=== PATIENT | male | born 1950 | race Caucasian/White ===

== ENCOUNTER 2016-11-02 10:37 | Inpatient (IN) | payer MEDICARE, MEDICAID ==
[~2016-11-02] VITALS: Ht 167.6 cm; Wt 92.6 kg
[~2016-11-02 10:37] MED LIST: ARIP15TA3 PO; ATOR40TA28 PO; LEVO125 PO; LISI-660 PO; PANT40TA25 PO; SERT50TA12 PO; SITA25 PO; TRAZ-144 PO
[2016-11-02 13:53] VITALS: BP 129/80
[2016-11-02] MEDS ORDERED: ZOLPIDEM TARTRATE 10 MG TABLET PO PRN (14:00)
[2016-11-02] MEDS ORDERED: HALOPERIDOL 5 MG TABLET PO PRN (14:00)
[2016-11-02] MEDS ORDERED: NITR0.4T27 SL (15:40)
[2016-11-02] MEDS ORDERED: TIOT185 IH (15:40)
[2016-11-02] MEDS ORDERED: HYDR-3971 PO (15:40)
[2016-11-02] MEDS ORDERED: ATOR40TA28 PO (15:40)
[2016-11-02] MEDS ORDERED: ALBU8HFA IH (15:40)
[2016-11-02] MEDS ORDERED: SERT100T12 PO (16:12)
[2016-11-02] MEDS ORDERED: LEVO200 PO (16:12)
[2016-11-02] MEDS ORDERED: INFLUENZA VIRUS VACCINE QVS 2016-17 (3YR+)/PF 60 MCG/0.5 ML SYRINGE IM ONE (16:15)
[2016-11-02 16:16] VITALS: BP 149/84
[2016-11-02 21:06] VITALS: BP 132/86
[2016-11-03 01:04] VITALS: BP 138/83
[2016-11-03] MEDS: LORazepam 2 MG TABLET PO PRN (01:04)
[2016-11-03 06:02] LABS: GLUCOSE,POINT OF CARE 149 MG/DL (70-110)
[2016-11-03] MEDS: LEVOTHYROXINE SODIUM 200 MCG TABLET PO SCH (06:51)
[2016-11-03 08:50] LABS: BASOPHILS % (AUTO) 0.5 % (0.0-2.0); EOSINOPHILS % (AUTO) 1.1 % (1.0-6.0); HEMATOCRIT 49.5 % (41-53); HEMOGLOBIN 16.1 g/dL (13.5-17.5); LYMPHOCYTES # (AUTO) 1.7 K/uL (1.0-4.8); LYMPHOCYTES % (AUTO) 16.7 % (22.0-44.0); MEAN CORPUSCULAR HEMOGLOBIN 28.2 pg (26.0-34.0); MEAN CORPUSCULAR HGB CONC 32.5 G/dL (31.0-37.0); MEAN CORPUSCULAR VOLUME 87 fL (80-100); MONOCYTES # (AUTO) 0.9 K/uL (0.1-1.0); MONOCYTES % (AUTO) 8.9 % (2.0-9.0); NEUTROPHILS # (AUTO) 7.3 K/uL (1.8-7.7); NEUTROPHILS % (AUTO) 72.8 % (40.0-70.0); PLATELET COUNT (AUTO) 263 K/uL (150-450); RED CELL DISTRIBUTION WIDTH 15.5 % (11.5-14.5); WHITE BLOOD COUNT (AUTO) 10.1 K/uL (4.5-11.0)
[2016-11-03 09:00] VITALS: BP 113/60
[2016-11-03] MEDS: NICOTINE 21 MG/24 HOUR PATCH TD SCH (09:00)
[2016-11-03 09:10] LABS: HEMOGLOBIN A1C 6.9 % (4.5-6.2)
[2016-11-03] MEDS ORDERED: IBUPROFEN 600 MG TABLET PO PRN (09:15)
[2016-11-03] MEDS ORDERED: LOPERAMIDE HCL 2 MG CAPSULE PO PRN (09:15)
[2016-11-03] MEDS ORDERED: BENZOCAINE/MENTHOL LOZENGE MM PRN (09:15)
[2016-11-03] MEDS ORDERED: MAG HYDROX/AL HYDROX/SIMETH ES 30 ML SUSPENSION UDCUP PO PRN (09:15)
[2016-11-03] MEDS ORDERED: ACETAMINOPHEN 325 MG TABLET PO PRN (09:15)
[2016-11-03] MEDS ORDERED: BACITRACIN 28.4 GM OINTMENT TP PRN (09:15)
[2016-11-03] MEDS ORDERED: CloNIDine HCL 0.1 MG TABLET PO PRN (09:15)
[2016-11-03] MEDS ORDERED: ONDANSETRON HCL 4 MG TABLET PO PRN (09:15)
[2016-11-03] MEDS ORDERED: PETROLATUM,WHITE 71 GM JELLY TP PRN (09:15)
[2016-11-03] MEDS: TERBINAFINE HCL 1% 30 GM CREAM TP SCH (09:15)
[2016-11-03] MEDS ORDERED: GLUCAGON,HUMAN RECOMBINANT 1 MG VIAL IM PRN (09:15)
[2016-11-03] MEDS ORDERED: MAGNESIUM HYDROXIDE SUSPENSION 30 ML UDCUP PO PRN (09:15)
[2016-11-03 09:21] LABS: ALANINE AMINOTRANSFERASE 23 U/L (12-78); ALBUMIN 3.7 g/dL (3.4-5.0); ANION GAP 10 mmol/L (8-16); ASPARTATE AMINOTRANSFERASE 19 U/L (15-37); BILIRUBIN,TOTAL 0.5 mg/dL (0.1-1.0); CALCIUM, TOTAL 8.6 mg/dL (8.8-10.5); CARBON DIOXIDE 28 mmol/L (22-29); CHLORIDE 102 mmol/L (98-107); CREATININE 1.11 mg/dL (0.60-1.30); GLOMERULAR FILTR. RATE CALC > 60 mL/min (>60); POTASSIUM 5.1 mmol/L (3.5-5.1); SODIUM SERUM 140 mmol/L (136-145); THYROID STIMULATING HORMONE 6.03 uIU/mL (0.36-3.74); TOTAL PROTEIN, SERUM 6.7 g/dL (6.4-8.2); UREA NITROGEN, BLOOD 11 mg/dL (7-18)
[2016-11-03] MEDS: SitaGLIPtin PHOSPHATE 25 MG TABLET PO SCH (10:10)
[2016-11-03] MEDS: PANTOPRAZOLE SODIUM 40 MG DR TABLET PO SCH (10:10)
[2016-11-03] MEDS: TIOTROPIUM BROMIDE 18 MCG/INH HANDIHALER [5] IH SCH (10:11)
[2016-11-03] MEDS: TAMSULOSIN HCL 0.4 MG CAPSULE PO SCH (10:18)
[2016-11-03] MEDS: ATORVASTATIN CALCIUM 40 MG TABLET PO SCH (10:18)
[2016-11-03 10:33] LABS: APPEARANCE,URINE CLEAR (CLEAR); GLUCOSE, URINE (UA) NEGATIVE (NEGATIVE); KETONES,URINE NEGATIVE (NEGATIVE); LEUKOCYTE ESTERASE ,URINE NEGATIVE (NEGATIVE); OCCULT BLOOD,URINE SMALL (NEGATIVE); PH,URINE 7.5 (5.0-8.0); PROTEIN,URINE NEGATIVE (NEGATIVE)
[2016-11-03] MEDS: ARIPiprazole 15 MG TABLET PO SCH (10:52)
[2016-11-03] MEDS: SERTRALINE HCL 50 MG TABLET PO SCH (10:52)
[2016-11-03 12:32] LABS: ADD UA MICROSCOPIC YES
[2016-11-03 12:35] LABS: WBC,URINE 0-2 /HPF (0-5)
[2016-11-03 12:36] LABS: SQUAMOUS EPITHELIAL CELL,UR Rare /LPF (None Seen)
[2016-11-03 15:57] LABS: GLUCOSE,POINT OF CARE 119 MG/DL (70-110)
[2016-11-03 16:17] VITALS: BP 129/62
[2016-11-03 17:02] LABS: GLUCOSE,POINT OF CARE 131 MG/DL (70-110)
[2016-11-03] MEDS: TraZODone HCL 100 MG TABLET PO SCH ×2 (20:25→21:00)
[2016-11-03 20:47] LABS: GLUCOSE,POINT OF CARE 135 MG/DL (70-110)
[2016-11-04 05:35] VITALS: BP 107/75
[2016-11-04] MEDS: LEVOTHYROXINE SODIUM 200 MCG TABLET PO SCH (06:22)
[2016-11-04] MEDS: INSULIN ASPART 100 UNITS/ML SQ PRN (06:23)
[2016-11-04 06:27] LABS: GLUCOSE,POINT OF CARE 155 MG/DL (70-110)
[2016-11-04 08:23] VITALS: BP 126/81
[2016-11-04] MEDS: SitaGLIPtin PHOSPHATE 25 MG TABLET PO SCH (09:37)
[2016-11-04] MEDS: TAMSULOSIN HCL 0.4 MG CAPSULE PO SCH (09:38)
[2016-11-04] MEDS: SERTRALINE HCL 50 MG TABLET PO SCH (09:38)
[2016-11-04] MEDS: CHOLECALCIFEROL (VIT D3) 1,000 UNITS TABLET PO SCH (09:38)
[2016-11-04] MEDS: ARIPiprazole 15 MG TABLET PO SCH (09:38)
[2016-11-04] MEDS: TIOTROPIUM BROMIDE 18 MCG/INH HANDIHALER [5] IH SCH (09:38)
[2016-11-04] MEDS: NICOTINE 21 MG/24 HOUR PATCH TD SCH (09:38)
[2016-11-04] MEDS: ATORVASTATIN CALCIUM 40 MG TABLET PO SCH (09:39)
[2016-11-04] MEDS: PANTOPRAZOLE SODIUM 40 MG DR TABLET PO SCH (09:39)
[2016-11-04] MEDS: TERBINAFINE HCL 1% 30 GM CREAM TP SCH (09:45)
[2016-11-04 11:07] LABS: GLUCOSE,POINT OF CARE 115 MG/DL (70-110)
[2016-11-04] MEDS: LORazepam 2 MG TABLET PO PRN (12:24)
[2016-11-04] MEDS: ALBUTEROL SULFATE HFA 90 MCG/PUFF 8 GM INHALER IH PRN (15:48)
[2016-11-04 16:12] VITALS: BP 118/60
[2016-11-04 20:12] LABS: GLUCOSE,POINT OF CARE 114 MG/DL (70-110)
[2016-11-04] MEDS: TraZODone HCL 100 MG TABLET PO SCH (20:30)
[2016-11-05 06:09] VITALS: BP 120/60
[2016-11-05] MEDS: LEVOTHYROXINE SODIUM 200 MCG TABLET PO SCH (06:32)
[2016-11-05 06:57] LABS: GLUCOSE,POINT OF CARE 138 MG/DL (70-110)
[2016-11-05] MEDS: NICOTINE 21 MG/24 HOUR PATCH TD SCH (09:00)
[2016-11-05] MEDS: TERBINAFINE HCL 1% 30 GM CREAM TP SCH (09:00)
[2016-11-05] MEDS: SitaGLIPtin PHOSPHATE 25 MG TABLET PO SCH (09:04)
[2016-11-05] MEDS: TAMSULOSIN HCL 0.4 MG CAPSULE PO SCH (09:05)
[2016-11-05] MEDS: TIOTROPIUM BROMIDE 18 MCG/INH HANDIHALER [5] IH SCH (09:05)
[2016-11-05] MEDS: ATORVASTATIN CALCIUM 40 MG TABLET PO SCH (09:05)
[2016-11-05] MEDS: PANTOPRAZOLE SODIUM 40 MG DR TABLET PO SCH (09:05)
[2016-11-05] MEDS: CHOLECALCIFEROL (VIT D3) 1,000 UNITS TABLET PO SCH (09:06)
[2016-11-05] MEDS: SERTRALINE HCL 50 MG TABLET PO SCH (09:06)
[2016-11-05] MEDS: ARIPiprazole 15 MG TABLET PO SCH (09:06)
[2016-11-05] MEDS: HYDROCODONE/ACETAMINOPHEN 10-325 MG TABLET PO PRN (09:09)
[2016-11-05 09:55] VITALS: BP 121/76
[2016-11-05 11:39] LABS: GLUCOSE,POINT OF CARE 165 MG/DL (70-110)
[2016-11-05] MEDS: ALBUTEROL SULFATE HFA 90 MCG/PUFF 8 GM INHALER IH PRN (14:02)
[2016-11-05 16:13] VITALS: BP 115/68
[2016-11-05 17:06] LABS: GLUCOSE,POINT OF CARE 133 MG/DL (70-110)
[2016-11-05] MEDS: TraZODone HCL 100 MG TABLET PO SCH (20:42)
[2016-11-05] MEDS: LORazepam 2 MG TABLET PO PRN (20:42)
[2016-11-06] MEDS: LEVOTHYROXINE SODIUM 200 MCG TABLET PO SCH (06:30)
[2016-11-06 08:41] VITALS: BP 124/77
[2016-11-06] MEDS: NICOTINE 21 MG/24 HOUR PATCH TD SCH (09:00)
[2016-11-06] MEDS: TERBINAFINE HCL 1% 30 GM CREAM TP SCH (09:00)
[2016-11-06 09:35] VITALS: BP 118/70
[2016-11-06] MEDS: HYDROCODONE/ACETAMINOPHEN 10-325 MG TABLET PO PRN (09:38)
[2016-11-06] MEDS: TAMSULOSIN HCL 0.4 MG CAPSULE PO SCH (09:39)
[2016-11-06] MEDS: TIOTROPIUM BROMIDE 18 MCG/INH HANDIHALER [5] IH SCH (09:39)
[2016-11-06] MEDS: ARIPiprazole 15 MG TABLET PO SCH (09:39)
[2016-11-06] MEDS: PANTOPRAZOLE SODIUM 40 MG DR TABLET PO SCH (09:40)
[2016-11-06] MEDS: ATORVASTATIN CALCIUM 40 MG TABLET PO SCH (09:40)
[2016-11-06] MEDS: SERTRALINE HCL 50 MG TABLET PO SCH (09:40)
[2016-11-06] MEDS: SitaGLIPtin PHOSPHATE 25 MG TABLET PO SCH (09:40)
[2016-11-06] MEDS: CHOLECALCIFEROL (VIT D3) 1,000 UNITS TABLET PO SCH (09:40)
[2016-11-06] MEDS: GABAPENTIN 300 MG CAPSULE PO SCH ×2 (10:32→16:41)
[2016-11-06 10:35] VITALS: BP 120/68
[2016-11-06 11:22] LABS: GLUCOSE,POINT OF CARE 112 MG/DL (70-110)
[2016-11-06 16:08] VITALS: BP 112/64
[2016-11-06 16:52] LABS: GLUCOSE,POINT OF CARE 144 MG/DL (70-110)
[2016-11-06] MEDS: INSULIN ASPART 100 UNITS/ML SQ PRN (17:12)
[2016-11-06] MEDS: TraZODone HCL 100 MG TABLET PO SCH (20:36)
[2016-11-07] MEDS: LEVOTHYROXINE SODIUM 200 MCG TABLET PO SCH (07:00)
[2016-11-07 07:01] LABS: GLUCOSE,POINT OF CARE 122 MG/DL (70-110)
[2016-11-07] MEDS: ALBUTEROL SULFATE HFA 90 MCG/PUFF 8 GM INHALER IH PRN (07:05)
[2016-11-07 08:17] VITALS: BP 126/71
[2016-11-07] MEDS: SitaGLIPtin PHOSPHATE 25 MG TABLET PO SCH (09:00)
[2016-11-07] MEDS: GABAPENTIN 300 MG CAPSULE PO SCH ×2 (09:00→16:55)
[2016-11-07] MEDS: ARIPiprazole 15 MG TABLET PO SCH (09:00)
[2016-11-07] MEDS: CHOLECALCIFEROL (VIT D3) 1,000 UNITS TABLET PO SCH (09:00)
[2016-11-07] MEDS: ATORVASTATIN CALCIUM 40 MG TABLET PO SCH (09:00)
[2016-11-07] MEDS: PANTOPRAZOLE SODIUM 40 MG DR TABLET PO SCH (09:00)
[2016-11-07] MEDS: SERTRALINE HCL 50 MG TABLET PO SCH (09:01)
[2016-11-07] MEDS: NICOTINE 21 MG/24 HOUR PATCH TD SCH (09:01)
[2016-11-07] MEDS: TAMSULOSIN HCL 0.4 MG CAPSULE PO SCH (09:01)
[2016-11-07] MEDS: HYDROCODONE/ACETAMINOPHEN 10-325 MG TABLET PO PRN ×2 (09:04→20:22)
[2016-11-07] MEDS: TERBINAFINE HCL 1% 30 GM CREAM TP SCH (09:04)
[2016-11-07] MEDS: TIOTROPIUM BROMIDE 18 MCG/INH HANDIHALER [5] IH SCH (09:24)
[2016-11-07 11:18] LABS: GLUCOSE,POINT OF CARE 142 MG/DL (70-110)
[2016-11-07] MEDS: INSULIN ASPART 100 UNITS/ML SQ PRN (12:23)
[2016-11-07 16:21] VITALS: BP 127/73
[2016-11-07 17:02] LABS: GLUCOSE,POINT OF CARE 112 MG/DL (70-110)
[2016-11-07 20:06] LABS: GLUCOSE,POINT OF CARE 129 MG/DL (70-110)
[2016-11-07 20:19] VITALS: BP 122/68
[2016-11-07] MEDS: TraZODone HCL 100 MG TABLET PO SCH (20:22)
[2016-11-08] MEDS: LEVOTHYROXINE SODIUM 200 MCG TABLET PO SCH (06:09)
[2016-11-08 06:12] LABS: GLUCOSE,POINT OF CARE 157 MG/DL (70-110)
[2016-11-08] MEDS: INSULIN ASPART 100 UNITS/ML SQ PRN (06:34)
[2016-11-08 08:23] VITALS: BP 113/67
[2016-11-08] MEDS: GABAPENTIN 300 MG CAPSULE PO SCH ×2 (09:21→17:07)
[2016-11-08] MEDS: TIOTROPIUM BROMIDE 18 MCG/INH HANDIHALER [5] IH SCH (09:21)
[2016-11-08] MEDS: CHOLECALCIFEROL (VIT D3) 1,000 UNITS TABLET PO SCH (09:22)
[2016-11-08] MEDS: SERTRALINE HCL 100 MG TABLET PO SCH (09:22)
[2016-11-08] MEDS: PANTOPRAZOLE SODIUM 40 MG DR TABLET PO SCH (09:22)
[2016-11-08] MEDS: ARIPiprazole 10 MG TABLET PO SCH (09:22)
[2016-11-08] MEDS: SitaGLIPtin PHOSPHATE 25 MG TABLET PO SCH (09:23)
[2016-11-08] MEDS: NICOTINE 21 MG/24 HOUR PATCH TD SCH (09:24)
[2016-11-08] MEDS: TERBINAFINE HCL 1% 30 GM CREAM TP SCH (09:25)
[2016-11-08] MEDS: ATORVASTATIN CALCIUM 40 MG TABLET PO SCH (10:25)
[2016-11-08] MEDS: TAMSULOSIN HCL 0.4 MG CAPSULE PO SCH (10:25)
[2016-11-08 11:17] LABS: GLUCOSE,POINT OF CARE 123 MG/DL (70-110)
[2016-11-08 13:47] VITALS: BP 124/81
[2016-11-08 16:13] VITALS: BP 134/85
[2016-11-08] MEDS: LORazepam 2 MG TABLET PO PRN (20:45)
[2016-11-08] MEDS: TraZODone HCL 100 MG TABLET PO SCH (20:45)
[2016-11-09 04:44] VITALS: BP 148/86
[2016-11-09] MEDS: HYDROCODONE/ACETAMINOPHEN 10-325 MG TABLET PO PRN ×2 (05:12→19:22)
[2016-11-09 05:57] LABS: GLUCOSE,POINT OF CARE 109 MG/DL (70-110)
[2016-11-09] MEDS: LEVOTHYROXINE SODIUM 200 MCG TABLET PO SCH (06:15)
[2016-11-09 08:00] VITALS: BP 119/72
[2016-11-09] MEDS: GABAPENTIN 300 MG CAPSULE PO SCH ×2 (09:25→16:47)
[2016-11-09] MEDS: PANTOPRAZOLE SODIUM 40 MG DR TABLET PO SCH (09:25)
[2016-11-09] MEDS: CHOLECALCIFEROL (VIT D3) 1,000 UNITS TABLET PO SCH (09:25)
[2016-11-09] MEDS: NICOTINE 21 MG/24 HOUR PATCH TD SCH (09:25)
[2016-11-09] MEDS: SERTRALINE HCL 100 MG TABLET PO SCH (09:25)
[2016-11-09] MEDS: ARIPiprazole 10 MG TABLET PO SCH (09:25)
[2016-11-09] MEDS: TIOTROPIUM BROMIDE 18 MCG/INH HANDIHALER [5] IH SCH (09:26)
[2016-11-09] MEDS: SitaGLIPtin PHOSPHATE 25 MG TABLET PO SCH (09:26)
[2016-11-09] MEDS: ATORVASTATIN CALCIUM 40 MG TABLET PO SCH (09:27)
[2016-11-09] MEDS: TERBINAFINE HCL 1% 30 GM CREAM TP SCH (09:28)
[2016-11-09] MEDS: TAMSULOSIN HCL 0.4 MG CAPSULE PO SCH (09:52)
[2016-11-09 11:28] LABS: GLUCOSE,POINT OF CARE 84 MG/DL (70-110)
[2016-11-09 16:40] VITALS: BP 129/77
[2016-11-09 16:52] LABS: GLUCOSE,POINT OF CARE 125 MG/DL (70-110)
[2016-11-09] MEDS: TraZODone HCL 100 MG TABLET PO SCH (20:53)
[2016-11-09 21:08] LABS: GLUCOSE,POINT OF CARE 123 MG/DL (70-110)
[2016-11-10 00:04] VITALS: BP 129/77
[2016-11-10] MEDS: LORazepam 2 MG TABLET PO PRN (00:44)
[2016-11-10] MEDS: ALBUTEROL SULFATE HFA 90 MCG/PUFF 8 GM INHALER IH PRN (06:11)
[2016-11-10] MEDS: LEVOTHYROXINE SODIUM 200 MCG TABLET PO SCH (06:55)
[2016-11-10 07:06] LABS: GLUCOSE,POINT OF CARE 134 MG/DL (70-110)
[2016-11-10 08:52] VITALS: BP 141/91
[2016-11-10] MEDS: TERBINAFINE HCL 1% 30 GM CREAM TP SCH (09:00)
[2016-11-10] MEDS ORDERED: ASPIRIN 81 MG CHEWABLE TABLET PO SCH (09:00)
[2016-11-10] MEDS: ARIPiprazole 10 MG TABLET PO SCH (09:01)
[2016-11-10] MEDS: CHOLECALCIFEROL (VIT D3) 1,000 UNITS TABLET PO SCH (09:02)
[2016-11-10] MEDS: ATORVASTATIN CALCIUM 40 MG TABLET PO SCH (09:02)
[2016-11-10] MEDS: PANTOPRAZOLE SODIUM 40 MG DR TABLET PO SCH (09:02)
[2016-11-10] MEDS: TAMSULOSIN HCL 0.4 MG CAPSULE PO SCH (09:02)
[2016-11-10] MEDS: SitaGLIPtin PHOSPHATE 25 MG TABLET PO SCH (09:02)
[2016-11-10] MEDS: GABAPENTIN 300 MG CAPSULE PO SCH (09:02)
[2016-11-10] MEDS: SERTRALINE HCL 100 MG TABLET PO SCH (09:03)
[2016-11-10] MEDS: TIOTROPIUM BROMIDE 18 MCG/INH HANDIHALER [5] IH SCH (09:03)
[2016-11-10] MEDS: HYDROCODONE/ACETAMINOPHEN 10-325 MG TABLET PO PRN (09:03)
[2016-11-10] MEDS: NICOTINE 21 MG/24 HOUR PATCH TD SCH (09:12)
[2016-11-10] MEDS ORDERED: VITAD1000 PO (10:09)
[2016-11-10] MEDS ORDERED: TAMS0.4C32 PO (10:09)
== END 2016-11-10 10:00 | disposition home or self-care (01) | DRG 885 ==
LOC: B2S 14:25 → EDSTATUS 14:36
PROVIDERS: ADMIT Psychiatry & Neurology Child & Adolescent Psychiatry; ATTEND Psychiatry & Neurology Child & Adolescent Psychiatry
DX: F25.0 Schizoaffective disorder, bipolar type (principal); F10.239 Alcohol dependence with withdrawal, unspecified; J44.9 Chronic obstructive pulmonary disease, unspecified; I25.10 Atherosclerotic heart disease of native coronary artery without angina pectoris; E03.9 Hypothyroidism, unspecified; I10 Essential (primary) hypertension; E11.65 Type 2 diabetes mellitus with hyperglycemia; F22 Delusional disorders; K59.00 Constipation, unspecified; F17.200 Nicotine dependence, unspecified, uncomplicated; E78.5 Hyperlipidemia, unspecified; K21.9 Gastro-esophageal reflux disease without esophagitis; N40.0 Benign prostatic hyperplasia without lower urinary tract symptoms; B35.3 Tinea pedis; E66.9 Obesity, unspecified; Z68.33 Body mass index [BMI] 33.0-33.9, adult; Z71.6 Tobacco abuse counseling; Z79.82 Long term (current) use of aspirin; Z91.14 Patient's other noncompliance with medication regimen; Z88.8 Allergy status to other drugs, medicaments and biological substances; Z95.1 Presence of aortocoronary bypass graft; Z91.81 History of falling
CPT/HCPCS: 82962; 83036; 84439; 84443; 87081; 90471; J3535; Q0162

== ENCOUNTER 2016-11-20 16:25 | Inpatient (IN) | payer MEDICARE, MEDICAID ==
[~2016-11-20] VITALS: Ht 167.6 cm; Wt 92.2 kg
[~2016-11-20 16:25] MED LIST changes: -LEVO125 PO; -LISI-660 PO; +SERT100T12 PO; -SERT50TA12 PO; +TAMS0.4C32 PO; -TRAZ-144 PO; +VITAD1000 PO
[2016-11-20 20:08] VITALS: BP 145/84
[2016-11-20] MEDS ORDERED: HALOPERIDOL 5 MG TABLET PO PRN (21:15)
[2016-11-20 21:54] VITALS: BP 143/78
[2016-11-20] MEDS ORDERED: PNEUMOCOCCAL VACCINE POLYVALENT 0.5 ML VIAL [PPSV23] IM ONE (22:45)
[2016-11-21 08:19] LABS: BASOPHILS # (AUTO) 0.03 K/uL (0.00-0.20); BASOPHILS % (AUTO) 0.3 % (0.0-2.0); EOSINOPHILS # (AUTO) 0.17 K/uL (0.00-0.70); EOSINOPHILS % (AUTO) 1.49 % (1.0-6.0); HEMATOCRIT 44.2 % (41-53); HEMOGLOBIN 14.6 g/dL (13.5-17.5); LYMPHOCYTES # (AUTO) 1.6 K/uL (1.0-4.8); MEAN CORPUSCULAR HEMOGLOBIN 28.4 pg (26.0-34.0); MEAN CORPUSCULAR HGB CONC 33.1 G/dL (31.0-37.0); MEAN CORPUSCULAR VOLUME 86 fL (80-100); MONOCYTES # (AUTO) 0.8 K/uL (0.1-1.0); MONOCYTES % (AUTO) 7.4 % (2.0-9.0); NEUTROPHILS # (AUTO) 8.6 K/uL (1.8-7.7); NEUTROPHILS % (AUTO) 76.8 % (40.0-70.0); PLATELET COUNT (AUTO) 278 K/uL (150-450); RED BLOOD CELL COUNT(AUTO) 5.14 MIL/uL (4.50-5.90); WHITE BLOOD COUNT (AUTO) 11.2 K/uL (4.5-11.0)
[2016-11-21 08:29] VITALS: BP 134/80
[2016-11-21] MEDS ORDERED: LOPERAMIDE HCL 2 MG CAPSULE PO PRN (08:45)
[2016-11-21] MEDS ORDERED: MAGNESIUM HYDROXIDE SUSPENSION 30 ML UDCUP PO PRN (08:45)
[2016-11-21] MEDS ORDERED: ALBUTEROL SULFATE HFA 90 MCG/PUFF 8 GM INHALER IH PRN (08:45)
[2016-11-21] MEDS ORDERED: MAG HYDROX/AL HYDROX/SIMETH ES 30 ML SUSPENSION UDCUP PO PRN (08:45)
[2016-11-21] MEDS ORDERED: ACETAMINOPHEN 325 MG TABLET PO PRN (08:45)
[2016-11-21] MEDS ORDERED: PETROLATUM,WHITE 71 GM JELLY TP PRN (08:45)
[2016-11-21] MEDS ORDERED: BENZOCAINE/MENTHOL LOZENGE MM PRN (08:45)
[2016-11-21] MEDS ORDERED: BACITRACIN 28.4 GM OINTMENT TP PRN (08:45)
[2016-11-21] MEDS ORDERED: ONDANSETRON HCL 4 MG TABLET PO PRN (08:45)
[2016-11-21] MEDS ORDERED: CloNIDine HCL 0.1 MG TABLET PO PRN (08:45)
[2016-11-21 08:48] LABS: ALANINE AMINOTRANSFERASE 28 U/L (12-78); ALBUMIN 3.4 g/dL (3.4-5.0); ANION GAP 11 mmol/L (8-16); ASPARTATE AMINOTRANSFERASE 17 U/L (15-37); BILIRUBIN,TOTAL 0.3 mg/dL (0.1-1.0); CALCIUM, TOTAL 8.7 mg/dL (8.8-10.5); CARBON DIOXIDE 25 mmol/L (22-29); CHLORIDE 100 mmol/L (98-107); CREATININE 1.09 mg/dL (0.60-1.30); GLOMERULAR FILTR. RATE CALC > 60 mL/min (>60); POTASSIUM 4.7 mmol/L (3.5-5.1); SODIUM SERUM 136 mmol/L (136-145); TOTAL PROTEIN, SERUM 6.3 g/dL (6.4-8.2); UREA NITROGEN, BLOOD 15 mg/dL (7-18)
[2016-11-21] MEDS: SitaGLIPtin PHOSPHATE 25 MG TABLET PO SCH (08:54)
[2016-11-21] MEDS: TAMSULOSIN HCL 0.4 MG CAPSULE PO SCH (08:54)
[2016-11-21] MEDS: ATORVASTATIN CALCIUM 40 MG TABLET PO SCH (08:55)
[2016-11-21] MEDS: CHOLECALCIFEROL (VIT D3) 1,000 UNITS TABLET PO SCH (08:55)
[2016-11-21] MEDS: PANTOPRAZOLE SODIUM 40 MG DR TABLET PO SCH (08:55)
[2016-11-21] MEDS: IBUPROFEN 600 MG TABLET PO PRN ×2 (14:29→20:23)
[2016-11-21] MEDS: LORazepam 2 MG TABLET PO PRN ×2 (14:30→20:23)
[2016-11-21 16:00] VITALS: BP 141/83
[2016-11-21] MEDS: SERTRALINE HCL 100 MG TABLET PO SCH (20:22)
[2016-11-21] MEDS: TraZODone HCL 50 MG TABLET PO SCH (21:08)
[2016-11-22 02:13] VITALS: BP 135/85
[2016-11-22] MEDS: ZOLPIDEM TARTRATE 10 MG TABLET PO PRN ×2 (02:13→22:34)
[2016-11-22] MEDS ORDERED: LEVOTHYROXINE SODIUM 50 MCG TABLET PO SCH (06:30)
[2016-11-22] MEDS: PANTOPRAZOLE SODIUM 40 MG DR TABLET PO SCH (08:15)
[2016-11-22] MEDS: ARIPiprazole 5 MG TABLET PO SCH (08:15)
[2016-11-22] MEDS: CHOLECALCIFEROL (VIT D3) 1,000 UNITS TABLET PO SCH (08:15)
[2016-11-22] MEDS: ATORVASTATIN CALCIUM 40 MG TABLET PO SCH (08:15)
[2016-11-22] MEDS: TAMSULOSIN HCL 0.4 MG CAPSULE PO SCH (08:16)
[2016-11-22] MEDS: SitaGLIPtin PHOSPHATE 25 MG TABLET PO SCH (08:22)
[2016-11-22 08:24] VITALS: BP 151/87
[2016-11-22 16:00] VITALS: BP 134/73
[2016-11-22] MEDS: SERTRALINE HCL 100 MG TABLET PO SCH (20:31)
[2016-11-22] MEDS: TraZODone HCL 50 MG TABLET PO SCH (20:31)
[2016-11-22] MEDS: HYDROCODONE/ACETAMINOPHEN 10-325 MG TABLET PO PRN (20:34)
[2016-11-22] MEDS: IBUPROFEN 600 MG TABLET PO PRN (22:35)
[2016-11-23] VITALS (7 sets, daily range): BP systolic 110–139; BP diastolic 71–79
[2016-11-23] MEDS: LORazepam 2 MG TABLET PO PRN (02:25)
[2016-11-23] MEDS: LEVOTHYROXINE SODIUM 200 MCG TABLET PO SCH (06:42)
[2016-11-23] MEDS: PANTOPRAZOLE SODIUM 40 MG DR TABLET PO SCH (08:52)
[2016-11-23] MEDS: TAMSULOSIN HCL 0.4 MG CAPSULE PO SCH (08:52)
[2016-11-23] MEDS: ATORVASTATIN CALCIUM 40 MG TABLET PO SCH (08:52)
[2016-11-23] MEDS: CHOLECALCIFEROL (VIT D3) 1,000 UNITS TABLET PO SCH (08:53)
[2016-11-23] MEDS: ARIPiprazole 5 MG TABLET PO SCH (08:55)
[2016-11-23] MEDS: SitaGLIPtin PHOSPHATE 25 MG TABLET PO SCH (08:58)
[2016-11-23] MEDS: IBUPROFEN 600 MG TABLET PO PRN ×2 (14:52→23:48)
[2016-11-23] MEDS: TraZODone HCL 50 MG TABLET PO SCH (20:35)
[2016-11-23] MEDS: HYDROCODONE/ACETAMINOPHEN 10-325 MG TABLET PO PRN (20:36)
[2016-11-23] MEDS: SERTRALINE HCL 100 MG TABLET PO SCH (20:36)
[2016-11-23] MEDS: ZOLPIDEM TARTRATE 10 MG TABLET PO PRN (23:48)
[2016-11-24] MEDS: LORazepam 2 MG TABLET PO PRN ×2 (01:45→12:41)
[2016-11-24 05:54] VITALS: BP 116/74
[2016-11-24] MEDS: LEVOTHYROXINE SODIUM 200 MCG TABLET PO SCH (05:59)
[2016-11-24] MEDS: IBUPROFEN 600 MG TABLET PO PRN (06:00)
[2016-11-24 08:08] VITALS: BP 133/68
[2016-11-24] MEDS: ARIPiprazole 5 MG TABLET PO SCH (08:56)
[2016-11-24] MEDS: ATORVASTATIN CALCIUM 40 MG TABLET PO SCH (08:56)
[2016-11-24] MEDS: PANTOPRAZOLE SODIUM 40 MG DR TABLET PO SCH (08:56)
[2016-11-24] MEDS: CHOLECALCIFEROL (VIT D3) 1,000 UNITS TABLET PO SCH (08:56)
[2016-11-24] MEDS: TAMSULOSIN HCL 0.4 MG CAPSULE PO SCH (08:57)
[2016-11-24] MEDS: SitaGLIPtin PHOSPHATE 25 MG TABLET PO SCH (09:00)
[2016-11-24 16:00] VITALS: BP 133/77
[2016-11-24] MEDS: HYDROCODONE/ACETAMINOPHEN 10-325 MG TABLET PO PRN (19:44)
[2016-11-24] MEDS: SERTRALINE HCL 100 MG TABLET PO SCH (20:03)
[2016-11-24] MEDS: TraZODone HCL 50 MG TABLET PO SCH (20:03)
[2016-11-24] MEDS: ZOLPIDEM TARTRATE 10 MG TABLET PO PRN (21:52)
[2016-11-25 00:33] VITALS: BP 140/79
[2016-11-25] MEDS: IBUPROFEN 600 MG TABLET PO PRN ×2 (00:41→06:25)
[2016-11-25 01:01] VITALS: BP 140/79
[2016-11-25] MEDS: LEVOTHYROXINE SODIUM 200 MCG TABLET PO SCH (06:10)
[2016-11-25] MEDS: CHOLECALCIFEROL (VIT D3) 1,000 UNITS TABLET PO SCH (08:49)
[2016-11-25] MEDS: ARIPiprazole 5 MG TABLET PO SCH (08:49)
[2016-11-25] MEDS: PANTOPRAZOLE SODIUM 40 MG DR TABLET PO SCH (08:49)
[2016-11-25] MEDS: SitaGLIPtin PHOSPHATE 25 MG TABLET PO SCH (08:50)
[2016-11-25] MEDS: ATORVASTATIN CALCIUM 40 MG TABLET PO SCH (08:50)
[2016-11-25] MEDS: TAMSULOSIN HCL 0.4 MG CAPSULE PO SCH (08:50)
[2016-11-25] MEDS ORDERED: CHOLECALCIFEROL (VIT D3) 1,000 UNITS TABLET PO SCH (09:00)
[2016-11-25 11:14] VITALS: BP 148/73
[2016-11-25 16:00] VITALS: BP 150/86
[2016-11-25] MEDS: LORazepam 2 MG TABLET PO PRN (16:46)
[2016-11-25 19:30] VITALS: BP 133/76
[2016-11-25] MEDS: HYDROCODONE/ACETAMINOPHEN 10-325 MG TABLET PO PRN (19:46)
[2016-11-25] MEDS: TraZODone HCL 50 MG TABLET PO SCH (20:25)
[2016-11-25] MEDS: SERTRALINE HCL 100 MG TABLET PO SCH (20:25)
[2016-11-25] MEDS: ZOLPIDEM TARTRATE 10 MG TABLET PO PRN (21:50)
[2016-11-26] VITALS: BP 142/75
[2016-11-26] MEDS: LORazepam 2 MG TABLET PO PRN
[2016-11-26 00:47] VITALS: BP 142/75
[2016-11-26] MEDS: LEVOTHYROXINE SODIUM 200 MCG TABLET PO SCH (06:49)
[2016-11-26 08:11] VITALS: BP 132/77
[2016-11-26] MEDS: SitaGLIPtin PHOSPHATE 25 MG TABLET PO SCH (09:03)
[2016-11-26] MEDS: TAMSULOSIN HCL 0.4 MG CAPSULE PO SCH (09:03)
[2016-11-26] MEDS: CHOLECALCIFEROL (VIT D3) 1,000 UNITS TABLET PO SCH (09:03)
[2016-11-26] MEDS: ATORVASTATIN CALCIUM 40 MG TABLET PO SCH (09:03)
[2016-11-26] MEDS: PANTOPRAZOLE SODIUM 40 MG DR TABLET PO SCH (09:03)
[2016-11-26] MEDS: ARIPiprazole 5 MG TABLET PO SCH (09:03)
[2016-11-26 16:10] VITALS: BP 139/86
[2016-11-26] MEDS: SERTRALINE HCL 100 MG TABLET PO SCH (21:12)
[2016-11-26] MEDS: TraZODone HCL 50 MG TABLET PO SCH (21:12)
[2016-11-26] MEDS: HYDROCODONE/ACETAMINOPHEN 10-325 MG TABLET PO PRN (21:14)
[2016-11-27 00:22] VITALS: BP 115/73
[2016-11-27] MEDS: IBUPROFEN 600 MG TABLET PO PRN ×2 (00:31→11:53)
[2016-11-27] MEDS: ZOLPIDEM TARTRATE 10 MG TABLET PO PRN (00:32)
[2016-11-27] MEDS: LEVOTHYROXINE SODIUM 200 MCG TABLET PO SCH (06:42)
[2016-11-27 08:29] VITALS: BP 144/92
[2016-11-27] MEDS: SitaGLIPtin PHOSPHATE 25 MG TABLET PO SCH (09:00)
[2016-11-27] MEDS: TAMSULOSIN HCL 0.4 MG CAPSULE PO SCH (09:01)
[2016-11-27] MEDS: ARIPiprazole 5 MG TABLET PO SCH (09:01)
[2016-11-27] MEDS: HYDROCODONE/ACETAMINOPHEN 10-325 MG TABLET PO PRN ×2 (09:02→20:50)
[2016-11-27] MEDS: PANTOPRAZOLE SODIUM 40 MG DR TABLET PO SCH (09:02)
[2016-11-27] MEDS: TIOTROPIUM BROMIDE 18 MCG/INH HANDIHALER [5] IH SCH (09:02)
[2016-11-27] MEDS: CHOLECALCIFEROL (VIT D3) 1,000 UNITS TABLET PO SCH (09:02)
[2016-11-27] MEDS: ATORVASTATIN CALCIUM 40 MG TABLET PO SCH (09:02)
[2016-11-27] MEDS: LORazepam 2 MG TABLET PO PRN (11:52)
[2016-11-27] MEDS ORDERED: HYDROCORTISONE 1% 120 ML LOTION TP PRN (15:00)
[2016-11-27 16:14] VITALS: BP 118/72
[2016-11-27] MEDS: SERTRALINE HCL 100 MG TABLET PO SCH (20:43)
[2016-11-27] MEDS: TraZODone HCL 50 MG TABLET PO SCH (20:43)
[2016-11-27 20:50] VITALS: BP 128/84
[2016-11-28 00:44] VITALS: BP 114/78
[2016-11-28] MEDS: IBUPROFEN 600 MG TABLET PO PRN (00:48)
[2016-11-28] MEDS: ZOLPIDEM TARTRATE 10 MG TABLET PO PRN (00:48)
[2016-11-28 02:07] VITALS: BP 132/86
[2016-11-28] MEDS: LORazepam 2 MG TABLET PO PRN (02:11)
[2016-11-28] MEDS: LEVOTHYROXINE SODIUM 200 MCG TABLET PO SCH (06:36)
[2016-11-28] MEDS ORDERED: NITROGLYCERIN 0.4 MG SUBLINGUAL TABLET #25 SL PRN (06:45)
[2016-11-28 06:55] VITALS: BP 126/85
[2016-11-28] MEDS: ARIPiprazole 5 MG TABLET PO SCH ×2 (09:00→10:35)
[2016-11-28] MEDS: CHOLECALCIFEROL (VIT D3) 1,000 UNITS TABLET PO SCH ×2 (09:00→10:35)
[2016-11-28] MEDS: ATORVASTATIN CALCIUM 40 MG TABLET PO SCH ×2 (09:00→10:35)
[2016-11-28] MEDS: SitaGLIPtin PHOSPHATE 25 MG TABLET PO SCH (09:00)
[2016-11-28] MEDS: PANTOPRAZOLE SODIUM 40 MG DR TABLET PO SCH ×2 (09:00→10:35)
[2016-11-28] MEDS: TAMSULOSIN HCL 0.4 MG CAPSULE PO SCH ×2 (09:00→10:35)
[2016-11-28] MEDS: TIOTROPIUM BROMIDE 18 MCG/INH HANDIHALER [5] IH SCH ×2 (09:00→10:35)
[2016-11-28] MEDS ORDERED: SERT100T12 PO (10:47)
[2016-11-28] MEDS ORDERED: TIOT185 IH (10:47)
[2016-11-28] MEDS ORDERED: LEVO100T4 PO (10:47)
[2016-11-28] MEDS ORDERED: ARIP5TAB9 PO (10:47)
[2016-11-28] MEDS ORDERED: TRAZ-144 PO (10:47)
== END 2016-11-28 12:30 | disposition home or self-care (01) | DRG 885 ==
LOC: B3A 21:17 → EDSTATUS 21:20 → B2S 11-25 13:09
PROVIDERS: ADMIT Psychiatry & Neurology Child & Adolescent Psychiatry; ATTEND Psychiatry & Neurology Child & Adolescent Psychiatry
DX: F33.2 Major depressive disorder, recurrent severe without psychotic features (principal); R45.851 Suicidal ideations; F25.0 Schizoaffective disorder, bipolar type; J44.9 Chronic obstructive pulmonary disease, unspecified; I25.10 Atherosclerotic heart disease of native coronary artery without angina pectoris; K21.9 Gastro-esophageal reflux disease without esophagitis; N40.0 Benign prostatic hyperplasia without lower urinary tract symptoms; E78.5 Hyperlipidemia, unspecified; E03.9 Hypothyroidism, unspecified; E66.9 Obesity, unspecified; Z96.698 Presence of other orthopedic joint implants; K59.00 Constipation, unspecified; E11.40 Type 2 diabetes mellitus with diabetic neuropathy, unspecified; M19.90 Unspecified osteoarthritis, unspecified site; G47.00 Insomnia, unspecified; E58 Dietary calcium deficiency; E55.9 Vitamin D deficiency, unspecified; R45.850 Homicidal ideations; Z53.29 Procedure and treatment not carried out because of patient's decision for other reasons; D17.9 Benign lipomatous neoplasm, unspecified; F17.200 Nicotine dependence, unspecified, uncomplicated; I10 Essential (primary) hypertension; Z95.1 Presence of aortocoronary bypass graft; Z71.6 Tobacco abuse counseling; Z88.8 Allergy status to other drugs, medicaments and biological substances; Z91.5 Personal history of self-harm; Z28.21 Immunization not carried out because of patient refusal; Z68.32 Body mass index [BMI] 32.0-32.9, adult
CPT/HCPCS: 82306; 87081; J3535

== ENCOUNTER 2016-12-21 16:40 | Inpatient (IN) | payer MEDICARE, MEDICAID ==
[~2016-12-21] VITALS: Ht 167.6 cm; Wt 95.5 kg
[~2016-12-21 16:40] MED LIST changes: -ARIP15TA3 PO; +ARIP5TAB9 PO; +LEVO100T4 PO; +TIOT185 IH; +TRAZ-144 PO
[2016-12-21] MEDS ORDERED: HALOPERIDOL 5 MG TABLET PO PRN (17:15)
[2016-12-21 17:18] VITALS: BP 149/86
[2016-12-21] MEDS ORDERED: PNEUMOCOCCAL VACCINE POLYVALENT 0.5 ML VIAL [PPSV23] IM ONE (18:00)
[2016-12-21 18:11] VITALS: BP 156/82
[2016-12-21 18:27] LABS: GLUCOSE,POINT OF CARE 169 MG/DL (70-110)
[2016-12-21] MEDS ORDERED: INSULIN ASPART 100 UNITS/ML SQ PRN (19:00)
[2016-12-21] MEDS ORDERED: GLUCAGON,HUMAN RECOMBINANT 1 MG VIAL IM PRN (19:00)
[2016-12-21] MEDS ORDERED: CloNIDine HCL 0.1 MG TABLET PO PRN (19:00)
[2016-12-21 20:10] VITALS: BP 145/75
[2016-12-21] MEDS: TraZODone HCL 50 MG TABLET PO SCH (20:28)
[2016-12-22 06:22] LABS: GLUCOSE,POINT OF CARE 151 MG/DL (70-110)
[2016-12-22 07:51] LABS: BASOPHILS % (AUTO) 0.2 % (0.0-2.0); EOSINOPHILS % (AUTO) 1.3 % (1.0-6.0); HEMATOCRIT 50.5 % (41-53); HEMOGLOBIN 16.3 g/dL (13.5-17.5); LYMPHOCYTES # (AUTO) 1.5 K/uL (1.0-4.8); LYMPHOCYTES % (AUTO) 9.5 % (22.0-44.0); MEAN CORPUSCULAR HEMOGLOBIN 27.9 pg (26.0-34.0); MEAN CORPUSCULAR HGB CONC 32.3 G/dL (31.0-37.0); MEAN CORPUSCULAR VOLUME 87 fL (80-100); MONOCYTES % (AUTO) 6.2 % (2.0-9.0); NEUTROPHILS # (AUTO) 12.8 K/uL (1.8-7.7); NEUTROPHILS % (AUTO) 82.8 % (40.0-70.0); PLATELET COUNT (AUTO) 278 K/uL (150-450); RED BLOOD CELL COUNT(AUTO) 5.83 MIL/uL (4.50-5.90); RED CELL DISTRIBUTION WIDTH 16.4 % (11.5-14.5); WHITE BLOOD COUNT (AUTO) 15.5 K/uL (4.5-11.0)
[2016-12-22 08:09] VITALS: BP 115/66
[2016-12-22] MEDS: ATORVASTATIN CALCIUM 40 MG TABLET PO SCH (08:10)
[2016-12-22] MEDS: TAMSULOSIN HCL 0.4 MG CAPSULE PO SCH (08:11)
[2016-12-22] MEDS: SERTRALINE HCL 100 MG TABLET PO SCH (08:12)
[2016-12-22] MEDS: PANTOPRAZOLE SODIUM 40 MG DR TABLET PO SCH (08:12)
[2016-12-22] MEDS: ASPIRIN 81 MG CHEWABLE TABLET PO SCH (08:12)
[2016-12-22 08:19] LABS: ALANINE AMINOTRANSFERASE 23 U/L (12-78); ALBUMIN 3.5 g/dL (3.4-5.0); ANION GAP 12 mmol/L (8-16); ASPARTATE AMINOTRANSFERASE 18 U/L (15-37); BILIRUBIN,TOTAL 0.5 mg/dL (0.1-1.0); CALCIUM, TOTAL 8.8 mg/dL (8.8-10.5); CARBON DIOXIDE 24 mmol/L (22-29); CHLORIDE 104 mmol/L (98-107); CHOL/HDL RATIO 7.1 (4.2-7.3); CREATININE 1.18 mg/dL (0.60-1.30); GLOMERULAR FILTR. RATE CALC > 60 mL/min (>60); POTASSIUM 4.1 mmol/L (3.5-5.1); SODIUM SERUM 140 mmol/L (136-145); UREA NITROGEN, BLOOD 11 mg/dL (7-18)
[2016-12-22] MEDS ORDERED: NITROGLYCERIN 0.4 MG SUBLINGUAL TABLET #25 SL PRN (08:30)
[2016-12-22] MEDS ORDERED: ARIPiprazole 10 MG TABLET PO SCH (09:00)
[2016-12-22] MEDS: NICOTINE 21 MG/24 HOUR PATCH TD SCH (09:17)
[2016-12-22] MEDS: CHOLECALCIFEROL (VIT D3) 1,000 UNITS TABLET PO SCH (09:47)
[2016-12-22] MEDS: TIOTROPIUM BROMIDE 18 MCG/INH HANDIHALER [5] IH SCH (13:26)
[2016-12-22 16:00] VITALS: BP 132/82
[2016-12-22 16:42] LABS: GLUCOSE,POINT OF CARE 113 MG/DL (70-110)
[2016-12-22 17:43] LABS: HEMOGLOBIN A1C 6.8 % (4.5-6.2)
[2016-12-22 20:24] VITALS: BP 140/75
[2016-12-22] MEDS: HYDROCODONE/ACETAMINOPHEN 5-325 MG TABLET PO PRN (20:24)
[2016-12-22] MEDS: TraZODone HCL 50 MG TABLET PO SCH (20:25)
[2016-12-22] MEDS: OLANZapine 10 MG TABLET PO SCH (20:25)
[2016-12-22] MEDS ORDERED: SIMVASTATIN 10 MG TABLET PO SCH (21:00)
[2016-12-23 01:57] VITALS: BP 108/77
[2016-12-23 06:27] LABS: GLUCOSE,POINT OF CARE 119 MG/DL (70-110)
[2016-12-23] MEDS: LEVOTHYROXINE SODIUM 100 MCG TABLET PO SCH (06:40)
[2016-12-23 08:49] LABS: BASOPHILS % (AUTO) 0.4 % (0.0-2.0); EOSINOPHILS % (AUTO) 1.7 % (1.0-6.0); MEAN CORPUSCULAR HEMOGLOBIN 28.2 pg (26.0-34.0); MEAN CORPUSCULAR VOLUME 88 fL (80-100); MONOCYTES # (AUTO) 1.1 K/uL (0.1-1.0); MONOCYTES % (AUTO) 9.8 % (2.0-9.0); NEUTROPHILS # (AUTO) 7.7 K/uL (1.8-7.7); NEUTROPHILS % (AUTO) 70.1 % (40.0-70.0); PLATELET COUNT (AUTO) 254 K/uL (150-450); RED BLOOD CELL COUNT(AUTO) 5.68 MIL/uL (4.50-5.90); RED CELL DISTRIBUTION WIDTH 16.1 % (11.5-14.5)
[2016-12-23 10:05] VITALS: BP 110/70
[2016-12-23] MEDS: PANTOPRAZOLE SODIUM 40 MG DR TABLET PO SCH (10:07)
[2016-12-23] MEDS: CHOLECALCIFEROL (VIT D3) 1,000 UNITS TABLET PO SCH (10:08)
[2016-12-23] MEDS: OLANZapine 5 MG TABLET PO SCH (10:08)
[2016-12-23] MEDS: TAMSULOSIN HCL 0.4 MG CAPSULE PO SCH (10:09)
[2016-12-23] MEDS: ATORVASTATIN CALCIUM 40 MG TABLET PO SCH (10:09)
[2016-12-23] MEDS: ASPIRIN 81 MG CHEWABLE TABLET PO SCH (10:09)
[2016-12-23] MEDS: SERTRALINE HCL 100 MG TABLET PO SCH (10:09)
[2016-12-23] MEDS: TIOTROPIUM BROMIDE 18 MCG/INH HANDIHALER [5] IH SCH (10:10)
[2016-12-23] MEDS: NICOTINE 21 MG/24 HOUR PATCH TD SCH (10:10)
[2016-12-23] MEDS: HYDROCODONE/ACETAMINOPHEN 5-325 MG TABLET PO PRN ×2 (10:12→23:16)
[2016-12-23 15:25] VITALS: BP 113/65
[2016-12-23 16:12] VITALS: BP 118/63
[2016-12-23 16:16] VITALS: BP 106/61
[2016-12-23] MEDS: ALBUTEROL SULFATE HFA 90 MCG/PUFF 8 GM INHALER IH PRN (16:26)
[2016-12-23 16:42] LABS: GLUCOSE,POINT OF CARE 156 MG/DL (70-110)
[2016-12-23] MEDS: OLANZapine 10 MG TABLET PO SCH (20:38)
[2016-12-23] MEDS: TraZODone HCL 50 MG TABLET PO SCH (20:38)
[2016-12-23 23:14] VITALS: BP 113/86
[2016-12-24 00:48] VITALS: BP 117/75
[2016-12-24 06:07] LABS: GLUCOSE,POINT OF CARE 109 MG/DL (70-110)
[2016-12-24] MEDS: LEVOTHYROXINE SODIUM 100 MCG TABLET PO SCH (06:36)
[2016-12-24 08:06] VITALS: BP 121/86
[2016-12-24] MEDS: ATORVASTATIN CALCIUM 40 MG TABLET PO SCH (08:55)
[2016-12-24] MEDS: PANTOPRAZOLE SODIUM 40 MG DR TABLET PO SCH (08:55)
[2016-12-24] MEDS: CHOLECALCIFEROL (VIT D3) 1,000 UNITS TABLET PO SCH (08:55)
[2016-12-24] MEDS: TAMSULOSIN HCL 0.4 MG CAPSULE PO SCH (08:55)
[2016-12-24] MEDS: SERTRALINE HCL 100 MG TABLET PO SCH (08:55)
[2016-12-24] MEDS: OLANZapine 5 MG TABLET PO SCH (08:56)
[2016-12-24] MEDS: ASPIRIN 81 MG CHEWABLE TABLET PO SCH (08:56)
[2016-12-24] MEDS: TIOTROPIUM BROMIDE 18 MCG/INH HANDIHALER [5] IH SCH (08:57)
[2016-12-24] MEDS: NICOTINE 21 MG/24 HOUR PATCH TD SCH (09:00)
[2016-12-24 11:16] VITALS: BP 125/87
[2016-12-24] MEDS: HYDROCODONE/ACETAMINOPHEN 5-325 MG TABLET PO PRN (11:16)
[2016-12-24] MEDS: LORazepam 2 MG TABLET PO PRN (16:04)
[2016-12-24 16:27] LABS: GLUCOSE,POINT OF CARE 96 MG/DL (70-110)
[2016-12-24 18:54] VITALS: BP 112/75
[2016-12-24] MEDS: ALBUTEROL SULFATE HFA 90 MCG/PUFF 8 GM INHALER IH PRN (19:01)
[2016-12-24] MEDS: TraZODone HCL 50 MG TABLET PO SCH (20:55)
[2016-12-24] MEDS: OLANZapine 10 MG TABLET PO SCH (20:56)
[2016-12-24] MEDS: ZOLPIDEM TARTRATE 10 MG TABLET PO PRN (22:36)
[2016-12-25 05:00] VITALS: BP 140/84
[2016-12-25 06:12] LABS: GLUCOSE,POINT OF CARE 124 MG/DL (70-110)
[2016-12-25] MEDS: LEVOTHYROXINE SODIUM 100 MCG TABLET PO SCH (06:39)
[2016-12-25 08:32] VITALS: BP 130/82
[2016-12-25] MEDS: TAMSULOSIN HCL 0.4 MG CAPSULE PO SCH (08:42)
[2016-12-25] MEDS: ATORVASTATIN CALCIUM 40 MG TABLET PO SCH (08:42)
[2016-12-25] MEDS: CHOLECALCIFEROL (VIT D3) 1,000 UNITS TABLET PO SCH (08:42)
[2016-12-25] MEDS: ASPIRIN 81 MG CHEWABLE TABLET PO SCH (08:42)
[2016-12-25] MEDS: OLANZapine 5 MG TABLET PO SCH (08:42)
[2016-12-25] MEDS: PANTOPRAZOLE SODIUM 40 MG DR TABLET PO SCH (08:42)
[2016-12-25] MEDS: BuPROPion HCL XL 150 MG ER TABLET PO SCH (08:43)
[2016-12-25] MEDS: TIOTROPIUM BROMIDE 18 MCG/INH HANDIHALER [5] IH SCH (08:45)
[2016-12-25] MEDS: NICOTINE 21 MG/24 HOUR PATCH TD SCH (08:45)
[2016-12-25] MEDS: HYDROCODONE/ACETAMINOPHEN 5-325 MG TABLET PO PRN (08:46)
[2016-12-25] MEDS: LORazepam 2 MG TABLET PO PRN (11:32)
[2016-12-25 16:02] VITALS: BP 115/65
[2016-12-25 16:22] LABS: GLUCOSE,POINT OF CARE 147 MG/DL (70-110)
[2016-12-25] MEDS: ALBUTEROL SULFATE HFA 90 MCG/PUFF 8 GM INHALER IH PRN (20:01)
[2016-12-25] MEDS: OLANZapine 10 MG TABLET PO SCH (20:36)
[2016-12-25] MEDS: TraZODone HCL 50 MG TABLET PO SCH (20:36)
[2016-12-25] MEDS: ZOLPIDEM TARTRATE 10 MG TABLET PO PRN (22:03)
[2016-12-26 00:08] VITALS: BP 115/70
[2016-12-26] MEDS: HYDROCODONE/ACETAMINOPHEN 5-325 MG TABLET PO PRN (00:15)
[2016-12-26 02:30] VITALS: BP 120/72
[2016-12-26] MEDS: LORazepam 2 MG TABLET PO PRN ×2 (02:37→13:50)
[2016-12-26] MEDS: LEVOTHYROXINE SODIUM 100 MCG TABLET PO SCH (06:14)
[2016-12-26 06:42] LABS: GLUCOSE,POINT OF CARE 105 MG/DL (70-110)
[2016-12-26 08:20] VITALS: BP 124/82
[2016-12-26] MEDS: TAMSULOSIN HCL 0.4 MG CAPSULE PO SCH (08:31)
[2016-12-26] MEDS: CHOLECALCIFEROL (VIT D3) 1,000 UNITS TABLET PO SCH (08:31)
[2016-12-26] MEDS: BuPROPion HCL XL 150 MG ER TABLET PO SCH (08:31)
[2016-12-26] MEDS: PANTOPRAZOLE SODIUM 40 MG DR TABLET PO SCH (08:31)
[2016-12-26] MEDS: ATORVASTATIN CALCIUM 40 MG TABLET PO SCH (08:31)
[2016-12-26] MEDS: OLANZapine 5 MG TABLET PO SCH (08:31)
[2016-12-26] MEDS: ASPIRIN 81 MG CHEWABLE TABLET PO SCH (08:32)
[2016-12-26] MEDS: TIOTROPIUM BROMIDE 18 MCG/INH HANDIHALER [5] IH SCH (08:32)
[2016-12-26] MEDS: NICOTINE 21 MG/24 HOUR PATCH TD SCH (08:43)
[2016-12-26 16:21] VITALS: BP 125/78
[2016-12-26 16:48] LABS: GLUCOSE,POINT OF CARE 112 MG/DL (70-110)
[2016-12-26] MEDS: OLANZapine 10 MG TABLET PO SCH (20:01)
[2016-12-26] MEDS: TraZODone HCL 50 MG TABLET PO SCH (20:01)
[2016-12-26] MEDS: ZOLPIDEM TARTRATE 10 MG TABLET PO PRN (21:24)
[2016-12-27 01:01] VITALS: BP 127/81
[2016-12-27 05:02] VITALS: BP 111/74
[2016-12-27] MEDS: IBUPROFEN 600 MG TABLET PO PRN ×2 (05:12→20:12)
[2016-12-27] MEDS: LEVOTHYROXINE SODIUM 100 MCG TABLET PO SCH (06:21)
[2016-12-27 06:27] LABS: GLUCOSE,POINT OF CARE 115 MG/DL (70-110)
[2016-12-27 08:06] VITALS: BP 122/77
[2016-12-27] MEDS: ASPIRIN 81 MG CHEWABLE TABLET PO SCH (08:38)
[2016-12-27] MEDS: ATORVASTATIN CALCIUM 40 MG TABLET PO SCH (08:38)
[2016-12-27] MEDS: TAMSULOSIN HCL 0.4 MG CAPSULE PO SCH (08:38)
[2016-12-27] MEDS: PANTOPRAZOLE SODIUM 40 MG DR TABLET PO SCH (08:38)
[2016-12-27] MEDS: CHOLECALCIFEROL (VIT D3) 1,000 UNITS TABLET PO SCH (08:38)
[2016-12-27] MEDS: BuPROPion HCL XL 150 MG ER TABLET PO SCH (08:38)
[2016-12-27] MEDS: OLANZapine 5 MG TABLET PO SCH (08:38)
[2016-12-27] MEDS: TIOTROPIUM BROMIDE 18 MCG/INH HANDIHALER [5] IH SCH (08:39)
[2016-12-27] MEDS: NICOTINE 21 MG/24 HOUR PATCH TD SCH (08:50)
[2016-12-27 12:41] VITALS: BP 120/91
[2016-12-27] MEDS: HYDROCODONE/ACETAMINOPHEN 5-325 MG TABLET PO PRN (12:41)
[2016-12-27] MEDS: ALBUTEROL SULFATE HFA 90 MCG/PUFF 8 GM INHALER IH PRN (12:42)
[2016-12-27] MEDS: LORazepam 2 MG TABLET PO PRN (14:50)
[2016-12-27 16:00] VITALS: BP 127/72
[2016-12-27 20:12] VITALS: BP 134/80
[2016-12-27] MEDS: TraZODone HCL 50 MG TABLET PO SCH (20:45)
[2016-12-27] MEDS: OLANZapine 10 MG TABLET PO SCH (20:45)
[2016-12-27 21:42] LABS: GLUCOSE,POINT OF CARE 172 MG/DL (70-110)
[2016-12-28 00:05] VITALS: BP 140/73
[2016-12-28] MEDS: ZOLPIDEM TARTRATE 10 MG TABLET PO PRN ×2 (00:09→22:00)
[2016-12-28 06:47] LABS: GLUCOSE,POINT OF CARE 118 MG/DL (70-110)
[2016-12-28] MEDS: LEVOTHYROXINE SODIUM 100 MCG TABLET PO SCH (06:50)
[2016-12-28 08:28] VITALS: BP 131/76
[2016-12-28] MEDS: BuPROPion HCL XL 150 MG ER TABLET PO SCH (08:34)
[2016-12-28] MEDS: OLANZapine 5 MG TABLET PO SCH (08:34)
[2016-12-28] MEDS: CHOLECALCIFEROL (VIT D3) 1,000 UNITS TABLET PO SCH (08:34)
[2016-12-28] MEDS: ATORVASTATIN CALCIUM 40 MG TABLET PO SCH (08:34)
[2016-12-28] MEDS: PANTOPRAZOLE SODIUM 40 MG DR TABLET PO SCH (08:34)
[2016-12-28] MEDS: TAMSULOSIN HCL 0.4 MG CAPSULE PO SCH (08:34)
[2016-12-28] MEDS: HYDROCODONE/ACETAMINOPHEN 5-325 MG TABLET PO PRN ×2 (08:34→21:19)
[2016-12-28] MEDS: NICOTINE 21 MG/24 HOUR PATCH TD SCH (08:35)
[2016-12-28] MEDS: TIOTROPIUM BROMIDE 18 MCG/INH HANDIHALER [5] IH SCH (08:35)
[2016-12-28] MEDS: ASPIRIN 81 MG CHEWABLE TABLET PO SCH (08:35)
[2016-12-28] MEDS: IBUPROFEN 600 MG TABLET PO PRN (12:19)
[2016-12-28] MEDS: ALBUTEROL SULFATE HFA 90 MCG/PUFF 8 GM INHALER IH PRN (12:20)
[2016-12-28 16:07] LABS: GLUCOSE,POINT OF CARE 161 MG/DL (70-110)
[2016-12-28 16:16] VITALS: BP 104/71
[2016-12-28] MEDS: TraZODone HCL 50 MG TABLET PO SCH (20:19)
[2016-12-28] MEDS: OLANZapine 10 MG TABLET PO SCH (20:20)
[2016-12-28] MEDS: LORazepam 2 MG TABLET PO PRN (20:31)
[2016-12-29] MEDS: LEVOTHYROXINE SODIUM 100 MCG TABLET PO SCH (06:30)
[2016-12-29] MEDS: PANTOPRAZOLE SODIUM 40 MG DR TABLET PO SCH (09:32)
[2016-12-29] MEDS: ASPIRIN 81 MG CHEWABLE TABLET PO SCH (09:32)
[2016-12-29] MEDS: BuPROPion HCL XL 150 MG ER TABLET PO SCH (09:32)
[2016-12-29] MEDS: NICOTINE 21 MG/24 HOUR PATCH TD SCH (09:33)
[2016-12-29] MEDS: CHOLECALCIFEROL (VIT D3) 1,000 UNITS TABLET PO SCH (09:33)
[2016-12-29] MEDS: ATORVASTATIN CALCIUM 40 MG TABLET PO SCH (09:33)
[2016-12-29] MEDS: TAMSULOSIN HCL 0.4 MG CAPSULE PO SCH (09:33)
[2016-12-29] MEDS: OLANZapine 5 MG TABLET PO SCH (09:33)
[2016-12-29] MEDS: TIOTROPIUM BROMIDE 18 MCG/INH HANDIHALER [5] IH SCH (09:34)
[2016-12-29] MEDS: HYDROCODONE/ACETAMINOPHEN 5-325 MG TABLET PO PRN (10:04)
[2016-12-29] MEDS: LORazepam 2 MG TABLET PO PRN ×2 (12:06→18:57)
[2016-12-29] MEDS: IBUPROFEN 600 MG TABLET PO PRN ×2 (12:10→18:57)
[2016-12-29 16:06] VITALS: BP 116/65
[2016-12-29 16:52] LABS: GLUCOSE,POINT OF CARE 132 MG/DL (70-110)
[2016-12-29 18:55] VITALS: BP 122/79
[2016-12-29] MEDS: TraZODone HCL 50 MG TABLET PO SCH (20:34)
[2016-12-29] MEDS: OLANZapine 10 MG TABLET PO SCH (20:34)
[2016-12-29] MEDS: ZOLPIDEM TARTRATE 10 MG TABLET PO PRN (21:32)
[2016-12-30 00:06] VITALS: BP 125/78
[2016-12-30] MEDS: HYDROCODONE/ACETAMINOPHEN 5-325 MG TABLET PO PRN ×2 (00:10→23:48)
[2016-12-30] MEDS: LORazepam 2 MG TABLET PO PRN (00:10)
[2016-12-30] MEDS: LEVOTHYROXINE SODIUM 100 MCG TABLET PO SCH (07:14)
[2016-12-30 07:27] LABS: GLUCOSE,POINT OF CARE 166 MG/DL (70-110)
[2016-12-30 08:24] VITALS: BP 133/88
[2016-12-30] MEDS: ASPIRIN 81 MG CHEWABLE TABLET PO SCH (08:38)
[2016-12-30] MEDS: NICOTINE 21 MG/24 HOUR PATCH TD SCH (08:38)
[2016-12-30] MEDS: PANTOPRAZOLE SODIUM 40 MG DR TABLET PO SCH (08:38)
[2016-12-30] MEDS: TAMSULOSIN HCL 0.4 MG CAPSULE PO SCH (08:39)
[2016-12-30] MEDS: BuPROPion HCL XL 150 MG ER TABLET PO SCH (08:39)
[2016-12-30] MEDS: OLANZapine 5 MG TABLET PO SCH (08:39)
[2016-12-30] MEDS: CHOLECALCIFEROL (VIT D3) 1,000 UNITS TABLET PO SCH (08:39)
[2016-12-30] MEDS: TIOTROPIUM BROMIDE 18 MCG/INH HANDIHALER [5] IH SCH (08:39)
[2016-12-30] MEDS: ATORVASTATIN CALCIUM 40 MG TABLET PO SCH (08:39)
[2016-12-30 16:33] LABS: GLUCOSE,POINT OF CARE 138 MG/DL (70-110)
[2016-12-30 17:30] VITALS: BP 146/88
[2016-12-30] MEDS: OLANZapine 10 MG TABLET PO SCH (20:13)
[2016-12-30] MEDS: TraZODone HCL 50 MG TABLET PO SCH (20:13)
[2016-12-30] MEDS ORDERED: DEXTROSE 50%-WATER 25 GM/50 ML SYG IVP PRN (21:15)
[2016-12-30] MEDS ORDERED: INSULIN ASPART 100 UNITS/ML SQ PRN (21:15)
[2016-12-30 23:48] VITALS: BP 142/85
[2016-12-31 05:37] LABS: GLUCOSE,POINT OF CARE 110 MG/DL (70-110)
[2016-12-31] MEDS: LEVOTHYROXINE SODIUM 100 MCG TABLET PO SCH (06:39)
[2016-12-31] MEDS: ASPIRIN 81 MG CHEWABLE TABLET PO SCH (07:46)
[2016-12-31] MEDS: OLANZapine 5 MG TABLET PO SCH (08:05)
[2016-12-31] MEDS: TAMSULOSIN HCL 0.4 MG CAPSULE PO SCH (08:05)
[2016-12-31] MEDS: ATORVASTATIN CALCIUM 40 MG TABLET PO SCH (08:05)
[2016-12-31] MEDS: CHOLECALCIFEROL (VIT D3) 1,000 UNITS TABLET PO SCH (08:05)
[2016-12-31] MEDS: NICOTINE 21 MG/24 HOUR PATCH TD SCH (08:06)
[2016-12-31] MEDS: PANTOPRAZOLE SODIUM 40 MG DR TABLET PO SCH (08:06)
[2016-12-31] MEDS: BuPROPion HCL XL 150 MG ER TABLET PO SCH (08:06)
[2016-12-31] MEDS: TIOTROPIUM BROMIDE 18 MCG/INH HANDIHALER [5] IH SCH (09:00)
[2016-12-31 09:16] VITALS: BP 146/90
[2016-12-31 14:35] VITALS: BP 137/79
[2016-12-31] MEDS: HYDROCODONE/ACETAMINOPHEN 5-325 MG TABLET PO PRN (14:36)
[2016-12-31 16:52] LABS: GLUCOSE COMMENT 1 Received Meds; GLUCOSE,POINT OF CARE 149 MG/DL (70-110)
[2016-12-31] MEDS: TraZODone HCL 50 MG TABLET PO SCH (20:06)
[2016-12-31] MEDS: OLANZapine 10 MG TABLET PO SCH (20:06)
[2016-12-31 21:05] VITALS: BP 135/95
[2016-12-31] MEDS: ZOLPIDEM TARTRATE 10 MG TABLET PO PRN (21:57)
[2017-01-01 00:28] VITALS: BP 141/90
[2017-01-01] MEDS: HYDROCODONE/ACETAMINOPHEN 5-325 MG TABLET PO PRN ×2 (00:32→11:01)
[2017-01-01 05:32] LABS: GLUCOSE,POINT OF CARE 111 MG/DL (70-110)
[2017-01-01] MEDS: LEVOTHYROXINE SODIUM 100 MCG TABLET PO SCH (07:04)
[2017-01-01] MEDS: TAMSULOSIN HCL 0.4 MG CAPSULE PO SCH (08:28)
[2017-01-01] MEDS: BuPROPion HCL XL 150 MG ER TABLET PO SCH (08:28)
[2017-01-01] MEDS: ATORVASTATIN CALCIUM 40 MG TABLET PO SCH (08:28)
[2017-01-01] MEDS: TIOTROPIUM BROMIDE 18 MCG/INH HANDIHALER [5] IH SCH (08:30)
[2017-01-01] MEDS: ASPIRIN 81 MG CHEWABLE TABLET PO SCH (08:34)
[2017-01-01] MEDS: OLANZapine 5 MG TABLET PO SCH (08:35)
[2017-01-01] MEDS: NICOTINE 21 MG/24 HOUR PATCH TD SCH (08:35)
[2017-01-01] MEDS: CHOLECALCIFEROL (VIT D3) 1,000 UNITS TABLET PO SCH (08:35)
[2017-01-01] MEDS: PANTOPRAZOLE SODIUM 40 MG DR TABLET PO SCH (08:35)
[2017-01-01 09:20] VITALS: BP 148/83
[2017-01-01 11:01] VITALS: BP 136/88
[2017-01-01] MEDS: LORazepam 2 MG TABLET PO PRN (16:15)
[2017-01-01 17:07] LABS: GLUCOSE,POINT OF CARE 106 MG/DL (70-110)
[2017-01-01 20:03] VITALS: BP 141/77
[2017-01-01] MEDS: OLANZapine 10 MG TABLET PO SCH (20:06)
[2017-01-01] MEDS: TraZODone HCL 50 MG TABLET PO SCH (20:07)
[2017-01-01 20:12] LABS: GLUCOSE,POINT OF CARE 143 MG/DL (70-110)
[2017-01-01] MEDS: ZOLPIDEM TARTRATE 10 MG TABLET PO PRN (21:30)
[2017-01-02 00:09] VITALS: BP 146/81
[2017-01-02] MEDS: HYDROCODONE/ACETAMINOPHEN 5-325 MG TABLET PO PRN (00:11)
[2017-01-02 04:57] VITALS: BP 134/94
[2017-01-02] MEDS: IBUPROFEN 600 MG TABLET PO PRN (05:01)
[2017-01-02 05:37] LABS: GLUCOSE,POINT OF CARE 122 MG/DL (70-110)
[2017-01-02] MEDS: LEVOTHYROXINE SODIUM 100 MCG TABLET PO SCH (06:54)
[2017-01-02] MEDS: ASPIRIN 81 MG CHEWABLE TABLET PO SCH (08:22)
[2017-01-02] MEDS: PANTOPRAZOLE SODIUM 40 MG DR TABLET PO SCH (08:23)
[2017-01-02] MEDS: BuPROPion HCL XL 150 MG ER TABLET PO SCH (08:23)
[2017-01-02] MEDS: ATORVASTATIN CALCIUM 40 MG TABLET PO SCH (08:23)
[2017-01-02] MEDS: CHOLECALCIFEROL (VIT D3) 1,000 UNITS TABLET PO SCH (08:23)
[2017-01-02] MEDS: TAMSULOSIN HCL 0.4 MG CAPSULE PO SCH (08:24)
[2017-01-02] MEDS: OLANZapine 5 MG TABLET PO SCH (08:24)
[2017-01-02] MEDS: TIOTROPIUM BROMIDE 18 MCG/INH HANDIHALER [5] IH SCH (08:28)
[2017-01-02] MEDS: NICOTINE 21 MG/24 HOUR PATCH TD SCH (08:29)
[2017-01-02] MEDS ORDERED: BUPR-93 PO (10:12)
[2017-01-02] MEDS ORDERED: OLAN5TAB2 PO (10:13)
[2017-01-02] MEDS ORDERED: OLAN10TA3 PO (10:13)
[2017-01-02] MEDS ORDERED: ASPI81 PO (10:14)
[2017-01-02] MEDS ORDERED: VITAD1000 PO (10:15)
[2017-01-02 10:53] VITALS: BP 139/86
== END 2017-01-02 11:20 | disposition home or self-care (01) | DRG 885 ==
LOC: B2X 17:15 → EDSTATUS 17:29 → UNDODISIN 12-23 09:08 → 3EX 12-30 16:37
PROVIDERS: ATTEND Psychiatry & Neurology Child & Adolescent Psychiatry
DX: F25.1 Schizoaffective disorder, depressive type (principal); R45.851 Suicidal ideations; K21.9 Gastro-esophageal reflux disease without esophagitis; G47.00 Insomnia, unspecified; E03.9 Hypothyroidism, unspecified; I11.0 Hypertensive heart disease with heart failure; I50.9 Heart failure, unspecified; I25.10 Atherosclerotic heart disease of native coronary artery without angina pectoris; J44.9 Chronic obstructive pulmonary disease, unspecified; N40.0 Benign prostatic hyperplasia without lower urinary tract symptoms; E78.5 Hyperlipidemia, unspecified; F17.200 Nicotine dependence, unspecified, uncomplicated; E66.9 Obesity, unspecified; E11.65 Type 2 diabetes mellitus with hyperglycemia; M19.90 Unspecified osteoarthritis, unspecified site; F43.10 Post-traumatic stress disorder, unspecified; R07.9 Chest pain, unspecified; Z28.21 Immunization not carried out because of patient refusal; Z59.0 Homelessness; Z88.8 Allergy status to other drugs, medicaments and biological substances; Z79.899 Other long term (current) drug therapy; Z79.4 Long term (current) use of insulin; Z91.14 Patient's other noncompliance with medication regimen; Z95.1 Presence of aortocoronary bypass graft; Z68.34 Body mass index [BMI] 34.0-34.9, adult; Z71.6 Tobacco abuse counseling; Z96.698 Presence of other orthopedic joint implants; Z62.819 Personal history of unspecified abuse in childhood
CPT/HCPCS: 76856; 82962; 83036; 84153; 90471; 93005; J3535

== ENCOUNTER 2017-01-04 17:32 | Inpatient (IN) | payer MEDICARE, MEDICAID ==
[~2017-01-04] VITALS: Ht 167.6 cm; Wt 94.3 kg
[~2017-01-04 17:32] MED LIST changes: -ARIP5TAB9 PO; +ASPI81 PO; +BUPR-93 PO; +OLAN10TA3 PO; +OLAN5TAB2 PO; -SERT100T12 PO; -SITA25 PO
[2017-01-04 17:42] LABS: GLUCOSE,POINT OF CARE 103 MG/DL (70-110)
[2017-01-04 18:31] LABS: BASOPHILS % (AUTO) 0.2 % (0.0-2.0); EOSINOPHILS % (AUTO) 1.1 % (1.0-6.0); HEMATOCRIT 46.7 % (41-53); LYMPHOCYTES # (AUTO) 1.9 K/uL (1.0-4.8); LYMPHOCYTES % (AUTO) 16.2 % (22.0-44.0); MEAN CORPUSCULAR HGB CONC 32.1 G/dL (31.0-37.0); MEAN CORPUSCULAR VOLUME 87 fL (80-100); MONOCYTES % (AUTO) 8.6 % (2.0-9.0); NEUTROPHILS # (AUTO) 8.6 K/uL (1.8-7.7); NEUTROPHILS % (AUTO) 73.9 % (40.0-70.0); PLATELET COUNT (AUTO) 273 K/uL (150-450); RED BLOOD CELL COUNT(AUTO) 5.35 MIL/uL (4.50-5.90); RED CELL DISTRIBUTION WIDTH 15.5 % (11.5-14.5); WHITE BLOOD COUNT (AUTO) 11.6 K/uL (4.5-11.0)
[2017-01-04 18:42] LABS: ANION GAP 12 mmol/L (8-16); CARBON DIOXIDE 25 mmol/L (22-29); CHLORIDE 100 mmol/L (98-107); CREATININE 1.29 mg/dL (0.60-1.30); GLOMERULAR FILTR. RATE CALC 55 mL/min (>60); SODIUM SERUM 137 mmol/L (136-145); UREA NITROGEN, BLOOD 21 mg/dL (7-18)
[2017-01-04 18:48] LABS: ALANINE AMINOTRANSFERASE 51 U/L (12-78); ALBUMIN 4.2 g/dL (3.4-5.0); ASPARTATE AMINOTRANSFERASE 32 U/L (15-37); BILIRUBIN,TOTAL 0.6 mg/dL (0.1-1.0); TOTAL PROTEIN, SERUM 7.8 g/dL (6.4-8.2)
[2017-01-04] MEDS ORDERED: DiphenhydrAMINE HCL 25 MG CAPSULE PO ONE (19:15)
[2017-01-04] MEDS ORDERED: HALOPERIDOL 5 MG TABLET PO ONE (19:15)
[2017-01-04] MEDS ORDERED: LORazepam 2 MG TABLET PO ONE (19:15)
[2017-01-04] MEDS ORDERED: HALOPERIDOL 5 MG TABLET PO PRN (20:00)
[2017-01-04 20:08] LABS: CHOL/HDL RATIO 5.6 (4.2-7.3)
[2017-01-04] MEDS ORDERED: CloNIDine HCL 0.1 MG TABLET PO PRN (21:45)
[2017-01-04] MEDS ORDERED: IBUPROFEN 600 MG TABLET PO PRN (21:45)
[2017-01-04 22:26] VITALS: BP 139/86
[2017-01-04] MEDS ORDERED: DEXTROSE 50%-WATER 25 GM/50 ML SYRINGE IVP PRN (23:45)
[2017-01-05 04:36] LABS: APPEARANCE,URINE CLEAR (CLEAR); GLUCOSE, URINE (UA) NEGATIVE (NEGATIVE); KETONES,URINE NEGATIVE (NEGATIVE); LEUKOCYTE ESTERASE ,URINE NEGATIVE (NEGATIVE); OCCULT BLOOD,URINE NEGATIVE (NEGATIVE); PH,URINE 6.5 (5.0-8.0); PROTEIN,URINE NEGATIVE (NEGATIVE)
[2017-01-05 04:37] LABS: ADD UA MICROSCOPIC NO
[2017-01-05 05:39] VITALS: BP 131/76
[2017-01-05 06:12] LABS: GLUCOSE,POINT OF CARE 144 MG/DL (70-110)
[2017-01-05] MEDS: LEVOTHYROXINE SODIUM 200 MCG TABLET PO SCH (07:04)
[2017-01-05] MEDS: CHOLECALCIFEROL (VIT D3) 1,000 UNITS TABLET PO SCH (08:20)
[2017-01-05] MEDS: TAMSULOSIN HCL 0.4 MG CAPSULE PO SCH (08:20)
[2017-01-05] MEDS: ATORVASTATIN CALCIUM 40 MG TABLET PO SCH (08:20)
[2017-01-05] MEDS: ASPIRIN 81 MG CHEWABLE TABLET PO SCH (08:20)
[2017-01-05] MEDS: PANTOPRAZOLE SODIUM 40 MG DR TABLET PO SCH (08:20)
[2017-01-05] MEDS: NICOTINE 21 MG/24 HOUR PATCH TD SCH (08:21)
[2017-01-05] MEDS: TIOTROPIUM BROMIDE 18 MCG/INH HANDIHALER [5] IH SCH (09:00)
[2017-01-05 09:05] VITALS: BP 136/77
[2017-01-05] MEDS: OLANZapine 5 MG TABLET PO SCH (09:11)
[2017-01-05] MEDS: BuPROPion HCL XL 150 MG ER TABLET PO SCH (09:11)
[2017-01-05 16:00] VITALS: BP 132/79
[2017-01-05] MEDS ORDERED: LEVO200 PO (17:27)
[2017-01-05] MEDS: SIMVASTATIN 20 MG TABLET PO SCH (21:18)
[2017-01-05] MEDS: OLANZapine 10 MG TABLET PO SCH (21:19)
[2017-01-05] MEDS: TraZODone HCL 50 MG TABLET PO SCH (21:19)
[2017-01-06] MEDS: LEVOTHYROXINE SODIUM 200 MCG TABLET PO SCH (06:56)
[2017-01-06] MEDS ORDERED: LEVOTHYROXINE SODIUM 25 MCG TABLET PO SCH (07:00)
[2017-01-06] MEDS ORDERED: NITROGLYCERIN 0.4 MG SUBLINGUAL TABLET #25 SL PRN (08:00)
[2017-01-06] MEDS: NICOTINE 21 MG/24 HOUR PATCH TD SCH (09:00)
[2017-01-06] MEDS: OLANZapine 5 MG TABLET PO SCH (10:44)
[2017-01-06] MEDS: ALBUTEROL SULFATE HFA 90 MCG/PUFF 8 GM INHALER IH PRN (10:44)
[2017-01-06] MEDS: CHOLECALCIFEROL (VIT D3) 1,000 UNITS TABLET PO SCH (10:45)
[2017-01-06] MEDS: TIOTROPIUM BROMIDE 18 MCG/INH HANDIHALER [5] IH SCH (10:45)
[2017-01-06] MEDS: TAMSULOSIN HCL 0.4 MG CAPSULE PO SCH (10:45)
[2017-01-06] MEDS: ASPIRIN 81 MG CHEWABLE TABLET PO SCH (10:45)
[2017-01-06] MEDS: PANTOPRAZOLE SODIUM 40 MG DR TABLET PO SCH (10:45)
[2017-01-06] MEDS: BuPROPion HCL XL 150 MG ER TABLET PO SCH (10:46)
[2017-01-06] MEDS: ATORVASTATIN CALCIUM 40 MG TABLET PO SCH (10:46)
[2017-01-06] MEDS ORDERED: TraMADol HCL 50 MG TABLET PO PRN ×2 (12:00)
[2017-01-06] MEDS: HYDROCODONE/ACETAMINOPHEN 5-325 MG TABLET PO PRN ×2 (12:37→23:39)
[2017-01-06 15:37] VITALS: BP 136/76
[2017-01-06] MEDS: SIMVASTATIN 20 MG TABLET PO SCH (20:37)
[2017-01-06] MEDS: TraZODone HCL 50 MG TABLET PO SCH (20:37)
[2017-01-06] MEDS: OLANZapine 10 MG TABLET PO SCH (20:39)
[2017-01-06 23:35] VITALS: BP 133/93
[2017-01-07 06:42] LABS: GLUCOSE,POINT OF CARE 127 MG/DL (70-110)
[2017-01-07] MEDS: LEVOTHYROXINE SODIUM 200 MCG TABLET PO SCH (06:55)
[2017-01-07] MEDS: INSULIN ASPART 100 UNITS/ML SQ PRN (06:58)
[2017-01-07] MEDS: HYDROCODONE/ACETAMINOPHEN 5-325 MG TABLET PO PRN ×2 (07:54→20:55)
[2017-01-07 08:05] VITALS: BP 126/75
[2017-01-07] MEDS: TIOTROPIUM BROMIDE 18 MCG/INH HANDIHALER [5] IH SCH (09:00)
[2017-01-07] MEDS: NICOTINE 21 MG/24 HOUR PATCH TD SCH (09:00)
[2017-01-07] MEDS: TAMSULOSIN HCL 0.4 MG CAPSULE PO SCH (09:25)
[2017-01-07] MEDS: PANTOPRAZOLE SODIUM 40 MG DR TABLET PO SCH (09:25)
[2017-01-07] MEDS: BuPROPion HCL XL 150 MG ER TABLET PO SCH (09:25)
[2017-01-07] MEDS: ASPIRIN 81 MG CHEWABLE TABLET PO SCH (09:25)
[2017-01-07] MEDS: ATORVASTATIN CALCIUM 40 MG TABLET PO SCH (09:25)
[2017-01-07] MEDS: OLANZapine 5 MG TABLET PO SCH (09:25)
[2017-01-07] MEDS: CHOLECALCIFEROL (VIT D3) 1,000 UNITS TABLET PO SCH (09:25)
[2017-01-07] MEDS: ALBUTEROL SULFATE HFA 90 MCG/PUFF 8 GM INHALER IH PRN (09:27)
[2017-01-07] MEDS: LORazepam 2 MG TABLET PO PRN ×2 (09:27→14:02)
[2017-01-07] MEDS ORDERED: BuPROPion HCL XL 150 MG ER TABLET PO ONE (10:00)
[2017-01-07] MEDS: GABAPENTIN 300 MG CAPSULE PO SCH ×3 (13:04→20:55)
[2017-01-07] MEDS: SIMVASTATIN 20 MG TABLET PO SCH (20:51)
[2017-01-07] MEDS: TraZODone HCL 50 MG TABLET PO SCH (20:51)
[2017-01-07] MEDS: OLANZapine 10 MG TABLET PO SCH (20:51)
[2017-01-07 20:55] VITALS: BP 126/79
[2017-01-08] MEDS: ZOLPIDEM TARTRATE 10 MG TABLET PO PRN ×2 (00:40→21:15)
[2017-01-08] MEDS: LORazepam 2 MG TABLET PO PRN (00:40)
[2017-01-08 06:12] LABS: GLUCOSE,POINT OF CARE 116 MG/DL (70-110)
[2017-01-08] MEDS: LEVOTHYROXINE SODIUM 200 MCG TABLET PO SCH (06:43)
[2017-01-08 08:03] VITALS: BP 101/66
[2017-01-08] MEDS: HYDROCODONE/ACETAMINOPHEN 5-325 MG TABLET PO PRN ×2 (08:40→22:34)
[2017-01-08] MEDS: GABAPENTIN 300 MG CAPSULE PO SCH ×3 (08:40→16:15)
[2017-01-08] MEDS: TAMSULOSIN HCL 0.4 MG CAPSULE PO SCH (08:40)
[2017-01-08] MEDS: CHOLECALCIFEROL (VIT D3) 1,000 UNITS TABLET PO SCH (08:40)
[2017-01-08] MEDS: TIOTROPIUM BROMIDE 18 MCG/INH HANDIHALER [5] IH SCH (08:41)
[2017-01-08] MEDS: ASPIRIN 81 MG CHEWABLE TABLET PO SCH (08:41)
[2017-01-08] MEDS: PANTOPRAZOLE SODIUM 40 MG DR TABLET PO SCH (08:41)
[2017-01-08] MEDS: OLANZapine 5 MG TABLET PO SCH (08:41)
[2017-01-08] MEDS: NICOTINE 21 MG/24 HOUR PATCH TD SCH (08:42)
[2017-01-08] MEDS: ATORVASTATIN CALCIUM 40 MG TABLET PO SCH (08:42)
[2017-01-08] MEDS: BuPROPion HCL XL 150 MG ER TABLET PO SCH (08:42)
[2017-01-08] MEDS: ALBUTEROL SULFATE HFA 90 MCG/PUFF 8 GM INHALER IH PRN (08:45)
[2017-01-08 17:06] LABS: GLUCOSE,POINT OF CARE 116 MG/DL (70-110)
[2017-01-08] MEDS: TraZODone HCL 50 MG TABLET PO SCH (20:05)
[2017-01-08] MEDS: SIMVASTATIN 20 MG TABLET PO SCH (20:05)
[2017-01-08] MEDS: OLANZapine 10 MG TABLET PO SCH (20:05)
[2017-01-08 22:32] VITALS: BP 128/70
[2017-01-09 04:09] VITALS: BP 118/67
[2017-01-09 05:57] LABS: GLUCOSE,POINT OF CARE 159 MG/DL (70-110)
[2017-01-09] MEDS: LEVOTHYROXINE SODIUM 200 MCG TABLET PO SCH (06:24)
[2017-01-09] MEDS: TIOTROPIUM BROMIDE 18 MCG/INH HANDIHALER [5] IH SCH (07:59)
[2017-01-09] MEDS: TAMSULOSIN HCL 0.4 MG CAPSULE PO SCH (08:00)
[2017-01-09] MEDS: BuPROPion HCL XL 150 MG ER TABLET PO SCH (08:00)
[2017-01-09] MEDS: CHOLECALCIFEROL (VIT D3) 1,000 UNITS TABLET PO SCH (08:00)
[2017-01-09] MEDS: OLANZapine 5 MG TABLET PO SCH (08:00)
[2017-01-09] MEDS: GABAPENTIN 300 MG CAPSULE PO SCH ×3 (08:00→16:04)
[2017-01-09] MEDS: ATORVASTATIN CALCIUM 40 MG TABLET PO SCH (08:00)
[2017-01-09] MEDS: NICOTINE 21 MG/24 HOUR PATCH TD SCH (08:00)
[2017-01-09 08:01] VITALS: BP 117/76
[2017-01-09] MEDS: HYDROCODONE/ACETAMINOPHEN 5-325 MG TABLET PO PRN (08:01)
[2017-01-09] MEDS: PANTOPRAZOLE SODIUM 40 MG DR TABLET PO SCH (08:01)
[2017-01-09] MEDS: LORazepam 2 MG TABLET PO PRN ×2 (08:01→15:43)
[2017-01-09] MEDS: ASPIRIN 81 MG CHEWABLE TABLET PO SCH (08:01)
[2017-01-09] MEDS ORDERED: BISACODYL 10 MG RECTAL RECTAL SUPPOSITORY PR PRN (09:15)
[2017-01-09] MEDS ORDERED: MAGNESIUM HYDROXIDE SUSPENSION 30 ML UDCUP PO PRN (09:15)
[2017-01-09] MEDS: DOCUSATE SODIUM 250 MG CAPSULE PO SCH ×2 (09:22→16:04)
[2017-01-09 16:00] VITALS: BP 130/74
[2017-01-09 16:12] LABS: GLUCOSE,POINT OF CARE 156 MG/DL (70-110)
[2017-01-09] MEDS: INSULIN ASPART 100 UNITS/ML SQ PRN (17:09)
[2017-01-09] MEDS: SIMVASTATIN 20 MG TABLET PO SCH (21:09)
[2017-01-09] MEDS: TraZODone HCL 50 MG TABLET PO SCH (21:09)
[2017-01-09] MEDS: OLANZapine 10 MG TABLET PO SCH (21:09)
[2017-01-09] MEDS: ZOLPIDEM TARTRATE 10 MG TABLET PO PRN (22:46)
[2017-01-10 00:22] VITALS: BP 132/71
[2017-01-10] MEDS: HYDROCODONE/ACETAMINOPHEN 5-325 MG TABLET PO PRN (00:22)
[2017-01-10 05:57] LABS: GLUCOSE,POINT OF CARE 122 MG/DL (70-110)
[2017-01-10] MEDS: LEVOTHYROXINE SODIUM 200 MCG TABLET PO SCH (06:31)
[2017-01-10] MEDS: DOCUSATE SODIUM 250 MG CAPSULE PO SCH (07:49)
[2017-01-10] MEDS: TAMSULOSIN HCL 0.4 MG CAPSULE PO SCH (07:49)
[2017-01-10] MEDS: PANTOPRAZOLE SODIUM 40 MG DR TABLET PO SCH (07:49)
[2017-01-10] MEDS: OLANZapine 5 MG TABLET PO SCH (07:50)
[2017-01-10] MEDS: CHOLECALCIFEROL (VIT D3) 1,000 UNITS TABLET PO SCH (07:50)
[2017-01-10] MEDS: GABAPENTIN 300 MG CAPSULE PO SCH ×2 (07:50→12:11)
[2017-01-10] MEDS: NICOTINE 21 MG/24 HOUR PATCH TD SCH (07:50)
[2017-01-10] MEDS: BuPROPion HCL XL 150 MG ER TABLET PO SCH (07:51)
[2017-01-10] MEDS: ATORVASTATIN CALCIUM 40 MG TABLET PO SCH (07:51)
[2017-01-10] MEDS: ASPIRIN 81 MG CHEWABLE TABLET PO SCH (07:52)
[2017-01-10] MEDS: ALBUTEROL SULFATE HFA 90 MCG/PUFF 8 GM INHALER IH PRN (07:57)
[2017-01-10] MEDS: TIOTROPIUM BROMIDE 18 MCG/INH HANDIHALER [5] IH SCH (07:58)
[2017-01-10 08:15] VITALS: BP 129/82
[2017-01-10] MEDS ORDERED: SIMV-260 PO (12:05)
[2017-01-10] MEDS ORDERED: GABA-531 PO (12:05)
[2017-01-10] MEDS ORDERED: DOCU250C91 PO (12:05)
== END 2017-01-10 14:30 | DRG 885 ==
LOC: EEVIPCON 17:34 → EMS 17:34 → 3EC 20:21
PROVIDERS: ATTEND Psychiatry & Neurology Child & Adolescent Psychiatry
DX: F25.1 Schizoaffective disorder, depressive type (principal); R45.851 Suicidal ideations; I50.32 Chronic diastolic (congestive) heart failure; G89.29 Other chronic pain; M54.5 Low back pain; E03.9 Hypothyroidism, unspecified; K21.9 Gastro-esophageal reflux disease without esophagitis; I25.10 Atherosclerotic heart disease of native coronary artery without angina pectoris; E78.00 Pure hypercholesterolemia, unspecified; J44.9 Chronic obstructive pulmonary disease, unspecified; M19.90 Unspecified osteoarthritis, unspecified site; F17.210 Nicotine dependence, cigarettes, uncomplicated; G47.00 Insomnia, unspecified; N40.0 Benign prostatic hyperplasia without lower urinary tract symptoms; E78.5 Hyperlipidemia, unspecified; E11.65 Type 2 diabetes mellitus with hyperglycemia; N43.3 Hydrocele, unspecified; E11.40 Type 2 diabetes mellitus with diabetic neuropathy, unspecified; E55.9 Vitamin D deficiency, unspecified; E66.9 Obesity, unspecified; I11.0 Hypertensive heart disease with heart failure; Z88.8 Allergy status to other drugs, medicaments and biological substances; Z68.33 Body mass index [BMI] 33.0-33.9, adult; Z95.1 Presence of aortocoronary bypass graft; Z79.899 Other long term (current) drug therapy; Z79.82 Long term (current) use of aspirin; Z85.72 Personal history of non-Hodgkin lymphomas
CPT/HCPCS: 82962; 87081; 99285; G0480; J3535

== ENCOUNTER 2017-01-26 14:16 | Emergency (ER) | payer MEDICARE, MEDICAID ==
[~2017-01-26] VITALS: Ht 167.6 cm; Wt 95.0 kg
[~2017-01-26 14:16] MED LIST changes: +DOCU250C91 PO; +GABA-531 PO; -LEVO100T4 PO; +LEVO200 PO; +SIMV-260 PO
[2017-01-26 14:47] LABS: GLUCOSE,POINT OF CARE 154 MG/DL (70-110)
[2017-01-26 15:01] VITALS: BP 145/77
[2017-01-26 15:15] LABS: BASOPHILS % (AUTO) 0.3 % (0.0-2.0); EOSINOPHILS % (AUTO) 1.2 % (1.0-6.0); HEMATOCRIT 42.5 % (41-53); HEMOGLOBIN 14.4 g/dL (13.5-17.5); LYMPHOCYTES # (AUTO) 1.4 K/uL (1.0-4.8); LYMPHOCYTES % (AUTO) 15.6 % (22.0-44.0); MEAN CORPUSCULAR HEMOGLOBIN 29.5 pg (26.0-34.0); MEAN CORPUSCULAR HGB CONC 33.9 G/dL (31.0-37.0); MEAN CORPUSCULAR VOLUME 87 fL (80-100); MONOCYTES % (AUTO) 11.1 % (2.0-9.0); NEUTROPHILS # (AUTO) 6.4 K/uL (1.8-7.7); NEUTROPHILS % (AUTO) 71.8 % (40.0-70.0); PLATELET COUNT (AUTO) 222 K/uL (150-450); RED CELL DISTRIBUTION WIDTH 15.8 % (11.5-14.5); WHITE BLOOD COUNT (AUTO) 8.9 K/uL (4.5-11.0)
[2017-01-26 15:27] LABS: ANION GAP 10 mmol/L (8-16); CALCIUM, TOTAL 9.2 mg/dL (8.8-10.5); CARBON DIOXIDE 26 mmol/L (22-29); CHLORIDE 98 mmol/L (98-107); CREATININE 1.43 mg/dL (0.60-1.30); GLOMERULAR FILTR. RATE CALC 49 mL/min (>60); POTASSIUM 3.7 mmol/L (3.5-5.1); SODIUM SERUM 134 mmol/L (136-145); UREA NITROGEN, BLOOD 21 mg/dL (7-18)
[2017-01-26 15:39] LABS: ALANINE AMINOTRANSFERASE 35 U/L (12-78); ALBUMIN 3.8 g/dL (3.4-5.0); ASPARTATE AMINOTRANSFERASE 20 U/L (15-37); BILIRUBIN,TOTAL 0.5 mg/dL (0.1-1.0)
== END 2017-01-26 16:55 | disposition left against medical advice (07) ==
LOC: EMS 14:19
DX: F32.9 Major depressive disorder, single episode, unspecified (principal); I25.10 Atherosclerotic heart disease of native coronary artery without angina pectoris; J44.9 Chronic obstructive pulmonary disease, unspecified; K21.9 Gastro-esophageal reflux disease without esophagitis; I10 Essential (primary) hypertension; E78.00 Pure hypercholesterolemia, unspecified; E03.9 Hypothyroidism, unspecified; E66.9 Obesity, unspecified; F17.210 Nicotine dependence, cigarettes, uncomplicated; Z79.82 Long term (current) use of aspirin; Z88.8 Allergy status to other drugs, medicaments and biological substances; Z68.33 Body mass index [BMI] 33.0-33.9, adult
CPT/HCPCS: 36415; 80053; 82962; 85025; 99284; G0480

== ENCOUNTER 2017-01-28 11:41 | Inpatient (IN) | payer MEDICARE, MEDICAID ==
[~2017-01-28] VITALS: Ht 167.6 cm; Wt 98.9 kg
[2017-01-28 12:26] VITALS: BP 146/78
[2017-01-28] MEDS ORDERED: HALOPERIDOL 5 MG TABLET PO PRN (13:15)
[2017-01-28] MEDS ORDERED: PNEUMOCOCCAL VACCINE POLYVALENT 0.5 ML VIAL [PPSV23] IM ONE (13:45)
[2017-01-28 16:01] VITALS: BP 112/80
[2017-01-28] MEDS: GABAPENTIN 300 MG CAPSULE PO SCH (16:28)
[2017-01-28] MEDS: TraZODone HCL 50 MG TABLET PO SCH (20:39)
[2017-01-28] MEDS: BuPROPion HCL XL 150 MG ER TABLET PO SCH (20:39)
[2017-01-28] MEDS: OLANZapine 10 MG TABLET PO SCH (20:40)
[2017-01-28] MEDS ORDERED: DOCUSATE SODIUM 250 MG CAPSULE PO PRN (22:30)
[2017-01-29 06:52] LABS: GLUCOSE,POINT OF CARE 115 MG/DL (70-110)
[2017-01-29] MEDS: LEVOTHYROXINE SODIUM 200 MCG TABLET PO SCH (07:13)
[2017-01-29 08:11] LABS: BASOPHILS # (AUTO) 0.03 K/uL (0.00-0.20); BASOPHILS % (AUTO) 0.4 % (0.0-2.0); EOSINOPHILS # (AUTO) 0.15 K/uL (0.00-0.70); EOSINOPHILS % (AUTO) 2.21 % (1.0-6.0); HEMATOCRIT 43.4 % (41-53); HEMOGLOBIN 14.3 g/dL (13.5-17.5); LYMPHOCYTES # (AUTO) 1.8 K/uL (1.0-4.8); LYMPHOCYTES % (AUTO) 26.2 % (22.0-44.0); MEAN CORPUSCULAR HEMOGLOBIN 29.1 pg (26.0-34.0); MEAN CORPUSCULAR HGB CONC 32.9 G/dL (31.0-37.0); MEAN CORPUSCULAR VOLUME 89 fL (80-100); MONOCYTES # (AUTO) 0.9 K/uL (0.1-1.0); NEUTROPHILS % (AUTO) 58.2 % (40.0-70.0); PLATELET COUNT (AUTO) 220 K/uL (150-450); RED CELL DISTRIBUTION WIDTH 16.3 % (11.5-14.5); WHITE BLOOD COUNT (AUTO) 6.9 K/uL (4.5-11.0)
[2017-01-29] MEDS: CHOLECALCIFEROL (VIT D3) 1,000 UNITS TABLET PO SCH (08:25)
[2017-01-29] MEDS: ASPIRIN 81 MG EC TABLET PO SCH (08:25)
[2017-01-29] MEDS: TAMSULOSIN HCL 0.4 MG CAPSULE PO SCH (08:25)
[2017-01-29 08:26] LABS: ALBUMIN 3.5 g/dL (3.4-5.0); BILIRUBIN,TOTAL 0.4 mg/dL (0.1-1.0); CALCIUM, TOTAL 8.7 mg/dL (8.8-10.5); CREATININE 1.3 mg/dL (0.60-1.30); POTASSIUM 4.1 mmol/L (3.5-5.1); TOTAL PROTEIN, SERUM 6.7 g/dL (6.4-8.2)
[2017-01-29] MEDS: GABAPENTIN 300 MG CAPSULE PO SCH ×3 (08:26→16:37)
[2017-01-29] MEDS: OLANZapine 5 MG TABLET PO SCH (08:26)
[2017-01-29] MEDS: DOCUSATE SODIUM 250 MG CAPSULE PO SCH ×2 (08:26→16:38)
[2017-01-29] MEDS: PANTOPRAZOLE SODIUM 40 MG DR TABLET PO SCH (08:26)
[2017-01-29 08:44] VITALS: BP 123/66
[2017-01-29 08:44] LABS: APPEARANCE,URINE CLEAR (CLEAR); GLUCOSE, URINE (UA) NEGATIVE (NEGATIVE); KETONES,URINE NEGATIVE (NEGATIVE); LEUKOCYTE ESTERASE ,URINE NEGATIVE (NEGATIVE); OCCULT BLOOD,URINE TRACE (NEGATIVE); PH,URINE 5.5 (5.0-8.0); PROTEIN,URINE NEGATIVE (NEGATIVE)
[2017-01-29 08:45] LABS: ADD UA MICROSCOPIC YES
[2017-01-29 09:00] LABS: RBC,URINE 0-2 /HPF (0-2); SQUAMOUS EPITHELIAL CELL,UR Few /LPF (None Seen); WBC,URINE 0-2 /HPF (0-5)
[2017-01-29] MEDS ORDERED: TIOTROPIUM BROMIDE 18 MCG/INH HANDIHALER [5] IH SCH (09:00)
[2017-01-29] MEDS ORDERED: ATORVASTATIN CALCIUM 40 MG TABLET PO SCH (09:00)
[2017-01-29 16:06] VITALS: BP 130/65
[2017-01-29 17:13] VITALS: BP 135/76
[2017-01-29] MEDS: TraMADol HCL 50 MG TABLET PO PRN (17:17)
[2017-01-29] MEDS: BuPROPion HCL XL 150 MG ER TABLET PO SCH (20:40)
[2017-01-29] MEDS: TraZODone HCL 50 MG TABLET PO SCH (20:41)
[2017-01-29] MEDS: SIMVASTATIN 20 MG TABLET PO SCH (20:41)
[2017-01-29] MEDS: OLANZapine 10 MG TABLET PO SCH (20:41)
[2017-01-29 21:26] VITALS: BP 129/82
[2017-01-29] MEDS: HYDROCODONE/ACETAMINOPHEN 5-325 MG TABLET PO PRN (21:28)
[2017-01-30] MEDS: LEVOTHYROXINE SODIUM 200 MCG TABLET PO SCH (06:51)
[2017-01-30 08:11] VITALS: BP 116/72
[2017-01-30] MEDS ORDERED: HYDROCODONE/ACETAMINOPHEN 5-325 MG TABLET PO PRN (09:00)
[2017-01-30] MEDS: TAMSULOSIN HCL 0.4 MG CAPSULE PO SCH (09:25)
[2017-01-30] MEDS: PANTOPRAZOLE SODIUM 40 MG DR TABLET PO SCH (09:25)
[2017-01-30] MEDS: DOCUSATE SODIUM 250 MG CAPSULE PO SCH ×2 (09:25→17:08)
[2017-01-30] MEDS: CHOLECALCIFEROL (VIT D3) 1,000 UNITS TABLET PO SCH (09:25)
[2017-01-30] MEDS: OLANZapine 5 MG TABLET PO SCH (09:25)
[2017-01-30] MEDS: ASPIRIN 81 MG EC TABLET PO SCH (09:26)
[2017-01-30] MEDS: GABAPENTIN 300 MG CAPSULE PO SCH ×3 (09:26→17:08)
[2017-01-30 09:38] VITALS: BP 122/74
[2017-01-30] MEDS: HYDROCODONE/ACETAMINOPHEN 5-325 MG TABLET PO PRN ×2 (09:38→20:44)
[2017-01-30] MEDS: ALBUTEROL SULFATE HFA 90 MCG/PUFF 8 GM INHALER IH PRN (09:54)
[2017-01-30] MEDS: LORazepam 2 MG TABLET PO PRN (11:36)
[2017-01-30 12:50] VITALS: BP 118/70
[2017-01-30] MEDS: TraMADol HCL 50 MG TABLET PO PRN (12:50)
[2017-01-30 16:04] VITALS: BP 109/76
[2017-01-30] MEDS: SIMVASTATIN 20 MG TABLET PO SCH (20:22)
[2017-01-30] MEDS: TraZODone HCL 50 MG TABLET PO SCH (20:23)
[2017-01-30] MEDS: OLANZapine 10 MG TABLET PO SCH (20:23)
[2017-01-30] MEDS: BuPROPion HCL XL 150 MG ER TABLET PO SCH (20:23)
[2017-01-30 20:44] VITALS: BP 116/74
[2017-01-31 05:41] VITALS: BP 118/82
[2017-01-31] MEDS: LEVOTHYROXINE SODIUM 200 MCG TABLET PO SCH (06:30)
[2017-01-31 08:27] VITALS: BP 118/75
[2017-01-31] MEDS: GABAPENTIN 300 MG CAPSULE PO SCH ×3 (08:51→17:00)
[2017-01-31] MEDS: ASPIRIN 81 MG EC TABLET PO SCH (08:51)
[2017-01-31] MEDS: DOCUSATE SODIUM 250 MG CAPSULE PO SCH ×2 (08:51→17:00)
[2017-01-31] MEDS: OLANZapine 5 MG TABLET PO SCH (08:51)
[2017-01-31] MEDS: PANTOPRAZOLE SODIUM 40 MG DR TABLET PO SCH (08:51)
[2017-01-31] MEDS: TAMSULOSIN HCL 0.4 MG CAPSULE PO SCH (08:51)
[2017-01-31] MEDS: CHOLECALCIFEROL (VIT D3) 1,000 UNITS TABLET PO SCH (08:51)
[2017-01-31] MEDS: HYDROCODONE/ACETAMINOPHEN 5-325 MG TABLET PO PRN ×2 (08:53→20:15)
[2017-01-31] MEDS ORDERED: GABAPENTIN 300 MG CAPSULE PO SCH (09:00)
[2017-01-31 15:58] VITALS: BP 115/63
[2017-01-31] MEDS: DICLOFENAC SODIUM 1% 100 GM GEL [4GM] TP PRN (15:58)
[2017-01-31 16:14] VITALS: BP 112/66
[2017-01-31] MEDS: TraMADol HCL 50 MG TABLET PO PRN (16:32)
[2017-01-31] MEDS: BuPROPion HCL XL 150 MG ER TABLET PO SCH (20:14)
[2017-01-31] MEDS: SIMVASTATIN 20 MG TABLET PO SCH (20:14)
[2017-01-31 20:15] VITALS: BP 116/65
[2017-01-31] MEDS: OLANZapine 10 MG TABLET PO SCH (20:15)
[2017-01-31] MEDS: TraZODone HCL 50 MG TABLET PO SCH (20:15)
[2017-01-31] MEDS: ZOLPIDEM TARTRATE 10 MG TABLET PO PRN (21:44)
[2017-02-01 00:58] VITALS: BP 115/72
[2017-02-01] MEDS: CHOLECALCIFEROL (VIT D3) 1,000 UNITS TABLET PO SCH (08:21)
[2017-02-01] MEDS: PANTOPRAZOLE SODIUM 40 MG DR TABLET PO SCH (08:21)
[2017-02-01] MEDS: OLANZapine 5 MG TABLET PO SCH (08:21)
[2017-02-01] MEDS: DOCUSATE SODIUM 250 MG CAPSULE PO SCH ×2 (08:21→16:28)
[2017-02-01] MEDS: GABAPENTIN 300 MG CAPSULE PO SCH ×3 (08:21→16:28)
[2017-02-01] MEDS: ASPIRIN 81 MG EC TABLET PO SCH (08:22)
[2017-02-01] MEDS: TAMSULOSIN HCL 0.4 MG CAPSULE PO SCH (08:22)
[2017-02-01 08:23] VITALS: BP 129/77
[2017-02-01] MEDS: HYDROCODONE/ACETAMINOPHEN 5-325 MG TABLET PO PRN ×2 (08:23→20:46)
[2017-02-01 09:23] VITALS: BP 126/76
[2017-02-01] MEDS: DICLOFENAC SODIUM 1% 100 GM GEL [4GM] TP PRN (10:05)
[2017-02-01 13:53] VITALS: BP 122/78
[2017-02-01] MEDS: TraMADol HCL 50 MG TABLET PO PRN (13:53)
[2017-02-01] MEDS: LORazepam 2 MG TABLET PO PRN ×2 (13:53→19:12)
[2017-02-01 16:00] VITALS: BP 111/70
[2017-02-01] MEDS: BuPROPion HCL XL 150 MG ER TABLET PO SCH (20:27)
[2017-02-01] MEDS: SIMVASTATIN 20 MG TABLET PO SCH (20:28)
[2017-02-01] MEDS: TraZODone HCL 50 MG TABLET PO SCH (20:28)
[2017-02-01] MEDS: OLANZapine 10 MG TABLET PO SCH (20:28)
[2017-02-01 20:45] VITALS: BP 116/74
[2017-02-02] VITALS (7 sets, daily range): BP systolic 100–137; BP diastolic 64–79
[2017-02-02] MEDS: HYDROCODONE/ACETAMINOPHEN 5-325 MG TABLET PO PRN ×2 (02:53→11:52)
[2017-02-02] MEDS: LEVOTHYROXINE SODIUM 200 MCG TABLET PO SCH (05:49)
[2017-02-02] MEDS: OLANZapine 5 MG TABLET PO SCH (09:02)
[2017-02-02] MEDS: GABAPENTIN 300 MG CAPSULE PO SCH ×3 (09:04→16:43)
[2017-02-02] MEDS: TAMSULOSIN HCL 0.4 MG CAPSULE PO SCH (09:04)
[2017-02-02] MEDS: DOCUSATE SODIUM 250 MG CAPSULE PO SCH ×2 (09:04→16:43)
[2017-02-02] MEDS: CHOLECALCIFEROL (VIT D3) 1,000 UNITS TABLET PO SCH (09:04)
[2017-02-02] MEDS: PANTOPRAZOLE SODIUM 40 MG DR TABLET PO SCH (09:04)
[2017-02-02] MEDS: ASPIRIN 81 MG EC TABLET PO SCH (09:04)
[2017-02-02] MEDS: TraMADol HCL 50 MG TABLET PO PRN ×2 (09:05→16:44)
[2017-02-02] MEDS: SIMVASTATIN 20 MG TABLET PO SCH (20:16)
[2017-02-02] MEDS: TraZODone HCL 50 MG TABLET PO SCH (20:17)
[2017-02-02] MEDS: BuPROPion HCL XL 150 MG ER TABLET PO SCH (20:17)
[2017-02-02] MEDS: OLANZapine 10 MG TABLET PO SCH (20:17)
[2017-02-03 02:11] VITALS: BP 105/67
[2017-02-03] MEDS: HYDROCODONE/ACETAMINOPHEN 5-325 MG TABLET PO PRN ×2 (02:20→08:46)
[2017-02-03] MEDS: DICLOFENAC SODIUM 1% 100 GM GEL [4GM] TP PRN (02:22)
[2017-02-03] MEDS: LEVOTHYROXINE SODIUM 200 MCG TABLET PO SCH (06:48)
[2017-02-03] MEDS: TAMSULOSIN HCL 0.4 MG CAPSULE PO SCH (08:43)
[2017-02-03] MEDS: ASPIRIN 81 MG EC TABLET PO SCH (08:43)
[2017-02-03] MEDS: CHOLECALCIFEROL (VIT D3) 1,000 UNITS TABLET PO SCH (08:43)
[2017-02-03] MEDS: GABAPENTIN 300 MG CAPSULE PO SCH ×3 (08:44→16:32)
[2017-02-03] MEDS: DOCUSATE SODIUM 250 MG CAPSULE PO SCH ×2 (08:44→16:32)
[2017-02-03] MEDS: PANTOPRAZOLE SODIUM 40 MG DR TABLET PO SCH (08:44)
[2017-02-03] MEDS: OLANZapine 5 MG TABLET PO SCH (08:44)
[2017-02-03] MEDS: LORazepam 2 MG TABLET PO PRN (08:46)
[2017-02-03 08:48] VITALS: BP 104/69
[2017-02-03 16:11] VITALS: BP 110/62
[2017-02-03] MEDS: ALBUTEROL SULFATE HFA 90 MCG/PUFF 8 GM INHALER IH PRN (18:37)
[2017-02-03] MEDS: OLANZapine 10 MG TABLET PO SCH (20:04)
[2017-02-03] MEDS: SIMVASTATIN 20 MG TABLET PO SCH (20:04)
[2017-02-03] MEDS: TraZODone HCL 50 MG TABLET PO SCH (20:04)
[2017-02-03] MEDS: BuPROPion HCL XL 150 MG ER TABLET PO SCH (20:05)
[2017-02-04] VITALS (7 sets, daily range): BP systolic 103–141; BP diastolic 60–85
[2017-02-04] MEDS: LEVOTHYROXINE SODIUM 200 MCG TABLET PO SCH (06:56)
[2017-02-04] MEDS: PANTOPRAZOLE SODIUM 40 MG DR TABLET PO SCH (08:19)
[2017-02-04] MEDS: DOCUSATE SODIUM 250 MG CAPSULE PO SCH ×2 (08:20→16:08)
[2017-02-04] MEDS: ASPIRIN 81 MG EC TABLET PO SCH (08:20)
[2017-02-04] MEDS: OLANZapine 5 MG TABLET PO SCH (08:20)
[2017-02-04] MEDS: GABAPENTIN 300 MG CAPSULE PO SCH ×3 (08:20→16:08)
[2017-02-04] MEDS: TAMSULOSIN HCL 0.4 MG CAPSULE PO SCH (08:20)
[2017-02-04] MEDS: CHOLECALCIFEROL (VIT D3) 1,000 UNITS TABLET PO SCH (08:20)
[2017-02-04] MEDS: LORazepam 2 MG TABLET PO PRN ×2 (10:05→19:48)
[2017-02-04] MEDS: HYDROCODONE/ACETAMINOPHEN 5-325 MG TABLET PO PRN ×2 (10:06→19:48)
[2017-02-04] MEDS: TraMADol HCL 50 MG TABLET PO PRN (16:10)
[2017-02-04] MEDS: BuPROPion HCL XL 150 MG ER TABLET PO SCH (20:04)
[2017-02-04] MEDS: SIMVASTATIN 20 MG TABLET PO SCH (20:04)
[2017-02-04] MEDS: OLANZapine 10 MG TABLET PO SCH (20:04)
[2017-02-04] MEDS: TraZODone HCL 50 MG TABLET PO SCH (20:04)
[2017-02-05 00:17] VITALS: BP 132/80
[2017-02-05] MEDS: TraMADol HCL 50 MG TABLET PO PRN (00:17)
[2017-02-05] MEDS: LORazepam 2 MG TABLET PO PRN (00:17)
[2017-02-05] MEDS: LEVOTHYROXINE SODIUM 200 MCG TABLET PO SCH (06:56)
[2017-02-05 08:00] VITALS: BP 111/65
[2017-02-05] MEDS: PANTOPRAZOLE SODIUM 40 MG DR TABLET PO SCH (08:08)
[2017-02-05] MEDS: CHOLECALCIFEROL (VIT D3) 1,000 UNITS TABLET PO SCH (08:08)
[2017-02-05] MEDS: GABAPENTIN 300 MG CAPSULE PO SCH ×3 (08:08→16:29)
[2017-02-05] MEDS: ASPIRIN 81 MG EC TABLET PO SCH (08:09)
[2017-02-05] MEDS: DOCUSATE SODIUM 250 MG CAPSULE PO SCH ×2 (08:09→16:29)
[2017-02-05] MEDS: TAMSULOSIN HCL 0.4 MG CAPSULE PO SCH (08:09)
[2017-02-05] MEDS: OLANZapine 5 MG TABLET PO SCH (08:22)
[2017-02-05 16:43] VITALS: BP 131/72
[2017-02-05] MEDS: HYDROCODONE/ACETAMINOPHEN 5-325 MG TABLET PO PRN (20:51)
[2017-02-05] MEDS: BuPROPion HCL XL 150 MG ER TABLET PO SCH (20:53)
[2017-02-05] MEDS: SIMVASTATIN 20 MG TABLET PO SCH (20:53)
[2017-02-05] MEDS: TraZODone HCL 50 MG TABLET PO SCH (20:54)
[2017-02-05] MEDS: OLANZapine 10 MG TABLET PO SCH (20:55)
[2017-02-05] MEDS: ZOLPIDEM TARTRATE 10 MG TABLET PO PRN (23:34)
[2017-02-06 06:35] VITALS: BP 120/75
[2017-02-06] MEDS: LEVOTHYROXINE SODIUM 200 MCG TABLET PO SCH (07:32)
[2017-02-06] MEDS: OLANZapine 5 MG TABLET PO SCH (08:34)
[2017-02-06] MEDS: CHOLECALCIFEROL (VIT D3) 1,000 UNITS TABLET PO SCH (08:34)
[2017-02-06] MEDS: ASPIRIN 81 MG EC TABLET PO SCH (08:34)
[2017-02-06] MEDS: DOCUSATE SODIUM 250 MG CAPSULE PO SCH ×2 (08:34→16:06)
[2017-02-06] MEDS: GABAPENTIN 300 MG CAPSULE PO SCH ×3 (08:35→16:07)
[2017-02-06] MEDS: PANTOPRAZOLE SODIUM 40 MG DR TABLET PO SCH (08:35)
[2017-02-06] MEDS: TAMSULOSIN HCL 0.4 MG CAPSULE PO SCH (08:35)
[2017-02-06 08:59] VITALS: BP 120/81
[2017-02-06 16:04] VITALS: BP 120/73
[2017-02-06] MEDS: TraMADol HCL 50 MG TABLET PO PRN (16:06)
[2017-02-06 17:00] VITALS: BP 122/74
[2017-02-06] MEDS: BuPROPion HCL XL 150 MG ER TABLET PO SCH (20:01)
[2017-02-06] MEDS: TraZODone HCL 50 MG TABLET PO SCH (20:02)
[2017-02-06] MEDS: OLANZapine 10 MG TABLET PO SCH (20:02)
[2017-02-06] MEDS: SIMVASTATIN 20 MG TABLET PO SCH (20:03)
[2017-02-06] MEDS: DICLOFENAC SODIUM 1% 100 GM GEL [4GM] TP PRN (20:05)
[2017-02-06 20:10] VITALS: BP 128/76
[2017-02-06] MEDS: HYDROCODONE/ACETAMINOPHEN 5-325 MG TABLET PO PRN (20:11)
[2017-02-06 21:11] VITALS: BP 118/80
[2017-02-06] MEDS: ZOLPIDEM TARTRATE 10 MG TABLET PO PRN (22:21)
[2017-02-07] VITALS (7 sets, daily range): BP systolic 99–145; BP diastolic 65–83
[2017-02-07] MEDS: TraMADol HCL 50 MG TABLET PO PRN (05:43)
[2017-02-07] MEDS: LEVOTHYROXINE SODIUM 200 MCG TABLET PO SCH (06:13)
[2017-02-07] MEDS: CHOLECALCIFEROL (VIT D3) 1,000 UNITS TABLET PO SCH (08:39)
[2017-02-07] MEDS: DOCUSATE SODIUM 250 MG CAPSULE PO SCH ×2 (08:39→16:04)
[2017-02-07] MEDS: GABAPENTIN 300 MG CAPSULE PO SCH ×3 (08:39→16:04)
[2017-02-07] MEDS: PANTOPRAZOLE SODIUM 40 MG DR TABLET PO SCH (08:40)
[2017-02-07] MEDS: TAMSULOSIN HCL 0.4 MG CAPSULE PO SCH (08:40)
[2017-02-07] MEDS: ASPIRIN 81 MG EC TABLET PO SCH (08:41)
[2017-02-07] MEDS: OLANZapine 5 MG TABLET PO SCH (08:41)
[2017-02-07] MEDS: LORazepam 2 MG TABLET PO PRN (12:14)
[2017-02-07] MEDS: HYDROCODONE/ACETAMINOPHEN 5-325 MG TABLET PO PRN (14:43)
[2017-02-07] MEDS: SIMVASTATIN 20 MG TABLET PO SCH (20:18)
[2017-02-07] MEDS: BuPROPion HCL XL 150 MG ER TABLET PO SCH (20:18)
[2017-02-07] MEDS: ZOLPIDEM TARTRATE 10 MG TABLET PO PRN (20:18)
[2017-02-07] MEDS: TraZODone HCL 50 MG TABLET PO SCH (20:19)
[2017-02-07] MEDS: OLANZapine 10 MG TABLET PO SCH (20:19)
[2017-02-07] MEDS: DICLOFENAC SODIUM 1% 100 GM GEL [4GM] TP PRN (20:21)
[2017-02-08] MEDS: LEVOTHYROXINE SODIUM 200 MCG TABLET PO SCH (06:28)
[2017-02-08] MEDS: PANTOPRAZOLE SODIUM 40 MG DR TABLET PO SCH (08:11)
[2017-02-08] MEDS: CHOLECALCIFEROL (VIT D3) 1,000 UNITS TABLET PO SCH (08:11)
[2017-02-08] MEDS: GABAPENTIN 300 MG CAPSULE PO SCH ×3 (08:11→16:30)
[2017-02-08] MEDS: ASPIRIN 81 MG EC TABLET PO SCH (08:11)
[2017-02-08] MEDS: DOCUSATE SODIUM 250 MG CAPSULE PO SCH ×2 (08:11→16:30)
[2017-02-08] MEDS: OLANZapine 5 MG TABLET PO SCH (08:12)
[2017-02-08] MEDS: TAMSULOSIN HCL 0.4 MG CAPSULE PO SCH (08:12)
[2017-02-08 08:16] VITALS: BP 128/84
[2017-02-08] MEDS: HYDROCODONE/ACETAMINOPHEN 5-325 MG TABLET PO PRN ×2 (08:16→19:32)
[2017-02-08] MEDS: LORazepam 2 MG TABLET PO PRN ×2 (10:40→17:03)
[2017-02-08 12:50] VITALS: BP 134/82
[2017-02-08] MEDS: TraMADol HCL 50 MG TABLET PO PRN (12:57)
[2017-02-08 19:32] VITALS: BP 135/81
[2017-02-08] MEDS: BuPROPion HCL XL 150 MG ER TABLET PO SCH (20:43)
[2017-02-08] MEDS: OLANZapine 10 MG TABLET PO SCH (20:43)
[2017-02-08] MEDS: TraZODone HCL 50 MG TABLET PO SCH (20:44)
[2017-02-08] MEDS: SIMVASTATIN 20 MG TABLET PO SCH (20:44)
[2017-02-09 03:45] VITALS: BP 135/93
[2017-02-09] MEDS: LEVOTHYROXINE SODIUM 200 MCG TABLET PO SCH (06:37)
[2017-02-09] MEDS: DOCUSATE SODIUM 250 MG CAPSULE PO SCH ×2 (08:55→16:08)
[2017-02-09] MEDS: GABAPENTIN 300 MG CAPSULE PO SCH ×3 (08:55→16:07)
[2017-02-09] MEDS: ASPIRIN 81 MG EC TABLET PO SCH (08:55)
[2017-02-09] MEDS: CHOLECALCIFEROL (VIT D3) 1,000 UNITS TABLET PO SCH (08:56)
[2017-02-09] MEDS: OLANZapine 5 MG TABLET PO SCH (08:56)
[2017-02-09] MEDS: PANTOPRAZOLE SODIUM 40 MG DR TABLET PO SCH (08:56)
[2017-02-09] MEDS: TAMSULOSIN HCL 0.4 MG CAPSULE PO SCH (08:56)
[2017-02-09] MEDS ORDERED: LIDOCAINE HCL 5% TRANSDERMAL PATCH TD SCH (11:00)
[2017-02-09 14:04] VITALS: BP 132/89
[2017-02-09] MEDS: HYDROCODONE/ACETAMINOPHEN 5-325 MG TABLET PO PRN (14:04)
[2017-02-09 16:43] VITALS: BP 129/73
[2017-02-09] MEDS: LIDOCAINE HCL 5% TRANSDERMAL PATCH TD SCH (18:11)
[2017-02-09] MEDS: TraMADol HCL 50 MG TABLET PO PRN (20:21)
[2017-02-09 20:22] VITALS: BP 132/69
[2017-02-09] MEDS: BuPROPion HCL XL 150 MG ER TABLET PO SCH (20:55)
[2017-02-09] MEDS: SIMVASTATIN 20 MG TABLET PO SCH (20:55)
[2017-02-09] MEDS: OLANZapine 10 MG TABLET PO SCH (20:55)
[2017-02-09] MEDS: TraZODone HCL 50 MG TABLET PO SCH (20:55)
[2017-02-09] MEDS ORDERED: -LIDODERM PATCH NOTE- MISC SCH ×2 (21:00)
[2017-02-09] MEDS: ZOLPIDEM TARTRATE 10 MG TABLET PO PRN (21:48)
[2017-02-10 02:55] VITALS: BP 141/68
[2017-02-10] MEDS: HYDROCODONE/ACETAMINOPHEN 5-325 MG TABLET PO PRN ×2 (03:02→15:57)
[2017-02-10] MEDS: -LIDODERM PATCH NOTE- MISC SCH ×2 (06:33)
[2017-02-10] MEDS: LEVOTHYROXINE SODIUM 200 MCG TABLET PO SCH (06:36)
[2017-02-10 08:00] VITALS: BP 121/74
[2017-02-10] MEDS: OLANZapine 5 MG TABLET PO SCH (08:11)
[2017-02-10] MEDS: ASPIRIN 81 MG EC TABLET PO SCH (08:12)
[2017-02-10] MEDS: TAMSULOSIN HCL 0.4 MG CAPSULE PO SCH (08:12)
[2017-02-10] MEDS: CHOLECALCIFEROL (VIT D3) 1,000 UNITS TABLET PO SCH (08:12)
[2017-02-10] MEDS: PANTOPRAZOLE SODIUM 40 MG DR TABLET PO SCH (08:12)
[2017-02-10] MEDS: DOCUSATE SODIUM 250 MG CAPSULE PO SCH ×2 (08:12→15:52)
[2017-02-10] MEDS: GABAPENTIN 300 MG CAPSULE PO SCH ×3 (08:12→15:52)
[2017-02-10 16:02] VITALS: BP 122/65
[2017-02-10] MEDS: LIDOCAINE HCL 5% TRANSDERMAL PATCH TD SCH (18:48)
[2017-02-10] MEDS: OLANZapine 10 MG TABLET PO SCH (20:10)
[2017-02-10] MEDS: SIMVASTATIN 20 MG TABLET PO SCH (20:10)
[2017-02-10] MEDS: BuPROPion HCL XL 150 MG ER TABLET PO SCH (20:10)
[2017-02-10] MEDS: TraZODone HCL 50 MG TABLET PO SCH (20:10)
[2017-02-10] MEDS: TraMADol HCL 50 MG TABLET PO PRN (20:15)
[2017-02-10 20:16] VITALS: BP 112/89
[2017-02-10] MEDS: ZOLPIDEM TARTRATE 10 MG TABLET PO PRN (22:51)
[2017-02-11] MEDS: LORazepam 2 MG TABLET PO PRN ×2 (00:04→09:37)
[2017-02-11 01:30] VITALS: BP_SYST 137; BP_SYST 92; BP_DIAS 73; BP_DIAS 77
[2017-02-11 06:45] VITALS: BP 141/79
[2017-02-11] MEDS: -LIDODERM PATCH NOTE- MISC SCH ×2 (06:48)
[2017-02-11] MEDS: LEVOTHYROXINE SODIUM 200 MCG TABLET PO SCH (06:48)
[2017-02-11] MEDS: HYDROCODONE/ACETAMINOPHEN 5-325 MG TABLET PO PRN ×2 (06:48→13:08)
[2017-02-11 08:00] VITALS: BP 123/79
[2017-02-11] MEDS: GABAPENTIN 300 MG CAPSULE PO SCH ×2 (08:04→13:02)
[2017-02-11] MEDS: CHOLECALCIFEROL (VIT D3) 1,000 UNITS TABLET PO SCH (08:04)
[2017-02-11] MEDS: TAMSULOSIN HCL 0.4 MG CAPSULE PO SCH (08:04)
[2017-02-11] MEDS: PANTOPRAZOLE SODIUM 40 MG DR TABLET PO SCH (08:05)
[2017-02-11] MEDS: OLANZapine 5 MG TABLET PO SCH (08:05)
[2017-02-11] MEDS: DOCUSATE SODIUM 250 MG CAPSULE PO SCH (08:05)
[2017-02-11] MEDS: ASPIRIN 81 MG EC TABLET PO SCH (08:05)
[2017-02-11 09:35] VITALS: BP 127/76
[2017-02-11] MEDS: TraMADol HCL 50 MG TABLET PO PRN (09:41)
[2017-02-11] MEDS: ALBUTEROL SULFATE HFA 90 MCG/PUFF 8 GM INHALER IH PRN (09:43)
[2017-02-11] MEDS ORDERED: INSULIN ASPART 100 UNITS/ML SQ PRN (10:30)
[2017-02-11] MEDS ORDERED: DEXTROSE 50%-WATER 25 GM/50 ML SYRINGE IVP PRN (10:30)
[2017-02-11 11:23] LABS: GLUCOSE,POINT OF CARE 106 MG/DL (70-110)
[2017-02-11] MEDS ORDERED: LIDO700A TD (11:36)
[2017-02-11 13:06] VITALS: BP 146/86
== END 2017-02-11 14:30 | disposition home or self-care (01) | DRG 885 ==
LOC: B2X 13:17 → EDSTATUS 13:29 → B2X 01-31 08:59 → 3EX 02-04 21:40
PROVIDERS: ADMIT Psychiatry & Neurology Child & Adolescent Psychiatry; ATTEND Psychiatry & Neurology Child & Adolescent Psychiatry
DX: F25.1 Schizoaffective disorder, depressive type (principal); R45.851 Suicidal ideations; J44.9 Chronic obstructive pulmonary disease, unspecified; K21.9 Gastro-esophageal reflux disease without esophagitis; I25.10 Atherosclerotic heart disease of native coronary artery without angina pectoris; N40.0 Benign prostatic hyperplasia without lower urinary tract symptoms; E78.5 Hyperlipidemia, unspecified; E03.9 Hypothyroidism, unspecified; E66.9 Obesity, unspecified; I11.0 Hypertensive heart disease with heart failure; I50.9 Heart failure, unspecified; K59.00 Constipation, unspecified; E55.9 Vitamin D deficiency, unspecified; E11.65 Type 2 diabetes mellitus with hyperglycemia; F22 Delusional disorders; Z79.899 Other long term (current) drug therapy; Z87.891 Personal history of nicotine dependence; Z79.82 Long term (current) use of aspirin; Z95.1 Presence of aortocoronary bypass graft; Z88.8 Allergy status to other drugs, medicaments and biological substances; Z59.0 Homelessness; Z68.35 Body mass index [BMI] 35.0-35.9, adult; Z28.21 Immunization not carried out because of patient refusal
CPT/HCPCS: 76700; 82962; 87081; 97110; 97162; J3535

== ENCOUNTER 2017-03-29 13:10 | Inpatient (IN) | payer MEDICARE, MEDICAID ==
[~2017-03-29] VITALS: Ht 167.6 cm; Wt 97.0 kg
[~2017-03-29 13:10] MED LIST changes: -ATOR40TA28 PO; -DOCU250C91 PO; +DSS100 PO; +OMEG100032 PO; +OMEP20 PO; -PANT40TA25 PO; +SIMV-259 PO; -SIMV-260 PO; -TIOT185 IH
[2017-03-29 13:42] LABS: BASOPHILS % (AUTO) 0.1 % (0.0-2.0); EOSINOPHILS % (AUTO) 1.7 % (1.0-6.0); HEMATOCRIT 45.7 % (41-53); HEMOGLOBIN 15.4 g/dL (13.5-17.5); LYMPHOCYTES # (AUTO) 2.1 K/uL (1.0-4.8); LYMPHOCYTES % (AUTO) 20.1 % (22.0-44.0); MEAN CORPUSCULAR HEMOGLOBIN 29.4 pg (26.0-34.0); MEAN CORPUSCULAR HGB CONC 33.7 G/dL (31.0-37.0); MEAN CORPUSCULAR VOLUME 87 fL (80-100); MONOCYTES # (AUTO) 0.9 K/uL (0.1-1.0); MONOCYTES % (AUTO) 9.1 % (2.0-9.0); NEUTROPHILS # (AUTO) 7.1 K/uL (1.8-7.7); PLATELET COUNT (AUTO) 319 K/uL (150-450); RED BLOOD CELL COUNT(AUTO) 5.24 MIL/uL (4.50-5.90); RED CELL DISTRIBUTION WIDTH 14.6 % (11.5-14.5); WHITE BLOOD COUNT (AUTO) 10.3 K/uL (4.5-11.0)
[2017-03-29 13:53] LABS: ANION GAP 10 mmol/L (8-16); CALCIUM, TOTAL 9.6 mg/dL (8.8-10.5); CARBON DIOXIDE 27 mmol/L (22-29); CHLORIDE 105 mmol/L (98-107); CREATININE 1.43 mg/dL (0.60-1.30); GLOMERULAR FILTR. RATE CALC 49 mL/min (>60); SODIUM SERUM 142 mmol/L (136-145); UREA NITROGEN, BLOOD 19 mg/dL (7-18)
[2017-03-29 13:59] LABS: ALANINE AMINOTRANSFERASE 26 U/L (12-78); ALBUMIN 3.7 g/dL (3.4-5.0); ASPARTATE AMINOTRANSFERASE 16 U/L (15-37); BILIRUBIN,TOTAL 0.5 mg/dL (0.1-1.0); TOTAL PROTEIN, SERUM 6.9 g/dL (6.4-8.2)
[2017-03-29] MEDS ORDERED: LORazepam 2 MG TABLET PO PRN (14:45)
[2017-03-29] MEDS ORDERED: ZOLPIDEM TARTRATE 10 MG TABLET PO PRN (14:45)
[2017-03-29] MEDS ORDERED: HALOPERIDOL 5 MG TABLET PO PRN (14:45)
[2017-03-29 20:00] VITALS: BP 132/75
[2017-03-29] MEDS ORDERED: INSULIN ASPART 100 UNITS/ML SQ PRN (23:30)
[2017-03-29] MEDS ORDERED: GLUCAGON,HUMAN RECOMBINANT 1 MG VIAL IM PRN (23:30)
[2017-03-29] MEDS ORDERED: ALBUTEROL SULFATE HFA 90 MCG/PUFF 8 GM INHALER IH PRN (23:30)
[2017-03-30] MEDS: LEVOTHYROXINE SODIUM 200 MCG TABLET PO SCH (06:30)
[2017-03-30] MEDS: DOCUSATE SODIUM 100 MG CAPSULE PO SCH (09:00)
[2017-03-30] MEDS: OMEPRAZOLE 20 MG CAPSULE PO SCH (09:00)
[2017-03-30] MEDS: TAMSULOSIN HCL 0.4 MG CAPSULE PO SCH (09:00)
[2017-03-30] MEDS: CHOLECALCIFEROL (VIT D3) 1,000 UNITS TABLET PO SCH (09:00)
[2017-03-30] MEDS: ASPIRIN 81 MG CHEWABLE TABLET PO SCH (09:00)
[2017-03-30] MEDS: FISH OIL/OMEGA-3 FATTY ACIDS 500 MG CAPSULE PO SCH (09:00)
[2017-03-30] MEDS ORDERED: HYDROCODONE/ACETAMINOPHEN 5-325 MG TABLET PO PRN (09:15)
[2017-03-30] MEDS: OLANZapine 5 MG TABLET PO SCH (10:30)
[2017-03-30] MEDS: BuPROPion HCL XL 150 MG ER TABLET PO SCH (10:45)
[2017-03-30 11:27] LABS: GLUCOSE,POINT OF CARE 156 MG/DL (70-110)
[2017-03-30] MEDS: GABAPENTIN 300 MG CAPSULE PO SCH ×2 (12:20→16:57)
[2017-03-30] MEDS: TraZODone HCL 50 MG TABLET PO SCH (20:42)
[2017-03-30] MEDS: SIMVASTATIN 10 MG TABLET PO SCH (20:42)
[2017-03-30] MEDS: OLANZapine 10 MG TABLET PO SCH (20:42)
[2017-03-31] MEDS: LEVOTHYROXINE SODIUM 200 MCG TABLET PO SCH (06:30)
[2017-03-31] MEDS: TAMSULOSIN HCL 0.4 MG CAPSULE PO SCH (09:00)
[2017-03-31] MEDS: OMEPRAZOLE 20 MG CAPSULE PO SCH (09:00)
[2017-03-31] MEDS: FISH OIL/OMEGA-3 FATTY ACIDS 500 MG CAPSULE PO SCH (09:00)
[2017-03-31] MEDS: OLANZapine 5 MG TABLET PO SCH (09:00)
[2017-03-31] MEDS: ASPIRIN 81 MG CHEWABLE TABLET PO SCH (09:00)
[2017-03-31] MEDS: BuPROPion HCL XL 150 MG ER TABLET PO SCH (09:00)
[2017-03-31] MEDS: GABAPENTIN 300 MG CAPSULE PO SCH ×3 (09:00→17:00)
[2017-03-31] MEDS: CHOLECALCIFEROL (VIT D3) 1,000 UNITS TABLET PO SCH (09:00)
[2017-03-31] MEDS: DOCUSATE SODIUM 100 MG CAPSULE PO SCH (09:00)
[2017-03-31] MEDS: TraZODone HCL 50 MG TABLET PO SCH (21:00)
[2017-03-31] MEDS: OLANZapine 10 MG TABLET PO SCH (21:00)
[2017-03-31] MEDS: SIMVASTATIN 10 MG TABLET PO SCH (21:00)
[2017-04-01] MEDS: LEVOTHYROXINE SODIUM 200 MCG TABLET PO SCH (06:30)
[2017-04-01] MEDS: GABAPENTIN 300 MG CAPSULE PO SCH ×2 (09:00→13:00)
[2017-04-01] MEDS: ASPIRIN 81 MG CHEWABLE TABLET PO SCH (09:00)
[2017-04-01] MEDS: DOCUSATE SODIUM 100 MG CAPSULE PO SCH (09:00)
[2017-04-01] MEDS: BuPROPion HCL XL 150 MG ER TABLET PO SCH (09:00)
[2017-04-01] MEDS: OMEPRAZOLE 20 MG CAPSULE PO SCH (09:00)
[2017-04-01] MEDS: FISH OIL/OMEGA-3 FATTY ACIDS 500 MG CAPSULE PO SCH (09:00)
[2017-04-01] MEDS: OLANZapine 5 MG TABLET PO SCH (09:00)
[2017-04-01] MEDS: TAMSULOSIN HCL 0.4 MG CAPSULE PO SCH (09:00)
[2017-04-01] MEDS: CHOLECALCIFEROL (VIT D3) 1,000 UNITS TABLET PO SCH (09:00)
== END 2017-04-01 15:05 | disposition home or self-care (01) | DRG 885 ==
LOC: EMS 13:13 → B3A 20:00
PROVIDERS: ADMIT Psychiatry & Neurology Psychiatry; ATTEND Psychiatry & Neurology Child & Adolescent Psychiatry
DX: F25.0 Schizoaffective disorder, bipolar type (principal); E11.40 Type 2 diabetes mellitus with diabetic neuropathy, unspecified; R45.851 Suicidal ideations; J44.9 Chronic obstructive pulmonary disease, unspecified; E55.9 Vitamin D deficiency, unspecified; E66.9 Obesity, unspecified; F17.210 Nicotine dependence, cigarettes, uncomplicated; E78.00 Pure hypercholesterolemia, unspecified; E03.9 Hypothyroidism, unspecified; F43.10 Post-traumatic stress disorder, unspecified; G89.29 Other chronic pain; N40.0 Benign prostatic hyperplasia without lower urinary tract symptoms; I10 Essential (primary) hypertension; I25.10 Atherosclerotic heart disease of native coronary artery without angina pectoris; K21.9 Gastro-esophageal reflux disease without esophagitis; K59.00 Constipation, unspecified; M19.90 Unspecified osteoarthritis, unspecified site; Z79.899 Other long term (current) drug therapy; R26.9 Unspecified abnormalities of gait and mobility; Z95.1 Presence of aortocoronary bypass graft; Z79.82 Long term (current) use of aspirin; Z91.048 Other nonmedicinal substance allergy status; Z79.84 Long term (current) use of oral hypoglycemic drugs; Z71.6 Tobacco abuse counseling; Z68.35 Body mass index [BMI] 35.0-35.9, adult
CPT/HCPCS: 82962; 84443; 99285; 99406; G0480; J3535

== ENCOUNTER 2017-05-25 10:14 | Inpatient (IN) | payer MEDICARE, MEDICAID ==
[~2017-05-25] VITALS: Ht 167.6 cm; Wt 97.8 kg
[~2017-05-25 10:14] MED LIST changes: -OMEG100032 PO
[2017-05-25 10:38] LABS: GLUCOSE,POINT OF CARE 129 MG/DL (70-110)
[2017-05-25 11:19] LABS: BASOPHILS # (AUTO) 0.07 K/uL (0.00-0.20); BASOPHILS % (AUTO) 0.7 % (0.0-2.0); EOSINOPHILS # (AUTO) 0.16 K/uL (0.00-0.70); EOSINOPHILS % (AUTO) 1.48 % (1.0-6.0); HEMOGLOBIN 16.2 g/dL (13.5-17.5); LYMPHOCYTES % (AUTO) 17.9 % (22.0-44.0); MEAN CORPUSCULAR HEMOGLOBIN 28.7 pg (26.0-34.0); MEAN CORPUSCULAR HGB CONC 33.7 G/dL (31.0-37.0); MEAN CORPUSCULAR VOLUME 85 fL (80-100); MONOCYTES # (AUTO) 0.7 K/uL (0.1-1.0); MONOCYTES % (AUTO) 6.4 % (2.0-9.0); NEUTROPHILS # (AUTO) 8.2 K/uL (1.8-7.7); NEUTROPHILS % (AUTO) 73.5 % (40.0-70.0); PLATELET COUNT (AUTO) 299 K/uL (150-450); RED BLOOD CELL COUNT(AUTO) 5.63 MIL/uL (4.50-5.90); RED CELL DISTRIBUTION WIDTH 14.4 % (11.5-14.5); WHITE BLOOD COUNT (AUTO) 11.1 K/uL (4.5-11.0)
[2017-05-25 11:24] LABS: ANION GAP 8 mmol/L (8-16); CALCIUM, TOTAL 9.1 mg/dL (8.8-10.5); CARBON DIOXIDE 27 mmol/L (22-29); CHLORIDE 99 mmol/L (98-107); CREATININE 1.36 mg/dL (0.60-1.30); GLOMERULAR FILTR. RATE CALC 52 mL/min (>60); POTASSIUM 3.9 mmol/L (3.5-5.1); SODIUM SERUM 134 mmol/L (136-145); UREA NITROGEN, BLOOD 10 mg/dL (7-18)
[2017-05-25 11:30] LABS: ALANINE AMINOTRANSFERASE 39 U/L (12-78); ALBUMIN 3.9 g/dL (3.4-5.0); ASPARTATE AMINOTRANSFERASE 39 U/L (15-37); BILIRUBIN,TOTAL 0.6 mg/dL (0.1-1.0); TOTAL PROTEIN, SERUM 7.4 g/dL (6.4-8.2)
[2017-05-25] MEDS ORDERED: HALOPERIDOL 5 MG TABLET PO PRN (13:00)
[2017-05-25 16:59] VITALS: BP 137/90
[2017-05-25] MEDS ORDERED: PNEUMOCOCCAL VACCINE POLYVALENT 0.5 ML VIAL [PPSV23] IM ONE (17:15)
[2017-05-25] MEDS ORDERED: INFLUENZA VIRUS VACCINE QVS 2017-18 (3YR+)/PF 60 MCG/0.5 ML SYRINGE IM ONE (17:15)
[2017-05-25 17:22] LABS: GLUCOSE,POINT OF CARE 110 MG/DL (70-110)
[2017-05-26 08:13] LABS: CHOL/HDL RATIO 8.4 (4.2-7.3)
[2017-05-26] MEDS: BuPROPion HCL XL 150 MG ER TABLET PO SCH (09:00)
[2017-05-26] MEDS: ASPIRIN 81 MG CHEWABLE TABLET PO SCH (09:00)
[2017-05-26] MEDS: OMEPRAZOLE 20 MG CAPSULE PO SCH (09:00)
[2017-05-26] MEDS: CHOLECALCIFEROL (VIT D3) 1,000 UNITS TABLET PO SCH (09:00)
[2017-05-26] MEDS: TAMSULOSIN HCL 0.4 MG CAPSULE PO SCH (09:00)
[2017-05-26] MEDS: OLANZapine 5 MG TABLET PO SCH (09:00)
[2017-05-26] MEDS: DOCUSATE SODIUM 100 MG CAPSULE PO SCH (09:00)
[2017-05-26] MEDS: GABAPENTIN 300 MG CAPSULE PO SCH ×3 (09:00→16:16)
[2017-05-26] MEDS: TraZODone HCL 50 MG TABLET PO SCH (20:11)
[2017-05-26] MEDS: ZOLPIDEM TARTRATE 10 MG TABLET PO PRN (20:11)
[2017-05-26] MEDS: OLANZapine 10 MG TABLET PO SCH (20:12)
[2017-05-26] MEDS: SIMVASTATIN 40 MG TABLET PO SCH (20:12)
[2017-05-27] MEDS: LEVOTHYROXINE SODIUM 200 MCG TABLET PO SCH (06:15)
[2017-05-27] MEDS: CHOLECALCIFEROL (VIT D3) 1,000 UNITS TABLET PO SCH (09:57)
[2017-05-27] MEDS: GABAPENTIN 300 MG CAPSULE PO SCH ×3 (09:57→16:26)
[2017-05-27] MEDS: OLANZapine 5 MG TABLET PO SCH (09:57)
[2017-05-27] MEDS: ASPIRIN 81 MG CHEWABLE TABLET PO SCH (09:57)
[2017-05-27] MEDS: DOCUSATE SODIUM 100 MG CAPSULE PO SCH (09:57)
[2017-05-27] MEDS: TAMSULOSIN HCL 0.4 MG CAPSULE PO SCH (09:57)
[2017-05-27] MEDS: OMEPRAZOLE 20 MG CAPSULE PO SCH (09:58)
[2017-05-27] MEDS: BuPROPion HCL XL 150 MG ER TABLET PO SCH (09:58)
[2017-05-27] MEDS ORDERED: GLUCAGON,HUMAN RECOMBINANT 1 MG VIAL IM PRN (14:45)
[2017-05-27] MEDS ORDERED: INSULIN ASPART 100 UNITS/ML SQ PRN (14:45)
[2017-05-27 16:26] VITALS: BP 127/77
[2017-05-27] MEDS: TraZODone HCL 50 MG TABLET PO SCH (20:36)
[2017-05-27] MEDS: ZOLPIDEM TARTRATE 10 MG TABLET PO PRN (20:36)
[2017-05-27] MEDS: OLANZapine 10 MG TABLET PO SCH (20:36)
[2017-05-27] MEDS: SIMVASTATIN 40 MG TABLET PO SCH (20:36)
[2017-05-28] MEDS: LEVOTHYROXINE SODIUM 200 MCG TABLET PO SCH (06:39)
[2017-05-28 08:44] LABS: HEMATOCRIT 52.3 % (41-53); HEMOGLOBIN 17.4 g/dL (13.5-17.5); LYMPHOCYTES % (AUTO) 23.2 % (22.0-44.0); MEAN CORPUSCULAR HEMOGLOBIN 28.9 pg (26.0-34.0); MEAN CORPUSCULAR HGB CONC 33.3 G/dL (31.0-37.0); MEAN CORPUSCULAR VOLUME 87 fL (80-100); MONOCYTES % (AUTO) 6.5 % (2.0-9.0); NEUTROPHILS % (AUTO) 68.5 % (40.0-70.0); PLATELET COUNT (AUTO) 304 K/uL (150-450); RED BLOOD CELL COUNT(AUTO) 6.04 MIL/uL (4.50-5.90); RED CELL DISTRIBUTION WIDTH 14.8 % (11.5-14.5); WHITE BLOOD COUNT (AUTO) 11.2 K/uL (4.5-11.0)
[2017-05-28 08:45] LABS: BASOPHILS % (AUTO) 0.2 % (0.0-2.0); EOSINOPHILS % (AUTO) 1.6 % (1.0-6.0); LYMPHOCYTES # (AUTO) 2.6 K/uL (1.0-4.8); MONOCYTES # (AUTO) 0.7 K/uL (0.1-1.0); NEUTROPHILS # (AUTO) 7.7 K/uL (1.8-7.7)
[2017-05-28 09:12] LABS: HEMOGLOBIN A1C 7.3 % (4.5-6.2)
[2017-05-28 09:21] LABS: ALBUMIN 3.9 g/dL (3.4-5.0); BILIRUBIN,TOTAL 0.3 mg/dL (0.1-1.0); CALCIUM, TOTAL 9.2 mg/dL (8.8-10.5); CHOL/HDL RATIO 8.6 (4.2-7.3); CREATININE 1.55 mg/dL (0.60-1.30); POTASSIUM 4.5 mmol/L (3.5-5.1); THYROID STIMULATING HORMONE 74.49 uIU/mL (0.36-3.74); TOTAL PROTEIN, SERUM 6.9 g/dL (6.4-8.2)
[2017-05-28] MEDS: GABAPENTIN 300 MG CAPSULE PO SCH ×3 (09:31→16:38)
[2017-05-28] MEDS: DOCUSATE SODIUM 100 MG CAPSULE PO SCH (09:31)
[2017-05-28] MEDS: OMEPRAZOLE 20 MG CAPSULE PO SCH (09:31)
[2017-05-28] MEDS: OLANZapine 5 MG TABLET PO SCH (09:31)
[2017-05-28] MEDS: CHOLECALCIFEROL (VIT D3) 1,000 UNITS TABLET PO SCH (09:31)
[2017-05-28] MEDS: TAMSULOSIN HCL 0.4 MG CAPSULE PO SCH (09:31)
[2017-05-28] MEDS: ASPIRIN 81 MG CHEWABLE TABLET PO SCH (09:32)
[2017-05-28] MEDS: BuPROPion HCL XL 150 MG ER TABLET PO SCH (09:32)
[2017-05-28 10:42] VITALS: BP 120/70
[2017-05-28] MEDS: HYDROCODONE/ACETAMINOPHEN 5-325 MG TABLET PO PRN ×2 (10:42→20:35)
[2017-05-28] MEDS ORDERED: ALBUTEROL SULFATE HFA 90 MCG/PUFF 8 GM INHALER IH PRN ×2 (14:30)
[2017-05-28] MEDS: ALBUTEROL SULFATE HFA 90 MCG/PUFF 8 GM INHALER IH PRN (14:36)
[2017-05-28 16:14] VITALS: BP 114/69
[2017-05-28] MEDS: LORazepam 2 MG TABLET PO PRN (16:38)
[2017-05-28] MEDS: ZOLPIDEM TARTRATE 10 MG TABLET PO PRN (20:34)
[2017-05-28] MEDS: TraZODone HCL 50 MG TABLET PO SCH (20:34)
[2017-05-28] MEDS: OLANZapine 10 MG TABLET PO SCH (20:35)
[2017-05-28] MEDS: SIMVASTATIN 40 MG TABLET PO SCH (20:35)
[2017-05-29 04:02] VITALS: BP 133/86
[2017-05-29] MEDS: ALBUTEROL SULFATE HFA 90 MCG/PUFF 8 GM INHALER IH PRN ×2 (04:10→21:25)
[2017-05-29] MEDS: LEVOTHYROXINE SODIUM 200 MCG TABLET PO SCH (06:40)
[2017-05-29 08:37] LABS: APPEARANCE,URINE CLEAR (CLEAR); GLUCOSE, URINE (UA) NEGATIVE (NEGATIVE); KETONES,URINE NEGATIVE (NEGATIVE); LEUKOCYTE ESTERASE ,URINE NEGATIVE (NEGATIVE); OCCULT BLOOD,URINE NEGATIVE (NEGATIVE); PROTEIN,URINE NEGATIVE (NEGATIVE)
[2017-05-29 08:40] LABS: ADD UA MICROSCOPIC NO
[2017-05-29 08:52] VITALS: BP 108/60
[2017-05-29] MEDS: OLANZapine 5 MG TABLET PO SCH (10:10)
[2017-05-29] MEDS: ASPIRIN 81 MG CHEWABLE TABLET PO SCH (10:10)
[2017-05-29] MEDS: DOCUSATE SODIUM 100 MG CAPSULE PO SCH (10:10)
[2017-05-29] MEDS: OMEPRAZOLE 20 MG CAPSULE PO SCH (10:10)
[2017-05-29] MEDS: CHOLECALCIFEROL (VIT D3) 1,000 UNITS TABLET PO SCH (10:10)
[2017-05-29] MEDS: BuPROPion HCL XL 150 MG ER TABLET PO SCH (10:11)
[2017-05-29] MEDS: GABAPENTIN 300 MG CAPSULE PO SCH ×3 (10:21→16:25)
[2017-05-29] MEDS: TAMSULOSIN HCL 0.4 MG CAPSULE PO SCH (11:24)
[2017-05-29 15:20] VITALS: BP 128/65
[2017-05-29 15:27] VITALS: BP 130/82
[2017-05-29] MEDS: HYDROCODONE/ACETAMINOPHEN 5-325 MG TABLET PO PRN (15:27)
[2017-05-29 16:08] VITALS: BP 147/76
[2017-05-29] MEDS: LORazepam 2 MG TABLET PO PRN (18:03)
[2017-05-29] MEDS: SIMVASTATIN 40 MG TABLET PO SCH (20:15)
[2017-05-29] MEDS: OLANZapine 10 MG TABLET PO SCH (20:15)
[2017-05-29] MEDS: TraZODone HCL 50 MG TABLET PO SCH (20:15)
[2017-05-30] MEDS: LEVOTHYROXINE SODIUM 200 MCG TABLET PO SCH (06:32)
[2017-05-30] MEDS: OMEPRAZOLE 20 MG CAPSULE PO SCH (08:30)
[2017-05-30] MEDS: GABAPENTIN 300 MG CAPSULE PO SCH (08:30)
[2017-05-30] MEDS: ASPIRIN 81 MG CHEWABLE TABLET PO SCH (08:30)
[2017-05-30] MEDS: OLANZapine 5 MG TABLET PO SCH (08:30)
[2017-05-30] MEDS: TAMSULOSIN HCL 0.4 MG CAPSULE PO SCH (08:30)
[2017-05-30] MEDS: DOCUSATE SODIUM 100 MG CAPSULE PO SCH (08:30)
[2017-05-30] MEDS: CHOLECALCIFEROL (VIT D3) 1,000 UNITS TABLET PO SCH (08:30)
[2017-05-30] MEDS: BuPROPion HCL XL 150 MG ER TABLET PO SCH (08:31)
[2017-05-30] MEDS ORDERED: SIMV-261 PO (11:47)
== END 2017-05-30 12:45 | disposition home or self-care (01) | DRG 885 ==
LOC: EMS 10:22 → B2S 14:47 → AHU 14:47 → B2S 05-29 10:51
PROVIDERS: ADMIT Psychiatry & Neurology Child & Adolescent Psychiatry; ATTEND Psychiatry & Neurology Child & Adolescent Psychiatry
DX: F33.2 Major depressive disorder, recurrent severe without psychotic features (principal); F25.0 Schizoaffective disorder, bipolar type; R45.851 Suicidal ideations; J44.9 Chronic obstructive pulmonary disease, unspecified; K21.9 Gastro-esophageal reflux disease without esophagitis; I25.10 Atherosclerotic heart disease of native coronary artery without angina pectoris; I10 Essential (primary) hypertension; E03.9 Hypothyroidism, unspecified; E66.9 Obesity, unspecified; F43.10 Post-traumatic stress disorder, unspecified; M19.90 Unspecified osteoarthritis, unspecified site; F17.210 Nicotine dependence, cigarettes, uncomplicated; N40.0 Benign prostatic hyperplasia without lower urinary tract symptoms; E78.5 Hyperlipidemia, unspecified; D72.829 Elevated white blood cell count, unspecified; Z68.34 Body mass index [BMI] 34.0-34.9, adult; Z79.899 Other long term (current) drug therapy; Z79.82 Long term (current) use of aspirin; Z59.0 Homelessness; Z88.8 Allergy status to other drugs, medicaments and biological substances; Z28.21 Immunization not carried out because of patient refusal
CPT/HCPCS: 80307; 82652; 82962; 83036; 84439; 84443; 87081; 99285; G0480; J3535

== ENCOUNTER 2017-07-02 09:24 | Inpatient (IN) | payer MEDICARE, MEDICAID ==
[~2017-07-02] VITALS: Ht 167.6 cm; Wt 99.2 kg
[~2017-07-02 09:24] MED LIST changes: -SIMV-259 PO; +SIMV-261 PO
[2017-07-02] MEDS ORDERED: HYDR-309 PO (09:35)
[2017-07-02 10:00] LABS: BASOPHILS # (AUTO) 0.04 K/uL (0.00-0.20); BASOPHILS % (AUTO) 0.4 % (0.0-2.0); EOSINOPHILS # (AUTO) 0.11 K/uL (0.00-0.70); HEMATOCRIT 51.6 % (41-53); HEMOGLOBIN 17.1 g/dL (13.5-17.5); LYMPHOCYTES # (AUTO) 2.2 K/uL (1.0-4.8); LYMPHOCYTES % (AUTO) 20.1 % (22.0-44.0); MEAN CORPUSCULAR HEMOGLOBIN 28.6 pg (26.0-34.0); MEAN CORPUSCULAR HGB CONC 33.2 G/dL (31.0-37.0); MEAN CORPUSCULAR VOLUME 86 fL (80-100); MONOCYTES # (AUTO) 0.6 K/uL (0.1-1.0); MONOCYTES % (AUTO) 5.8 % (2.0-9.0); NEUTROPHILS # (AUTO) 7.9 K/uL (1.8-7.7); NEUTROPHILS % (AUTO) 72.7 % (40.0-70.0); PLATELET COUNT (AUTO) 262 K/uL (150-450); RED BLOOD CELL COUNT(AUTO) 5.98 MIL/uL (4.50-5.90); RED CELL DISTRIBUTION WIDTH 16.1 % (11.5-14.5); WHITE BLOOD COUNT (AUTO) 10.8 K/uL (4.5-11.0)
[2017-07-02 10:11] LABS: ANION GAP 8 mmol/L (8-16); CALCIUM, TOTAL 9.7 mg/dL (8.8-10.5); CARBON DIOXIDE 26 mmol/L (22-29); CHLORIDE 98 mmol/L (98-107); CREATININE 1.48 mg/dL (0.60-1.30); GLOMERULAR FILTR. RATE CALC 47 mL/min (>60); POTASSIUM 4.1 mmol/L (3.5-5.1); SODIUM SERUM 132 mmol/L (136-145); UREA NITROGEN, BLOOD 15 mg/dL (7-18)
[2017-07-02 10:19] LABS: ALANINE AMINOTRANSFERASE 34 U/L (12-78); ALBUMIN 4.4 g/dL (3.4-5.0); ASPARTATE AMINOTRANSFERASE 30 U/L (15-37); BILIRUBIN,TOTAL 0.7 mg/dL (0.1-1.0); TOTAL PROTEIN, SERUM 7.7 g/dL (6.4-8.2)
[2017-07-02] MEDS ORDERED: HALOPERIDOL 5 MG TABLET PO PRN (10:30)
[2017-07-02] MEDS ORDERED: ZOLPIDEM TARTRATE 10 MG TABLET PO PRN (10:30)
[2017-07-02] MEDS ORDERED: LORazepam 2 MG TABLET PO ONE (10:30)
[2017-07-02 11:33] LABS: GLUCOSE COMMENT 1 Doctor Notified; GLUCOSE,POINT OF CARE 123 MG/DL (70-110)
[2017-07-02 12:42] LABS: APPEARANCE,URINE CLEAR (CLEAR); GLUCOSE, URINE (UA) NEGATIVE (NEGATIVE); KETONES,URINE NEGATIVE (NEGATIVE); LEUKOCYTE ESTERASE ,URINE NEGATIVE (NEGATIVE); OCCULT BLOOD,URINE NEGATIVE (NEGATIVE); PROTEIN,URINE NEGATIVE (NEGATIVE)
[2017-07-02 12:48] LABS: ADD UA MICROSCOPIC NO
[2017-07-02 14:05] VITALS: BP 147/93
[2017-07-02] MEDS ORDERED: INFLUENZA VIRUS VACCINE QVS 2017-18 (3YR+)/PF 60 MCG/0.5 ML SYRINGE IM ONE (14:15)
[2017-07-02] MEDS: LORazepam 2 MG TABLET PO PRN (16:46)
[2017-07-02 17:47] VITALS: BP 132/86
[2017-07-03 00:30] VITALS: BP 137/91
[2017-07-03 07:32] LABS: CHOL/HDL RATIO 8.5 (4.2-7.3); THYROID STIMULATING HORMONE 76.28 uIU/mL (0.36-3.74)
[2017-07-03 08:15] VITALS: BP 126/72
[2017-07-03] MEDS ORDERED: IBUPROFEN 600 MG TABLET PO PRN (08:45)
[2017-07-03] MEDS ORDERED: BENZOCAINE/MENTHOL LOZENGE [8 LOZENGES/PACKET] MM PRN (08:45)
[2017-07-03] MEDS ORDERED: BACITRACIN 28.4 GM OINTMENT TP PRN (08:45)
[2017-07-03] MEDS ORDERED: CloNIDine HCL 0.1 MG TABLET PO PRN (08:45)
[2017-07-03] MEDS ORDERED: ALBUTEROL SULFATE HFA 90 MCG/PUFF 8 GM INHALER IH PRN (08:45)
[2017-07-03] MEDS ORDERED: PETROLATUM,WHITE 71 GM JELLY TP PRN (08:45)
[2017-07-03] MEDS ORDERED: ACETAMINOPHEN 325 MG TABLET PO PRN (08:45)
[2017-07-03] MEDS ORDERED: LOPERAMIDE HCL 2 MG CAPSULE PO PRN (08:45)
[2017-07-03] MEDS ORDERED: ONDANSETRON HCL 4 MG TABLET PO PRN (08:45)
[2017-07-03] MEDS ORDERED: MAG HYDROX/AL HYDROX/SIMETH ES 30 ML SUSPENSION UDCUP PO PRN (08:45)
[2017-07-03] MEDS ORDERED: MAGNESIUM HYDROXIDE SUSPENSION 30 ML UDCUP PO PRN (08:45)
[2017-07-03] MEDS: ATENOLOL 50 MG TABLET PO SCH (09:22)
[2017-07-03] MEDS: GABAPENTIN 300 MG CAPSULE PO SCH ×3 (09:22→16:39)
[2017-07-03] MEDS: DOCUSATE SODIUM 100 MG CAPSULE PO SCH (09:22)
[2017-07-03] MEDS: ASPIRIN 81 MG CHEWABLE TABLET PO SCH (09:22)
[2017-07-03] MEDS: OMEPRAZOLE 20 MG CAPSULE PO SCH (09:23)
[2017-07-03] MEDS: TAMSULOSIN HCL 0.4 MG CAPSULE PO SCH (09:23)
[2017-07-03] MEDS: LEVOTHYROXINE SODIUM 200 MCG TABLET PO SCH (09:23)
[2017-07-03] MEDS: CHOLECALCIFEROL (VIT D3) 1,000 UNITS TABLET PO SCH (09:23)
[2017-07-03 16:40] VITALS: BP 105/68
[2017-07-03] MEDS ORDERED: GABAPENTIN 300 MG CAPSULE PO SCH (17:00)
[2017-07-03] MEDS: TraZODone HCL 50 MG TABLET PO SCH (20:34)
[2017-07-03] MEDS: OLANZapine 10 MG TABLET PO SCH (20:34)
[2017-07-03] MEDS: SIMVASTATIN 40 MG TABLET PO SCH (21:22)
[2017-07-04 05:42] VITALS: BP 117/74
[2017-07-04] MEDS: LEVOTHYROXINE SODIUM 200 MCG TABLET PO SCH (06:23)
[2017-07-04 06:44] LABS: CALCIUM, TOTAL 9.1 mg/dL (8.8-10.5); CREATININE 1.59 mg/dL (0.60-1.30); POTASSIUM 4.1 mmol/L (3.5-5.1)
[2017-07-04] MEDS: ATENOLOL 50 MG TABLET PO SCH (09:00)
[2017-07-04] MEDS: CHOLECALCIFEROL (VIT D3) 1,000 UNITS TABLET PO SCH ×2 (09:00→09:45)
[2017-07-04] MEDS: ASPIRIN 81 MG CHEWABLE TABLET PO SCH (09:42)
[2017-07-04] MEDS: BuPROPion HCL XL 150 MG ER TABLET PO SCH (09:43)
[2017-07-04] MEDS: VENLAFAXINE HCL 75 MG ER CAPSULE PO SCH (09:43)
[2017-07-04] MEDS: OMEPRAZOLE 20 MG CAPSULE PO SCH (09:45)
[2017-07-04] MEDS: DOCUSATE SODIUM 100 MG CAPSULE PO SCH (09:45)
[2017-07-04] MEDS: TAMSULOSIN HCL 0.4 MG CAPSULE PO SCH (09:45)
[2017-07-04] MEDS: GABAPENTIN 300 MG CAPSULE PO SCH ×3 (09:45→16:54)
[2017-07-04] MEDS: OLANZapine 5 MG TABLET PO SCH (09:45)
[2017-07-04 16:30] VITALS: BP 101/63
[2017-07-04] MEDS: OLANZapine 10 MG TABLET PO SCH (20:04)
[2017-07-04] MEDS: TraZODone HCL 50 MG TABLET PO SCH (20:04)
[2017-07-04] MEDS: SIMVASTATIN 40 MG TABLET PO SCH (20:05)
[2017-07-05] MEDS: LEVOTHYROXINE SODIUM 200 MCG TABLET PO SCH (06:53)
[2017-07-05 08:15] VITALS: BP 102/64
[2017-07-05] MEDS: ATENOLOL 50 MG TABLET PO SCH (09:00)
[2017-07-05] MEDS: ASPIRIN 81 MG CHEWABLE TABLET PO SCH (09:31)
[2017-07-05] MEDS: DOCUSATE SODIUM 100 MG CAPSULE PO SCH (09:32)
[2017-07-05] MEDS: VENLAFAXINE HCL 75 MG ER CAPSULE PO SCH (09:33)
[2017-07-05] MEDS: CHOLECALCIFEROL (VIT D3) 1,000 UNITS TABLET PO SCH (09:34)
[2017-07-05] MEDS: GABAPENTIN 300 MG CAPSULE PO SCH ×3 (09:34→17:07)
[2017-07-05] MEDS: OMEPRAZOLE 20 MG CAPSULE PO SCH (09:34)
[2017-07-05] MEDS: TAMSULOSIN HCL 0.4 MG CAPSULE PO SCH (09:34)
[2017-07-05] MEDS: OLANZapine 5 MG TABLET PO SCH (09:35)
[2017-07-05] MEDS: BuPROPion HCL XL 150 MG ER TABLET PO SCH (09:35)
[2017-07-05 14:07] VITALS: BP 102/64
[2017-07-05] MEDS: HYDROCODONE/ACETAMINOPHEN 5-325 MG TABLET PO PRN (14:07)
[2017-07-05 17:05] VITALS: BP 98/67
[2017-07-05 17:07] VITALS: BP 101/57
[2017-07-05] MEDS: TraZODone HCL 50 MG TABLET PO SCH (20:45)
[2017-07-05] MEDS: SIMVASTATIN 40 MG TABLET PO SCH (20:45)
[2017-07-05] MEDS: OLANZapine 10 MG TABLET PO SCH (20:45)
[2017-07-06] MEDS: LEVOTHYROXINE SODIUM 200 MCG TABLET PO SCH (06:37)
[2017-07-06 08:30] VITALS: BP 129/77
[2017-07-06] MEDS ORDERED: VENLAFAXINE HCL 150 MG ER CAPSULE PO SCH (09:00)
[2017-07-06] MEDS: DOCUSATE SODIUM 100 MG CAPSULE PO SCH (09:05)
[2017-07-06] MEDS: ASPIRIN 81 MG CHEWABLE TABLET PO SCH (09:05)
[2017-07-06] MEDS: OMEPRAZOLE 20 MG CAPSULE PO SCH (09:06)
[2017-07-06] MEDS: TAMSULOSIN HCL 0.4 MG CAPSULE PO SCH (09:06)
[2017-07-06] MEDS: GABAPENTIN 300 MG CAPSULE PO SCH ×3 (09:06→16:34)
[2017-07-06] MEDS: CHOLECALCIFEROL (VIT D3) 1,000 UNITS TABLET PO SCH (09:07)
[2017-07-06] MEDS: ATENOLOL 50 MG TABLET PO SCH (09:07)
[2017-07-06] MEDS: OLANZapine 5 MG TABLET PO SCH (09:07)
[2017-07-06] MEDS: BuPROPion HCL XL 150 MG ER TABLET PO SCH (09:07)
[2017-07-06] MEDS: HYDROCODONE/ACETAMINOPHEN 5-325 MG TABLET PO PRN ×2 (11:21→23:06)
[2017-07-06] MEDS: LORazepam 2 MG TABLET PO PRN (16:34)
[2017-07-06 17:00] VITALS: BP 121/80
[2017-07-06] MEDS: TraZODone HCL 50 MG TABLET PO SCH (21:00)
[2017-07-06] MEDS: OLANZapine 10 MG TABLET PO SCH (21:03)
[2017-07-06] MEDS: SIMVASTATIN 40 MG TABLET PO SCH (21:04)
[2017-07-06 23:05] VITALS: BP 120/70
[2017-07-07] MEDS: LEVOTHYROXINE SODIUM 200 MCG TABLET PO SCH (06:49)
[2017-07-07] MEDS ORDERED: LEVOTHYROXINE SODIUM 200 MCG TABLET PO SCH (07:00)
[2017-07-07] MEDS: ASPIRIN 81 MG CHEWABLE TABLET PO SCH (08:24)
[2017-07-07] MEDS: DOCUSATE SODIUM 100 MG CAPSULE PO SCH (08:24)
[2017-07-07] MEDS: TAMSULOSIN HCL 0.4 MG CAPSULE PO SCH (08:25)
[2017-07-07] MEDS: GABAPENTIN 300 MG CAPSULE PO SCH ×3 (08:25→16:10)
[2017-07-07] MEDS: OMEPRAZOLE 20 MG CAPSULE PO SCH (08:25)
[2017-07-07] MEDS: CHOLECALCIFEROL (VIT D3) 1,000 UNITS TABLET PO SCH (08:26)
[2017-07-07] MEDS: OLANZapine 5 MG TABLET PO SCH (08:26)
[2017-07-07] MEDS: BuPROPion HCL XL 150 MG ER TABLET PO SCH (08:26)
[2017-07-07] MEDS: ATENOLOL 50 MG TABLET PO SCH (08:26)
[2017-07-07 08:30] VITALS: BP 121/73
[2017-07-07 08:50] VITALS: BP 134/89
[2017-07-07] MEDS: HYDROCODONE/ACETAMINOPHEN 5-325 MG TABLET PO PRN (08:50)
[2017-07-07] MEDS ORDERED: VENLAFAXINE HCL 75 MG ER CAPSULE PO SCH (09:00)
[2017-07-07] MEDS ORDERED: OMEGA-3/DHA/EPA/FISH OIL 1,000 MG CAPSULE PO SCH (09:00)
[2017-07-07 09:50] VITALS: BP 126/84
[2017-07-07] MEDS ORDERED: VENL-67 PO (14:59)
[2017-07-07] MEDS ORDERED: ATEN25TA PO (15:09)
[2017-07-07] MEDS ORDERED: OMEG-28 PO (15:11)
== END 2017-07-07 18:20 | DRG 753 ==
LOC: EMS 09:24 → 3EI 13:29
PROVIDERS: ADMIT Psychiatry & Neurology Psychiatry; ATTEND Psychiatry & Neurology Psychiatry
DX: F31.9 Bipolar disorder, unspecified (principal); N17.9 Acute kidney failure, unspecified; J44.9 Chronic obstructive pulmonary disease, unspecified; R45.851 Suicidal ideations; E87.1 Hypo-osmolality and hyponatremia; E11.65 Type 2 diabetes mellitus with hyperglycemia; F20.9 Schizophrenia, unspecified; E03.9 Hypothyroidism, unspecified; E78.00 Pure hypercholesterolemia, unspecified; F17.200 Nicotine dependence, unspecified, uncomplicated; F43.10 Post-traumatic stress disorder, unspecified; G89.29 Other chronic pain; I10 Essential (primary) hypertension; I25.10 Atherosclerotic heart disease of native coronary artery without angina pectoris; K21.9 Gastro-esophageal reflux disease without esophagitis; G62.9 Polyneuropathy, unspecified; M19.90 Unspecified osteoarthritis, unspecified site; N40.0 Benign prostatic hyperplasia without lower urinary tract symptoms; Z95.1 Presence of aortocoronary bypass graft; Z91.048 Other nonmedicinal substance allergy status; Z79.82 Long term (current) use of aspirin; Z79.899 Other long term (current) drug therapy
CPT/HCPCS: 82962; 84439; 84443; 99285; G0480

== ENCOUNTER 2017-07-23 06:34 | Inpatient (IN) | payer MEDICARE, MEDICAID ==
[~2017-07-23] VITALS: Ht 167.6 cm; Wt 101.0 kg
[~2017-07-23 06:34] MED LIST changes: +ATEN25TA PO; +OMEG-28 PO; +VENL-67 PO
[2017-07-23 06:48] LABS: GLUCOSE,POINT OF CARE 190 MG/DL (70-110)
[2017-07-23 07:22] LABS: BASOPHILS % (AUTO) 0.3 % (0.0-2.0); EOSINOPHILS % (AUTO) 1.9 % (1.0-6.0); HEMATOCRIT 45.7 % (41-53); HEMOGLOBIN 15.8 g/dL (13.5-17.5); MEAN CORPUSCULAR HEMOGLOBIN 29.7 pg (26.0-34.0); MEAN CORPUSCULAR HGB CONC 34.5 G/dL (31.0-37.0); MEAN CORPUSCULAR VOLUME 86 fL (80-100); MONOCYTES # (AUTO) 0.8 K/uL (0.1-1.0); NEUTROPHILS # (AUTO) 5.9 K/uL (1.8-7.7); NEUTROPHILS % (AUTO) 65.8 % (40.0-70.0); PLATELET COUNT (AUTO) 280 K/uL (150-450); RED BLOOD CELL COUNT(AUTO) 5.31 MIL/uL (4.50-5.90); RED CELL DISTRIBUTION WIDTH 16.7 % (11.5-14.5); WHITE BLOOD COUNT (AUTO) 8.9 K/uL (4.5-11.0)
[2017-07-23 07:34] LABS: ANION GAP 11 mmol/L (8-16); CALCIUM, TOTAL 8.7 mg/dL (8.8-10.5); CARBON DIOXIDE 25 mmol/L (22-29); CHLORIDE 103 mmol/L (98-107); CREATININE 1.45 mg/dL (0.60-1.30); GLOMERULAR FILTR. RATE CALC 48 mL/min (>60); POTASSIUM 3.6 mmol/L (3.5-5.1); SODIUM SERUM 139 mmol/L (136-145); UREA NITROGEN, BLOOD 18 mg/dL (7-18)
[2017-07-23 07:40] LABS: ALANINE AMINOTRANSFERASE 25 U/L (12-78); ALBUMIN 3.9 g/dL (3.4-5.0); ASPARTATE AMINOTRANSFERASE 17 U/L (15-37); BILIRUBIN,TOTAL 0.3 mg/dL (0.1-1.0); TOTAL PROTEIN, SERUM 7.6 g/dL (6.4-8.2)
[2017-07-23] MEDS ORDERED: OLANZapine 5 MG RAPDIS TABLET PO PRN (10:15)
[2017-07-23] MEDS ORDERED: ZOLPIDEM TARTRATE 10 MG TABLET PO PRN (10:15)
[2017-07-23] MEDS ORDERED: HALOPERIDOL LACTATE 5 MG/ML VIAL IM ONE (12:45)
[2017-07-23] MEDS ORDERED: DiphenhydrAMINE HCL 50 MG/ML VIAL IM ONE (12:45)
[2017-07-23] MEDS ORDERED: LORazepam 2 MG/ML VIAL IM ONE (12:45)
[2017-07-23] MEDS: GABAPENTIN 300 MG CAPSULE PO SCH ×2 (16:00→20:30)
[2017-07-23] MEDS: TraZODone HCL 50 MG TABLET PO SCH (20:49)
[2017-07-23] MEDS: OLANZapine 10 MG TABLET PO SCH (20:49)
[2017-07-24] MEDS ORDERED: INFLUENZA VIRUS VACCINE QVS 2017-18 (3YR+)/PF 60 MCG/0.5 ML SYRINGE IM ONE (06:30)
[2017-07-24] MEDS ORDERED: ACETAMINOPHEN 325 MG TABLET PO PRN (08:00)
[2017-07-24] MEDS ORDERED: BACITRACIN 28.4 GM OINTMENT TP PRN (08:00)
[2017-07-24] MEDS ORDERED: MAG HYDROX/AL HYDROX/SIMETH ES 30 ML SUSPENSION UDCUP PO PRN (08:00)
[2017-07-24] MEDS ORDERED: DEXTROSE 50%-WATER 25 GM/50 ML SYRINGE IVP PRN (08:00)
[2017-07-24] MEDS ORDERED: CloNIDine HCL 0.1 MG TABLET PO PRN (08:00)
[2017-07-24] MEDS ORDERED: ONDANSETRON HCL 4 MG TABLET PO PRN (08:00)
[2017-07-24] MEDS ORDERED: MAGNESIUM HYDROXIDE SUSPENSION 30 ML UDCUP PO PRN (08:00)
[2017-07-24] MEDS ORDERED: LOPERAMIDE HCL 2 MG CAPSULE PO PRN (08:00)
[2017-07-24] MEDS ORDERED: PETROLATUM,WHITE 71 GM JELLY TP PRN (08:00)
[2017-07-24] MEDS ORDERED: BENZOCAINE/MENTHOL LOZENGE [8 LOZENGES/PACKET] MM PRN (08:15)
[2017-07-24] MEDS: CHOLECALCIFEROL (VIT D3) 1,000 UNITS TABLET PO SCH (09:00)
[2017-07-24] MEDS: DOCUSATE SODIUM 100 MG CAPSULE PO SCH (09:00)
[2017-07-24] MEDS: VENLAFAXINE HCL 75 MG ER CAPSULE PO SCH (09:00)
[2017-07-24] MEDS: LISINOPRIL 10 MG TABLET PO SCH (09:00)
[2017-07-24] MEDS: ASPIRIN 81 MG CHEWABLE TABLET PO SCH (09:00)
[2017-07-24] MEDS: BuPROPion HCL XL 150 MG ER TABLET PO SCH (09:00)
[2017-07-24] MEDS: GABAPENTIN 300 MG CAPSULE PO SCH ×3 (09:00→16:51)
[2017-07-24] MEDS: OMEPRAZOLE 20 MG CAPSULE PO SCH (09:00)
[2017-07-24] MEDS: TAMSULOSIN HCL 0.4 MG CAPSULE PO SCH (09:00)
[2017-07-24] MEDS: OLANZapine 5 MG TABLET PO SCH (09:00)
[2017-07-24] MEDS ORDERED: NITROGLYCERIN 0.4 MG SUBLINGUAL TABLET #25 SL PRN (10:00)
[2017-07-24] MEDS: GlipiZIDE 10 MG TABLET PO SCH (16:50)
[2017-07-24] MEDS: SIMVASTATIN 40 MG TABLET PO SCH (20:23)
[2017-07-24] MEDS: OLANZapine 10 MG TABLET PO SCH (20:23)
[2017-07-24] MEDS: TraZODone HCL 50 MG TABLET PO SCH (20:23)
[2017-07-25 06:27] LABS: GLUCOSE,POINT OF CARE 123 MG/DL (70-110)
[2017-07-25] MEDS: LEVOTHYROXINE SODIUM 200 MCG TABLET PO SCH (07:00)
[2017-07-25] MEDS: GlipiZIDE 10 MG TABLET PO SCH ×2 (07:00→16:30)
[2017-07-25] MEDS: INSULIN ASPART 100 UNITS/ML SQ PRN ×2 (07:02→11:29)
[2017-07-25] MEDS: TAMSULOSIN HCL 0.4 MG CAPSULE PO SCH (09:32)
[2017-07-25] MEDS: OLANZapine 5 MG TABLET PO SCH (09:32)
[2017-07-25] MEDS: GABAPENTIN 300 MG CAPSULE PO SCH ×3 (09:33→16:30)
[2017-07-25] MEDS: CHOLECALCIFEROL (VIT D3) 1,000 UNITS TABLET PO SCH (09:33)
[2017-07-25] MEDS: ASPIRIN 81 MG CHEWABLE TABLET PO SCH (09:33)
[2017-07-25] MEDS: DOCUSATE SODIUM 100 MG CAPSULE PO SCH (09:34)
[2017-07-25] MEDS: OMEPRAZOLE 20 MG CAPSULE PO SCH (09:34)
[2017-07-25] MEDS: BuPROPion HCL XL 150 MG ER TABLET PO SCH (09:35)
[2017-07-25] MEDS: LISINOPRIL 10 MG TABLET PO SCH (09:36)
[2017-07-25] MEDS: VENLAFAXINE HCL 75 MG ER CAPSULE PO SCH (09:37)
[2017-07-25 11:32] LABS: GLUCOSE COMMENT 1 Juice/Food/D50 Given; GLUCOSE,POINT OF CARE 61 MG/DL (70-110)
[2017-07-25 16:32] LABS: GLUCOSE,POINT OF CARE 136 MG/DL (70-110)
[2017-07-25] MEDS: SIMVASTATIN 40 MG TABLET PO SCH (20:32)
[2017-07-25] MEDS: OLANZapine 10 MG TABLET PO SCH (20:32)
[2017-07-25] MEDS: TraZODone HCL 50 MG TABLET PO SCH (20:32)
[2017-07-25 20:38] LABS: GLUCOSE,POINT OF CARE 133 MG/DL (70-110)
[2017-07-26] MEDS: GlipiZIDE 10 MG TABLET PO SCH ×2 (07:02→17:17)
[2017-07-26] MEDS: LEVOTHYROXINE SODIUM 200 MCG TABLET PO SCH (07:02)
[2017-07-26] MEDS: INSULIN ASPART 100 UNITS/ML SQ PRN (07:03)
[2017-07-26 07:17] LABS: GLUCOSE,POINT OF CARE 106 MG/DL (70-110)
[2017-07-26] MEDS: ASPIRIN 81 MG CHEWABLE TABLET PO SCH (10:04)
[2017-07-26] MEDS: DOCUSATE SODIUM 100 MG CAPSULE PO SCH (10:04)
[2017-07-26] MEDS: VENLAFAXINE HCL 75 MG ER CAPSULE PO SCH (10:05)
[2017-07-26] MEDS: OMEPRAZOLE 20 MG CAPSULE PO SCH (10:05)
[2017-07-26] MEDS: TAMSULOSIN HCL 0.4 MG CAPSULE PO SCH (10:05)
[2017-07-26] MEDS: GABAPENTIN 300 MG CAPSULE PO SCH ×3 (10:05→17:17)
[2017-07-26] MEDS: OLANZapine 5 MG TABLET PO SCH (10:06)
[2017-07-26] MEDS: CHOLECALCIFEROL (VIT D3) 1,000 UNITS TABLET PO SCH (10:06)
[2017-07-26] MEDS: BuPROPion HCL XL 150 MG ER TABLET PO SCH (10:06)
[2017-07-26] MEDS: LISINOPRIL 10 MG TABLET PO SCH (10:07)
[2017-07-26 11:52] LABS: GLUCOSE,POINT OF CARE 58 MG/DL (70-110)
[2017-07-26 12:32] LABS: GLUCOSE,POINT OF CARE 179 MG/DL (70-110)
[2017-07-26 17:08] VITALS: BP 120/76
[2017-07-26 17:27] LABS: GLUCOSE COMMENT 1 Received Meds; GLUCOSE,POINT OF CARE 106 MG/DL (70-110)
[2017-07-26] MEDS: TraZODone HCL 50 MG TABLET PO SCH (20:31)
[2017-07-26] MEDS: SIMVASTATIN 40 MG TABLET PO SCH (20:32)
[2017-07-26] MEDS: OLANZapine 10 MG TABLET PO SCH (20:32)
[2017-07-26 20:37] LABS: GLUCOSE COMMENT 1 FASTING; GLUCOSE,POINT OF CARE 116 MG/DL (70-110)
[2017-07-27] MEDS: IBUPROFEN 600 MG TABLET PO PRN ×2 (02:54→13:46)
[2017-07-27 02:55] VITALS: BP 133/88
[2017-07-27 06:02] LABS: GLUCOSE,POINT OF CARE 96 MG/DL (70-110)
[2017-07-27] MEDS: LEVOTHYROXINE SODIUM 200 MCG TABLET PO SCH (07:04)
[2017-07-27] MEDS: GlipiZIDE 10 MG TABLET PO SCH ×2 (07:04→16:13)
[2017-07-27 08:34] VITALS: BP 125/82
[2017-07-27] MEDS: OMEPRAZOLE 20 MG CAPSULE PO SCH (09:20)
[2017-07-27] MEDS: VENLAFAXINE HCL 75 MG ER CAPSULE PO SCH (09:20)
[2017-07-27] MEDS: TAMSULOSIN HCL 0.4 MG CAPSULE PO SCH (09:20)
[2017-07-27] MEDS: DOCUSATE SODIUM 100 MG CAPSULE PO SCH (09:21)
[2017-07-27] MEDS: LISINOPRIL 10 MG TABLET PO SCH (09:21)
[2017-07-27] MEDS: CHOLECALCIFEROL (VIT D3) 1,000 UNITS TABLET PO SCH (09:21)
[2017-07-27] MEDS: BuPROPion HCL XL 150 MG ER TABLET PO SCH (09:21)
[2017-07-27] MEDS: GABAPENTIN 300 MG CAPSULE PO SCH ×3 (09:21→16:12)
[2017-07-27] MEDS: OLANZapine 5 MG TABLET PO SCH (09:21)
[2017-07-27] MEDS: ASPIRIN 81 MG CHEWABLE TABLET PO SCH (09:21)
[2017-07-27 12:18] LABS: GLUCOSE COMMENT 1 Juice/Food/D50 Given; GLUCOSE,POINT OF CARE 66 MG/DL (70-110)
[2017-07-27 16:10] VITALS: BP 129/77
[2017-07-27] MEDS: TraMADol HCL 50 MG TABLET PO PRN (16:12)
[2017-07-27 16:17] LABS: GLUCOSE,POINT OF CARE 75 MG/DL (70-110)
[2017-07-27 17:11] VITALS: BP 119/71
[2017-07-27] MEDS: LORazepam 2 MG TABLET PO PRN (18:03)
[2017-07-27] MEDS: SIMVASTATIN 40 MG TABLET PO SCH (21:46)
[2017-07-27] MEDS: OLANZapine 10 MG TABLET PO SCH (21:46)
[2017-07-27] MEDS: TraZODone HCL 50 MG TABLET PO SCH (21:46)
[2017-07-27 21:58] LABS: GLUCOSE,POINT OF CARE 124 MG/DL (70-110)
[2017-07-28 05:52] LABS: GLUCOSE,POINT OF CARE 96 MG/DL (70-110)
[2017-07-28] MEDS: LEVOTHYROXINE SODIUM 200 MCG TABLET PO SCH (06:50)
[2017-07-28] MEDS: GlipiZIDE 10 MG TABLET PO SCH ×2 (06:50→16:52)
[2017-07-28 08:38] VITALS: BP 140/71
[2017-07-28] MEDS: TAMSULOSIN HCL 0.4 MG CAPSULE PO SCH (08:49)
[2017-07-28] MEDS: BuPROPion HCL XL 150 MG ER TABLET PO SCH (08:50)
[2017-07-28] MEDS: OMEGA-3/DHA/EPA/FISH OIL 1,000 MG CAPSULE PO SCH (08:50)
[2017-07-28] MEDS: VENLAFAXINE HCL 75 MG ER CAPSULE PO SCH (08:50)
[2017-07-28] MEDS: OMEPRAZOLE 20 MG CAPSULE PO SCH (08:50)
[2017-07-28] MEDS: OLANZapine 5 MG TABLET PO SCH (08:51)
[2017-07-28] MEDS: DOCUSATE SODIUM 100 MG CAPSULE PO SCH (08:51)
[2017-07-28] MEDS: GABAPENTIN 300 MG CAPSULE PO SCH ×3 (08:51→16:53)
[2017-07-28] MEDS: LISINOPRIL 10 MG TABLET PO SCH (08:51)
[2017-07-28 08:52] VITALS: BP 146/70
[2017-07-28] MEDS: TraMADol HCL 50 MG TABLET PO PRN ×2 (08:52→20:17)
[2017-07-28] MEDS: ASPIRIN 81 MG CHEWABLE TABLET PO SCH (09:26)
[2017-07-28] MEDS: CHOLECALCIFEROL (VIT D3) 1,000 UNITS TABLET PO SCH (09:26)
[2017-07-28 11:22] LABS: GLUCOSE COMMENT 1 Doctor Notified; GLUCOSE,POINT OF CARE 65 MG/DL (70-110)
[2017-07-28] MEDS: NICOTINE 21 MG/24 HOUR PATCH TD SCH (16:52)
[2017-07-28 17:14] VITALS: BP 119/60
[2017-07-28 17:23] LABS: GLUCOSE,POINT OF CARE 126 MG/DL (70-110)
[2017-07-28] MEDS ORDERED: NITROGLYCERIN 0.4 MG SUBLINGUAL TABLET #25 SL PRN (17:45)
[2017-07-28] MEDS: OLANZapine 10 MG TABLET PO SCH (20:17)
[2017-07-28] MEDS: SIMVASTATIN 40 MG TABLET PO SCH (20:17)
[2017-07-28] MEDS: TraZODone HCL 50 MG TABLET PO SCH (20:17)
[2017-07-28 20:22] LABS: GLUCOSE,POINT OF CARE 147 MG/DL (70-110)
[2017-07-28] MEDS: INSULIN ASPART 100 UNITS/ML SQ PRN (21:19)
[2017-07-29 04:50] VITALS: BP 111/68
[2017-07-29] MEDS: TraMADol HCL 50 MG TABLET PO PRN (04:54)
[2017-07-29 06:17] LABS: GLUCOSE,POINT OF CARE 208 MG/DL (70-110)
[2017-07-29] MEDS: LEVOTHYROXINE SODIUM 200 MCG TABLET PO SCH (06:54)
[2017-07-29] MEDS: GlipiZIDE 10 MG TABLET PO SCH ×2 (06:54→16:09)
[2017-07-29] MEDS: INSULIN ASPART 100 UNITS/ML SQ PRN ×2 (07:05→11:41)
[2017-07-29 08:30] VITALS: BP 120/71
[2017-07-29] MEDS: TAMSULOSIN HCL 0.4 MG CAPSULE PO SCH (09:13)
[2017-07-29] MEDS: OMEPRAZOLE 20 MG CAPSULE PO SCH (09:13)
[2017-07-29] MEDS: DOCUSATE SODIUM 100 MG CAPSULE PO SCH (09:13)
[2017-07-29] MEDS: BuPROPion HCL XL 150 MG ER TABLET PO SCH (09:14)
[2017-07-29] MEDS: GABAPENTIN 300 MG CAPSULE PO SCH ×3 (09:14→16:09)
[2017-07-29] MEDS: VENLAFAXINE HCL 75 MG ER CAPSULE PO SCH (09:14)
[2017-07-29] MEDS: ASPIRIN 81 MG CHEWABLE TABLET PO SCH (09:15)
[2017-07-29] MEDS: LISINOPRIL 10 MG TABLET PO SCH (09:15)
[2017-07-29] MEDS: OLANZapine 5 MG TABLET PO SCH (09:15)
[2017-07-29] MEDS: CHOLECALCIFEROL (VIT D3) 1,000 UNITS TABLET PO SCH (09:15)
[2017-07-29] MEDS: NICOTINE 21 MG/24 HOUR PATCH TD SCH (09:16)
[2017-07-29] MEDS: OMEGA-3/DHA/EPA/FISH OIL 1,000 MG CAPSULE PO SCH (09:16)
[2017-07-29 11:38] LABS: GLUCOSE,POINT OF CARE 61 MG/DL (70-110)
[2017-07-29 16:51] VITALS: BP 110/66
[2017-07-29 17:07] LABS: GLUCOSE,POINT OF CARE 106 MG/DL (70-110)
[2017-07-29] MEDS: SIMVASTATIN 40 MG TABLET PO SCH (20:34)
[2017-07-29] MEDS: TraZODone HCL 50 MG TABLET PO SCH (20:34)
[2017-07-29] MEDS: OLANZapine 10 MG TABLET PO SCH (20:34)
[2017-07-29 21:17] LABS: GLUCOSE,POINT OF CARE 137 MG/DL (70-110)
[2017-07-30] MEDS: TraMADol HCL 50 MG TABLET PO PRN ×2 (02:13→11:18)
[2017-07-30 02:22] VITALS: BP 111/68
[2017-07-30 05:52] LABS: GLUCOSE,POINT OF CARE 120 MG/DL (70-110)
[2017-07-30] MEDS: LEVOTHYROXINE SODIUM 200 MCG TABLET PO SCH (06:11)
[2017-07-30] MEDS: GlipiZIDE 10 MG TABLET PO SCH (06:11)
[2017-07-30] MEDS: OLANZapine 5 MG TABLET PO SCH (08:43)
[2017-07-30] MEDS: TAMSULOSIN HCL 0.4 MG CAPSULE PO SCH (08:43)
[2017-07-30] MEDS: DOCUSATE SODIUM 100 MG CAPSULE PO SCH (08:44)
[2017-07-30] MEDS: LISINOPRIL 10 MG TABLET PO SCH (08:44)
[2017-07-30] MEDS: BusPIRone HCL 5 MG TABLET PO SCH ×3 (08:44→16:25)
[2017-07-30] MEDS: CHOLECALCIFEROL (VIT D3) 1,000 UNITS TABLET PO SCH (08:44)
[2017-07-30] MEDS: BuPROPion HCL XL 150 MG ER TABLET PO SCH (08:44)
[2017-07-30] MEDS: VENLAFAXINE HCL 75 MG ER CAPSULE PO SCH (08:45)
[2017-07-30] MEDS: GABAPENTIN 300 MG CAPSULE PO SCH ×3 (08:45→16:25)
[2017-07-30] MEDS: OMEPRAZOLE 20 MG CAPSULE PO SCH (08:46)
[2017-07-30] MEDS: OMEGA-3/DHA/EPA/FISH OIL 1,000 MG CAPSULE PO SCH (08:46)
[2017-07-30] MEDS: ASPIRIN 81 MG CHEWABLE TABLET PO SCH (08:46)
[2017-07-30] MEDS: NICOTINE 21 MG/24 HOUR PATCH TD SCH (09:00)
[2017-07-30 09:57] VITALS: BP 111/67
[2017-07-30 11:48] LABS: GLUCOSE,POINT OF CARE 69 MG/DL (70-110)
[2017-07-30] MEDS: HYDROCODONE/ACETAMINOPHEN 5-325 MG TABLET PO PRN ×2 (14:46→20:31)
[2017-07-30 16:32] LABS: GLUCOSE,POINT OF CARE 80 MG/DL (70-110)
[2017-07-30 17:00] VITALS: BP 121/71
[2017-07-30 20:30] VITALS: BP 130/77
[2017-07-30] MEDS: SIMVASTATIN 40 MG TABLET PO SCH (20:31)
[2017-07-30] MEDS: OLANZapine 10 MG TABLET PO SCH (20:31)
[2017-07-30] MEDS: TraZODone HCL 50 MG TABLET PO SCH (20:31)
[2017-07-30 20:43] LABS: GLUCOSE,POINT OF CARE 179 MG/DL (70-110)
[2017-07-30] MEDS: INSULIN ASPART 100 UNITS/ML SQ PRN (21:21)
[2017-07-30 21:30] VITALS: BP 126/76
[2017-07-31 05:37] LABS: GLUCOSE COMMENT 1 Received Meds; GLUCOSE,POINT OF CARE 187 MG/DL (70-110)
[2017-07-31] MEDS: LEVOTHYROXINE SODIUM 200 MCG TABLET PO SCH (06:45)
[2017-07-31] MEDS: INSULIN ASPART 100 UNITS/ML SQ PRN ×2 (06:58→11:52)
[2017-07-31 08:14] VITALS: BP 128/76
[2017-07-31] MEDS: HYDROCODONE/ACETAMINOPHEN 5-325 MG TABLET PO PRN ×2 (08:18→21:34)
[2017-07-31] MEDS: CHOLECALCIFEROL (VIT D3) 1,000 UNITS TABLET PO SCH (08:19)
[2017-07-31] MEDS: OMEPRAZOLE 20 MG CAPSULE PO SCH (08:19)
[2017-07-31] MEDS: NICOTINE 21 MG/24 HOUR PATCH TD SCH (08:19)
[2017-07-31] MEDS: TAMSULOSIN HCL 0.4 MG CAPSULE PO SCH (08:19)
[2017-07-31] MEDS: LISINOPRIL 10 MG TABLET PO SCH (08:19)
[2017-07-31] MEDS: BuPROPion HCL XL 150 MG ER TABLET PO SCH (08:19)
[2017-07-31] MEDS: GABAPENTIN 300 MG CAPSULE PO SCH ×3 (08:19→16:36)
[2017-07-31] MEDS: OLANZapine 5 MG TABLET PO SCH (08:20)
[2017-07-31] MEDS: VENLAFAXINE HCL 75 MG ER CAPSULE PO SCH (08:20)
[2017-07-31] MEDS: ASPIRIN 81 MG CHEWABLE TABLET PO SCH (08:20)
[2017-07-31] MEDS: DOCUSATE SODIUM 100 MG CAPSULE PO SCH (08:20)
[2017-07-31] MEDS: BusPIRone HCL 5 MG TABLET PO SCH ×2 (08:20→12:17)
[2017-07-31] MEDS: OMEGA-3/DHA/EPA/FISH OIL 1,000 MG CAPSULE PO SCH (08:20)
[2017-07-31 11:33] LABS: GLUCOSE,POINT OF CARE 95 MG/DL (70-110)
[2017-07-31] MEDS: BusPIRone HCL 10 MG TABLET PO SCH (16:36)
[2017-07-31 16:37] LABS: GLUCOSE,POINT OF CARE 105 MG/DL (70-110)
[2017-07-31] MEDS: ALBUTEROL SULFATE HFA 90 MCG/PUFF 8 GM INHALER IH PRN (16:37)
[2017-07-31 16:52] VITALS: BP 129/69
[2017-07-31] MEDS: LORazepam 2 MG TABLET PO PRN (19:59)
[2017-07-31] MEDS: OLANZapine 10 MG TABLET PO SCH (20:18)
[2017-07-31] MEDS: SIMVASTATIN 40 MG TABLET PO SCH (20:18)
[2017-07-31] MEDS: TraZODone HCL 50 MG TABLET PO SCH (20:18)
[2017-07-31 20:22] LABS: GLUCOSE,POINT OF CARE 121 MG/DL (70-110)
[2017-07-31 21:34] VITALS: BP 142/68
[2017-08-01 05:33] LABS: GLUCOSE,POINT OF CARE 174 MG/DL (70-110)
[2017-08-01] MEDS: LEVOTHYROXINE SODIUM 200 MCG TABLET PO SCH (06:15)
[2017-08-01] MEDS: INSULIN ASPART 100 UNITS/ML SQ PRN (06:46)
[2017-08-01 08:30] VITALS: BP 118/71
[2017-08-01] MEDS: NICOTINE 21 MG/24 HOUR PATCH TD SCH (09:00)
[2017-08-01] MEDS: ASPIRIN 81 MG CHEWABLE TABLET PO SCH (09:17)
[2017-08-01] MEDS: OMEPRAZOLE 20 MG CAPSULE PO SCH (09:18)
[2017-08-01] MEDS: LORazepam 2 MG TABLET PO PRN (09:18)
[2017-08-01] MEDS: BuPROPion HCL XL 150 MG ER TABLET PO SCH (09:19)
[2017-08-01] MEDS: BusPIRone HCL 10 MG TABLET PO SCH ×4 (09:19→17:45)
[2017-08-01] MEDS: VENLAFAXINE HCL 75 MG ER CAPSULE PO SCH (09:20)
[2017-08-01] MEDS: GABAPENTIN 300 MG CAPSULE PO SCH ×4 (09:20→17:45)
[2017-08-01] MEDS: OMEGA-3/DHA/EPA/FISH OIL 1,000 MG CAPSULE PO SCH (09:20)
[2017-08-01] MEDS: TAMSULOSIN HCL 0.4 MG CAPSULE PO SCH (09:20)
[2017-08-01] MEDS: DOCUSATE SODIUM 100 MG CAPSULE PO SCH (09:20)
[2017-08-01] MEDS: CHOLECALCIFEROL (VIT D3) 1,000 UNITS TABLET PO SCH (09:21)
[2017-08-01] MEDS: LISINOPRIL 10 MG TABLET PO SCH (09:22)
[2017-08-01] MEDS: OLANZapine 5 MG TABLET PO SCH (09:22)
[2017-08-01 11:43] LABS: GLUCOSE,POINT OF CARE 112 MG/DL (70-110)
[2017-08-01 12:40] VITALS: BP 112/64
[2017-08-01 13:07] VITALS: BP 112/64
[2017-08-01 16:17] LABS: GLUCOSE,POINT OF CARE 94 MG/DL (70-110)
[2017-08-01] MEDS: TraZODone HCL 50 MG TABLET PO SCH (21:00)
[2017-08-01] MEDS: OLANZapine 10 MG TABLET PO SCH (21:57)
[2017-08-01] MEDS: SIMVASTATIN 40 MG TABLET PO SCH (21:57)
[2017-08-01 22:02] LABS: GLUCOSE,POINT OF CARE 130 MG/DL (70-110)
[2017-08-02 01:15] VITALS: BP 147/92
[2017-08-02] MEDS: LORazepam 2 MG TABLET PO PRN (01:26)
[2017-08-02] MEDS: TraMADol HCL 50 MG TABLET PO PRN (01:26)
[2017-08-02 05:33] LABS: GLUCOSE COMMENT 1 Received Meds; GLUCOSE,POINT OF CARE 140 MG/DL (70-110)
[2017-08-02] MEDS: LEVOTHYROXINE SODIUM 200 MCG TABLET PO SCH (06:46)
[2017-08-02] MEDS: INSULIN ASPART 100 UNITS/ML SQ PRN (06:46)
[2017-08-02 08:30] VITALS: BP 134/90
[2017-08-02] MEDS: NICOTINE 21 MG/24 HOUR PATCH TD SCH (09:00)
[2017-08-02] MEDS: ASPIRIN 81 MG CHEWABLE TABLET PO SCH (09:30)
[2017-08-02] MEDS: BusPIRone HCL 10 MG TABLET PO SCH ×3 (09:31→16:06)
[2017-08-02] MEDS: OMEGA-3/DHA/EPA/FISH OIL 1,000 MG CAPSULE PO SCH (09:33)
[2017-08-02] MEDS: DOCUSATE SODIUM 100 MG CAPSULE PO SCH (09:33)
[2017-08-02] MEDS: VENLAFAXINE HCL 75 MG ER CAPSULE PO SCH (09:33)
[2017-08-02] MEDS: OMEPRAZOLE 20 MG CAPSULE PO SCH (09:34)
[2017-08-02] MEDS: TAMSULOSIN HCL 0.4 MG CAPSULE PO SCH (09:34)
[2017-08-02] MEDS: GABAPENTIN 300 MG CAPSULE PO SCH ×3 (09:34→16:06)
[2017-08-02] MEDS: BuPROPion HCL XL 150 MG ER TABLET PO SCH (09:35)
[2017-08-02] MEDS: LISINOPRIL 10 MG TABLET PO SCH (09:35)
[2017-08-02] MEDS: CHOLECALCIFEROL (VIT D3) 1,000 UNITS TABLET PO SCH (09:35)
[2017-08-02] MEDS: OLANZapine 5 MG TABLET PO SCH (09:36)
[2017-08-02] MEDS: HYDROCODONE/ACETAMINOPHEN 5-325 MG TABLET PO PRN ×2 (09:36→21:03)
[2017-08-02 11:23] LABS: GLUCOSE,POINT OF CARE 128 MG/DL (70-110)
[2017-08-02 16:12] LABS: GLUCOSE,POINT OF CARE 107 MG/DL (70-110)
[2017-08-02 16:44] VITALS: BP 120/79
[2017-08-02 21:01] VITALS: BP 128/77
[2017-08-02] MEDS: TraZODone HCL 50 MG TABLET PO SCH (21:02)
[2017-08-02] MEDS: SIMVASTATIN 40 MG TABLET PO SCH (21:03)
[2017-08-02] MEDS: OLANZapine 10 MG TABLET PO SCH (21:03)
[2017-08-02 21:07] LABS: GLUCOSE,POINT OF CARE 105 MG/DL (70-110)
[2017-08-02 22:01] VITALS: BP 130/78
[2017-08-03] MEDS: LEVOTHYROXINE SODIUM 200 MCG TABLET PO SCH (06:21)
[2017-08-03 06:26] VITALS: BP 147/98
[2017-08-03 07:07] LABS: GLUCOSE COMMENT 1 FASTING; GLUCOSE,POINT OF CARE 138 MG/DL (70-110)
[2017-08-03] MEDS: NICOTINE 21 MG/24 HOUR PATCH TD SCH (09:00)
[2017-08-03 09:14] VITALS: BP 144/90
[2017-08-03] MEDS: OLANZapine 5 MG TABLET PO SCH (09:15)
[2017-08-03] MEDS: ASPIRIN 81 MG CHEWABLE TABLET PO SCH (09:15)
[2017-08-03] MEDS: TAMSULOSIN HCL 0.4 MG CAPSULE PO SCH (09:16)
[2017-08-03] MEDS: GABAPENTIN 300 MG CAPSULE PO SCH ×3 (09:16→16:57)
[2017-08-03] MEDS: VENLAFAXINE HCL 75 MG ER CAPSULE PO SCH (09:16)
[2017-08-03] MEDS: CHOLECALCIFEROL (VIT D3) 1,000 UNITS TABLET PO SCH (09:16)
[2017-08-03] MEDS: HYDROCODONE/ACETAMINOPHEN 5-325 MG TABLET PO PRN (09:16)
[2017-08-03] MEDS: LISINOPRIL 10 MG TABLET PO SCH (09:16)
[2017-08-03] MEDS: DOCUSATE SODIUM 100 MG CAPSULE PO SCH (09:17)
[2017-08-03] MEDS: BusPIRone HCL 10 MG TABLET PO SCH ×3 (09:17→16:56)
[2017-08-03] MEDS: OMEPRAZOLE 20 MG CAPSULE PO SCH (09:17)
[2017-08-03] MEDS: OMEGA-3/DHA/EPA/FISH OIL 1,000 MG CAPSULE PO SCH (09:17)
[2017-08-03] MEDS: BuPROPion HCL XL 150 MG ER TABLET PO SCH (09:17)
[2017-08-03] MEDS: ALBUTEROL SULFATE HFA 90 MCG/PUFF 8 GM INHALER IH PRN (09:18)
[2017-08-03 12:17] LABS: GLUCOSE,POINT OF CARE 168 MG/DL (70-110)
[2017-08-03 17:08] LABS: GLUCOSE,POINT OF CARE 115 MG/DL (70-110)
[2017-08-03 17:33] VITALS: BP 101/67
[2017-08-03 18:00] VITALS: BP 132/78
[2017-08-03] MEDS: TraMADol HCL 50 MG TABLET PO PRN (18:02)
[2017-08-03] MEDS ORDERED: MAGNESIUM SULFATE 454 GM BOX TP PRN (18:30)
[2017-08-03 19:00] VITALS: BP 126/71
[2017-08-03] MEDS: SIMVASTATIN 40 MG TABLET PO SCH (20:00)
[2017-08-03] MEDS: OLANZapine 10 MG TABLET PO SCH (20:00)
[2017-08-03] MEDS: TraZODone HCL 50 MG TABLET PO SCH (20:01)
[2017-08-03 20:07] LABS: GLUCOSE,POINT OF CARE 103 MG/DL (70-110)
[2017-08-04 05:10] VITALS: BP 106/66
[2017-08-04] MEDS: TraMADol HCL 50 MG TABLET PO PRN (05:10)
[2017-08-04 05:37] LABS: GLUCOSE COMMENT 1 Received Meds; GLUCOSE,POINT OF CARE 118 MG/DL (70-110)
[2017-08-04] MEDS: INSULIN ASPART 100 UNITS/ML SQ PRN (06:38)
[2017-08-04] MEDS: LEVOTHYROXINE SODIUM 200 MCG TABLET PO SCH (06:38)
[2017-08-04] MEDS: OMEGA-3/DHA/EPA/FISH OIL 1,000 MG CAPSULE PO SCH (07:54)
[2017-08-04] MEDS: BusPIRone HCL 10 MG TABLET PO SCH ×3 (07:54→16:57)
[2017-08-04] MEDS: TERBINAFINE HCL 1% 30 GM CREAM TP SCH ×2 (07:55→16:57)
[2017-08-04] MEDS: MAGNESIUM SULFATE 454 GM BOX TP SCH (07:55)
[2017-08-04] MEDS: LISINOPRIL 10 MG TABLET PO SCH (08:04)
[2017-08-04] MEDS: VENLAFAXINE HCL 75 MG ER CAPSULE PO SCH (08:04)
[2017-08-04] MEDS: BuPROPion HCL XL 150 MG ER TABLET PO SCH (08:04)
[2017-08-04] MEDS: GABAPENTIN 300 MG CAPSULE PO SCH ×3 (08:04→16:57)
[2017-08-04] MEDS: DOCUSATE SODIUM 100 MG CAPSULE PO SCH (08:04)
[2017-08-04] MEDS: ASPIRIN 81 MG CHEWABLE TABLET PO SCH (08:05)
[2017-08-04] MEDS: CHOLECALCIFEROL (VIT D3) 1,000 UNITS TABLET PO SCH (08:05)
[2017-08-04] MEDS: TAMSULOSIN HCL 0.4 MG CAPSULE PO SCH (08:05)
[2017-08-04] MEDS: OMEPRAZOLE 20 MG CAPSULE PO SCH (08:06)
[2017-08-04] MEDS: OLANZapine 5 MG TABLET PO SCH (08:07)
[2017-08-04] MEDS: NICOTINE 21 MG/24 HOUR PATCH TD SCH (08:07)
[2017-08-04 09:22] VITALS: BP 136/80
[2017-08-04] MEDS: LORazepam 2 MG TABLET PO PRN (10:14)
[2017-08-04 11:02] LABS: GLUCOSE,POINT OF CARE 89 MG/DL (70-110)
[2017-08-04 16:34] VITALS: BP 100/67
[2017-08-04 17:07] LABS: GLUCOSE COMMENT 1 FASTING; GLUCOSE,POINT OF CARE 106 MG/DL (70-110)
[2017-08-04] MEDS: TraZODone HCL 50 MG TABLET PO SCH (20:37)
[2017-08-04] MEDS: OLANZapine 10 MG TABLET PO SCH (20:37)
[2017-08-04] MEDS: HYDROCODONE/ACETAMINOPHEN 5-325 MG TABLET PO PRN (20:38)
[2017-08-04] MEDS: SIMVASTATIN 40 MG TABLET PO SCH (20:38)
[2017-08-04 20:41] VITALS: BP 112/74
[2017-08-04 20:47] LABS: GLUCOSE COMMENT 1 FASTING; GLUCOSE,POINT OF CARE 140 MG/DL (70-110)
[2017-08-05 06:37] LABS: GLUCOSE,POINT OF CARE 140 MG/DL (70-110)
[2017-08-05] MEDS: LEVOTHYROXINE SODIUM 200 MCG TABLET PO SCH (06:50)
[2017-08-05 08:30] VITALS: BP 134/78
[2017-08-05] MEDS: NICOTINE 21 MG/24 HOUR PATCH TD SCH (09:00)
[2017-08-05] MEDS: GABAPENTIN 300 MG CAPSULE PO SCH ×3 (09:14→16:00)
[2017-08-05] MEDS: BusPIRone HCL 10 MG TABLET PO SCH ×3 (09:14→16:00)
[2017-08-05] MEDS: OMEGA-3/DHA/EPA/FISH OIL 1,000 MG CAPSULE PO SCH (09:14)
[2017-08-05] MEDS: ASPIRIN 81 MG CHEWABLE TABLET PO SCH (09:14)
[2017-08-05] MEDS: BuPROPion HCL XL 150 MG ER TABLET PO SCH (09:14)
[2017-08-05] MEDS: CHOLECALCIFEROL (VIT D3) 1,000 UNITS TABLET PO SCH (09:15)
[2017-08-05] MEDS: LISINOPRIL 10 MG TABLET PO SCH (09:15)
[2017-08-05] MEDS: VENLAFAXINE HCL 75 MG ER CAPSULE PO SCH (09:18)
[2017-08-05] MEDS: OMEPRAZOLE 20 MG CAPSULE PO SCH (09:18)
[2017-08-05] MEDS: OLANZapine 5 MG TABLET PO SCH (09:18)
[2017-08-05] MEDS: TAMSULOSIN HCL 0.4 MG CAPSULE PO SCH (09:18)
[2017-08-05] MEDS: DOCUSATE SODIUM 100 MG CAPSULE PO SCH (09:18)
[2017-08-05 11:23] LABS: GLUCOSE,POINT OF CARE 106 MG/DL (70-110)
[2017-08-05] MEDS: MAGNESIUM SULFATE 454 GM BOX TP SCH (13:06)
[2017-08-05] MEDS: TERBINAFINE HCL 1% 30 GM CREAM TP SCH ×2 (13:24→16:03)
[2017-08-05] MEDS: TraMADol HCL 50 MG TABLET PO PRN (16:00)
[2017-08-05 16:04] VITALS: BP 103/65
[2017-08-05 16:22] LABS: GLUCOSE COMMENT 1 FASTING; GLUCOSE,POINT OF CARE 88 MG/DL (70-110)
[2017-08-05] MEDS ORDERED: BUSP10TA23 PO (16:44)
[2017-08-05] MEDS ORDERED: LISI-661 PO (16:49)
== END 2017-08-05 18:00 | disposition home or self-care (01) | DRG 885 ==
LOC: EEVIPCON 06:36 → EMS 06:36 → 3EC 16:04 → 3EI 07-26 08:02
PROVIDERS: ADMIT Psychiatry & Neurology Psychiatry; ATTEND Psychiatry & Neurology Psychiatry
DX: F31.4 Bipolar disorder, current episode depressed, severe, without psychotic features (principal); N18.3 Chronic kidney disease, stage 3 (moderate); E11.65 Type 2 diabetes mellitus with hyperglycemia; E11.22 Type 2 diabetes mellitus with diabetic chronic kidney disease; R45.851 Suicidal ideations; J44.9 Chronic obstructive pulmonary disease, unspecified; F20.9 Schizophrenia, unspecified; K21.9 Gastro-esophageal reflux disease without esophagitis; I25.10 Atherosclerotic heart disease of native coronary artery without angina pectoris; I12.9 Hypertensive chronic kidney disease with stage 1 through stage 4 chronic kidney disease, or unspecified chronic kidney disease; E78.00 Pure hypercholesterolemia, unspecified; E03.9 Hypothyroidism, unspecified; E66.9 Obesity, unspecified; F43.10 Post-traumatic stress disorder, unspecified; F17.210 Nicotine dependence, cigarettes, uncomplicated; F41.9 Anxiety disorder, unspecified; N40.0 Benign prostatic hyperplasia without lower urinary tract symptoms; M19.90 Unspecified osteoarthritis, unspecified site; G47.00 Insomnia, unspecified; R26.81 Unsteadiness on feet; M54.9 Dorsalgia, unspecified; Z95.1 Presence of aortocoronary bypass graft; Z79.899 Other long term (current) drug therapy; Z91.81 History of falling; Z88.8 Allergy status to other drugs, medicaments and biological substances; Z68.35 Body mass index [BMI] 35.0-35.9, adult; Z28.21 Immunization not carried out because of patient refusal
CPT/HCPCS: 82962; 93005; 99285; G0480; J3535

== ENCOUNTER 2017-12-21 08:51 | Inpatient (IN) | payer MEDICARE, MEDICAID ==
[~2017-12-21] VITALS: Ht 170.2 cm; Wt 100.5 kg
[~2017-12-21 08:51] MED LIST changes: -ATEN25TA PO; +BUSP10TA23 PO; -GABA-531 PO; +GLIP10 PO; +LISI-661 PO; -OMEG-28 PO; -TRAZ-144 PO; -VENL-67 PO
[2017-12-21 10:29] VITALS: BP 131/87
[2017-12-21] MEDS ORDERED: HALOPERIDOL 5 MG TABLET PO PRN (10:45)
[2017-12-21] MEDS: BusPIRone HCL 10 MG TABLET PO SCH ×2 (12:41→16:41)
[2017-12-21 12:52] LABS: GLUCOMETER DEV NAME(LOC) BV2N3; GLUCOSE,POINT OF CARE 113 MG/DL (70-110)
[2017-12-21 16:22] VITALS: BP 139/79
[2017-12-21] MEDS: OLANZapine 10 MG TABLET PO SCH (20:39)
[2017-12-21] MEDS ORDERED: IBUPROFEN 600 MG TABLET PO PRN (21:45)
[2017-12-21] MEDS ORDERED: BACITRACIN 28.4 GM OINTMENT TP PRN (21:45)
[2017-12-21] MEDS ORDERED: MAG HYDROX/AL HYDROX/SIMETH ES 30 ML SUSPENSION UDCUP PO PRN (21:45)
[2017-12-21] MEDS ORDERED: LOPERAMIDE HCL 2 MG CAPSULE PO PRN (21:45)
[2017-12-21] MEDS ORDERED: CloNIDine HCL 0.1 MG TABLET PO PRN (21:45)
[2017-12-21] MEDS ORDERED: ACETAMINOPHEN 325 MG TABLET PO PRN (21:45)
[2017-12-21] MEDS ORDERED: MAGNESIUM HYDROXIDE SUSPENSION 30 ML UDCUP PO PRN (21:45)
[2017-12-21] MEDS ORDERED: PETROLATUM,WHITE 71 GM JELLY TP PRN (21:45)
[2017-12-21] MEDS ORDERED: ONDANSETRON HCL 4 MG TABLET PO PRN (21:45)
[2017-12-21] MEDS ORDERED: BENZOCAINE/MENTHOL LOZENGE MM PRN (21:45)
[2017-12-21] MEDS ORDERED: ALBUTEROL SULFATE HFA 90 MCG/PUFF 8 GM INHALER IH PRN (21:45)
[2017-12-22] MEDS: GlipiZIDE 10 MG TABLET PO SCH ×2 (06:50→16:39)
[2017-12-22] MEDS: LEVOTHYROXINE SODIUM 200 MCG TABLET PO SCH (06:50)
[2017-12-22] MEDS: LISINOPRIL 10 MG TABLET PO SCH (08:22)
[2017-12-22] MEDS: BusPIRone HCL 10 MG TABLET PO SCH ×3 (08:22→16:39)
[2017-12-22] MEDS: OLANZapine 5 MG TABLET PO SCH (08:22)
[2017-12-22] MEDS: DOCUSATE SODIUM 100 MG CAPSULE PO SCH (08:22)
[2017-12-22] MEDS: OMEPRAZOLE 20 MG CAPSULE PO SCH (08:23)
[2017-12-22] MEDS: BuPROPion HCL XL 150 MG ER TABLET PO SCH (08:23)
[2017-12-22] MEDS: TAMSULOSIN HCL 0.4 MG CAPSULE PO SCH (08:23)
[2017-12-22] MEDS: ASPIRIN 81 MG CHEWABLE TABLET PO SCH (08:23)
[2017-12-22] MEDS: CHOLECALCIFEROL (VIT D3) 1,000 UNITS TABLET PO SCH (08:23)
[2017-12-22 08:31] VITALS: BP 116/76
[2017-12-22 08:33] LABS: BASOPHILS % (AUTO) 0.4 % (0.0-2.0); EOSINOPHILS % (AUTO) 1.5 % (1.0-6.0); HEMATOCRIT 47.2 % (41-53); HEMOGLOBIN 16.2 g/dL (13.5-17.5); LYMPHOCYTES # (AUTO) 1.9 K/uL (1.0-4.8); LYMPHOCYTES % (AUTO) 12.9 % (22.0-44.0); MEAN CORPUSCULAR HEMOGLOBIN 29.9 pg (26.0-34.0); MEAN CORPUSCULAR HGB CONC 34.4 G/dL (31.0-37.0); MEAN CORPUSCULAR VOLUME 87 fL (80-100); MONOCYTES # (AUTO) 0.9 K/uL (0.1-1.0); MONOCYTES % (AUTO) 6.4 % (2.0-9.0); NEUTROPHILS # (AUTO) 11.4 K/uL (1.8-7.7); NEUTROPHILS % (AUTO) 78.8 % (40.0-70.0); PLATELET COUNT (AUTO) 341 K/uL (150-450); RED BLOOD CELL COUNT(AUTO) 5.42 MIL/uL (4.50-5.90); RED CELL DISTRIBUTION WIDTH 15.9 % (11.5-14.5)
[2017-12-22 09:37] LABS: HEMOGLOBIN A1C 6.7 % (4.5-6.2)
[2017-12-22 10:53] LABS: ALBUMIN 3.6 g/dL (3.4-5.0); BILIRUBIN,TOTAL 0.4 mg/dL (0.1-1.0); CHOL/HDL RATIO 6.7 (4.2-7.3); CREATININE 1.24 mg/dL (0.60-1.30); FREE T4 (FREE THYROXINE) 0.52 ng/dL (0.76-1.46); POTASSIUM 3.7 mmol/L (3.5-5.1); THYROID STIMULATING HORMONE 44.19 uIU/mL (0.36-3.74)
[2017-12-22 16:16] VITALS: BP 114/65
[2017-12-22] MEDS: OLANZapine 10 MG TABLET PO SCH (20:46)
[2017-12-22] MEDS: SIMVASTATIN 40 MG TABLET PO SCH (20:46)
[2017-12-23 06:13] LABS: GLUCOMETER DEV NAME(LOC) BV2N3; GLUCOSE,POINT OF CARE 115 MG/DL (70-110)
[2017-12-23] MEDS: LEVOTHYROXINE SODIUM 200 MCG TABLET PO SCH (06:24)
[2017-12-23] MEDS: GlipiZIDE 10 MG TABLET PO SCH ×2 (06:25→16:30)
[2017-12-23 08:19] LABS: BASOPHILS % (AUTO) 0.4 % (0.0-2.0); HEMATOCRIT 45.6 % (41-53); HEMOGLOBIN 15.8 g/dL (13.5-17.5); LYMPHOCYTES # (AUTO) 2.4 K/uL (1.0-4.8); LYMPHOCYTES % (AUTO) 21.1 % (22.0-44.0); MEAN CORPUSCULAR HEMOGLOBIN 30.2 pg (26.0-34.0); MEAN CORPUSCULAR HGB CONC 34.6 G/dL (31.0-37.0); MEAN CORPUSCULAR VOLUME 87 fL (80-100); MONOCYTES # (AUTO) 0.8 K/uL (0.1-1.0); MONOCYTES % (AUTO) 7.1 % (2.0-9.0); NEUTROPHILS # (AUTO) 7.9 K/uL (1.8-7.7); NEUTROPHILS % (AUTO) 69.4 % (40.0-70.0); PLATELET COUNT (AUTO) 324 K/uL (150-450); RED BLOOD CELL COUNT(AUTO) 5.21 MIL/uL (4.50-5.90); RED CELL DISTRIBUTION WIDTH 16.2 % (11.5-14.5)
[2017-12-23 09:27] VITALS: BP 119/77
[2017-12-23] MEDS: ASPIRIN 81 MG CHEWABLE TABLET PO SCH (09:28)
[2017-12-23] MEDS: LISINOPRIL 10 MG TABLET PO SCH (09:28)
[2017-12-23] MEDS: BusPIRone HCL 10 MG TABLET PO SCH ×3 (09:29→16:30)
[2017-12-23] MEDS: OMEPRAZOLE 20 MG CAPSULE PO SCH (09:29)
[2017-12-23] MEDS: BuPROPion HCL XL 150 MG ER TABLET PO SCH (09:29)
[2017-12-23] MEDS: OLANZapine 5 MG TABLET PO SCH (09:29)
[2017-12-23] MEDS: CHOLECALCIFEROL (VIT D3) 1,000 UNITS TABLET PO SCH (09:29)
[2017-12-23] MEDS: TAMSULOSIN HCL 0.4 MG CAPSULE PO SCH (09:29)
[2017-12-23] MEDS: DOCUSATE SODIUM 100 MG CAPSULE PO SCH (09:29)
[2017-12-23] MEDS: LORazepam 2 MG TABLET PO PRN (14:05)
[2017-12-23 16:10] VITALS: BP 104/64
[2017-12-23] MEDS: OLANZapine 10 MG TABLET PO SCH (20:47)
[2017-12-23] MEDS: SIMVASTATIN 40 MG TABLET PO SCH (20:47)
[2017-12-24] MEDS: LEVOTHYROXINE SODIUM 200 MCG TABLET PO SCH (06:30)
[2017-12-24] MEDS: GlipiZIDE 10 MG TABLET PO SCH ×2 (06:30→16:30)
[2017-12-24 09:36] VITALS: BP 115/80
[2017-12-24] MEDS: LISINOPRIL 10 MG TABLET PO SCH (09:38)
[2017-12-24] MEDS: OMEPRAZOLE 20 MG CAPSULE PO SCH (09:38)
[2017-12-24] MEDS: ASPIRIN 81 MG CHEWABLE TABLET PO SCH (09:38)
[2017-12-24] MEDS: BuPROPion HCL XL 150 MG ER TABLET PO SCH (09:38)
[2017-12-24] MEDS: DOCUSATE SODIUM 100 MG CAPSULE PO SCH (09:38)
[2017-12-24] MEDS: ARIPiprazole 15 MG TABLET PO SCH (09:38)
[2017-12-24] MEDS: TAMSULOSIN HCL 0.4 MG CAPSULE PO SCH (09:38)
[2017-12-24] MEDS: BusPIRone HCL 10 MG TABLET PO SCH ×3 (09:39→16:45)
[2017-12-24] MEDS: CHOLECALCIFEROL (VIT D3) 1,000 UNITS TABLET PO SCH (09:39)
[2017-12-24 16:18] VITALS: BP 102/62
[2017-12-24] MEDS: SIMVASTATIN 40 MG TABLET PO SCH (20:36)
[2017-12-24] MEDS: ZOLPIDEM TARTRATE 10 MG TABLET PO PRN (23:23)
[2017-12-25 05:34] VITALS: BP 140/85
[2017-12-25] MEDS: GlipiZIDE 10 MG TABLET PO SCH ×2 (06:50→16:36)
[2017-12-25] MEDS: LEVOTHYROXINE SODIUM 200 MCG TABLET PO SCH (06:50)
[2017-12-25 08:55] VITALS: BP 108/56
[2017-12-25] MEDS: OMEPRAZOLE 20 MG CAPSULE PO SCH (08:58)
[2017-12-25] MEDS: TAMSULOSIN HCL 0.4 MG CAPSULE PO SCH (08:58)
[2017-12-25] MEDS: DOCUSATE SODIUM 100 MG CAPSULE PO SCH (08:58)
[2017-12-25] MEDS: CHOLECALCIFEROL (VIT D3) 1,000 UNITS TABLET PO SCH (08:59)
[2017-12-25] MEDS: BusPIRone HCL 10 MG TABLET PO SCH ×3 (08:59→16:36)
[2017-12-25] MEDS: LISINOPRIL 10 MG TABLET PO SCH (08:59)
[2017-12-25] MEDS: BuPROPion HCL XL 150 MG ER TABLET PO SCH (08:59)
[2017-12-25] MEDS: ASPIRIN 81 MG CHEWABLE TABLET PO SCH (08:59)
[2017-12-25] MEDS: ARIPiprazole 15 MG TABLET PO SCH (08:59)
[2017-12-25 13:50] VITALS: BP 110/67
[2017-12-25] MEDS: HYDROCODONE/ACETAMINOPHEN 5-325 MG TABLET PO PRN ×2 (13:50→20:35)
[2017-12-25 16:13] VITALS: BP 106/60
[2017-12-25] MEDS: SIMVASTATIN 40 MG TABLET PO SCH (20:07)
[2017-12-25 20:35] VITALS: BP 119/70
[2017-12-25] MEDS: ZOLPIDEM TARTRATE 10 MG TABLET PO PRN (21:53)
[2017-12-25] MEDS: LORazepam 2 MG TABLET PO PRN (23:44)
[2017-12-26] VITALS: BP 140/81
[2017-12-26] MEDS: GlipiZIDE 10 MG TABLET PO SCH ×2 (06:40→16:35)
[2017-12-26] MEDS: LEVOTHYROXINE SODIUM 200 MCG TABLET PO SCH (06:40)
[2017-12-26 08:34] VITALS: BP 113/68
[2017-12-26] MEDS: TAMSULOSIN HCL 0.4 MG CAPSULE PO SCH (09:17)
[2017-12-26] MEDS: CHOLECALCIFEROL (VIT D3) 1,000 UNITS TABLET PO SCH (09:17)
[2017-12-26] MEDS: DOCUSATE SODIUM 100 MG CAPSULE PO SCH (09:17)
[2017-12-26] MEDS: OMEPRAZOLE 20 MG CAPSULE PO SCH (09:17)
[2017-12-26] MEDS: LISINOPRIL 10 MG TABLET PO SCH (09:17)
[2017-12-26] MEDS: ARIPiprazole 15 MG TABLET PO SCH (09:17)
[2017-12-26] MEDS: ASPIRIN 81 MG CHEWABLE TABLET PO SCH (09:17)
[2017-12-26] MEDS: BusPIRone HCL 10 MG TABLET PO SCH ×3 (09:17→16:35)
[2017-12-26] MEDS: BuPROPion HCL XL 150 MG ER TABLET PO SCH (09:17)
[2017-12-26 13:58] VITALS: BP 111/71
[2017-12-26] MEDS: HYDROCODONE/ACETAMINOPHEN 5-325 MG TABLET PO PRN ×2 (13:58→20:42)
[2017-12-26 16:26] VITALS: BP 109/73
[2017-12-26] MEDS: LORazepam 2 MG TABLET PO PRN (18:39)
[2017-12-26] MEDS: SIMVASTATIN 40 MG TABLET PO SCH (20:41)
[2017-12-26 20:42] VITALS: BP 112/71
[2017-12-26 21:34] VITALS: BP 118/74
[2017-12-26] MEDS: ZOLPIDEM TARTRATE 10 MG TABLET PO PRN (21:35)
[2017-12-27 04:07] VITALS: BP 102/68
[2017-12-27 06:33] LABS: GLUCOMETER DEV NAME(LOC) BV2N3; GLUCOSE,POINT OF CARE 117 MG/DL (70-110)
[2017-12-27] MEDS: LEVOTHYROXINE SODIUM 200 MCG TABLET PO SCH (06:53)
[2017-12-27] MEDS: GlipiZIDE 10 MG TABLET PO SCH ×2 (06:54→16:35)
[2017-12-27 08:23] VITALS: BP 124/70
[2017-12-27] MEDS: BusPIRone HCL 10 MG TABLET PO SCH ×3 (08:39→16:35)
[2017-12-27] MEDS: ARIPiprazole 15 MG TABLET PO SCH (08:39)
[2017-12-27] MEDS: ASPIRIN 81 MG CHEWABLE TABLET PO SCH (08:39)
[2017-12-27] MEDS: TAMSULOSIN HCL 0.4 MG CAPSULE PO SCH (08:39)
[2017-12-27] MEDS: LISINOPRIL 10 MG TABLET PO SCH (08:39)
[2017-12-27] MEDS: OMEPRAZOLE 20 MG CAPSULE PO SCH (08:39)
[2017-12-27] MEDS: CHOLECALCIFEROL (VIT D3) 1,000 UNITS TABLET PO SCH (08:39)
[2017-12-27] MEDS: DOCUSATE SODIUM 100 MG CAPSULE PO SCH (08:40)
[2017-12-27] MEDS: BuPROPion HCL XL 150 MG ER TABLET PO SCH (08:40)
[2017-12-27 13:56] VITALS: BP 112/72
[2017-12-27] MEDS: HYDROCODONE/ACETAMINOPHEN 5-325 MG TABLET PO PRN (13:56)
[2017-12-27 16:06] VITALS: BP 106/72
[2017-12-27] MEDS: LORazepam 2 MG TABLET PO PRN (18:36)
[2017-12-27] MEDS: SIMVASTATIN 40 MG TABLET PO SCH (20:38)
[2017-12-27] MEDS: ZOLPIDEM TARTRATE 10 MG TABLET PO PRN (21:00)
[2017-12-28] VITALS: BP 138/78
[2017-12-28] MEDS: LORazepam 2 MG TABLET PO PRN (00:07)
[2017-12-28] MEDS: GlipiZIDE 10 MG TABLET PO SCH (07:10)
[2017-12-28] MEDS: LEVOTHYROXINE SODIUM 200 MCG TABLET PO SCH (07:11)
[2017-12-28] MEDS: CHOLECALCIFEROL (VIT D3) 1,000 UNITS TABLET PO SCH (08:17)
[2017-12-28] MEDS: ARIPiprazole 15 MG TABLET PO SCH (08:17)
[2017-12-28] MEDS: OMEPRAZOLE 20 MG CAPSULE PO SCH (08:17)
[2017-12-28] MEDS: DOCUSATE SODIUM 100 MG CAPSULE PO SCH (08:17)
[2017-12-28] MEDS: TAMSULOSIN HCL 0.4 MG CAPSULE PO SCH (08:18)
[2017-12-28] MEDS: LISINOPRIL 10 MG TABLET PO SCH (08:18)
[2017-12-28] MEDS: ASPIRIN 81 MG CHEWABLE TABLET PO SCH (08:18)
[2017-12-28] MEDS: BuPROPion HCL XL 150 MG ER TABLET PO SCH (08:18)
[2017-12-28] MEDS: BusPIRone HCL 10 MG TABLET PO SCH ×2 (08:25→12:27)
[2017-12-28 08:33] VITALS: BP 110/60
[2017-12-28] MEDS ORDERED: BUSP10TA23 PO (09:37)
[2017-12-28] MEDS ORDERED: BUPR-47 PO (09:37)
[2017-12-28] MEDS ORDERED: ARIP15TA2 PO (09:37)
[2017-12-28] MEDS ORDERED: ALBU8HFA IH ×2 (10:49→10:52)
== END 2017-12-28 14:35 | DRG 885 ==
LOC: B2X 10:49
DX: F25.1 Schizoaffective disorder, depressive type (principal); E11.22 Type 2 diabetes mellitus with diabetic chronic kidney disease; R45.851 Suicidal ideations; J44.9 Chronic obstructive pulmonary disease, unspecified; E03.9 Hypothyroidism, unspecified; E11.65 Type 2 diabetes mellitus with hyperglycemia; E55.9 Vitamin D deficiency, unspecified; E66.9 Obesity, unspecified; G89.29 Other chronic pain; F41.9 Anxiety disorder, unspecified; M25.50 Pain in unspecified joint; I12.9 Hypertensive chronic kidney disease with stage 1 through stage 4 chronic kidney disease, or unspecified chronic kidney disease; I25.10 Atherosclerotic heart disease of native coronary artery without angina pectoris; M19.90 Unspecified osteoarthritis, unspecified site; N18.3 Chronic kidney disease, stage 3 (moderate); F17.210 Nicotine dependence, cigarettes, uncomplicated; Z95.1 Presence of aortocoronary bypass graft; Z59.0 Homelessness; Z79.899 Other long term (current) drug therapy; Z79.82 Long term (current) use of aspirin; Z79.84 Long term (current) use of oral hypoglycemic drugs; Z88.8 Allergy status to other drugs, medicaments and biological substances; Z68.34 Body mass index [BMI] 34.0-34.9, adult; Z71.6 Tobacco abuse counseling
CPT/HCPCS: 82306; 83036; 84439; 84443; 87081

== ENCOUNTER 2018-01-21 10:49 | Inpatient (IN) | payer MEDICARE, MEDICAID ==
[~2018-01-21] VITALS: Ht 170.2 cm; Wt 98.8 kg
[~2018-01-21 10:49] MED LIST changes: +ALBU8HFA IH; +ARIP15TA2 PO; +BUPR-47 PO; -BUPR-93 PO; -OLAN10TA3 PO; -OLAN5TAB2 PO
[2018-01-21] MEDS ORDERED: METF500T6 PO (11:06)
[2018-01-21 11:23] LABS: GLUCOSE,POINT OF CARE 118 MG/DL (70-110)
[2018-01-21] MEDS ORDERED: HydrOXYzine PAMOATE 50 MG CAPSULE PO ONE (13:30)
[2018-01-21 13:41] LABS: BASOPHILS % (AUTO) 0.7 % (0.0-2.0); EOSINOPHILS % (AUTO) 1.5 % (1.0-6.0); HEMATOCRIT 44.9 % (41-53); HEMOGLOBIN 15.3 g/dL (13.5-17.5); LYMPHOCYTES # (AUTO) 2.5 K/uL (1.0-4.8); LYMPHOCYTES % (AUTO) 20.3 % (22.0-44.0); MEAN CORPUSCULAR HEMOGLOBIN 29.8 pg (26.0-34.0); MEAN CORPUSCULAR HGB CONC 34.1 G/dL (31.0-37.0); MEAN CORPUSCULAR VOLUME 87 fL (80-100); MONOCYTES # (AUTO) 1.1 K/uL (0.1-1.0); MONOCYTES % (AUTO) 8.8 % (2.0-9.0); NEUTROPHILS # (AUTO) 8.4 K/uL (1.8-7.7); NEUTROPHILS % (AUTO) 68.7 % (40.0-70.0); PLATELET COUNT (AUTO) 352 K/uL (150-450); RED BLOOD CELL COUNT(AUTO) 5.14 MIL/uL (4.50-5.90); RED CELL DISTRIBUTION WIDTH 15.1 % (11.5-14.5)
[2018-01-21 13:55] LABS: ANION GAP 7 mmol/L (8-16); CALCIUM, TOTAL 9.1 mg/dL (8.8-10.5); CARBON DIOXIDE 27 mmol/L (22-29); CHLORIDE 101 mmol/L (98-107); CREATININE 1.26 mg/dL (0.60-1.30); GLOMERULAR FILTR. RATE CALC 57 mL/min (>60); GLUCOSE,RANDOM 103 mg/dL (70-110); POTASSIUM 4.1 mmol/L (3.5-5.1); SODIUM SERUM 135 mmol/L (136-145); UREA NITROGEN, BLOOD 16 mg/dL (7-18)
[2018-01-21 14:01] LABS: ALANINE AMINOTRANSFERASE 31 U/L (12-78); ALBUMIN 3.7 g/dL (3.4-5.0); ALKALINE PHOSPHATASE 66 U/L (46-116); ASPARTATE AMINOTRANSFERASE 16 U/L (15-37); BILIRUBIN,TOTAL 0.4 mg/dL (0.1-1.0); TOTAL PROTEIN, SERUM 7.6 g/dL (6.4-8.2)
[2018-01-21 14:11] LABS: AMPHET/METH SCREEN,URINE NEGATIVE (NEGATIVE); BARBITURATE SCREEN, URINE NEGATIVE (NEGATIVE); BENZODIAZEPINES SCREEN,URINE NEGATIVE (NEGATIVE); CANNABINOID SCREEN,URINE NEGATIVE (NEGATIVE); COCAINE SCREEN,URINE NEGATIVE (NEGATIVE); METHADONE SCREEN, URINE NEGATIVE (NEGATIVE); OPIATE SCREEN,URINE NEGATIVE (NEGATIVE)
[2018-01-21 14:19] LABS: PHENCYCLIDINE SCREEN,URINE NEGATIVE (NEGATIVE)
[2018-01-21] MEDS ORDERED: LORazepam 2 MG TABLET PO PRN (16:00)
[2018-01-21] MEDS ORDERED: ZOLPIDEM TARTRATE 10 MG TABLET PO PRN (16:00)
[2018-01-21] MEDS ORDERED: HALOPERIDOL 5 MG TABLET PO PRN (16:00)
[2018-01-21] MEDS: BusPIRone HCL 10 MG TABLET PO SCH (17:11)
[2018-01-21] MEDS ORDERED: PNEUMOCOCCAL VACCINE POLYVALENT 0.5 ML VIAL [PPSV23] IM ONE (19:15)
[2018-01-21] MEDS ORDERED: ALBUTEROL SULFATE HFA 90 MCG/PUFF 8 GM INHALER IH PRN (19:45)
[2018-01-21] MEDS: SIMVASTATIN 40 MG TABLET PO SCH (21:10)
[2018-01-22] MEDS: LEVOTHYROXINE SODIUM 200 MCG TABLET PO SCH (06:53)
[2018-01-22] MEDS: MetFORMIN HCL 500 MG TABLET PO SCH ×2 (06:54→17:30)
[2018-01-22] MEDS: DOCUSATE SODIUM 100 MG CAPSULE PO SCH (08:43)
[2018-01-22] MEDS: ASPIRIN 81 MG CHEWABLE TABLET PO SCH (08:43)
[2018-01-22] MEDS: BusPIRone HCL 10 MG TABLET PO SCH ×3 (08:43→17:00)
[2018-01-22] MEDS: LISINOPRIL 10 MG TABLET PO SCH (08:44)
[2018-01-22] MEDS: TAMSULOSIN HCL 0.4 MG CAPSULE PO SCH (08:44)
[2018-01-22] MEDS: OMEPRAZOLE 20 MG CAPSULE PO SCH (08:44)
[2018-01-22] MEDS: CHOLECALCIFEROL (VIT D3) 1,000 UNITS TABLET PO SCH (08:44)
[2018-01-22] MEDS ORDERED: ARIPiprazole 10 MG TABLET PO SCH (09:00)
[2018-01-22] MEDS ORDERED: BuPROPion HCL 150 MG SR TABLET PO SCH (09:00)
[2018-01-22] MEDS ORDERED: ARIPiprazole 5 MG TABLET PO SCH (09:00)
[2018-01-22] MEDS ORDERED: DEXTROSE 50%-WATER 25 GM/50 ML SYRINGE IVP PRN (12:00)
[2018-01-22] MEDS ORDERED: ONDANSETRON HCL 4 MG TABLET PO PRN (12:00)
[2018-01-22] MEDS ORDERED: ASPIRIN 81 MG CHEWABLE TABLET PO SCH (12:00)
[2018-01-22] MEDS ORDERED: INSULIN LISPRO 100 UNITS/ML SQ PRN (12:00)
[2018-01-22] MEDS ORDERED: BACITRACIN 28.4 GM OINTMENT TP PRN (12:00)
[2018-01-22] MEDS ORDERED: CloNIDine HCL 0.1 MG TABLET PO PRN (12:00)
[2018-01-22] MEDS ORDERED: PETROLATUM,WHITE 71 GM JELLY TP PRN (12:00)
[2018-01-22] MEDS ORDERED: BENZOCAINE/MENTHOL LOZENGE MM PRN (12:00)
[2018-01-22] MEDS: CIPROFLOXACIN HCL 0.3% 3.5 GM OPHTHALMIC OINTMENT OU SCH (17:00)
[2018-01-22] MEDS ORDERED: MetFORMIN HCL 500 MG TABLET PO SCH (17:30)
[2018-01-22] MEDS: SIMVASTATIN 40 MG TABLET PO SCH (21:00)
[2018-01-23 03:00] VITALS: BP 141/86
[2018-01-23] MEDS: HYDROCODONE/ACETAMINOPHEN 5-325 MG TABLET PO PRN ×2 (03:12→19:18)
[2018-01-23] MEDS: LEVOTHYROXINE SODIUM 200 MCG TABLET PO SCH (06:46)
[2018-01-23] MEDS: MetFORMIN HCL 500 MG TABLET PO SCH ×2 (07:12→16:56)
[2018-01-23] MEDS: ARIPiprazole 15 MG TABLET PO SCH (08:14)
[2018-01-23] MEDS: OMEPRAZOLE 20 MG CAPSULE PO SCH (08:14)
[2018-01-23] MEDS: BuPROPion HCL XL 150 MG ER TABLET PO SCH (08:14)
[2018-01-23] MEDS: CHOLECALCIFEROL (VIT D3) 1,000 UNITS TABLET PO SCH (08:15)
[2018-01-23] MEDS: TAMSULOSIN HCL 0.4 MG CAPSULE PO SCH (08:15)
[2018-01-23] MEDS: ASPIRIN 81 MG CHEWABLE TABLET PO SCH (08:15)
[2018-01-23] MEDS: LISINOPRIL 10 MG TABLET PO SCH (08:15)
[2018-01-23] MEDS: BusPIRone HCL 10 MG TABLET PO SCH ×3 (08:22→16:31)
[2018-01-23] MEDS: DOCUSATE SODIUM 100 MG CAPSULE PO SCH (08:22)
[2018-01-23] MEDS: CIPROFLOXACIN HCL 0.3% 3.5 GM OPHTHALMIC OINTMENT OU SCH ×2 (08:22→16:32)
[2018-01-23] MEDS ORDERED: ARIPiprazole 10 MG TABLET PO SCH (09:00)
[2018-01-23 09:18] VITALS: BP 119/72
[2018-01-23 11:34] LABS: GLUCOMETER DEV NAME(LOC) 3EX 1; GLUCOSE,POINT OF CARE 103 MG/DL (70-110)
[2018-01-23 19:28] VITALS: BP 113/67
[2018-01-23] MEDS: SIMVASTATIN 40 MG TABLET PO SCH (20:05)
[2018-01-23 22:22] LABS: GLUCOMETER DEV NAME(LOC) 3EX 1; GLUCOSE,POINT OF CARE 138 MG/DL (70-110)
[2018-01-23 22:22] LABS: GLUCOMETER DEV NAME(LOC) 3EX 1; GLUCOSE,POINT OF CARE 126 MG/DL (70-110)
[2018-01-24 00:32] VITALS: BP 122/70
[2018-01-24] MEDS: LEVOTHYROXINE SODIUM 200 MCG TABLET PO SCH (06:36)
[2018-01-24] MEDS: MetFORMIN HCL 500 MG TABLET PO SCH (06:37)
[2018-01-24] MEDS: ARIPiprazole 15 MG TABLET PO SCH (08:26)
[2018-01-24] MEDS: BusPIRone HCL 10 MG TABLET PO SCH ×2 (08:26→12:23)
[2018-01-24] MEDS: CHOLECALCIFEROL (VIT D3) 1,000 UNITS TABLET PO SCH (08:27)
[2018-01-24] MEDS: ASPIRIN 81 MG CHEWABLE TABLET PO SCH (08:27)
[2018-01-24] MEDS: BuPROPion HCL XL 150 MG ER TABLET PO SCH (08:27)
[2018-01-24] MEDS: LISINOPRIL 10 MG TABLET PO SCH (08:27)
[2018-01-24] MEDS: TAMSULOSIN HCL 0.4 MG CAPSULE PO SCH (08:27)
[2018-01-24] MEDS: OMEPRAZOLE 20 MG CAPSULE PO SCH (08:27)
[2018-01-24] MEDS: DOCUSATE SODIUM 100 MG CAPSULE PO SCH (08:30)
[2018-01-24 09:16] VITALS: BP 118/70
[2018-01-24] MEDS: CIPROFLOXACIN HCL 0.3% 3.5 GM OPHTHALMIC OINTMENT OU SCH (09:23)
[2018-01-24 11:17] LABS: GLUCOMETER DEV NAME(LOC) 3EX 1; GLUCOSE,POINT OF CARE 112 MG/DL (70-110)
[2018-01-24] MEDS: HYDROCODONE/ACETAMINOPHEN 5-325 MG TABLET PO PRN (12:56)
[2018-01-24] MEDS ORDERED: CILOOO OU (14:52)
== END 2018-01-24 15:30 | disposition home or self-care (01) | DRG 885 ==
LOC: EMS 10:50 → 3EX 17:39
DX: F25.0 Schizoaffective disorder, bipolar type (principal); R45.851 Suicidal ideations; I12.9 Hypertensive chronic kidney disease with stage 1 through stage 4 chronic kidney disease, or unspecified chronic kidney disease; N18.3 Chronic kidney disease, stage 3 (moderate); E11.22 Type 2 diabetes mellitus with diabetic chronic kidney disease; E11.65 Type 2 diabetes mellitus with hyperglycemia; I25.10 Atherosclerotic heart disease of native coronary artery without angina pectoris; J44.9 Chronic obstructive pulmonary disease, unspecified; M19.90 Unspecified osteoarthritis, unspecified site; E03.9 Hypothyroidism, unspecified; E66.9 Obesity, unspecified; E55.9 Vitamin D deficiency, unspecified; H10.9 Unspecified conjunctivitis; E78.00 Pure hypercholesterolemia, unspecified; F43.10 Post-traumatic stress disorder, unspecified; K21.9 Gastro-esophageal reflux disease without esophagitis; F12.90 Cannabis use, unspecified, uncomplicated; F17.210 Nicotine dependence, cigarettes, uncomplicated; Z95.1 Presence of aortocoronary bypass graft; Z59.0 Homelessness; Z88.8 Allergy status to other drugs, medicaments and biological substances; Z79.82 Long term (current) use of aspirin; Z79.84 Long term (current) use of oral hypoglycemic drugs; Z79.899 Other long term (current) drug therapy; Z91.5 Personal history of self-harm; Z68.34 Body mass index [BMI] 34.0-34.9, adult; Z28.21 Immunization not carried out because of patient refusal
CPT/HCPCS: 87081; 93005; 99285; G0480

== ENCOUNTER 2018-01-31 12:48 | Inpatient (IN) | payer MEDICARE, MEDICAID ==
[~2018-01-31] VITALS: Ht 170.2 cm; Wt 96.6 kg
[~2018-01-31 12:48] MED LIST changes: -ALBU8HFA IH; +CILOOO OU; -GLIP10 PO; +METF500T6 PO
[2018-01-31 14:20] VITALS: BP 134/79
[2018-01-31] MEDS ORDERED: DOCUSATE SODIUM 100 MG CAPSULE PO ONE (15:15)
[2018-01-31] MEDS ORDERED: ASPIRIN 81 MG EC TABLET PO ONE (15:15)
[2018-01-31 15:49] LABS: GLUCOMETER DEV NAME(LOC) BV2S 2; GLUCOSE,POINT OF CARE 141 MG/DL (70-110)
[2018-01-31 16:00] VITALS: BP 115/65
[2018-01-31] MEDS ORDERED: INSULIN LISPRO 100 UNITS/ML SQ PRN (16:00)
[2018-01-31] MEDS ORDERED: GLUCAGON,HUMAN RECOMBINANT 1 MG VIAL IM PRN (16:00)
[2018-01-31] MEDS: MetFORMIN HCL 500 MG TABLET PO SCH (17:00)
[2018-01-31 17:05] LABS: GLUCOMETER DEV NAME(LOC) BV2S 2; GLUCOSE,POINT OF CARE 94 MG/DL (70-110)
[2018-01-31] MEDS ORDERED: BACITRACIN 28.4 GM OINTMENT TP PRN (18:00)
[2018-01-31] MEDS ORDERED: MAGNESIUM HYDROXIDE SUSPENSION 30 ML UDCUP PO PRN (18:00)
[2018-01-31] MEDS ORDERED: IBUPROFEN 600 MG TABLET PO PRN (18:00)
[2018-01-31] MEDS ORDERED: PETROLATUM,WHITE 71 GM JELLY TP PRN (18:00)
[2018-01-31] MEDS ORDERED: ACETAMINOPHEN 325 MG TABLET PO PRN (18:00)
[2018-01-31] MEDS ORDERED: ALBUTEROL SULFATE HFA 90 MCG/PUFF 8 GM INHALER IH PRN (18:00)
[2018-01-31] MEDS ORDERED: MAG HYDROX/AL HYDROX/SIMETH ES 30 ML SUSPENSION UDCUP PO PRN (18:00)
[2018-01-31] MEDS ORDERED: CloNIDine HCL 0.1 MG TABLET PO PRN (18:00)
[2018-01-31] MEDS ORDERED: BENZOCAINE/MENTHOL LOZENGE MM PRN (18:00)
[2018-01-31] MEDS ORDERED: ONDANSETRON HCL 4 MG TABLET PO PRN (18:00)
[2018-01-31] MEDS ORDERED: LOPERAMIDE HCL 2 MG CAPSULE PO PRN (18:00)
[2018-01-31] MEDS: SIMVASTATIN 40 MG TABLET PO SCH (21:00)
[2018-02-01 04:00] VITALS: BP 120/81
[2018-02-01] MEDS: LEVOTHYROXINE SODIUM 200 MCG TABLET PO SCH (06:13)
[2018-02-01] MEDS: MetFORMIN HCL 500 MG TABLET PO SCH ×2 (06:13→17:00)
[2018-02-01 06:46] LABS: GLUCOMETER DEV NAME(LOC) BV2S 2; GLUCOSE,POINT OF CARE 135 MG/DL (70-110)
[2018-02-01 08:09] LABS: BASOPHILS % (AUTO) 0.4 % (0.0-2.0); EOSINOPHILS % (AUTO) 2.4 % (1.0-6.0); HEMATOCRIT 45.5 % (41-53); HEMOGLOBIN 15.8 g/dL (13.5-17.5); LYMPHOCYTES # (AUTO) 2.3 K/uL (1.0-4.8); LYMPHOCYTES % (AUTO) 23.5 % (22.0-44.0); MEAN CORPUSCULAR HEMOGLOBIN 30.1 pg (26.0-34.0); MEAN CORPUSCULAR HGB CONC 34.8 G/dL (31.0-37.0); MEAN CORPUSCULAR VOLUME 87 fL (80-100); MONOCYTES # (AUTO) 0.8 K/uL (0.1-1.0); MONOCYTES % (AUTO) 7.9 % (2.0-9.0); NEUTROPHILS # (AUTO) 6.6 K/uL (1.8-7.7); NEUTROPHILS % (AUTO) 65.8 % (40.0-70.0); PLATELET COUNT (AUTO) 318 K/uL (150-450); RED BLOOD CELL COUNT(AUTO) 5.26 MIL/uL (4.50-5.90); RED CELL DISTRIBUTION WIDTH 15.3 % (11.5-14.5)
[2018-02-01 08:17] LABS: HEMOGLOBIN A1C 6.9 % (4.5-6.2)
[2018-02-01 08:26] LABS: APPEARANCE,URINE CLEAR (CLEAR); BILIRUBIN,URINE NEGATIVE (NEGATIVE); GLUCOSE, URINE (UA) NEGATIVE (NEGATIVE); KETONES,URINE NEGATIVE (NEGATIVE); LEUKOCYTE ESTERASE ,URINE NEGATIVE (NEGATIVE); NITRATE,URINE NEGATIVE (NEGATIVE); OCCULT BLOOD,URINE NEGATIVE (NEGATIVE); PROTEIN,URINE NEGATIVE (NEGATIVE); UROBILINOGEN,URINE 0.2 mg/dL (<=1.0)
[2018-02-01 08:41] LABS: ALANINE AMINOTRANSFERASE 29 U/L (12-78); ALBUMIN 3.3 g/dL (3.4-5.0); ALKALINE PHOSPHATASE 52 U/L (46-116); ANION GAP 9 mmol/L (8-16); ASPARTATE AMINOTRANSFERASE 15 U/L (15-37); BILIRUBIN,TOTAL 0.3 mg/dL (0.1-1.0); CALCIUM, TOTAL 8.5 mg/dL (8.8-10.5); CARBON DIOXIDE 26 mmol/L (22-29); CHLORIDE 104 mmol/L (98-107); CHOL/HDL RATIO 6.9 (4.2-7.3); CHOLESTEROL 227 mg/dL (131-200); CREATININE 1.18 mg/dL (0.60-1.30); FREE T4 (FREE THYROXINE) 0.61 ng/dL (0.76-1.46); GLOMERULAR FILTR. RATE CALC > 60 mL/min (>60); GLUCOSE,RANDOM 120 mg/dL (70-110); HDL CHOLESTEROL 33 mg/dL (40-60); LDL CHOL (CALC.) 138 mg/dL (0-130); SODIUM SERUM 139 mmol/L (136-145); THYROID STIMULATING HORMONE 32.96 uIU/mL (0.36-3.74); TOTAL PROTEIN, SERUM 6.7 g/dL (6.4-8.2); TRIGLYCERIDES 281 mg/dL (15-150)
[2018-02-01] MEDS: OMEPRAZOLE 20 MG CAPSULE PO SCH (08:45)
[2018-02-01] MEDS: DOCUSATE SODIUM 100 MG CAPSULE PO SCH (08:45)
[2018-02-01] MEDS: TAMSULOSIN HCL 0.4 MG CAPSULE PO SCH (08:46)
[2018-02-01] MEDS: LISINOPRIL 10 MG TABLET PO SCH (08:46)
[2018-02-01] MEDS: ASPIRIN 81 MG EC TABLET PO SCH (08:46)
[2018-02-01] MEDS: CHOLECALCIFEROL (VIT D3) 1,000 UNITS TABLET PO SCH (08:46)
[2018-02-01 08:50] LABS: UREA NITROGEN, BLOOD 16 mg/dL (7-18)
[2018-02-01 08:59] VITALS: BP 122/91
[2018-02-01 10:53] LABS: GLUCOMETER DEV NAME(LOC) BV2S 2; GLUCOSE,POINT OF CARE 132 MG/DL (70-110)
[2018-02-01] MEDS: ARIPiprazole 15 MG TABLET PO SCH (12:41)
[2018-02-01] MEDS: BusPIRone HCL 10 MG TABLET PO SCH ×2 (12:41→16:49)
[2018-02-01] MEDS: BuPROPion HCL XL 150 MG ER TABLET PO SCH (12:41)
[2018-02-01 16:00] VITALS: BP 105/73
[2018-02-01 17:09] LABS: GLUCOMETER DEV NAME(LOC) BV2S 2; GLUCOSE,POINT OF CARE 138 MG/DL (70-110)
[2018-02-01] MEDS: SIMVASTATIN 40 MG TABLET PO SCH (21:00)
[2018-02-01] MEDS: ZOLPIDEM TARTRATE 10 MG TABLET PO PRN (21:35)
[2018-02-02 05:59] LABS: GLUCOMETER DEV NAME(LOC) BV2S 2; GLUCOSE,POINT OF CARE 122 MG/DL (70-110)
[2018-02-02] MEDS: LEVOTHYROXINE SODIUM 200 MCG TABLET PO SCH (06:03)
[2018-02-02] MEDS: MetFORMIN HCL 500 MG TABLET PO SCH ×2 (06:38→17:00)
[2018-02-02 08:39] VITALS: BP 111/52
[2018-02-02] MEDS: TAMSULOSIN HCL 0.4 MG CAPSULE PO SCH (08:54)
[2018-02-02] MEDS: DOCUSATE SODIUM 100 MG CAPSULE PO SCH (08:54)
[2018-02-02] MEDS: LISINOPRIL 10 MG TABLET PO SCH (08:55)
[2018-02-02] MEDS: OMEPRAZOLE 20 MG CAPSULE PO SCH (08:56)
[2018-02-02] MEDS: CHOLECALCIFEROL (VIT D3) 1,000 UNITS TABLET PO SCH (08:56)
[2018-02-02] MEDS: ARIPiprazole 15 MG TABLET PO SCH (08:56)
[2018-02-02] MEDS: ASPIRIN 81 MG EC TABLET PO SCH (08:56)
[2018-02-02] MEDS: BuPROPion HCL XL 150 MG ER TABLET PO SCH (08:56)
[2018-02-02] MEDS: BusPIRone HCL 10 MG TABLET PO SCH ×3 (08:56→16:30)
[2018-02-02 09:01] VITALS: BP 135/72
[2018-02-02 11:33] LABS: GLUCOMETER DEV NAME(LOC) BV2S 2; GLUCOSE,POINT OF CARE 127 MG/DL (70-110)
[2018-02-02 16:40] VITALS: BP 112/61
[2018-02-02 17:03] LABS: GLUCOMETER DEV NAME(LOC) BV2S 2; GLUCOSE,POINT OF CARE 135 MG/DL (70-110)
[2018-02-02] MEDS: SIMVASTATIN 40 MG TABLET PO SCH (20:03)
[2018-02-02 20:04] VITALS: BP 121/75
[2018-02-02] MEDS: HYDROCODONE/ACETAMINOPHEN 5-325 MG TABLET PO PRN (20:04)
[2018-02-02] MEDS: ZOLPIDEM TARTRATE 10 MG TABLET PO PRN (21:22)
[2018-02-02 23:30] VITALS: BP 107/81
[2018-02-02] MEDS: LORazepam 2 MG TABLET PO PRN (23:33)
[2018-02-03] MEDS: MetFORMIN HCL 500 MG TABLET PO SCH ×2 (06:42→16:29)
[2018-02-03] MEDS: LEVOTHYROXINE SODIUM 200 MCG TABLET PO SCH (06:42)
[2018-02-03 07:03] LABS: GLUCOMETER DEV NAME(LOC) BV2S 2; GLUCOSE,POINT OF CARE 137 MG/DL (70-110)
[2018-02-03 08:42] VITALS: BP 128/72
[2018-02-03] MEDS: ARIPiprazole 15 MG TABLET PO SCH (09:00)
[2018-02-03] MEDS: HYDROCODONE/ACETAMINOPHEN 5-325 MG TABLET PO PRN ×2 (09:00→21:10)
[2018-02-03] MEDS: LISINOPRIL 10 MG TABLET PO SCH (09:01)
[2018-02-03] MEDS: ASPIRIN 81 MG EC TABLET PO SCH (09:01)
[2018-02-03] MEDS: OMEPRAZOLE 20 MG CAPSULE PO SCH (09:01)
[2018-02-03] MEDS: BusPIRone HCL 10 MG TABLET PO SCH ×3 (09:01→16:29)
[2018-02-03] MEDS: DOCUSATE SODIUM 100 MG CAPSULE PO SCH (09:01)
[2018-02-03] MEDS: GABAPENTIN 300 MG CAPSULE PO SCH ×3 (09:02→16:29)
[2018-02-03] MEDS: TAMSULOSIN HCL 0.4 MG CAPSULE PO SCH (09:02)
[2018-02-03] MEDS: CHOLECALCIFEROL (VIT D3) 1,000 UNITS TABLET PO SCH (09:02)
[2018-02-03] MEDS: BuPROPion HCL XL 150 MG ER TABLET PO SCH (09:02)
[2018-02-03 16:00] VITALS: BP 117/71
[2018-02-03 17:43] LABS: GLUCOMETER DEV NAME(LOC) BV2S 2; GLUCOSE,POINT OF CARE 154 MG/DL (70-110)
[2018-02-03] MEDS: TraZODone HCL 50 MG TABLET PO SCH (21:02)
[2018-02-03] MEDS: SIMVASTATIN 40 MG TABLET PO SCH (21:02)
[2018-02-03 21:09] VITALS: BP 111/77
[2018-02-03 21:23] LABS: GLUCOMETER DEV NAME(LOC) BV2S 2; GLUCOSE,POINT OF CARE 127 MG/DL (70-110)
[2018-02-04] MEDS: MetFORMIN HCL 500 MG TABLET PO SCH ×2 (06:45→17:00)
[2018-02-04] MEDS: LEVOTHYROXINE SODIUM 200 MCG TABLET PO SCH (06:45)
[2018-02-04 07:12] LABS: GLUCOMETER DEV NAME(LOC) BV2S 2; GLUCOSE,POINT OF CARE 118 MG/DL (70-110)
[2018-02-04] MEDS: GABAPENTIN 300 MG CAPSULE PO SCH ×3 (08:29→17:04)
[2018-02-04] MEDS: OMEPRAZOLE 20 MG CAPSULE PO SCH (08:30)
[2018-02-04] MEDS: ASPIRIN 81 MG EC TABLET PO SCH (08:30)
[2018-02-04] MEDS: TAMSULOSIN HCL 0.4 MG CAPSULE PO SCH (08:30)
[2018-02-04] MEDS: BusPIRone HCL 10 MG TABLET PO SCH ×3 (08:30→17:04)
[2018-02-04] MEDS: LISINOPRIL 10 MG TABLET PO SCH (08:30)
[2018-02-04] MEDS: DOCUSATE SODIUM 100 MG CAPSULE PO SCH (08:30)
[2018-02-04 08:31] VITALS: BP 107/60
[2018-02-04] MEDS: BuPROPion HCL XL 150 MG ER TABLET PO SCH (08:31)
[2018-02-04] MEDS: CHOLECALCIFEROL (VIT D3) 1,000 UNITS TABLET PO SCH (08:31)
[2018-02-04] MEDS: ARIPiprazole 15 MG TABLET PO SCH (08:31)
[2018-02-04 10:09] VITALS: BP 110/69
[2018-02-04] MEDS: HYDROCODONE/ACETAMINOPHEN 5-325 MG TABLET PO PRN ×2 (10:09→21:57)
[2018-02-04 10:57] LABS: GLUCOMETER DEV NAME(LOC) BV2S 2; GLUCOSE,POINT OF CARE 116 MG/DL (70-110)
[2018-02-04 16:58] LABS: GLUCOMETER DEV NAME(LOC) BV2S 2; GLUCOSE,POINT OF CARE 103 MG/DL (70-110)
[2018-02-04 17:40] VITALS: BP 102/60
[2018-02-04 20:54] VITALS: BP 108/61
[2018-02-04] MEDS: PRAZOSIN HCL 1 MG CAPSULE PO SCH (21:56)
[2018-02-04] MEDS: TraZODone HCL 50 MG TABLET PO SCH (21:56)
[2018-02-04] MEDS: SIMVASTATIN 40 MG TABLET PO SCH (21:57)
[2018-02-04] MEDS: ZOLPIDEM TARTRATE 10 MG TABLET PO PRN (22:18)
[2018-02-05 05:49] VITALS: BP 110/68
[2018-02-05 06:24] LABS: GLUCOMETER DEV NAME(LOC) BV2S 2; GLUCOSE,POINT OF CARE 136 MG/DL (70-110)
[2018-02-05] MEDS: LEVOTHYROXINE SODIUM 200 MCG TABLET PO SCH (06:43)
[2018-02-05] MEDS: OMEPRAZOLE 20 MG CAPSULE PO SCH (08:36)
[2018-02-05] MEDS: DOCUSATE SODIUM 100 MG CAPSULE PO SCH (08:36)
[2018-02-05] MEDS: GABAPENTIN 300 MG CAPSULE PO SCH ×3 (08:36→16:54)
[2018-02-05] MEDS: ARIPiprazole 15 MG TABLET PO SCH (08:36)
[2018-02-05] MEDS: BuPROPion HCL XL 150 MG ER TABLET PO SCH (08:37)
[2018-02-05] MEDS: LISINOPRIL 10 MG TABLET PO SCH (08:37)
[2018-02-05] MEDS: TAMSULOSIN HCL 0.4 MG CAPSULE PO SCH (08:37)
[2018-02-05] MEDS: CHOLECALCIFEROL (VIT D3) 1,000 UNITS TABLET PO SCH (08:37)
[2018-02-05] MEDS: BusPIRone HCL 10 MG TABLET PO SCH ×3 (08:37→16:54)
[2018-02-05] MEDS: ASPIRIN 81 MG EC TABLET PO SCH (08:37)
[2018-02-05] MEDS: HYDROCODONE/ACETAMINOPHEN 5-325 MG TABLET PO PRN ×2 (08:38→20:44)
[2018-02-05 08:39] VITALS: BP 108/77
[2018-02-05 11:18] LABS: GLUCOMETER DEV NAME(LOC) BV2S 2; GLUCOSE,POINT OF CARE 93 MG/DL (70-110)
[2018-02-05 16:08] VITALS: BP 115/64
[2018-02-05 18:18] LABS: GLUCOMETER DEV NAME(LOC) BV2S 2; GLUCOSE,POINT OF CARE 99 MG/DL (70-110)
[2018-02-05] MEDS: SIMVASTATIN 40 MG TABLET PO SCH (20:20)
[2018-02-05] MEDS: TraZODone HCL 50 MG TABLET PO SCH (20:21)
[2018-02-05] MEDS: PRAZOSIN HCL 1 MG CAPSULE PO SCH (20:22)
[2018-02-05 21:00] VITALS: BP 117/70
[2018-02-05] MEDS: ZOLPIDEM TARTRATE 10 MG TABLET PO PRN (21:58)
[2018-02-06] MEDS: LORazepam 2 MG TABLET PO PRN (02:17)
[2018-02-06 06:00] VITALS: BP 117/74
[2018-02-06 06:23] LABS: GLUCOMETER DEV NAME(LOC) BV2S 2; GLUCOSE,POINT OF CARE 119 MG/DL (70-110)
[2018-02-06] MEDS: LEVOTHYROXINE SODIUM 200 MCG TABLET PO SCH (07:01)
[2018-02-06 07:33] LABS: GLUCOMETER DEV NAME(LOC) BV2S 2; GLUCOSE,POINT OF CARE 129 MG/DL (70-110)
[2018-02-06 08:00] VITALS: BP 131/69
[2018-02-06] MEDS: OMEPRAZOLE 20 MG CAPSULE PO SCH (08:35)
[2018-02-06] MEDS: CHOLECALCIFEROL (VIT D3) 1,000 UNITS TABLET PO SCH (08:35)
[2018-02-06] MEDS: LISINOPRIL 10 MG TABLET PO SCH (08:35)
[2018-02-06] MEDS: DOCUSATE SODIUM 100 MG CAPSULE PO SCH (08:35)
[2018-02-06] MEDS: ARIPiprazole 15 MG TABLET PO SCH (08:35)
[2018-02-06] MEDS: GABAPENTIN 300 MG CAPSULE PO SCH (08:35)
[2018-02-06] MEDS: BuPROPion HCL XL 150 MG ER TABLET PO SCH (08:36)
[2018-02-06] MEDS: TAMSULOSIN HCL 0.4 MG CAPSULE PO SCH (08:36)
[2018-02-06] MEDS: BusPIRone HCL 10 MG TABLET PO SCH (08:36)
[2018-02-06] MEDS: ASPIRIN 81 MG EC TABLET PO SCH (08:36)
[2018-02-06] MEDS: HYDROCODONE/ACETAMINOPHEN 5-325 MG TABLET PO PRN (08:38)
[2018-02-06] MEDS ORDERED: TRAZ-144 PO (08:57)
[2018-02-06] MEDS ORDERED: PRAZ1 PO (08:57)
[2018-02-06] MEDS ORDERED: ARIP15TA2 PO (08:57)
[2018-02-06] MEDS ORDERED: BUPR-47 PO (08:57)
[2018-02-06] MEDS ORDERED: BUSP10TA23 PO (08:57)
[2018-02-06] MEDS ORDERED: OMEGA-3/DHA/EPA/FISH OIL 1,000 MG CAPSULE PO SCH (09:00)
[2018-02-06] MEDS ORDERED: ASPI81TA43 PO (09:29)
[2018-02-06] MEDS ORDERED: OMEG-12 PO (09:30)
== END 2018-02-06 11:45 | disposition home or self-care (01) | DRG 885 ==
LOC: B2S 13:52
DX: F25.0 Schizoaffective disorder, bipolar type (principal); R45.851 Suicidal ideations; F43.10 Post-traumatic stress disorder, unspecified; F17.200 Nicotine dependence, unspecified, uncomplicated; E66.9 Obesity, unspecified; E55.9 Vitamin D deficiency, unspecified; E11.65 Type 2 diabetes mellitus with hyperglycemia; E03.9 Hypothyroidism, unspecified; N18.3 Chronic kidney disease, stage 3 (moderate); I12.9 Hypertensive chronic kidney disease with stage 1 through stage 4 chronic kidney disease, or unspecified chronic kidney disease; E11.22 Type 2 diabetes mellitus with diabetic chronic kidney disease; I25.10 Atherosclerotic heart disease of native coronary artery without angina pectoris; J44.9 Chronic obstructive pulmonary disease, unspecified; E78.5 Hyperlipidemia, unspecified; N40.0 Benign prostatic hyperplasia without lower urinary tract symptoms; K21.9 Gastro-esophageal reflux disease without esophagitis; K59.00 Constipation, unspecified; M19.90 Unspecified osteoarthritis, unspecified site; Z59.0 Homelessness; Z79.82 Long term (current) use of aspirin; Z79.899 Other long term (current) drug therapy; Z91.14 Patient's other noncompliance with medication regimen; Z95.1 Presence of aortocoronary bypass graft; Z88.8 Allergy status to other drugs, medicaments and biological substances; Z71.6 Tobacco abuse counseling; Z72.89 Other problems related to lifestyle; Z68.33 Body mass index [BMI] 33.0-33.9, adult
CPT/HCPCS: 83036; 84439; 84443; 87081

== ENCOUNTER 2018-02-19 14:38 | Inpatient (IN) | payer MEDICARE, MEDICAID ==
[~2018-02-19] VITALS: Ht 170.2 cm; Wt 98.7 kg
[~2018-02-19 14:38] MED LIST changes: -ASPI81 PO; +ASPI81TA43 PO; -CILOOO OU; -METF500T6 PO; +OMEG-12 PO; +PRAZ1 PO; +TRAZ-219 PO
[2018-02-19] MEDS ORDERED: LORazepam 2 MG TABLET PO ONE (16:45)
[2018-02-19 17:18] LABS: BASOPHILS % (AUTO) 1.1 % (0.0-2.0); EOSINOPHILS % (AUTO) 1.6 % (1.0-6.0); HEMATOCRIT 42.5 % (41-53); HEMOGLOBIN 14.6 g/dL (13.5-17.5); LYMPHOCYTES # (AUTO) 2.4 K/uL (1.0-4.8); LYMPHOCYTES % (AUTO) 19.5 % (22.0-44.0); MEAN CORPUSCULAR HEMOGLOBIN 29.8 pg (26.0-34.0); MEAN CORPUSCULAR HGB CONC 34.4 G/dL (31.0-37.0); MEAN CORPUSCULAR VOLUME 87 fL (80-100); MONOCYTES # (AUTO) 0.9 K/uL (0.1-1.0); MONOCYTES % (AUTO) 7.5 % (2.0-9.0); NEUTROPHILS # (AUTO) 8.5 K/uL (1.8-7.7); NEUTROPHILS % (AUTO) 70.3 % (40.0-70.0); PLATELET COUNT (AUTO) 297 K/uL (150-450); RED BLOOD CELL COUNT(AUTO) 4.91 MIL/uL (4.50-5.90); RED CELL DISTRIBUTION WIDTH 14.9 % (11.5-14.5)
[2018-02-19 17:28] LABS: ANION GAP 13 mmol/L (8-16); CALCIUM, TOTAL 8.8 mg/dL (8.8-10.5); CARBON DIOXIDE 25 mmol/L (22-29); CHLORIDE 101 mmol/L (98-107); CREATININE 1.69 mg/dL (0.60-1.30); GLOMERULAR FILTR. RATE CALC 40 mL/min (>60); GLUCOSE,RANDOM 130 mg/dL (70-110); POTASSIUM 3.6 mmol/L (3.5-5.1); SODIUM SERUM 139 mmol/L (136-145); UREA NITROGEN, BLOOD 18 mg/dL (7-18)
[2018-02-19 17:34] LABS: ALANINE AMINOTRANSFERASE 49 U/L (12-78); ALBUMIN 3.4 g/dL (3.4-5.0); ALKALINE PHOSPHATASE 55 U/L (46-116); ASPARTATE AMINOTRANSFERASE 26 U/L (15-37); BILIRUBIN,TOTAL 0.2 mg/dL (0.1-1.0); TOTAL PROTEIN, SERUM 6.5 g/dL (6.4-8.2)
[2018-02-19 17:40] LABS: AMPHET/METH SCREEN,URINE NEGATIVE (NEGATIVE); BARBITURATE SCREEN, URINE NEGATIVE (NEGATIVE); BENZODIAZEPINES SCREEN,URINE NEGATIVE (NEGATIVE); CANNABINOID SCREEN,URINE NEGATIVE (NEGATIVE); COCAINE SCREEN,URINE NEGATIVE (NEGATIVE); METHADONE SCREEN, URINE NEGATIVE (NEGATIVE); OPIATE SCREEN,URINE NEGATIVE (NEGATIVE)
[2018-02-19 17:45] LABS: PHENCYCLIDINE SCREEN,URINE NEGATIVE (NEGATIVE)
[2018-02-19] MEDS ORDERED: HALOPERIDOL 5 MG TABLET PO PRN (20:30)
[2018-02-19] MEDS ORDERED: DOCUSATE SODIUM 100 MG CAPSULE PO PRN (22:15)
[2018-02-19] MEDS ORDERED: CloNIDine HCL 0.1 MG TABLET PO PRN (22:15)
[2018-02-19] MEDS ORDERED: ALBUTEROL SULFATE HFA 90 MCG/PUFF 8 GM INHALER IH PRN (22:15)
[2018-02-19] MEDS ORDERED: LOPERAMIDE HCL 2 MG CAPSULE PO PRN (22:15)
[2018-02-19] MEDS ORDERED: MAG HYDROX/AL HYDROX/SIMETH ES 30 ML SUSPENSION UDCUP PO PRN (22:15)
[2018-02-19] MEDS ORDERED: ACETAMINOPHEN 325 MG TABLET PO PRN (22:15)
[2018-02-19] MEDS ORDERED: PETROLATUM,WHITE 71 GM JELLY TP PRN (22:15)
[2018-02-19] MEDS ORDERED: MAGNESIUM HYDROXIDE SUSPENSION 30 ML UDCUP PO PRN (22:15)
[2018-02-19] MEDS ORDERED: IBUPROFEN 400 MG TABLET PO PRN (22:15)
[2018-02-19] MEDS ORDERED: ONDANSETRON HCL 4 MG TABLET PO PRN (22:15)
[2018-02-20 00:06] VITALS: BP 138/71
[2018-02-20] MEDS: LEVOTHYROXINE SODIUM 200 MCG TABLET PO SCH (06:41)
[2018-02-20] MEDS: BuPROPion HCL XL 150 MG ER TABLET PO SCH (09:00)
[2018-02-20] MEDS: CHOLECALCIFEROL (VIT D3) 1,000 UNITS TABLET PO SCH (09:00)
[2018-02-20] MEDS: TAMSULOSIN HCL 0.4 MG CAPSULE PO SCH (09:00)
[2018-02-20] MEDS: LISINOPRIL 10 MG TABLET PO SCH (09:00)
[2018-02-20] MEDS: ARIPiprazole 15 MG TABLET PO SCH (09:00)
[2018-02-20] MEDS: NICOTINE 14 MG/24 HOUR PATCH TD SCH (09:00)
[2018-02-20] MEDS ORDERED: NICOTINE 14 MG/24 HOUR PATCH TD SCH (09:00)
[2018-02-20] MEDS: OMEPRAZOLE 20 MG CAPSULE PO SCH (09:00)
[2018-02-20] MEDS: BusPIRone HCL 10 MG TABLET PO SCH ×3 (09:00→17:00)
[2018-02-20] MEDS ORDERED: OMEGA-3/DHA/EPA/FISH OIL 1,000 MG CAPSULE PO SCH (09:00)
[2018-02-20] MEDS: ASPIRIN 81 MG EC TABLET PO SCH (09:00)
[2018-02-20] MEDS: PRAZOSIN HCL 1 MG CAPSULE PO SCH (20:49)
[2018-02-20] MEDS: TraZODone HCL 50 MG TABLET PO SCH (20:49)
[2018-02-20] MEDS: SIMVASTATIN 40 MG TABLET PO SCH (20:50)
[2018-02-21] MEDS: LEVOTHYROXINE SODIUM 200 MCG TABLET PO SCH (06:23)
[2018-02-21] MEDS: NICOTINE 14 MG/24 HOUR PATCH TD SCH (09:00)
[2018-02-21 09:15] VITALS: BP 114/61
[2018-02-21] MEDS: OMEGA-3/DHA/EPA/FISH OIL 1,000 MG CAPSULE PO SCH (09:16)
[2018-02-21] MEDS: ASPIRIN 81 MG EC TABLET PO SCH (09:17)
[2018-02-21] MEDS: BusPIRone HCL 10 MG TABLET PO SCH ×3 (09:17→16:35)
[2018-02-21] MEDS: ARIPiprazole 15 MG TABLET PO SCH (09:17)
[2018-02-21] MEDS: BuPROPion HCL XL 150 MG ER TABLET PO SCH (09:17)
[2018-02-21] MEDS: TAMSULOSIN HCL 0.4 MG CAPSULE PO SCH (09:17)
[2018-02-21] MEDS: LISINOPRIL 10 MG TABLET PO SCH (09:17)
[2018-02-21] MEDS: OMEPRAZOLE 20 MG CAPSULE PO SCH (09:17)
[2018-02-21] MEDS: CHOLECALCIFEROL (VIT D3) 1,000 UNITS TABLET PO SCH (09:18)
[2018-02-21 13:59] LABS: GLUCOMETER DEV NAME(LOC) BV2N3; GLUCOSE,POINT OF CARE 132 MG/DL (70-110)
[2018-02-21 16:04] VITALS: BP 102/64
[2018-02-21 16:33] LABS: GLUCOMETER DEV NAME(LOC) BV2N3; GLUCOSE,POINT OF CARE 164 MG/DL (70-110)
[2018-02-21] MEDS: MetFORMIN HCL 500 MG TABLET PO SCH (17:05)
[2018-02-21] MEDS: LORazepam 2 MG TABLET PO PRN (18:07)
[2018-02-21 20:29] VITALS: BP 117/73
[2018-02-21] MEDS: TraZODone HCL 50 MG TABLET PO SCH (20:30)
[2018-02-21] MEDS: PRAZOSIN HCL 1 MG CAPSULE PO SCH (20:30)
[2018-02-21] MEDS: SIMVASTATIN 40 MG TABLET PO SCH (20:31)
[2018-02-22 01:31] VITALS: BP 105/70
[2018-02-22] MEDS: LORazepam 2 MG TABLET PO PRN (01:57)
[2018-02-22] MEDS: MetFORMIN HCL 500 MG TABLET PO SCH ×2 (06:45→16:33)
[2018-02-22] MEDS: LEVOTHYROXINE SODIUM 200 MCG TABLET PO SCH (06:45)
[2018-02-22 06:50] LABS: GLUCOMETER DEV NAME(LOC) BV2N3; GLUCOSE,POINT OF CARE 130 MG/DL (70-110)
[2018-02-22 08:28] VITALS: BP 112/66
[2018-02-22] MEDS: OMEPRAZOLE 20 MG CAPSULE PO SCH (09:00)
[2018-02-22] MEDS: NICOTINE 14 MG/24 HOUR PATCH TD SCH (09:00)
[2018-02-22] MEDS: BuPROPion HCL XL 150 MG ER TABLET PO SCH (09:00)
[2018-02-22] MEDS: OMEGA-3/DHA/EPA/FISH OIL 1,000 MG CAPSULE PO SCH (09:00)
[2018-02-22] MEDS: CHOLECALCIFEROL (VIT D3) 1,000 UNITS TABLET PO SCH (09:00)
[2018-02-22] MEDS: ARIPiprazole 15 MG TABLET PO SCH (09:00)
[2018-02-22] MEDS: TAMSULOSIN HCL 0.4 MG CAPSULE PO SCH (09:00)
[2018-02-22] MEDS: LISINOPRIL 10 MG TABLET PO SCH (09:00)
[2018-02-22] MEDS: ASPIRIN 81 MG EC TABLET PO SCH (09:00)
[2018-02-22] MEDS: BusPIRone HCL 10 MG TABLET PO SCH ×3 (09:00→16:33)
[2018-02-22] MEDS: TraZODone HCL 50 MG TABLET PO SCH (20:50)
[2018-02-22] MEDS: PRAZOSIN HCL 1 MG CAPSULE PO SCH (20:50)
[2018-02-22] MEDS: SIMVASTATIN 40 MG TABLET PO SCH (20:50)
[2018-02-23] MEDS: ZOLPIDEM TARTRATE 10 MG TABLET PO PRN ×2 (01:36→21:49)
[2018-02-23 01:39] VITALS: BP 123/84
[2018-02-23] MEDS: MetFORMIN HCL 500 MG TABLET PO SCH ×2 (06:56→16:45)
[2018-02-23] MEDS: LEVOTHYROXINE SODIUM 200 MCG TABLET PO SCH (06:56)
[2018-02-23 08:29] VITALS: BP 113/84
[2018-02-23] MEDS: NICOTINE 14 MG/24 HOUR PATCH TD SCH (09:00)
[2018-02-23] MEDS: ARIPiprazole 15 MG TABLET PO SCH (09:05)
[2018-02-23] MEDS: ASPIRIN 81 MG EC TABLET PO SCH (09:05)
[2018-02-23] MEDS: BuPROPion HCL XL 150 MG ER TABLET PO SCH (09:05)
[2018-02-23] MEDS: BusPIRone HCL 10 MG TABLET PO SCH ×3 (09:05→17:10)
[2018-02-23] MEDS: LISINOPRIL 10 MG TABLET PO SCH (09:05)
[2018-02-23] MEDS: CHOLECALCIFEROL (VIT D3) 1,000 UNITS TABLET PO SCH (09:05)
[2018-02-23] MEDS: OMEPRAZOLE 20 MG CAPSULE PO SCH (09:06)
[2018-02-23] MEDS: TAMSULOSIN HCL 0.4 MG CAPSULE PO SCH (09:06)
[2018-02-23] MEDS: OMEGA-3/DHA/EPA/FISH OIL 1,000 MG CAPSULE PO SCH (09:06)
[2018-02-23 12:50] VITALS: BP 110/78
[2018-02-23] MEDS: TraMADol HCL 50 MG TABLET PO PRN ×2 (12:50→19:42)
[2018-02-23] MEDS: LORazepam 2 MG TABLET PO PRN (15:49)
[2018-02-23 16:13] VITALS: BP 110/60
[2018-02-23 16:28] LABS: GLUCOMETER DEV NAME(LOC) BV2N3; GLUCOSE,POINT OF CARE 174 MG/DL (70-110)
[2018-02-23 19:42] VITALS: BP 122/68
[2018-02-23 20:40] VITALS: BP 114/72
[2018-02-23] MEDS: TraZODone HCL 50 MG TABLET PO SCH (20:40)
[2018-02-23] MEDS: SIMVASTATIN 40 MG TABLET PO SCH (20:40)
[2018-02-23] MEDS: PRAZOSIN HCL 1 MG CAPSULE PO SCH (20:40)
[2018-02-24 06:09] VITALS: BP 112/74
[2018-02-24 06:59] LABS: GLUCOMETER DEV NAME(LOC) BV2N3; GLUCOSE,POINT OF CARE 139 MG/DL (70-110)
[2018-02-24] MEDS: LEVOTHYROXINE SODIUM 200 MCG TABLET PO SCH (07:04)
[2018-02-24] MEDS: MetFORMIN HCL 500 MG TABLET PO SCH ×2 (07:05→16:59)
[2018-02-24] MEDS: ASPIRIN 81 MG EC TABLET PO SCH (08:59)
[2018-02-24] MEDS: OMEPRAZOLE 20 MG CAPSULE PO SCH (08:59)
[2018-02-24] MEDS: LISINOPRIL 10 MG TABLET PO SCH (09:00)
[2018-02-24] MEDS: ARIPiprazole 15 MG TABLET PO SCH (09:00)
[2018-02-24] MEDS: CHOLECALCIFEROL (VIT D3) 1,000 UNITS TABLET PO SCH (09:01)
[2018-02-24] MEDS: BuPROPion HCL XL 150 MG ER TABLET PO SCH (09:01)
[2018-02-24] MEDS: OMEGA-3/DHA/EPA/FISH OIL 1,000 MG CAPSULE PO SCH (09:01)
[2018-02-24] MEDS: TAMSULOSIN HCL 0.4 MG CAPSULE PO SCH (09:01)
[2018-02-24] MEDS: BusPIRone HCL 10 MG TABLET PO SCH ×3 (09:01→16:59)
[2018-02-24 09:04] VITALS: BP 100/59
[2018-02-24 09:05] LABS: BASOPHILS % (AUTO) 0.3 % (0.0-2.0); EOSINOPHILS % (AUTO) 2.2 % (1.0-6.0); HEMATOCRIT 44.3 % (41-53); HEMOGLOBIN 15.1 g/dL (13.5-17.5); LYMPHOCYTES # (AUTO) 2.1 K/uL (1.0-4.8); LYMPHOCYTES % (AUTO) 26.5 % (22.0-44.0); MEAN CORPUSCULAR HEMOGLOBIN 29.5 pg (26.0-34.0); MEAN CORPUSCULAR VOLUME 87 fL (80-100); MONOCYTES # (AUTO) 0.6 K/uL (0.1-1.0); NEUTROPHILS # (AUTO) 5.1 K/uL (1.8-7.7); PLATELET COUNT (AUTO) 302 K/uL (150-450); RED BLOOD CELL COUNT(AUTO) 5.11 MIL/uL (4.50-5.90); RED CELL DISTRIBUTION WIDTH 15.2 % (11.5-14.5)
[2018-02-24 09:10] LABS: HEMOGLOBIN A1C 6.7 % (4.5-6.2)
[2018-02-24 09:21] LABS: CHOL/HDL RATIO 6.5 (4.2-7.3); THYROID STIMULATING HORMONE 62.15 uIU/mL (0.36-3.74)
[2018-02-24 16:27] VITALS: BP 123/72
[2018-02-24] MEDS: HYDROCODONE/ACETAMINOPHEN 5-325 MG TABLET PO PRN (18:04)
[2018-02-24 19:48] VITALS: BP 120/72
[2018-02-24] MEDS: TraZODone HCL 100 MG TABLET PO SCH (20:06)
[2018-02-24] MEDS: PRAZOSIN HCL 1 MG CAPSULE PO SCH (20:06)
[2018-02-24] MEDS: SIMVASTATIN 40 MG TABLET PO SCH (20:06)
[2018-02-24] MEDS: ZOLPIDEM TARTRATE 10 MG TABLET PO PRN (21:32)
[2018-02-25 02:04] VITALS: BP 106/66
[2018-02-25 06:09] LABS: GLUCOMETER DEV NAME(LOC) BV2N3; GLUCOSE,POINT OF CARE 113 MG/DL (70-110)
[2018-02-25] MEDS ORDERED: LEVOTHYROXINE SODIUM 75 MCG TABLET PO SCH (06:30)
[2018-02-25] MEDS: LEVOTHYROXINE SODIUM 200 MCG TABLET PO SCH (06:30)
[2018-02-25] MEDS ORDERED: LEVOTHYROXINE SODIUM 100 MCG TABLET PO ONE (07:00)
[2018-02-25] MEDS: MetFORMIN HCL 500 MG TABLET PO SCH ×2 (07:09→16:40)
[2018-02-25 08:13] VITALS: BP 116/69
[2018-02-25] MEDS: LISINOPRIL 10 MG TABLET PO SCH (09:02)
[2018-02-25] MEDS: OMEGA-3/DHA/EPA/FISH OIL 1,000 MG CAPSULE PO SCH (09:02)
[2018-02-25] MEDS: BuPROPion HCL XL 150 MG ER TABLET PO SCH (09:02)
[2018-02-25] MEDS: CHOLECALCIFEROL (VIT D3) 1,000 UNITS TABLET PO SCH (09:02)
[2018-02-25] MEDS: ASPIRIN 81 MG EC TABLET PO SCH (09:02)
[2018-02-25] MEDS: BusPIRone HCL 10 MG TABLET PO SCH ×3 (09:02→16:40)
[2018-02-25] MEDS: OMEPRAZOLE 20 MG CAPSULE PO SCH (09:03)
[2018-02-25] MEDS: TAMSULOSIN HCL 0.4 MG CAPSULE PO SCH (09:03)
[2018-02-25] MEDS: ARIPiprazole 15 MG TABLET PO SCH (09:03)
[2018-02-25] MEDS: HYDROCODONE/ACETAMINOPHEN 5-325 MG TABLET PO PRN ×2 (09:03→21:33)
[2018-02-25 16:33] LABS: GLUCOMETER DEV NAME(LOC) BV2N3; GLUCOSE,POINT OF CARE 120 MG/DL (70-110)
[2018-02-25 17:07] VITALS: BP 115/72
[2018-02-25 17:26] VITALS: BP 118/82
[2018-02-25] MEDS: TraMADol HCL 50 MG TABLET PO PRN (17:26)
[2018-02-25 20:20] VITALS: BP 143/74
[2018-02-25] MEDS: PRAZOSIN HCL 1 MG CAPSULE PO SCH (20:36)
[2018-02-25] MEDS: SIMVASTATIN 40 MG TABLET PO SCH (20:36)
[2018-02-25] MEDS: TraZODone HCL 100 MG TABLET PO SCH (20:37)
[2018-02-25 21:33] VITALS: BP 120/70
[2018-02-26] VITALS: BP 122/73
[2018-02-26] MEDS: ZOLPIDEM TARTRATE 10 MG TABLET PO PRN (00:12)
[2018-02-26] MEDS: MetFORMIN HCL 500 MG TABLET PO SCH ×2 (07:15→16:41)
[2018-02-26] MEDS: LEVOTHYROXINE SODIUM 200 MCG TABLET PO SCH (07:15)
[2018-02-26 08:10] VITALS: BP 116/66
[2018-02-26] MEDS: ASPIRIN 81 MG EC TABLET PO SCH (08:34)
[2018-02-26] MEDS: BuPROPion HCL XL 150 MG ER TABLET PO SCH (08:35)
[2018-02-26] MEDS: OMEPRAZOLE 20 MG CAPSULE PO SCH (08:35)
[2018-02-26] MEDS: OMEGA-3/DHA/EPA/FISH OIL 1,000 MG CAPSULE PO SCH (08:35)
[2018-02-26] MEDS: CHOLECALCIFEROL (VIT D3) 1,000 UNITS TABLET PO SCH (08:35)
[2018-02-26] MEDS: ARIPiprazole 15 MG TABLET PO SCH (08:35)
[2018-02-26] MEDS: BusPIRone HCL 10 MG TABLET PO SCH ×3 (08:35→16:41)
[2018-02-26] MEDS: TAMSULOSIN HCL 0.4 MG CAPSULE PO SCH (08:36)
[2018-02-26] MEDS: LISINOPRIL 10 MG TABLET PO SCH (08:36)
[2018-02-26] MEDS: HYDROCODONE/ACETAMINOPHEN 5-325 MG TABLET PO PRN ×2 (09:30→21:09)
[2018-02-26 16:27] VITALS: BP 107/65
[2018-02-26 16:29] LABS: GLUCOMETER DEV NAME(LOC) BV2N3; GLUCOSE,POINT OF CARE 96 MG/DL (70-110)
[2018-02-26 20:25] VITALS: BP 110/63
[2018-02-26] MEDS: TraZODone HCL 100 MG TABLET PO SCH (20:26)
[2018-02-26] MEDS: SIMVASTATIN 40 MG TABLET PO SCH (20:27)
[2018-02-26] MEDS: PRAZOSIN HCL 1 MG CAPSULE PO SCH (20:27)
[2018-02-26 21:06] VITALS: BP 113/69
[2018-02-27 01:55] VITALS: BP 108/62
[2018-02-27] MEDS: LORazepam 2 MG TABLET PO PRN (02:04)
[2018-02-27 06:39] LABS: GLUCOMETER DEV NAME(LOC) BV2N3; GLUCOSE,POINT OF CARE 115 MG/DL (70-110)
[2018-02-27] MEDS: MetFORMIN HCL 500 MG TABLET PO SCH ×2 (06:59→16:36)
[2018-02-27] MEDS: LEVOTHYROXINE SODIUM 200 MCG TABLET PO SCH (06:59)
[2018-02-27 08:27] VITALS: BP 117/75
[2018-02-27] MEDS: ASPIRIN 81 MG EC TABLET PO SCH (08:35)
[2018-02-27] MEDS: OMEPRAZOLE 20 MG CAPSULE PO SCH (08:36)
[2018-02-27] MEDS: BuPROPion HCL XL 150 MG ER TABLET PO SCH (08:36)
[2018-02-27] MEDS: BusPIRone HCL 10 MG TABLET PO SCH ×3 (08:36→16:36)
[2018-02-27] MEDS: LISINOPRIL 10 MG TABLET PO SCH (08:36)
[2018-02-27] MEDS: TAMSULOSIN HCL 0.4 MG CAPSULE PO SCH (08:36)
[2018-02-27] MEDS: ARIPiprazole 15 MG TABLET PO SCH (08:36)
[2018-02-27] MEDS: CHOLECALCIFEROL (VIT D3) 1,000 UNITS TABLET PO SCH (08:36)
[2018-02-27] MEDS: OMEGA-3/DHA/EPA/FISH OIL 1,000 MG CAPSULE PO SCH (08:37)
[2018-02-27 12:39] VITALS: BP 110/69
[2018-02-27] MEDS: HYDROCODONE/ACETAMINOPHEN 5-325 MG TABLET PO PRN (12:39)
[2018-02-27 16:11] VITALS: BP 118/71
[2018-02-27 18:59] LABS: GLUCOMETER DEV NAME(LOC) BV2N3; GLUCOSE,POINT OF CARE 135 MG/DL (70-110)
[2018-02-27] MEDS: PRAZOSIN HCL 1 MG CAPSULE PO SCH (20:03)
[2018-02-27] MEDS: TraZODone HCL 100 MG TABLET PO SCH (20:03)
[2018-02-27] MEDS: SIMVASTATIN 40 MG TABLET PO SCH (20:03)
[2018-02-28 00:16] VITALS: BP 102/61
[2018-02-28] MEDS: ZOLPIDEM TARTRATE 10 MG TABLET PO PRN (00:18)
[2018-02-28] MEDS: LEVOTHYROXINE SODIUM 75 MCG TABLET PO SCH (06:04)
[2018-02-28 06:19] LABS: GLUCOMETER DEV NAME(LOC) BV2N3; GLUCOSE,POINT OF CARE 116 MG/DL (70-110)
[2018-02-28] MEDS: MetFORMIN HCL 500 MG TABLET PO SCH ×2 (06:41→16:36)
[2018-02-28] MEDS: BuPROPion HCL XL 150 MG ER TABLET PO SCH (09:00)
[2018-02-28] MEDS: OMEGA-3/DHA/EPA/FISH OIL 1,000 MG CAPSULE PO SCH (09:00)
[2018-02-28] MEDS: ASPIRIN 81 MG EC TABLET PO SCH (09:00)
[2018-02-28] MEDS: ARIPiprazole 15 MG TABLET PO SCH (09:00)
[2018-02-28] MEDS: BusPIRone HCL 10 MG TABLET PO SCH ×3 (09:00→16:35)
[2018-02-28] MEDS: TAMSULOSIN HCL 0.4 MG CAPSULE PO SCH (09:00)
[2018-02-28] MEDS: CHOLECALCIFEROL (VIT D3) 1,000 UNITS TABLET PO SCH (09:00)
[2018-02-28] MEDS: LISINOPRIL 10 MG TABLET PO SCH (09:00)
[2018-02-28] MEDS: OMEPRAZOLE 20 MG CAPSULE PO SCH (09:00)
[2018-02-28 20:38] VITALS: BP 124/71
[2018-02-28] MEDS: HYDROCODONE/ACETAMINOPHEN 5-325 MG TABLET PO PRN (20:38)
[2018-02-28] MEDS: PRAZOSIN HCL 1 MG CAPSULE PO SCH (20:39)
[2018-02-28] MEDS: TraZODone HCL 100 MG TABLET PO SCH (20:39)
[2018-02-28] MEDS: SIMVASTATIN 40 MG TABLET PO SCH (21:00)
[2018-03-01 00:45] VITALS: BP 113/76
[2018-03-01] MEDS: ZOLPIDEM TARTRATE 10 MG TABLET PO PRN (00:50)
[2018-03-01] MEDS: MetFORMIN HCL 500 MG TABLET PO SCH ×2 (06:58→16:44)
[2018-03-01] MEDS: LEVOTHYROXINE SODIUM 75 MCG TABLET PO SCH (06:58)
[2018-03-01 07:44] LABS: GLUCOMETER DEV NAME(LOC) BV2N3; GLUCOSE,POINT OF CARE 128 MG/DL (70-110)
[2018-03-01 08:42] VITALS: BP 102/61
[2018-03-01] MEDS: TAMSULOSIN HCL 0.4 MG CAPSULE PO SCH (08:50)
[2018-03-01] MEDS: OMEPRAZOLE 20 MG CAPSULE PO SCH (08:50)
[2018-03-01] MEDS: CHOLECALCIFEROL (VIT D3) 1,000 UNITS TABLET PO SCH (08:50)
[2018-03-01] MEDS: BusPIRone HCL 10 MG TABLET PO SCH ×3 (08:50→16:44)
[2018-03-01] MEDS: BuPROPion HCL XL 150 MG ER TABLET PO SCH (08:51)
[2018-03-01] MEDS: ARIPiprazole 15 MG TABLET PO SCH (08:51)
[2018-03-01] MEDS: OMEGA-3/DHA/EPA/FISH OIL 1,000 MG CAPSULE PO SCH (08:51)
[2018-03-01] MEDS: ASPIRIN 81 MG EC TABLET PO SCH (08:51)
[2018-03-01 09:00] VITALS: BP 115/70
[2018-03-01] MEDS: HYDROCODONE/ACETAMINOPHEN 5-325 MG TABLET PO PRN ×2 (09:01→16:02)
[2018-03-01] MEDS: LISINOPRIL 10 MG TABLET PO SCH (09:01)
[2018-03-01] MEDS ORDERED: BuPROPion HCL XL 150 MG ER TABLET PO ONE (10:45)
[2018-03-01 16:00] VITALS: BP 112/62
[2018-03-01 16:21] VITALS: BP 112/62
[2018-03-01 16:29] LABS: GLUCOMETER DEV NAME(LOC) BV2N3; GLUCOSE,POINT OF CARE 115 MG/DL (70-110)
[2018-03-01 20:28] VITALS: BP 111/62
[2018-03-01] MEDS: PRAZOSIN HCL 1 MG CAPSULE PO SCH (20:28)
[2018-03-01] MEDS: TraZODone HCL 100 MG TABLET PO SCH (20:28)
[2018-03-01] MEDS: SIMVASTATIN 40 MG TABLET PO SCH (20:28)
[2018-03-01] MEDS: LORazepam 2 MG TABLET PO PRN (21:09)
[2018-03-02] MEDS: ZOLPIDEM TARTRATE 10 MG TABLET PO PRN (00:03)
[2018-03-02 01:24] VITALS: BP 116/62
[2018-03-02] MEDS: MetFORMIN HCL 500 MG TABLET PO SCH ×2 (07:26→16:33)
[2018-03-02] MEDS: LEVOTHYROXINE SODIUM 75 MCG TABLET PO SCH (07:26)
[2018-03-02] MEDS: BuPROPion HCL XL 150 MG ER TABLET PO SCH (09:00)
[2018-03-02] MEDS: ASPIRIN 81 MG EC TABLET PO SCH (09:00)
[2018-03-02] MEDS: TAMSULOSIN HCL 0.4 MG CAPSULE PO SCH (09:00)
[2018-03-02] MEDS: OMEGA-3/DHA/EPA/FISH OIL 1,000 MG CAPSULE PO SCH (09:00)
[2018-03-02] MEDS: BusPIRone HCL 10 MG TABLET PO SCH ×3 (09:00→16:33)
[2018-03-02] MEDS: CHOLECALCIFEROL (VIT D3) 1,000 UNITS TABLET PO SCH (09:00)
[2018-03-02] MEDS: LISINOPRIL 10 MG TABLET PO SCH (09:00)
[2018-03-02] MEDS: ARIPiprazole 15 MG TABLET PO SCH (09:00)
[2018-03-02] MEDS: OMEPRAZOLE 20 MG CAPSULE PO SCH (09:00)
[2018-03-02 14:58] VITALS: BP 116/68
[2018-03-02] MEDS: HYDROCODONE/ACETAMINOPHEN 5-325 MG TABLET PO PRN (14:58)
[2018-03-02 16:09] VITALS: BP 125/87
[2018-03-02 16:28] LABS: GLUCOMETER DEV NAME(LOC) BV2N3; GLUCOSE,POINT OF CARE 104 MG/DL (70-110)
[2018-03-02] MEDS: LORazepam 2 MG TABLET PO PRN (18:52)
[2018-03-02 20:29] VITALS: BP 131/78
[2018-03-02] MEDS: SIMVASTATIN 40 MG TABLET PO SCH (20:30)
[2018-03-02] MEDS: TraZODone HCL 100 MG TABLET PO SCH (20:30)
[2018-03-02] MEDS: PRAZOSIN HCL 1 MG CAPSULE PO SCH (20:30)
[2018-03-03] MEDS: ZOLPIDEM TARTRATE 10 MG TABLET PO PRN (00:03)
[2018-03-03 01:10] VITALS: BP 128/77
[2018-03-03] MEDS: LEVOTHYROXINE SODIUM 75 MCG TABLET PO SCH (06:10)
[2018-03-03 06:19] LABS: GLUCOMETER DEV NAME(LOC) BV2N3; GLUCOSE,POINT OF CARE 120 MG/DL (70-110)
[2018-03-03] MEDS: MetFORMIN HCL 500 MG TABLET PO SCH ×2 (06:52→16:46)
[2018-03-03 09:08] VITALS: BP 110/76
[2018-03-03] MEDS: LISINOPRIL 10 MG TABLET PO SCH (09:08)
[2018-03-03] MEDS: BusPIRone HCL 10 MG TABLET PO SCH ×2 (09:08→12:46)
[2018-03-03] MEDS: OMEPRAZOLE 20 MG CAPSULE PO SCH (09:08)
[2018-03-03] MEDS: ASPIRIN 81 MG EC TABLET PO SCH (09:08)
[2018-03-03] MEDS: CHOLECALCIFEROL (VIT D3) 1,000 UNITS TABLET PO SCH (09:08)
[2018-03-03] MEDS: BuPROPion HCL XL 150 MG ER TABLET PO SCH (09:08)
[2018-03-03] MEDS: ARIPiprazole 15 MG TABLET PO SCH (09:08)
[2018-03-03] MEDS: TAMSULOSIN HCL 0.4 MG CAPSULE PO SCH (09:09)
[2018-03-03] MEDS: OMEGA-3/DHA/EPA/FISH OIL 1,000 MG CAPSULE PO SCH (09:09)
[2018-03-03] MEDS: HYDROCODONE/ACETAMINOPHEN 5-325 MG TABLET PO PRN (09:10)
[2018-03-03] MEDS ORDERED: BUPR-93 PO ×2 (14:45→16:15)
[2018-03-03] MEDS ORDERED: TRAZ-220 PO ×2 (14:45→16:15)
[2018-03-03] MEDS ORDERED: METF500T PO (14:47)
[2018-03-03] MEDS ORDERED: PRAZ1 PO (16:13)
[2018-03-03] MEDS ORDERED: BUSP10TA23 PO (16:14)
[2018-03-03] MEDS ORDERED: ARIP15TA2 PO (16:17)
[2018-03-03 16:19] VITALS: BP 119/68
[2018-03-03 16:59] LABS: GLUCOMETER DEV NAME(LOC) BV2N3; GLUCOSE,POINT OF CARE 106 MG/DL (70-110)
== END 2018-03-03 17:46 | disposition home or self-care (01) | DRG 885 ==
LOC: EMS 14:40 → B2X 20:56
DX: F25.0 Schizoaffective disorder, bipolar type (principal); R45.851 Suicidal ideations; D72.829 Elevated white blood cell count, unspecified; E03.9 Hypothyroidism, unspecified; E11.22 Type 2 diabetes mellitus with diabetic chronic kidney disease; E55.9 Vitamin D deficiency, unspecified; E66.9 Obesity, unspecified; Z68.34 Body mass index [BMI] 34.0-34.9, adult; E78.00 Pure hypercholesterolemia, unspecified; E78.5 Hyperlipidemia, unspecified; F43.12 Post-traumatic stress disorder, chronic; I12.9 Hypertensive chronic kidney disease with stage 1 through stage 4 chronic kidney disease, or unspecified chronic kidney disease; I25.10 Atherosclerotic heart disease of native coronary artery without angina pectoris; J44.9 Chronic obstructive pulmonary disease, unspecified; K21.9 Gastro-esophageal reflux disease without esophagitis; M19.90 Unspecified osteoarthritis, unspecified site; N18.9 Chronic kidney disease, unspecified; N40.0 Benign prostatic hyperplasia without lower urinary tract symptoms; R45.850 Homicidal ideations; Z59.0 Homelessness; Z79.899 Other long term (current) drug therapy; Z87.891 Personal history of nicotine dependence; Z91.5 Personal history of self-harm; Z95.1 Presence of aortocoronary bypass graft; Z88.8 Allergy status to other drugs, medicaments and biological substances
CPT/HCPCS: 82306; 83036; 84439; 84443; 93005; 99285; G0480

== ENCOUNTER 2018-03-08 12:01 | Inpatient (IN) | payer MEDICARE, MEDICAID ==
[~2018-03-08] VITALS: Ht 170.2 cm; Wt 91.9 kg
[~2018-03-08 12:01] MED LIST changes: -BUPR-47 PO; +BUPR-93 PO; -DSS100 PO; +METF500T PO; -TRAZ-219 PO; +TRAZ-220 PO
[2018-03-08] MEDS ORDERED: GABA-529 PO (12:23)
[2018-03-08] MEDS ORDERED: SERT100T12 PO (12:23)
[2018-03-08] MEDS ORDERED: NITR.4 SL (12:23)
[2018-03-08] MEDS ORDERED: ATOR40TA28 PO (12:23)
[2018-03-08] MEDS ORDERED: ZOLP5 PO (12:23)
[2018-03-08 13:03] LABS: BASOPHILS % (AUTO) 0.5 % (0.0-2.0); HEMATOCRIT 44.9 % (41-53); HEMOGLOBIN 15.2 g/dL (13.5-17.5); LYMPHOCYTES # (AUTO) 2.6 K/uL (1.0-4.8); LYMPHOCYTES % (AUTO) 19.5 % (22.0-44.0); MEAN CORPUSCULAR HEMOGLOBIN 29.4 pg (26.0-34.0); MEAN CORPUSCULAR HGB CONC 33.9 G/dL (31.0-37.0); MEAN CORPUSCULAR VOLUME 87 fL (80-100); MONOCYTES # (AUTO) 1.1 K/uL (0.1-1.0); MONOCYTES % (AUTO) 8.5 % (2.0-9.0); NEUTROPHILS # (AUTO) 9.3 K/uL (1.8-7.7); NEUTROPHILS % (AUTO) 70.5 % (40.0-70.0); PLATELET COUNT (AUTO) 290 K/uL (150-450); RED BLOOD CELL COUNT(AUTO) 5.18 MIL/uL (4.50-5.90); RED CELL DISTRIBUTION WIDTH 15.1 % (11.5-14.5)
[2018-03-08 13:10] LABS: ANION GAP 10 mmol/L (8-16); CALCIUM, TOTAL 9.2 mg/dL (8.8-10.5); CARBON DIOXIDE 23 mmol/L (22-29); CHLORIDE 101 mmol/L (98-107); CREATININE 1.28 mg/dL (0.60-1.30); GLOMERULAR FILTR. RATE CALC 56 mL/min (>60); GLUCOSE,RANDOM 130 mg/dL (70-110); POTASSIUM 3.9 mmol/L (3.5-5.1); SODIUM SERUM 134 mmol/L (136-145); UREA NITROGEN, BLOOD 20 mg/dL (7-18)
[2018-03-08 13:16] LABS: ALANINE AMINOTRANSFERASE 25 U/L (12-78); ALBUMIN 4.2 g/dL (3.4-5.0); ALKALINE PHOSPHATASE 59 U/L (46-116); ASPARTATE AMINOTRANSFERASE 17 U/L (15-37); BILIRUBIN,TOTAL 0.5 mg/dL (0.1-1.0); TOTAL PROTEIN, SERUM 7.6 g/dL (6.4-8.2)
[2018-03-08 13:17] LABS: ACETAMINOPHEN < 2 mcg/mL (10-30)
[2018-03-08 13:34] LABS: SALICYLATE 3.1 mg/dL (2.8-20.0)
[2018-03-08] MEDS ORDERED: ZOLPIDEM TARTRATE 10 MG TABLET PO PRN (16:00)
[2018-03-08] MEDS ORDERED: LORazepam 2 MG TABLET PO PRN (16:00)
[2018-03-08] MEDS ORDERED: HALOPERIDOL 5 MG TABLET PO PRN (16:00)
[2018-03-08] MEDS ORDERED: LEVO75 PO (16:10)
[2018-03-08 16:24] LABS: AMPHET/METH SCREEN,URINE NEGATIVE (NEGATIVE); BARBITURATE SCREEN, URINE NEGATIVE (NEGATIVE); BENZODIAZEPINES SCREEN,URINE NEGATIVE (NEGATIVE); CANNABINOID SCREEN,URINE NEGATIVE (NEGATIVE); COCAINE SCREEN,URINE NEGATIVE (NEGATIVE); METHADONE SCREEN, URINE NEGATIVE (NEGATIVE); OPIATE SCREEN,URINE NEGATIVE (NEGATIVE)
[2018-03-08 16:25] LABS: PHENCYCLIDINE SCREEN,URINE NEGATIVE (NEGATIVE)
[2018-03-08 18:23] VITALS: BP 150/86
[2018-03-08] MEDS ORDERED: PETROLATUM,WHITE 71 GM JELLY TP PRN (21:30)
[2018-03-08] MEDS ORDERED: ALBUTEROL SULFATE HFA 90 MCG/PUFF 8 GM INHALER IH PRN (21:30)
[2018-03-08] MEDS ORDERED: CloNIDine HCL 0.1 MG TABLET PO PRN (21:30)
[2018-03-08] MEDS ORDERED: NITROGLYCERIN 0.4 MG SUBLINGUAL TABLET #25 SL PRN (21:30)
[2018-03-08] MEDS ORDERED: LOPERAMIDE HCL 2 MG CAPSULE PO PRN (21:30)
[2018-03-08] MEDS ORDERED: ACETAMINOPHEN 325 MG TABLET PO PRN (21:30)
[2018-03-08] MEDS ORDERED: MAGNESIUM HYDROXIDE SUSPENSION 30 ML UDCUP PO PRN (21:30)
[2018-03-08] MEDS ORDERED: BENZOCAINE/MENTHOL LOZENGE MM PRN (21:30)
[2018-03-08] MEDS ORDERED: BACITRACIN 28.4 GM OINTMENT TP PRN (21:30)
[2018-03-08] MEDS ORDERED: ONDANSETRON HCL 4 MG TABLET PO PRN (21:30)
[2018-03-08] MEDS ORDERED: IBUPROFEN 600 MG TABLET PO PRN (21:30)
[2018-03-08] MEDS ORDERED: MAG HYDROX/AL HYDROX/SIMETH ES 30 ML SUSPENSION UDCUP PO PRN (21:30)
[2018-03-08] MEDS ORDERED: TraMADol HCL 50 MG TABLET PO PRN (22:30)
[2018-03-09] MEDS: LEVOTHYROXINE SODIUM 75 MCG TABLET PO SCH (06:38)
[2018-03-09] MEDS: MetFORMIN HCL 500 MG TABLET PO SCH ×2 (07:00→17:00)
[2018-03-09] MEDS: GABAPENTIN 100 MG CAPSULE PO SCH ×5 (09:00→16:43)
[2018-03-09] MEDS: OMEGA-3/DHA/EPA/FISH OIL 1,000 MG CAPSULE PO SCH (09:00)
[2018-03-09] MEDS: OMEPRAZOLE 20 MG CAPSULE PO SCH (09:00)
[2018-03-09] MEDS: DOCUSATE SODIUM 100 MG CAPSULE PO SCH (09:00)
[2018-03-09] MEDS: TAMSULOSIN HCL 0.4 MG CAPSULE PO SCH (09:00)
[2018-03-09] MEDS: LISINOPRIL 10 MG TABLET PO SCH (09:00)
[2018-03-09] MEDS: ASPIRIN 81 MG EC TABLET PO SCH (09:00)
[2018-03-09] MEDS: ATORVASTATIN CALCIUM 40 MG TABLET PO SCH (09:00)
[2018-03-09] MEDS: SERTRALINE HCL 100 MG TABLET PO SCH (09:45)
[2018-03-09] MEDS: HYDROCODONE/ACETAMINOPHEN 5-325 MG TABLET PO PRN (20:44)
[2018-03-09] MEDS ORDERED: TraZODone HCL 100 MG TABLET PO SCH (21:00)
[2018-03-09] MEDS ORDERED: PRAZOSIN HCL 1 MG CAPSULE PO SCH (21:00)
[2018-03-10 01:12] VITALS: BP 107/68
[2018-03-10] MEDS: LEVOTHYROXINE SODIUM 75 MCG TABLET PO SCH (06:16)
[2018-03-10 06:39] LABS: GLUCOMETER DEV NAME(LOC) BV2S 2; GLUCOSE,POINT OF CARE 117 MG/DL (70-110)
[2018-03-10] MEDS: MetFORMIN HCL 500 MG TABLET PO SCH ×2 (07:00→07:09)
[2018-03-10 08:01] LABS: BASOPHILS % (AUTO) 0.4 % (0.0-2.0); EOSINOPHILS % (AUTO) 2.5 % (1.0-6.0); HEMATOCRIT 44.2 % (41-53); HEMOGLOBIN 15.3 g/dL (13.5-17.5); LYMPHOCYTES % (AUTO) 22.6 % (22.0-44.0); MEAN CORPUSCULAR HEMOGLOBIN 29.9 pg (26.0-34.0); MEAN CORPUSCULAR HGB CONC 34.6 G/dL (31.0-37.0); MEAN CORPUSCULAR VOLUME 87 fL (80-100); MONOCYTES # (AUTO) 0.8 K/uL (0.1-1.0); MONOCYTES % (AUTO) 9.3 % (2.0-9.0); NEUTROPHILS # (AUTO) 5.7 K/uL (1.8-7.7); NEUTROPHILS % (AUTO) 65.2 % (40.0-70.0); PLATELET COUNT (AUTO) 244 K/uL (150-450)
[2018-03-10 08:10] LABS: HEMOGLOBIN A1C 6.3 % (4.5-6.2)
[2018-03-10 08:11] VITALS: BP 124/68
[2018-03-10 08:37] LABS: CHOL/HDL RATIO 5.5 (4.2-7.3); FREE T4 (FREE THYROXINE) 1.14 ng/dL (0.76-1.46); THYROID STIMULATING HORMONE 6.47 uIU/mL (0.36-3.74)
[2018-03-10] MEDS: TAMSULOSIN HCL 0.4 MG CAPSULE PO SCH (09:23)
[2018-03-10] MEDS: OMEGA-3/DHA/EPA/FISH OIL 1,000 MG CAPSULE PO SCH (09:23)
[2018-03-10] MEDS: GABAPENTIN 100 MG CAPSULE PO SCH ×2 (09:24→12:51)
[2018-03-10] MEDS: SERTRALINE HCL 100 MG TABLET PO SCH (09:24)
[2018-03-10] MEDS: ATORVASTATIN CALCIUM 40 MG TABLET PO SCH (09:24)
[2018-03-10] MEDS: DOCUSATE SODIUM 100 MG CAPSULE PO SCH (09:24)
[2018-03-10] MEDS: OMEPRAZOLE 20 MG CAPSULE PO SCH (09:25)
[2018-03-10] MEDS: ASPIRIN 81 MG EC TABLET PO SCH (09:25)
[2018-03-10] MEDS: LISINOPRIL 10 MG TABLET PO SCH (09:25)
[2018-03-10 09:38] VITALS: BP 120/65
[2018-03-10] MEDS: HYDROCODONE/ACETAMINOPHEN 5-325 MG TABLET PO PRN (09:41)
[2018-03-10] MEDS ORDERED: LISI-661 PO (13:38)
[2018-03-10] MEDS ORDERED: OMEG-135 PO (13:38)
[2018-03-10] MEDS ORDERED: PRAZ1 PO (13:38)
[2018-03-10] MEDS ORDERED: ATOR20TA86 PO (13:38)
== END 2018-03-10 14:12 | disposition home or self-care (01) | DRG 885 ==
LOC: EMS 12:03 → B2S 16:13
DX: F25.1 Schizoaffective disorder, depressive type (principal); F31.4 Bipolar disorder, current episode depressed, severe, without psychotic features; R45.851 Suicidal ideations; N18.3 Chronic kidney disease, stage 3 (moderate); M19.90 Unspecified osteoarthritis, unspecified site; K21.9 Gastro-esophageal reflux disease without esophagitis; J44.9 Chronic obstructive pulmonary disease, unspecified; I25.10 Atherosclerotic heart disease of native coronary artery without angina pectoris; I12.9 Hypertensive chronic kidney disease with stage 1 through stage 4 chronic kidney disease, or unspecified chronic kidney disease; E78.00 Pure hypercholesterolemia, unspecified; E66.9 Obesity, unspecified; F12.90 Cannabis use, unspecified, uncomplicated; F41.9 Anxiety disorder, unspecified; F17.210 Nicotine dependence, cigarettes, uncomplicated; E78.5 Hyperlipidemia, unspecified; E55.9 Vitamin D deficiency, unspecified; E11.65 Type 2 diabetes mellitus with hyperglycemia; E11.22 Type 2 diabetes mellitus with diabetic chronic kidney disease; E03.9 Hypothyroidism, unspecified; Z59.0 Homelessness; Z79.82 Long term (current) use of aspirin; Z91.14 Patient's other noncompliance with medication regimen; Z95.1 Presence of aortocoronary bypass graft; Z79.899 Other long term (current) drug therapy; Z88.8 Allergy status to other drugs, medicaments and biological substances; Z91.5 Personal history of self-harm; Z56.0 Unemployment, unspecified; Z68.31 Body mass index [BMI] 31.0-31.9, adult
CPT/HCPCS: 83036; 84439; 84443; 99285; G0480; G0481

== ENCOUNTER 2018-04-21 18:19 | Inpatient (IN) | payer MEDICARE, MEDICAID ==
[~2018-04-21] VITALS: Ht 170.2 cm; Wt 99.8 kg
[~2018-04-21 18:19] MED LIST changes: -ARIP15TA2 PO; +ATOR20TA86 PO; -BUPR-93 PO; -BUSP10TA23 PO; +GABA-529 PO; -LEVO200 PO; +LEVO75 PO; -OMEG-12 PO; +OMEG-135 PO; -OMEP20 PO; +SERT100T12 PO; -SIMV-261 PO; -VITAD1000 PO
[2018-04-21 19:31] LABS: BASOPHILS % (AUTO) 0.5 % (0.0-2.0); EOSINOPHILS % (AUTO) 1.7 % (1.0-6.0); HEMATOCRIT 43.9 % (41-53); HEMOGLOBIN 15.1 g/dL (13.5-17.5); LYMPHOCYTES # (AUTO) 2.4 K/uL (1.0-4.8); LYMPHOCYTES % (AUTO) 20.6 % (22.0-44.0); MEAN CORPUSCULAR HEMOGLOBIN 28.9 pg (26.0-34.0); MEAN CORPUSCULAR HGB CONC 34.3 G/dL (31.0-37.0); MEAN CORPUSCULAR VOLUME 84 fL (80-100); MONOCYTES # (AUTO) 1.1 K/uL (0.1-1.0); MONOCYTES % (AUTO) 9.1 % (2.0-9.0); NEUTROPHILS # (AUTO) 7.9 K/uL (1.8-7.7); NEUTROPHILS % (AUTO) 68.1 % (40.0-70.0); PLATELET COUNT (AUTO) 307 K/uL (150-450); RED BLOOD CELL COUNT(AUTO) 5.21 MIL/uL (4.50-5.90); RED CELL DISTRIBUTION WIDTH 14.9 % (11.5-14.5)
[2018-04-21 19:43] LABS: ANION GAP 12 mmol/L (8-16); CALCIUM, TOTAL 9.7 mg/dL (8.8-10.5); CARBON DIOXIDE 23 mmol/L (22-29); CHLORIDE 100 mmol/L (98-107); CREATININE 1.36 mg/dL (0.60-1.30); GLOMERULAR FILTR. RATE CALC 52 mL/min (>60); GLUCOSE,RANDOM 112 mg/dL (70-110); POTASSIUM 4.2 mmol/L (3.5-5.1); SODIUM SERUM 135 mmol/L (136-145); UREA NITROGEN, BLOOD 24 mg/dL (7-18)
[2018-04-21 19:49] LABS: ALANINE AMINOTRANSFERASE 18 U/L (12-78); ALBUMIN 3.8 g/dL (3.4-5.0); ALKALINE PHOSPHATASE 61 U/L (46-116); ASPARTATE AMINOTRANSFERASE 16 U/L (15-37); BILIRUBIN,TOTAL 0.3 mg/dL (0.1-1.0); TOTAL PROTEIN, SERUM 7.5 g/dL (6.4-8.2)
[2018-04-21] MEDS ORDERED: HALOPERIDOL 5 MG TABLET PO PRN (20:15)
[2018-04-21 20:24] LABS: AMPHET/METH SCREEN,URINE NEGATIVE (NEGATIVE); BARBITURATE SCREEN, URINE NEGATIVE (NEGATIVE); BENZODIAZEPINES SCREEN,URINE NEGATIVE (NEGATIVE); CANNABINOID SCREEN,URINE NEGATIVE (NEGATIVE); COCAINE SCREEN,URINE NEGATIVE (NEGATIVE); METHADONE SCREEN, URINE NEGATIVE (NEGATIVE); OPIATE SCREEN,URINE NEGATIVE (NEGATIVE)
[2018-04-21 20:27] LABS: PHENCYCLIDINE SCREEN,URINE NEGATIVE (NEGATIVE)
[2018-04-21] MEDS: LORazepam 2 MG TABLET PO PRN (21:29)
[2018-04-22] MEDS ORDERED: HALOPERIDOL LACTATE 5 MG/ML VIAL IM ONE (05:30)
[2018-04-22] MEDS ORDERED: LORazepam 2 MG/ML VIAL IM ONE (05:30)
[2018-04-22] MEDS ORDERED: DiphenhydrAMINE HCL 50 MG/ML VIAL IM ONE (05:30)
[2018-04-22] MEDS: LEVOTHYROXINE SODIUM 75 MCG TABLET PO SCH (07:30)
[2018-04-22] MEDS ORDERED: ONDANSETRON HCL 4 MG TABLET PO PRN (09:00)
[2018-04-22] MEDS ORDERED: LOPERAMIDE HCL 2 MG CAPSULE PO PRN (09:00)
[2018-04-22] MEDS: OMEGA-3/DHA/EPA/FISH OIL 1,000 MG CAPSULE PO SCH (09:00)
[2018-04-22] MEDS: ASPIRIN 81 MG CHEWABLE TABLET PO SCH (09:00)
[2018-04-22] MEDS ORDERED: MAG HYDROX/AL HYDROX/SIMETH ES 30 ML SUSPENSION UDCUP PO PRN (09:00)
[2018-04-22] MEDS ORDERED: BENZOCAINE/MENTHOL LOZENGE MM PRN (09:00)
[2018-04-22] MEDS: GABAPENTIN 100 MG CAPSULE PO SCH ×3 (09:00→17:00)
[2018-04-22] MEDS ORDERED: BACITRACIN 28.4 GM OINTMENT TP PRN (09:00)
[2018-04-22] MEDS: DOCUSATE SODIUM 100 MG CAPSULE PO SCH (09:00)
[2018-04-22] MEDS ORDERED: ALBUTEROL SULFATE HFA 90 MCG/PUFF 8 GM INHALER IH PRN (09:00)
[2018-04-22] MEDS ORDERED: PETROLATUM,WHITE 71 GM JELLY TP PRN (09:00)
[2018-04-22] MEDS: TAMSULOSIN HCL 0.4 MG CAPSULE PO SCH (09:00)
[2018-04-22] MEDS ORDERED: CloNIDine HCL 0.1 MG TABLET PO PRN (09:00)
[2018-04-22] MEDS ORDERED: GLUCAGON,HUMAN RECOMBINANT 1 MG VIAL IM PRN (09:00)
[2018-04-22] MEDS ORDERED: MAGNESIUM HYDROXIDE SUSPENSION 30 ML UDCUP PO PRN (09:00)
[2018-04-22] MEDS ORDERED: ACETAMINOPHEN 325 MG TABLET PO PRN (09:00)
[2018-04-22] MEDS ORDERED: IBUPROFEN 600 MG TABLET PO PRN (09:00)
[2018-04-22] MEDS: ATORVASTATIN CALCIUM 20 MG TABLET PO SCH (09:00)
[2018-04-22] MEDS ORDERED: INSULIN LISPRO 100 UNITS/ML SQ PRN (09:00)
[2018-04-22] MEDS: LISINOPRIL 10 MG TABLET PO SCH (09:00)
[2018-04-22] MEDS: OMEPRAZOLE 20 MG CAPSULE PO SCH (09:00)
[2018-04-22] MEDS: MetFORMIN HCL 500 MG TABLET PO SCH (17:00)
[2018-04-22] MEDS: PRAZOSIN HCL 1 MG CAPSULE PO SCH (20:36)
[2018-04-22] MEDS: TraZODone HCL 100 MG TABLET PO SCH (20:36)
[2018-04-23] MEDS: LEVOTHYROXINE SODIUM 75 MCG TABLET PO SCH (06:08)
[2018-04-23] MEDS: MetFORMIN HCL 500 MG TABLET PO SCH ×2 (06:09→16:43)
[2018-04-23] MEDS: ATORVASTATIN CALCIUM 20 MG TABLET PO SCH (09:00)
[2018-04-23] MEDS: LISINOPRIL 10 MG TABLET PO SCH (09:00)
[2018-04-23] MEDS: OMEGA-3/DHA/EPA/FISH OIL 1,000 MG CAPSULE PO SCH (09:00)
[2018-04-23] MEDS: ARIPiprazole 15 MG TABLET PO SCH (09:00)
[2018-04-23] MEDS: TAMSULOSIN HCL 0.4 MG CAPSULE PO SCH (09:00)
[2018-04-23] MEDS: GABAPENTIN 100 MG CAPSULE PO SCH ×3 (09:00→16:43)
[2018-04-23] MEDS: ASPIRIN 81 MG CHEWABLE TABLET PO SCH (09:00)
[2018-04-23] MEDS: OMEPRAZOLE 20 MG CAPSULE PO SCH (09:00)
[2018-04-23] MEDS: SERTRALINE HCL 100 MG TABLET PO SCH (09:00)
[2018-04-23] MEDS: DOCUSATE SODIUM 100 MG CAPSULE PO SCH (09:00)
[2018-04-23] MEDS: TraZODone HCL 100 MG TABLET PO SCH (20:46)
[2018-04-23] MEDS: PRAZOSIN HCL 1 MG CAPSULE PO SCH (20:46)
[2018-04-24] MEDS: LEVOTHYROXINE SODIUM 75 MCG TABLET PO SCH (06:30)
[2018-04-24] MEDS: MetFORMIN HCL 500 MG TABLET PO SCH ×2 (06:35→16:45)
[2018-04-24] MEDS: TAMSULOSIN HCL 0.4 MG CAPSULE PO SCH (08:39)
[2018-04-24] MEDS: OMEPRAZOLE 20 MG CAPSULE PO SCH (08:39)
[2018-04-24] MEDS: ARIPiprazole 15 MG TABLET PO SCH (08:39)
[2018-04-24] MEDS: ATORVASTATIN CALCIUM 20 MG TABLET PO SCH (08:39)
[2018-04-24] MEDS: DOCUSATE SODIUM 100 MG CAPSULE PO SCH (08:39)
[2018-04-24] MEDS: GABAPENTIN 100 MG CAPSULE PO SCH ×3 (08:39→16:45)
[2018-04-24] MEDS: OMEGA-3/DHA/EPA/FISH OIL 1,000 MG CAPSULE PO SCH (08:39)
[2018-04-24] MEDS: ASPIRIN 81 MG CHEWABLE TABLET PO SCH (08:39)
[2018-04-24] MEDS: SERTRALINE HCL 100 MG TABLET PO SCH (08:40)
[2018-04-24] MEDS: LISINOPRIL 10 MG TABLET PO SCH (08:40)
[2018-04-24 16:06] VITALS: BP 113/73
[2018-04-24 16:53] LABS: GLUCOMETER DEV NAME(LOC) BV2N3; GLUCOSE,POINT OF CARE 118 MG/DL (70-110)
[2018-04-24 18:58] VITALS: BP 133/83
[2018-04-24] MEDS ORDERED: NITROGLYCERIN 0.4 MG SUBLINGUAL TABLET #25 SL PRN (19:00)
[2018-04-24 19:05] VITALS: BP 117/66
[2018-04-24] MEDS: TraZODone HCL 100 MG TABLET PO SCH (20:02)
[2018-04-24] MEDS: PRAZOSIN HCL 1 MG CAPSULE PO SCH (20:03)
[2018-04-24] MEDS: LORazepam 2 MG TABLET PO PRN (21:11)
[2018-04-25] MEDS: LEVOTHYROXINE SODIUM 75 MCG TABLET PO SCH ×2 (06:30→06:52)
[2018-04-25] MEDS: MetFORMIN HCL 500 MG TABLET PO SCH ×3 (06:53→16:31)
[2018-04-25 06:54] LABS: GLUCOMETER DEV NAME(LOC) BV2N3; GLUCOSE,POINT OF CARE 131 MG/DL (70-110)
[2018-04-25] MEDS: SERTRALINE HCL 100 MG TABLET PO SCH ×2 (09:00→12:25)
[2018-04-25] MEDS: ARIPiprazole 15 MG TABLET PO SCH ×2 (09:00→12:25)
[2018-04-25 09:22] VITALS: BP 112/77
[2018-04-25] MEDS: LISINOPRIL 10 MG TABLET PO SCH (09:23)
[2018-04-25] MEDS: OMEPRAZOLE 20 MG CAPSULE PO SCH (09:23)
[2018-04-25] MEDS: TAMSULOSIN HCL 0.4 MG CAPSULE PO SCH (09:23)
[2018-04-25] MEDS: ATORVASTATIN CALCIUM 20 MG TABLET PO SCH (09:23)
[2018-04-25] MEDS: ASPIRIN 81 MG CHEWABLE TABLET PO SCH (09:24)
[2018-04-25] MEDS: GABAPENTIN 100 MG CAPSULE PO SCH ×3 (09:24→16:31)
[2018-04-25] MEDS: OMEGA-3/DHA/EPA/FISH OIL 1,000 MG CAPSULE PO SCH (09:24)
[2018-04-25] MEDS: DOCUSATE SODIUM 100 MG CAPSULE PO SCH (09:24)
[2018-04-25 11:19] LABS: GLUCOMETER DEV NAME(LOC) BV2N3; GLUCOSE,POINT OF CARE 122 MG/DL (70-110)
[2018-04-25 16:49] LABS: GLUCOMETER DEV NAME(LOC) BV2N3; GLUCOSE,POINT OF CARE 113 MG/DL (70-110)
[2018-04-25] MEDS: TraZODone HCL 100 MG TABLET PO SCH (20:16)
[2018-04-25] MEDS: PRAZOSIN HCL 1 MG CAPSULE PO SCH (20:20)
[2018-04-25 20:43] LABS: GLUCOMETER DEV NAME(LOC) BV2N3; GLUCOSE,POINT OF CARE 130 MG/DL (70-110)
[2018-04-26 00:30] VITALS: BP 105/60
[2018-04-26] MEDS: ZOLPIDEM TARTRATE 10 MG TABLET PO PRN ×2 (00:45→21:23)
[2018-04-26 06:03] LABS: GLUCOMETER DEV NAME(LOC) BV2N3; GLUCOSE,POINT OF CARE 128 MG/DL (70-110)
[2018-04-26] MEDS: LEVOTHYROXINE SODIUM 75 MCG TABLET PO SCH (06:23)
[2018-04-26] MEDS: MetFORMIN HCL 500 MG TABLET PO SCH ×2 (06:23→16:34)
[2018-04-26] MEDS: LISINOPRIL 10 MG TABLET PO SCH (09:00)
[2018-04-26] MEDS: ASPIRIN 81 MG CHEWABLE TABLET PO SCH (09:32)
[2018-04-26] MEDS: OMEGA-3/DHA/EPA/FISH OIL 1,000 MG CAPSULE PO SCH (09:34)
[2018-04-26] MEDS: OMEPRAZOLE 20 MG CAPSULE PO SCH (09:34)
[2018-04-26] MEDS: ATORVASTATIN CALCIUM 20 MG TABLET PO SCH (09:35)
[2018-04-26] MEDS: DOCUSATE SODIUM 100 MG CAPSULE PO SCH (09:35)
[2018-04-26] MEDS: TAMSULOSIN HCL 0.4 MG CAPSULE PO SCH (09:36)
[2018-04-26] MEDS: SERTRALINE HCL 100 MG TABLET PO SCH (09:42)
[2018-04-26] MEDS: GABAPENTIN 100 MG CAPSULE PO SCH ×3 (09:42→16:34)
[2018-04-26] MEDS: ARIPiprazole 15 MG TABLET PO SCH (09:42)
[2018-04-26 12:10] LABS: GLUCOMETER DEV NAME(LOC) BV2N3; GLUCOSE,POINT OF CARE 133 MG/DL (70-110)
[2018-04-26 16:09] VITALS: BP 102/66
[2018-04-26 16:24] LABS: GLUCOMETER DEV NAME(LOC) BV2N3; GLUCOSE,POINT OF CARE 160 MG/DL (70-110)
[2018-04-26] MEDS: HYDROCODONE/ACETAMINOPHEN 10-325 MG TABLET PO PRN (19:20)
[2018-04-26 19:22] VITALS: BP 116/74
[2018-04-26] MEDS: TraZODone HCL 100 MG TABLET PO SCH (20:34)
[2018-04-26] MEDS: PRAZOSIN HCL 1 MG CAPSULE PO SCH (20:34)
[2018-04-27] MEDS: LEVOTHYROXINE SODIUM 75 MCG TABLET PO SCH (06:24)
[2018-04-27] MEDS: MetFORMIN HCL 500 MG TABLET PO SCH ×2 (06:24→16:39)
[2018-04-27 06:54] LABS: GLUCOMETER DEV NAME(LOC) BV2N3; GLUCOSE,POINT OF CARE 115 MG/DL (70-110)
[2018-04-27 08:11] VITALS: BP 133/64
[2018-04-27] MEDS: SERTRALINE HCL 100 MG TABLET PO SCH (08:53)
[2018-04-27] MEDS: TAMSULOSIN HCL 0.4 MG CAPSULE PO SCH (08:53)
[2018-04-27] MEDS: OMEPRAZOLE 20 MG CAPSULE PO SCH (08:53)
[2018-04-27] MEDS: OMEGA-3/DHA/EPA/FISH OIL 1,000 MG CAPSULE PO SCH (08:53)
[2018-04-27] MEDS: DOCUSATE SODIUM 100 MG CAPSULE PO SCH (08:53)
[2018-04-27] MEDS: ASPIRIN 81 MG CHEWABLE TABLET PO SCH (08:53)
[2018-04-27] MEDS: ATORVASTATIN CALCIUM 20 MG TABLET PO SCH (08:53)
[2018-04-27] MEDS: ARIPiprazole 15 MG TABLET PO SCH (08:53)
[2018-04-27] MEDS: GABAPENTIN 100 MG CAPSULE PO SCH ×3 (08:54→16:39)
[2018-04-27] MEDS: LISINOPRIL 10 MG TABLET PO SCH (08:58)
[2018-04-27 11:09] LABS: GLUCOMETER DEV NAME(LOC) BV2N3; GLUCOSE,POINT OF CARE 142 MG/DL (70-110)
[2018-04-27 16:04] VITALS: BP 115/65
[2018-04-27 16:34] LABS: GLUCOMETER DEV NAME(LOC) BV2N3; GLUCOSE,POINT OF CARE 128 MG/DL (70-110)
[2018-04-27 19:06] VITALS: BP 134/63
[2018-04-27] MEDS: HYDROCODONE/ACETAMINOPHEN 10-325 MG TABLET PO PRN (19:10)
[2018-04-27 20:27] LABS: GLUCOMETER DEV NAME(LOC) BV2N3; GLUCOSE,POINT OF CARE 142 MG/DL (70-110)
[2018-04-27] MEDS: TraZODone HCL 100 MG TABLET PO SCH (20:45)
[2018-04-27] MEDS: PRAZOSIN HCL 1 MG CAPSULE PO SCH (20:45)
[2018-04-27] MEDS: ZOLPIDEM TARTRATE 10 MG TABLET PO PRN (21:27)
[2018-04-28] MEDS: LEVOTHYROXINE SODIUM 75 MCG TABLET PO SCH (06:12)
[2018-04-28 06:29] LABS: GLUCOMETER DEV NAME(LOC) BV2N3; GLUCOSE,POINT OF CARE 111 MG/DL (70-110)
[2018-04-28] MEDS: MetFORMIN HCL 500 MG TABLET PO SCH ×2 (06:42→16:36)
[2018-04-28 08:10] VITALS: BP 118/70
[2018-04-28] MEDS: TAMSULOSIN HCL 0.4 MG CAPSULE PO SCH (08:28)
[2018-04-28] MEDS: OMEGA-3/DHA/EPA/FISH OIL 1,000 MG CAPSULE PO SCH (08:28)
[2018-04-28] MEDS: ARIPiprazole 15 MG TABLET PO SCH (08:29)
[2018-04-28] MEDS: ASPIRIN 81 MG CHEWABLE TABLET PO SCH (08:29)
[2018-04-28] MEDS: SERTRALINE HCL 100 MG TABLET PO SCH (08:29)
[2018-04-28] MEDS: ATORVASTATIN CALCIUM 20 MG TABLET PO SCH (08:29)
[2018-04-28] MEDS: DOCUSATE SODIUM 100 MG CAPSULE PO SCH (08:29)
[2018-04-28] MEDS: OMEPRAZOLE 20 MG CAPSULE PO SCH (08:29)
[2018-04-28] MEDS: GABAPENTIN 100 MG CAPSULE PO SCH ×3 (08:30→16:36)
[2018-04-28] MEDS: LISINOPRIL 10 MG TABLET PO SCH (08:31)
[2018-04-28 09:21] LABS: ANION GAP 11 mmol/L (8-16); CALCIUM, TOTAL 8.9 mg/dL (8.8-10.5); CARBON DIOXIDE 26 mmol/L (22-29); CHLORIDE 104 mmol/L (98-107); CHOL/HDL RATIO 5.4 (4.2-7.3); CHOLESTEROL 145 mg/dL (131-200); CREATININE 1.15 mg/dL (0.60-1.30); GLOMERULAR FILTR. RATE CALC > 60 mL/min (>60); GLUCOSE,RANDOM 112 mg/dL (70-110); HDL CHOLESTEROL 27 mg/dL (40-60); LDL CHOL (CALC.) 85 mg/dL (0-130); POTASSIUM 4.6 mmol/L (3.5-5.1); SODIUM SERUM 141 mmol/L (136-145); THYROID STIMULATING HORMONE 2.66 uIU/mL (0.36-3.74); TRIGLYCERIDES 164 mg/dL (15-150); UREA NITROGEN, BLOOD 17 mg/dL (7-18)
[2018-04-28 11:04] LABS: GLUCOMETER DEV NAME(LOC) BV2N3; GLUCOSE,POINT OF CARE 106 MG/DL (70-110)
[2018-04-28 16:11] VITALS: BP 108/70
[2018-04-28 16:34] LABS: GLUCOMETER DEV NAME(LOC) BV2N3; GLUCOSE,POINT OF CARE 175 MG/DL (70-110)
[2018-04-28 20:24] LABS: GLUCOMETER DEV NAME(LOC) BV2N3; GLUCOSE,POINT OF CARE 90 MG/DL (70-110)
[2018-04-28] MEDS: TraZODone HCL 100 MG TABLET PO SCH (20:34)
[2018-04-29] MEDS: LEVOTHYROXINE SODIUM 75 MCG TABLET PO SCH (06:30)
[2018-04-29 06:44] LABS: GLUCOMETER DEV NAME(LOC) BV2N3; GLUCOSE,POINT OF CARE 117 MG/DL (70-110)
[2018-04-29] MEDS: MetFORMIN HCL 500 MG TABLET PO SCH ×2 (06:50→16:40)
[2018-04-29] MEDS: ASPIRIN 81 MG CHEWABLE TABLET PO SCH (08:44)
[2018-04-29] MEDS: TAMSULOSIN HCL 0.4 MG CAPSULE PO SCH (08:44)
[2018-04-29] MEDS: GABAPENTIN 100 MG CAPSULE PO SCH ×3 (08:45→16:41)
[2018-04-29] MEDS: ARIPiprazole 15 MG TABLET PO SCH (08:45)
[2018-04-29] MEDS: SERTRALINE HCL 100 MG TABLET PO SCH (08:45)
[2018-04-29] MEDS: OMEPRAZOLE 20 MG CAPSULE PO SCH (08:45)
[2018-04-29] MEDS: ATORVASTATIN CALCIUM 20 MG TABLET PO SCH (08:45)
[2018-04-29] MEDS: DOCUSATE SODIUM 100 MG CAPSULE PO SCH (08:45)
[2018-04-29] MEDS: OMEGA-3/DHA/EPA/FISH OIL 1,000 MG CAPSULE PO SCH (08:45)
[2018-04-29] MEDS: LISINOPRIL 10 MG TABLET PO SCH (08:46)
[2018-04-29 11:13] LABS: GLUCOMETER DEV NAME(LOC) BV2N3; GLUCOSE,POINT OF CARE 86 MG/DL (70-110)
[2018-04-29 12:10] VITALS: BP 109/63
[2018-04-29 16:10] VITALS: BP 119/63
[2018-04-29 16:34] LABS: GLUCOMETER DEV NAME(LOC) BV2N3; GLUCOSE,POINT OF CARE 176 MG/DL (70-110)
[2018-04-29 19:58] LABS: GLUCOMETER DEV NAME(LOC) BV2N3; GLUCOSE,POINT OF CARE 143 MG/DL (70-110)
[2018-04-29 20:28] VITALS: BP 116/84
[2018-04-29] MEDS: HYDROCODONE/ACETAMINOPHEN 10-325 MG TABLET PO PRN (20:28)
[2018-04-29] MEDS: TraZODone HCL 100 MG TABLET PO SCH (20:36)
[2018-04-29] MEDS: ZOLPIDEM TARTRATE 10 MG TABLET PO PRN (22:59)
[2018-04-30 05:00] VITALS: BP 122/74
[2018-04-30] MEDS: LEVOTHYROXINE SODIUM 75 MCG TABLET PO SCH (06:29)
[2018-04-30] MEDS: MetFORMIN HCL 500 MG TABLET PO SCH (06:30)
[2018-04-30 08:20] VITALS: BP 120/68
[2018-04-30] MEDS: ATORVASTATIN CALCIUM 20 MG TABLET PO SCH (08:30)
[2018-04-30] MEDS: GABAPENTIN 100 MG CAPSULE PO SCH ×2 (08:30→12:48)
[2018-04-30] MEDS: ARIPiprazole 15 MG TABLET PO SCH (08:31)
[2018-04-30] MEDS: ASPIRIN 81 MG CHEWABLE TABLET PO SCH (08:31)
[2018-04-30] MEDS: OMEPRAZOLE 20 MG CAPSULE PO SCH (08:31)
[2018-04-30] MEDS: OMEGA-3/DHA/EPA/FISH OIL 1,000 MG CAPSULE PO SCH (08:31)
[2018-04-30] MEDS: TAMSULOSIN HCL 0.4 MG CAPSULE PO SCH (08:31)
[2018-04-30] MEDS: DOCUSATE SODIUM 100 MG CAPSULE PO SCH (08:32)
[2018-04-30] MEDS: SERTRALINE HCL 100 MG TABLET PO SCH (08:32)
[2018-04-30] MEDS: LISINOPRIL 10 MG TABLET PO SCH (08:37)
[2018-04-30 09:52] LABS: GLUCOMETER DEV NAME(LOC) BV2N3; GLUCOSE,POINT OF CARE 109 MG/DL (70-110)
[2018-04-30 11:15] LABS: GLUCOMETER DEV NAME(LOC) BV2N3; GLUCOSE,POINT OF CARE 110 MG/DL (70-110)
[2018-04-30] MEDS ORDERED: DSS100 PO (14:42)
[2018-04-30] MEDS ORDERED: GABA-529 PO ×2 (14:42→14:46)
[2018-04-30] MEDS ORDERED: ARIP15TA2 PO (14:42)
[2018-04-30] MEDS ORDERED: OMEP20 PO (14:42)
== END 2018-04-30 16:00 | disposition home or self-care (01) | DRG 885 ==
LOC: EMS 18:21 → B2X 04-22 02:27
DX: F25.0 Schizoaffective disorder, bipolar type (principal); N18.3 Chronic kidney disease, stage 3 (moderate); E11.65 Type 2 diabetes mellitus with hyperglycemia; R45.851 Suicidal ideations; C34.90 Malignant neoplasm of unspecified part of unspecified bronchus or lung; F33.2 Major depressive disorder, recurrent severe without psychotic features; M19.90 Unspecified osteoarthritis, unspecified site; K21.9 Gastro-esophageal reflux disease without esophagitis; J44.9 Chronic obstructive pulmonary disease, unspecified; I25.10 Atherosclerotic heart disease of native coronary artery without angina pectoris; I12.9 Hypertensive chronic kidney disease with stage 1 through stage 4 chronic kidney disease, or unspecified chronic kidney disease; F43.10 Post-traumatic stress disorder, unspecified; E66.9 Obesity, unspecified; E55.9 Vitamin D deficiency, unspecified; F12.90 Cannabis use, unspecified, uncomplicated; R29.6 Repeated falls; E11.22 Type 2 diabetes mellitus with diabetic chronic kidney disease; E03.9 Hypothyroidism, unspecified; D17.9 Benign lipomatous neoplasm, unspecified; E78.00 Pure hypercholesterolemia, unspecified; E78.5 Hyperlipidemia, unspecified; F17.210 Nicotine dependence, cigarettes, uncomplicated; Z79.82 Long term (current) use of aspirin; Z59.0 Homelessness; Z79.899 Other long term (current) drug therapy; Z91.5 Personal history of self-harm; Z95.1 Presence of aortocoronary bypass graft; Z68.34 Body mass index [BMI] 34.0-34.9, adult; Z88.8 Allergy status to other drugs, medicaments and biological substances; Z56.0 Unemployment, unspecified
CPT/HCPCS: 83735; 84100; 84443; 99285; G0480; J1200; J1630; J2060

== ENCOUNTER 2018-05-31 18:39 | Inpatient (IN) | payer MEDICARE, MEDICAID ==
[~2018-05-31] VITALS: Ht 170.2 cm; Wt 95.2 kg
[~2018-05-31 18:39] MED LIST changes: +ARIP15TA2 PO; +DSS100 PO; +OMEP20 PO; -PRAZ1 PO
[2018-05-31 19:14] LABS: GLUCOSE,POINT OF CARE 124 MG/DL (70-110)
[2018-05-31 19:40] LABS: BASOPHILS % (AUTO) 0.5 % (0.0-2.0); EOSINOPHILS % (AUTO) 1.1 % (1.0-6.0); HEMATOCRIT 44.9 % (41-53); HEMOGLOBIN 15.2 g/dL (13.5-17.5); LYMPHOCYTES # (AUTO) 2.1 K/uL (1.0-4.8); LYMPHOCYTES % (AUTO) 18.6 % (22.0-44.0); MEAN CORPUSCULAR HEMOGLOBIN 29.1 pg (26.0-34.0); MEAN CORPUSCULAR HGB CONC 33.9 G/dL (31.0-37.0); MEAN CORPUSCULAR VOLUME 86 fL (80-100); MONOCYTES # (AUTO) 1.2 K/uL (0.1-1.0); MONOCYTES % (AUTO) 10.8 % (2.0-9.0); NEUTROPHILS # (AUTO) 7.8 K/uL (1.8-7.7); PLATELET COUNT (AUTO) 293 K/uL (150-450); RED BLOOD CELL COUNT(AUTO) 5.22 MIL/uL (4.50-5.90); RED CELL DISTRIBUTION WIDTH 15.3 % (11.5-14.5)
[2018-05-31 19:46] LABS: ANION GAP 7 mmol/L (8-16); CALCIUM, TOTAL 8.9 mg/dL (8.8-10.5); CARBON DIOXIDE 27 mmol/L (22-29); CHLORIDE 103 mmol/L (98-107); CREATININE 1.32 mg/dL (0.60-1.30); GLOMERULAR FILTR. RATE CALC 54 mL/min (>60); GLUCOSE,RANDOM 114 mg/dL (70-110); POTASSIUM 4.2 mmol/L (3.5-5.1); SODIUM SERUM 137 mmol/L (136-145); UREA NITROGEN, BLOOD 20 mg/dL (7-18)
[2018-05-31 19:48] LABS: AMPHET/METH SCREEN,URINE NEGATIVE (NEGATIVE); BARBITURATE SCREEN, URINE NEGATIVE (NEGATIVE); BENZODIAZEPINES SCREEN,URINE NEGATIVE (NEGATIVE); CANNABINOID SCREEN,URINE NEGATIVE (NEGATIVE); COCAINE SCREEN,URINE NEGATIVE (NEGATIVE); METHADONE SCREEN, URINE NEGATIVE (NEGATIVE); OPIATE SCREEN,URINE NEGATIVE (NEGATIVE)
[2018-05-31 19:49] LABS: PHENCYCLIDINE SCREEN,URINE NEGATIVE (NEGATIVE)
[2018-05-31 19:52] LABS: ALANINE AMINOTRANSFERASE 29 U/L (12-78); ALBUMIN 3.6 g/dL (3.4-5.0); ALKALINE PHOSPHATASE 60 U/L (46-116); BILIRUBIN,TOTAL 0.4 mg/dL (0.1-1.0); TOTAL PROTEIN, SERUM 7.2 g/dL (6.4-8.2)
[2018-05-31 20:11] LABS: ASPARTATE AMINOTRANSFERASE 21 U/L (15-37)
[2018-05-31] MEDS ORDERED: HALOPERIDOL 5 MG TABLET PO PRN (22:30)
[2018-05-31] MEDS: LORazepam 2 MG TABLET PO PRN (23:53)
[2018-06-01] MEDS ORDERED: PNEUMOCOCCAL VACCINE POLYVALENT 0.5 ML VIAL [PPSV23] IM ONE (02:30)
[2018-06-01 05:56] LABS: GLUCOMETER DEV NAME(LOC) 3EI C; GLUCOSE,POINT OF CARE 133 MG/DL (70-110)
[2018-06-01 08:47] VITALS: BP 142/81
[2018-06-01] MEDS ORDERED: GuaiFENesin/D-METHORPHAN [SUGAR-FREE] 200-20MG/10 ML SYRUP UDCUP PO PRN (14:45)
[2018-06-01] MEDS ORDERED: HydrOXYzine PAMOATE 50 MG CAPSULE PO PRN (14:45)
[2018-06-01] MEDS ORDERED: TUBERCULIN, PURIFIED PROTEIN DERIVATIVE 5 TU/0.1 ML SYG ID ONE (14:45)
[2018-06-01] MEDS ORDERED: MAGNESIUM HYDROXIDE SUSPENSION 30 ML UDCUP PO PRN (14:45)
[2018-06-01] MEDS ORDERED: PROMETHAZINE HCL 25 MG TABLET PO PRN (14:45)
[2018-06-01] MEDS ORDERED: LOPERAMIDE HCL 2 MG CAPSULE PO PRN (14:45)
[2018-06-01] MEDS ORDERED: MAG HYDROX/AL HYDROX/SIMETH ES 30 ML SUSPENSION UDCUP PO PRN (14:45)
[2018-06-01] MEDS ORDERED: ACETAMINOPHEN 325 MG TABLET PO PRN (14:45)
[2018-06-01] MEDS: THIAMINE HCL 100 MG TABLET PO SCH (17:00)
[2018-06-01] MEDS ORDERED: OLANZapine 5 MG RAPDIS TABLET PO PRN (17:15)
[2018-06-01] MEDS ORDERED: CloNIDine HCL 0.1 MG TABLET PO PRN (20:00)
[2018-06-01] MEDS ORDERED: BACITRACIN 28.4 GM OINTMENT TP PRN (20:00)
[2018-06-01] MEDS ORDERED: ONDANSETRON HCL 4 MG TABLET PO PRN (20:00)
[2018-06-01] MEDS ORDERED: BENZOCAINE/MENTHOL LOZENGE MM PRN (20:00)
[2018-06-01] MEDS ORDERED: GLUCAGON,HUMAN RECOMBINANT 1 MG VIAL IM PRN (20:00)
[2018-06-01] MEDS ORDERED: DEXTROSE 50%-WATER 25 GM/50 ML SYRINGE IVP PRN (20:00)
[2018-06-01] MEDS ORDERED: ALBUTEROL SULFATE HFA 90 MCG/PUFF 8 GM INHALER IH PRN (20:00)
[2018-06-01] MEDS ORDERED: INSULIN LISPRO 100 UNITS/ML SQ PRN (20:00)
[2018-06-01] MEDS ORDERED: IBUPROFEN 600 MG TABLET PO PRN (20:00)
[2018-06-01] MEDS ORDERED: PETROLATUM,WHITE 71 GM JELLY TP PRN (20:00)
[2018-06-01] MEDS: PREGABALIN 50 MG CAPSULE PO SCH (20:38)
[2018-06-01] MEDS: MIRTAZAPINE 15 MG TABLET PO SCH (20:38)
[2018-06-01] MEDS: OLANZapine 5 MG RAPDIS TABLET PO SCH (20:38)
[2018-06-02] MEDS: LEVOTHYROXINE SODIUM 75 MCG TABLET PO SCH (07:00)
[2018-06-02] MEDS: MetFORMIN HCL 500 MG TABLET PO SCH ×2 (07:17→17:07)
[2018-06-02] MEDS: ASPIRIN 81 MG EC TABLET PO SCH (08:09)
[2018-06-02] MEDS: TAMSULOSIN HCL 0.4 MG CAPSULE PO SCH (08:09)
[2018-06-02] MEDS: FOLIC ACID 1 MG TABLET PO SCH (08:09)
[2018-06-02] MEDS: OMEGA-3/DHA/EPA/FISH OIL 1,000 MG CAPSULE PO SCH (08:09)
[2018-06-02] MEDS: THIAMINE HCL 100 MG TABLET PO SCH ×2 (08:10→17:00)
[2018-06-02] MEDS: NALTREXONE HCL 50 MG TABLET PO SCH (08:10)
[2018-06-02] MEDS: ATORVASTATIN CALCIUM 20 MG TABLET PO SCH (08:10)
[2018-06-02] MEDS: GABAPENTIN 100 MG CAPSULE PO SCH ×3 (08:10→17:00)
[2018-06-02] MEDS: LISINOPRIL 10 MG TABLET PO SCH (08:10)
[2018-06-02] MEDS: MULTIVITAMINS WITH MINERALS, THERAPEUTIC TABLET PO SCH (08:10)
[2018-06-02] MEDS: PREGABALIN 50 MG CAPSULE PO SCH ×2 (08:10→21:00)
[2018-06-02] MEDS: NICOTINE 21 MG/24 HOUR PATCH TD SCH (08:10)
[2018-06-02] MEDS ORDERED: OMEGA-3/DHA/EPA/FISH OIL 1,000 MG CAPSULE PO SCH (09:00)
[2018-06-02] MEDS: MIRTAZAPINE 15 MG TABLET PO SCH (21:00)
[2018-06-02] MEDS: OLANZapine 5 MG RAPDIS TABLET PO SCH (21:00)
[2018-06-02] MEDS ORDERED: INSULIN LISPRO 100 UNITS/ML SQ PRN (21:30)
[2018-06-02] MEDS: ZOLPIDEM TARTRATE 10 MG TABLET PO PRN (22:34)
[2018-06-03] MEDS: LORazepam 2 MG TABLET PO PRN (01:39)
[2018-06-03 01:42] VITALS: BP 109/87
[2018-06-03] MEDS: MetFORMIN HCL 500 MG TABLET PO SCH ×2 (06:52→17:24)
[2018-06-03] MEDS: LEVOTHYROXINE SODIUM 75 MCG TABLET PO SCH (06:52)
[2018-06-03] MEDS: OMEGA-3/DHA/EPA/FISH OIL 1,000 MG CAPSULE PO SCH (09:00)
[2018-06-03] MEDS: THIAMINE HCL 100 MG TABLET PO SCH ×2 (09:00→17:24)
[2018-06-03] MEDS: FOLIC ACID 1 MG TABLET PO SCH (09:00)
[2018-06-03] MEDS: NICOTINE 21 MG/24 HOUR PATCH TD SCH (09:00)
[2018-06-03] MEDS: NALTREXONE HCL 50 MG TABLET PO SCH (09:00)
[2018-06-03] MEDS: MULTIVITAMINS WITH MINERALS, THERAPEUTIC TABLET PO SCH (09:00)
[2018-06-03] MEDS: ATORVASTATIN CALCIUM 20 MG TABLET PO SCH (09:00)
[2018-06-03] MEDS: PREGABALIN 50 MG CAPSULE PO SCH ×2 (09:00→20:22)
[2018-06-03] MEDS: ASPIRIN 81 MG EC TABLET PO SCH (09:13)
[2018-06-03] MEDS: TAMSULOSIN HCL 0.4 MG CAPSULE PO SCH (09:13)
[2018-06-03] MEDS: GABAPENTIN 100 MG CAPSULE PO SCH ×3 (09:14→17:24)
[2018-06-03] MEDS: LISINOPRIL 10 MG TABLET PO SCH (09:14)
[2018-06-03 10:30] VITALS: BP 161/114
[2018-06-03] MEDS: NITROGLYCERIN 0.4 MG SUBLINGUAL TABLET #25 SL PRN ×2 (10:33→16:42)
[2018-06-03 10:45] VITALS: BP 141/78
[2018-06-03 11:59] LABS: GLUCOMETER DEV NAME(LOC) 3EX 1; GLUCOSE,POINT OF CARE 187 MG/DL (70-110)
[2018-06-03 16:40] VITALS: BP 142/73
[2018-06-03 16:44] LABS: GLUCOMETER DEV NAME(LOC) 3EX 1; GLUCOSE,POINT OF CARE 149 MG/DL (70-110)
[2018-06-03] MEDS ORDERED: GABA-529 PO (17:24)
[2018-06-03] MEDS ORDERED: OLAN5TAB30 PO (17:24)
[2018-06-03] MEDS ORDERED: MIRT15 PO (17:24)
[2018-06-03] MEDS ORDERED: PREG50 PO (17:24)
[2018-06-03] MEDS ORDERED: NALT50TA PO (17:24)
[2018-06-03] MEDS: OLANZapine 5 MG RAPDIS TABLET PO SCH (20:22)
[2018-06-03] MEDS: MIRTAZAPINE 15 MG TABLET PO SCH (20:22)
[2018-06-03] MEDS: ZOLPIDEM TARTRATE 10 MG TABLET PO PRN (20:23)
[2018-06-03 20:29] LABS: GLUCOMETER DEV NAME(LOC) 3EX 1; GLUCOSE,POINT OF CARE 107 MG/DL (70-110)
[2018-06-04] MEDS: LORazepam 2 MG TABLET PO PRN (00:41)
[2018-06-04 00:59] VITALS: BP 144/92
[2018-06-04 05:59] LABS: GLUCOMETER DEV NAME(LOC) 3EI C; GLUCOSE,POINT OF CARE 126 MG/DL (70-110)
[2018-06-04] MEDS: MetFORMIN HCL 500 MG TABLET PO SCH (06:56)
[2018-06-04] MEDS: LEVOTHYROXINE SODIUM 75 MCG TABLET PO SCH (06:57)
[2018-06-04] MEDS: ASPIRIN 81 MG EC TABLET PO SCH (08:18)
[2018-06-04] MEDS: LISINOPRIL 10 MG TABLET PO SCH (08:18)
[2018-06-04] MEDS: NALTREXONE HCL 50 MG TABLET PO SCH (08:18)
[2018-06-04] MEDS: ATORVASTATIN CALCIUM 20 MG TABLET PO SCH (08:18)
[2018-06-04] MEDS: GABAPENTIN 100 MG CAPSULE PO SCH (08:18)
[2018-06-04] MEDS: THIAMINE HCL 100 MG TABLET PO SCH (08:18)
[2018-06-04] MEDS: FOLIC ACID 1 MG TABLET PO SCH (08:19)
[2018-06-04] MEDS: PREGABALIN 50 MG CAPSULE PO SCH (08:19)
[2018-06-04] MEDS: TAMSULOSIN HCL 0.4 MG CAPSULE PO SCH (08:19)
[2018-06-04] MEDS: OMEGA-3/DHA/EPA/FISH OIL 1,000 MG CAPSULE PO SCH (08:19)
[2018-06-04] MEDS: NICOTINE 21 MG/24 HOUR PATCH TD SCH (08:26)
[2018-06-04] MEDS: MULTIVITAMINS WITH MINERALS, THERAPEUTIC TABLET PO SCH (08:26)
== END 2018-06-04 10:45 | disposition home or self-care (01) | DRG 885 ==
LOC: EMS 18:41 → 3EX 22:00
PROVIDERS: ADMIT Psychiatry & Neurology Psychiatry; ATTEND Psychiatry & Neurology Psychiatry
DX: F33.2 Major depressive disorder, recurrent severe without psychotic features (principal); N18.3 Chronic kidney disease, stage 3 (moderate); E11.65 Type 2 diabetes mellitus with hyperglycemia; R45.851 Suicidal ideations; F25.9 Schizoaffective disorder, unspecified; F17.210 Nicotine dependence, cigarettes, uncomplicated; F43.10 Post-traumatic stress disorder, unspecified; I12.9 Hypertensive chronic kidney disease with stage 1 through stage 4 chronic kidney disease, or unspecified chronic kidney disease; I25.10 Atherosclerotic heart disease of native coronary artery without angina pectoris; J44.9 Chronic obstructive pulmonary disease, unspecified; E78.00 Pure hypercholesterolemia, unspecified; E66.9 Obesity, unspecified; Z68.32 Body mass index [BMI] 32.0-32.9, adult; Z88.8 Allergy status to other drugs, medicaments and biological substances; E55.9 Vitamin D deficiency, unspecified; E11.22 Type 2 diabetes mellitus with diabetic chronic kidney disease; E03.9 Hypothyroidism, unspecified; K21.9 Gastro-esophageal reflux disease without esophagitis; F12.90 Cannabis use, unspecified, uncomplicated; M19.90 Unspecified osteoarthritis, unspecified site; Z59.0 Homelessness; Z56.0 Unemployment, unspecified; Z79.82 Long term (current) use of aspirin; Z82.49 Family history of ischemic heart disease and other diseases of the circulatory system; Z91.14 Patient's other noncompliance with medication regimen; Z95.1 Presence of aortocoronary bypass graft; Z71.6 Tobacco abuse counseling; Z28.21 Immunization not carried out because of patient refusal; Z79.4 Long term (current) use of insulin
CPT/HCPCS: 87081; 93005; 99406; G0378; G0480

== ENCOUNTER 2018-06-18 18:25 | Emergency (ER) | payer MEDICARE, MEDICAID ==
[~2018-06-18] VITALS: Ht 170.2 cm; Wt 94.0 kg
[~2018-06-18 18:25] MED LIST changes: -ARIP15TA2 PO; -DSS100 PO; +MIRT15 PO; +NALT50TA PO; +OLAN5TAB30 PO; -OMEP20 PO; +PREG50 PO; -SERT100T12 PO; -TRAZ-220 PO
[2018-06-18 18:46] VITALS: BP 142/71
[2018-06-18 18:53] LABS: GLUCOSE,POINT OF CARE 160 MG/DL (70-110)
== END 2018-06-18 20:50 | disposition left against medical advice (07) ==
LOC: EMS 18:26
DX: R45.851 Suicidal ideations (principal); Z53.21 Procedure and treatment not carried out due to patient leaving prior to being seen by health care provider

== ENCOUNTER 2018-06-21 11:01 | Inpatient (IN) | payer MEDICARE, MEDICAID ==
[~2018-06-21] VITALS: Ht 170.2 cm; Wt 94.8 kg
[2018-06-21 11:00] VITALS: BP 150/79
[2018-06-21] MEDS ORDERED: LORazepam 2 MG TABLET PO PRN (11:15)
[2018-06-21] MEDS ORDERED: ZOLPIDEM TARTRATE 10 MG TABLET PO PRN (11:15)
[2018-06-21] MEDS ORDERED: OLANZapine 5 MG RAPDIS TABLET PO PRN (11:15)
[2018-06-21] MEDS ORDERED: ACETAMINOPHEN 325 MG TABLET PO PRN (12:30)
[2018-06-21] MEDS ORDERED: MAG HYDROX/AL HYDROX/SIMETH ES 30 ML SUSPENSION UDCUP PO PRN (12:30)
[2018-06-21] MEDS ORDERED: LOPERAMIDE HCL 2 MG CAPSULE PO PRN (12:30)
[2018-06-21] MEDS ORDERED: MAGNESIUM HYDROXIDE SUSPENSION 30 ML UDCUP PO PRN (12:30)
[2018-06-21] MEDS ORDERED: PROMETHAZINE HCL 25 MG TABLET PO PRN (12:30)
[2018-06-21] MEDS ORDERED: GuaiFENesin/D-METHORPHAN [SUGAR-FREE] 200-20MG/10 ML SYRUP UDCUP PO PRN (12:30)
[2018-06-21] MEDS ORDERED: HydrOXYzine PAMOATE 50 MG CAPSULE PO PRN (12:30)
[2018-06-21] MEDS ORDERED: NICOTINE POLACRILEX 4 MG GUM CHEW ONE (14:15)
[2018-06-21] MEDS ORDERED: NICOTINE POLACRILEX 2 MG GUM CHEW ONE (16:00)
[2018-06-21 16:03] VITALS: BP 125/60
[2018-06-21] MEDS: PREGABALIN 50 MG CAPSULE PO SCH (16:34)
[2018-06-21] MEDS: DIVALPROEX SODIUM 500 MG ER TABLET PO SCH (16:34)
[2018-06-21] MEDS: THIAMINE HCL 100 MG TABLET PO SCH (16:34)
[2018-06-21] MEDS ORDERED: PREGABALIN 50 MG CAPSULE PO SCH (17:00)
[2018-06-21] MEDS ORDERED: GABAPENTIN 100 MG CAPSULE PO SCH (17:00)
[2018-06-21 20:37] VITALS: BP 118/82
[2018-06-21] MEDS: PRAZOSIN HCL 1 MG CAPSULE PO SCH (20:38)
[2018-06-21] MEDS: MIRTAZAPINE 15 MG TABLET PO SCH (20:39)
[2018-06-21] MEDS: ESZOPICLONE 3 MG TABLET PO SCH (20:39)
[2018-06-21] MEDS: OLANZapine 5 MG TABLET PO SCH (20:40)
[2018-06-21] MEDS ORDERED: OLANZapine 7.5 MG TABLET PO SCH (21:00)
[2018-06-22 06:48] VITALS: BP 120/81
[2018-06-22 07:18] LABS: GLUCOMETER DEV NAME(LOC) BV2N3; GLUCOSE,POINT OF CARE 131 MG/DL (70-110)
[2018-06-22 08:32] VITALS: BP 123/68
[2018-06-22 08:39] LABS: BASOPHILS % (AUTO) 0.4 % (0.0-2.0); HEMATOCRIT 44.7 % (41-53); HEMOGLOBIN 14.9 g/dL (13.5-17.5); LYMPHOCYTES % (AUTO) 17.3 % (22.0-44.0); MEAN CORPUSCULAR HEMOGLOBIN 28.8 pg (26.0-34.0); MEAN CORPUSCULAR HGB CONC 33.4 G/dL (31.0-37.0); MEAN CORPUSCULAR VOLUME 86 fL (80-100); MONOCYTES # (AUTO) 0.8 K/uL (0.1-1.0); MONOCYTES % (AUTO) 6.7 % (2.0-9.0); NEUTROPHILS # (AUTO) 8.7 K/uL (1.8-7.7); NEUTROPHILS % (AUTO) 73.6 % (40.0-70.0); PLATELET COUNT (AUTO) 271 K/uL (150-450); RED BLOOD CELL COUNT(AUTO) 5.19 MIL/uL (4.50-5.90); RED CELL DISTRIBUTION WIDTH 15.5 % (11.5-14.5)
[2018-06-22] MEDS: OMEGA-3/DHA/EPA/FISH OIL 1,000 MG CAPSULE PO SCH (08:50)
[2018-06-22] MEDS: MULTIVITAMINS WITH MINERALS, THERAPEUTIC TABLET PO SCH (08:51)
[2018-06-22] MEDS: DIVALPROEX SODIUM 500 MG ER TABLET PO SCH ×3 (08:51→16:37)
[2018-06-22] MEDS: OLANZapine 5 MG TABLET PO SCH ×3 (08:51→16:37)
[2018-06-22] MEDS: THIAMINE HCL 100 MG TABLET PO SCH ×2 (08:51→16:37)
[2018-06-22] MEDS: PREGABALIN 50 MG CAPSULE PO SCH ×2 (08:51→12:25)
[2018-06-22] MEDS: NALTREXONE HCL 50 MG TABLET PO SCH (08:51)
[2018-06-22] MEDS: FOLIC ACID 1 MG TABLET PO SCH (08:51)
[2018-06-22 09:02] LABS: HEMOGLOBIN A1C 6.6 % (4.5-6.2)
[2018-06-22 09:03] LABS: AMPHET/METH SCREEN,URINE NEGATIVE (NEGATIVE); BARBITURATE SCREEN, URINE NEGATIVE (NEGATIVE); BENZODIAZEPINES SCREEN,URINE NEGATIVE (NEGATIVE); CANNABINOID SCREEN,URINE NEGATIVE (NEGATIVE); COCAINE SCREEN,URINE NEGATIVE (NEGATIVE); METHADONE SCREEN, URINE NEGATIVE (NEGATIVE); OPIATE SCREEN,URINE NEGATIVE (NEGATIVE)
[2018-06-22 09:04] LABS: PHENCYCLIDINE SCREEN,URINE NEGATIVE (NEGATIVE)
[2018-06-22 09:06] LABS: APPEARANCE,URINE TURBID (CLEAR); BILIRUBIN,URINE NEGATIVE (NEGATIVE); GLUCOSE, URINE (UA) NEGATIVE (NEGATIVE); KETONES,URINE TRACE mg/dL (NEGATIVE); LEUKOCYTE ESTERASE ,URINE NEGATIVE (NEGATIVE); NITRATE,URINE NEGATIVE (NEGATIVE); OCCULT BLOOD,URINE NEGATIVE (NEGATIVE); PH,URINE 5.5 (5.0-8.0); PROTEIN,URINE NEGATIVE (NEGATIVE); UROBILINOGEN,URINE 0.2 mg/dL (<=1.0)
[2018-06-22 09:17] LABS: ALANINE AMINOTRANSFERASE 20 U/L (12-78); ALBUMIN 3.1 g/dL (3.4-5.0); ALKALINE PHOSPHATASE 59 U/L (46-116); ANION GAP 6 mmol/L (8-16); ASPARTATE AMINOTRANSFERASE 13 U/L (15-37); BILIRUBIN,TOTAL 0.2 mg/dL (0.1-1.0); CALCIUM, TOTAL 8.6 mg/dL (8.8-10.5); CARBON DIOXIDE 29 mmol/L (22-29); CHLORIDE 105 mmol/L (98-107); CHOL/HDL RATIO 4.9 (4.2-7.3); CHOLESTEROL 148 mg/dL (131-200); CREATININE 1.17 mg/dL (0.60-1.30); FREE T4 (FREE THYROXINE) 0.87 ng/dL (0.76-1.46); GLOMERULAR FILTR. RATE CALC > 60 mL/min (>60); GLUCOSE,RANDOM 130 mg/dL (70-110); HDL CHOLESTEROL 30 mg/dL (40-60); LDL CHOL (CALC.) 85 mg/dL (0-130); POTASSIUM 3.9 mmol/L (3.5-5.1); SODIUM SERUM 140 mmol/L (136-145); THYROID STIMULATING HORMONE 4.94 uIU/mL (0.36-3.74); TOTAL PROTEIN, SERUM 6.5 g/dL (6.4-8.2); TRIGLYCERIDES 164 mg/dL (15-150); UREA NITROGEN, BLOOD 13 mg/dL (7-18)
[2018-06-22] MEDS ORDERED: HYDROCODONE/ACETAMINOPHEN 5-325 MG TABLET PO PRN (15:15)
[2018-06-22] MEDS: NICOTINE POLACRILEX 4 MG LOZENGE PO PRN (15:18)
[2018-06-22 16:01] VITALS: BP 125/74
[2018-06-22] MEDS: PREGABALIN 75 MG CAPSULE PO SCH (16:37)
[2018-06-22] MEDS ORDERED: ONDANSETRON HCL 4 MG TABLET PO PRN (18:00)
[2018-06-22] MEDS ORDERED: OMEPRAZOLE 20 MG CAPSULE PO PRN (18:00)
[2018-06-22] MEDS ORDERED: BENZOCAINE/MENTHOL LOZENGE MM PRN (18:00)
[2018-06-22] MEDS ORDERED: MAG HYDROX/AL HYDROX/SIMETH ES 30 ML SUSPENSION UDCUP PO PRN (18:00)
[2018-06-22] MEDS ORDERED: PETROLATUM,WHITE 71 GM JELLY TP PRN (18:00)
[2018-06-22] MEDS ORDERED: DOCUSATE SODIUM 100 MG CAPSULE PO PRN (18:00)
[2018-06-22] MEDS ORDERED: CloNIDine HCL 0.1 MG TABLET PO PRN (18:00)
[2018-06-22] MEDS ORDERED: ALBUTEROL SULFATE HFA 90 MCG/PUFF 8 GM INHALER IH PRN (18:00)
[2018-06-22] MEDS ORDERED: GLUCAGON,HUMAN RECOMBINANT 1 MG VIAL IM PRN (18:00)
[2018-06-22] MEDS ORDERED: INSULIN LISPRO 100 UNITS/ML SQ PRN (18:00)
[2018-06-22] MEDS ORDERED: BACITRACIN 28.4 GM OINTMENT TP PRN (18:00)
[2018-06-22] MEDS ORDERED: LOPERAMIDE HCL 2 MG CAPSULE PO PRN (18:00)
[2018-06-22] MEDS ORDERED: IBUPROFEN 600 MG TABLET PO PRN (18:00)
[2018-06-22] MEDS ORDERED: MAGNESIUM HYDROXIDE SUSPENSION 30 ML UDCUP PO PRN (18:00)
[2018-06-22 20:27] VITALS: BP 139/73
[2018-06-22] MEDS: ESZOPICLONE 3 MG TABLET PO SCH (20:32)
[2018-06-22] MEDS: PRAZOSIN HCL 1 MG CAPSULE PO SCH (20:32)
[2018-06-22] MEDS: MIRTAZAPINE 15 MG TABLET PO SCH (20:32)
[2018-06-22 20:53] LABS: GLUCOMETER DEV NAME(LOC) BV2N3; GLUCOSE,POINT OF CARE 173 MG/DL (70-110)
[2018-06-23 06:15] VITALS: BP 130/81
[2018-06-23 06:33] LABS: GLUCOMETER DEV NAME(LOC) BV2N3; GLUCOSE,POINT OF CARE 112 MG/DL (70-110)
[2018-06-23] MEDS: LEVOTHYROXINE SODIUM 75 MCG TABLET PO SCH (06:48)
[2018-06-23] MEDS: MetFORMIN HCL 500 MG TABLET PO SCH ×2 (06:49→16:36)
[2018-06-23 08:22] LABS: BAND NEUTROPHILS % (MANUAL) 0 % (0-5)
[2018-06-23 08:32] LABS: HEMATOCRIT 49.5 % (41-53); HEMOGLOBIN 16.3 g/dL (13.5-17.5); MEAN CORPUSCULAR HEMOGLOBIN 28.9 pg (26.0-34.0); MEAN CORPUSCULAR VOLUME 88 fL (80-100); PLATELET COUNT (AUTO) 279 K/uL (150-450); RED BLOOD CELL COUNT(AUTO) 5.65 MIL/uL (4.50-5.90); RED CELL DISTRIBUTION WIDTH 15.3 % (11.5-14.5)
[2018-06-23] MEDS: MULTIVITAMINS WITH MINERALS, THERAPEUTIC TABLET PO SCH (08:32)
[2018-06-23] MEDS: PREGABALIN 75 MG CAPSULE PO SCH ×2 (08:32→12:55)
[2018-06-23] MEDS: TAMSULOSIN HCL 0.4 MG CAPSULE PO SCH (08:32)
[2018-06-23] MEDS: ATORVASTATIN CALCIUM 20 MG TABLET PO SCH (08:33)
[2018-06-23] MEDS: OMEGA-3/DHA/EPA/FISH OIL 1,000 MG CAPSULE PO SCH (08:33)
[2018-06-23] MEDS: OLANZapine 5 MG TABLET PO SCH ×3 (08:33→16:35)
[2018-06-23] MEDS: LISINOPRIL 10 MG TABLET PO SCH (08:33)
[2018-06-23] MEDS: DIVALPROEX SODIUM 500 MG ER TABLET PO SCH ×3 (08:33→16:36)
[2018-06-23] MEDS: THIAMINE HCL 100 MG TABLET PO SCH ×2 (08:33→16:36)
[2018-06-23] MEDS: NALTREXONE HCL 50 MG TABLET PO SCH (08:33)
[2018-06-23] MEDS: FOLIC ACID 1 MG TABLET PO SCH (08:33)
[2018-06-23] MEDS: ASPIRIN 81 MG EC TABLET PO SCH (08:34)
[2018-06-23] MEDS: GABAPENTIN 100 MG CAPSULE PO SCH ×2 (08:34→12:55)
[2018-06-23 08:49] VITALS: BP 126/76
[2018-06-23] MEDS: NICOTINE POLACRILEX 4 MG LOZENGE PO PRN ×2 (08:55→15:59)
[2018-06-23 09:04] LABS: ANION GAP 7 mmol/L (8-16); CARBON DIOXIDE 29 mmol/L (22-29); CHLORIDE 104 mmol/L (98-107); CREATININE 1.02 mg/dL (0.60-1.30); GLOMERULAR FILTR. RATE CALC > 60 mL/min (>60); GLUCOSE,RANDOM 113 mg/dL (70-110); POTASSIUM 4.8 mmol/L (3.5-5.1); SODIUM SERUM 140 mmol/L (136-145); UREA NITROGEN, BLOOD 13 mg/dL (7-18); VALPROIC ACID 43 mcg/mL (50-100)
[2018-06-23 09:10] LABS: EOSINOPHILS % (MANUAL) 2 % (1-6); LYMPHOCYTES % (MANUAL) 26 % (22-44); MONOCYTES % (MANUAL) 7 % (2-9); SEGMENTED NEUTROPHILS % 65 % (40-70)
[2018-06-23 16:23] LABS: GLUCOMETER DEV NAME(LOC) BV2N3; GLUCOSE,POINT OF CARE 103 MG/DL (70-110)
[2018-06-23] MEDS: GABAPENTIN 300 MG CAPSULE PO SCH (16:36)
[2018-06-23] MEDS: PREGABALIN 50 MG CAPSULE PO SCH (16:36)
[2018-06-23 17:20] VITALS: BP 107/67
[2018-06-23 20:28] LABS: GLUCOMETER DEV NAME(LOC) BV2N3; GLUCOSE,POINT OF CARE 145 MG/DL (70-110)
[2018-06-23 20:42] VITALS: BP 116/73
[2018-06-23] MEDS: PRAZOSIN HCL 1 MG CAPSULE PO SCH (20:43)
[2018-06-23] MEDS: ESZOPICLONE 3 MG TABLET PO SCH (20:43)
[2018-06-23] MEDS: MIRTAZAPINE 30 MG TABLET PO SCH (20:44)
[2018-06-24 06:14] LABS: GLUCOMETER DEV NAME(LOC) BV2N3; GLUCOSE,POINT OF CARE 108 MG/DL (70-110)
[2018-06-24 06:18] VITALS: BP 120/81
[2018-06-24] MEDS: MetFORMIN HCL 500 MG TABLET PO SCH ×2 (06:26→16:37)
[2018-06-24] MEDS: LEVOTHYROXINE SODIUM 75 MCG TABLET PO SCH (06:26)
[2018-06-24 08:10] VITALS: BP 120/68
[2018-06-24] MEDS: GABAPENTIN 300 MG CAPSULE PO SCH (08:21)
[2018-06-24] MEDS: MULTIVITAMINS WITH MINERALS, THERAPEUTIC TABLET PO SCH (08:21)
[2018-06-24] MEDS: OMEGA-3/DHA/EPA/FISH OIL 1,000 MG CAPSULE PO SCH (08:21)
[2018-06-24] MEDS: ASPIRIN 81 MG EC TABLET PO SCH (08:21)
[2018-06-24] MEDS: THIAMINE HCL 100 MG TABLET PO SCH ×2 (08:22→16:37)
[2018-06-24] MEDS: PREGABALIN 50 MG CAPSULE PO SCH ×3 (08:22→16:37)
[2018-06-24] MEDS: DIVALPROEX SODIUM 500 MG ER TABLET PO SCH ×3 (08:22→16:38)
[2018-06-24] MEDS: ATORVASTATIN CALCIUM 20 MG TABLET PO SCH (08:22)
[2018-06-24] MEDS: TAMSULOSIN HCL 0.4 MG CAPSULE PO SCH (08:22)
[2018-06-24] MEDS: OLANZapine 5 MG TABLET PO SCH (08:22)
[2018-06-24] MEDS: FOLIC ACID 1 MG TABLET PO SCH (08:22)
[2018-06-24] MEDS: LISINOPRIL 10 MG TABLET PO SCH (08:22)
[2018-06-24 11:03] LABS: GLUCOMETER DEV NAME(LOC) BV2N3; GLUCOSE,POINT OF CARE 144 MG/DL (70-110)
[2018-06-24] MEDS: NICOTINE POLACRILEX 4 MG LOZENGE PO PRN (15:39)
[2018-06-24 16:23] LABS: GLUCOMETER DEV NAME(LOC) BV2N3; GLUCOSE,POINT OF CARE 138 MG/DL (70-110)
[2018-06-24 17:31] VITALS: BP 115/74
[2018-06-24] MEDS ORDERED: HYDROCODONE/ACETAMINOPHEN 5-325 MG TABLET PO PRN (19:45)
[2018-06-24 20:20] VITALS: BP 119/65
[2018-06-24 20:24] LABS: GLUCOMETER DEV NAME(LOC) BV2N3; GLUCOSE,POINT OF CARE 147 MG/DL (70-110)
[2018-06-24] MEDS ORDERED: PRAZOSIN HCL 1 MG CAPSULE PO SCH (21:00)
[2018-06-24 21:38] VITALS: BP 113/68
[2018-06-24] MEDS: MIRTAZAPINE 30 MG TABLET PO SCH (21:39)
[2018-06-24] MEDS: ESZOPICLONE 3 MG TABLET PO SCH (21:40)
[2018-06-24] MEDS: OLANZapine 2.5 MG TABLET PO SCH (21:40)
[2018-06-25 06:16] VITALS: BP 118/70
[2018-06-25] MEDS: LEVOTHYROXINE SODIUM 75 MCG TABLET PO SCH (06:28)
[2018-06-25] MEDS: MetFORMIN HCL 500 MG TABLET PO SCH (06:36)
[2018-06-25 06:43] LABS: GLUCOMETER DEV NAME(LOC) BV2N3; GLUCOSE,POINT OF CARE 105 MG/DL (70-110)
[2018-06-25 08:20] VITALS: BP 111/64
[2018-06-25 08:25] LABS: BAND NEUTROPHILS % (MANUAL) 0 % (0-5)
[2018-06-25] MEDS: FOLIC ACID 1 MG TABLET PO SCH (08:29)
[2018-06-25] MEDS: PREGABALIN 50 MG CAPSULE PO SCH ×2 (08:29→12:32)
[2018-06-25] MEDS: OLANZapine 2.5 MG TABLET PO SCH ×2 (08:29→12:32)
[2018-06-25] MEDS: OMEGA-3/DHA/EPA/FISH OIL 1,000 MG CAPSULE PO SCH (08:30)
[2018-06-25] MEDS: TAMSULOSIN HCL 0.4 MG CAPSULE PO SCH (08:30)
[2018-06-25] MEDS: LISINOPRIL 10 MG TABLET PO SCH (08:30)
[2018-06-25] MEDS: DIVALPROEX SODIUM 500 MG ER TABLET PO SCH ×2 (08:30→12:33)
[2018-06-25] MEDS: ASPIRIN 81 MG EC TABLET PO SCH (08:30)
[2018-06-25] MEDS: THIAMINE HCL 100 MG TABLET PO SCH (08:30)
[2018-06-25] MEDS: MULTIVITAMINS WITH MINERALS, THERAPEUTIC TABLET PO SCH (08:30)
[2018-06-25] MEDS: ATORVASTATIN CALCIUM 20 MG TABLET PO SCH (08:30)
[2018-06-25 08:32] LABS: HEMATOCRIT 44.3 % (41-53); HEMOGLOBIN 15.1 g/dL (13.5-17.5); MEAN CORPUSCULAR HEMOGLOBIN 29.2 pg (26.0-34.0); MEAN CORPUSCULAR VOLUME 86 fL (80-100); PLATELET COUNT (AUTO) 268 K/uL (150-450); RED BLOOD CELL COUNT(AUTO) 5.16 MIL/uL (4.50-5.90); RED CELL DISTRIBUTION WIDTH 14.9 % (11.5-14.5)
[2018-06-25 09:29] LABS: EOSINOPHILS % (MANUAL) 2 % (1-6); LYMPHOCYTES % (MANUAL) 27 % (22-44); MONOCYTES % (MANUAL) 4 % (2-9); SEGMENTED NEUTROPHILS % 67 % (40-70)
[2018-06-25 11:08] LABS: GLUCOMETER DEV NAME(LOC) BV2N3; GLUCOSE,POINT OF CARE 134 MG/DL (70-110)
[2018-06-25] MEDS: NICOTINE POLACRILEX 4 MG LOZENGE PO PRN (12:00)
[2018-06-25] MEDS ORDERED: MIRT30 PO (12:06)
[2018-06-25] MEDS ORDERED: OMEG-135 PO (12:06)
[2018-06-25] MEDS ORDERED: DIVA500T52 PO (12:06)
[2018-06-25] MEDS ORDERED: PREG50 PO (12:06)
[2018-06-25] MEDS ORDERED: PRAZ1 PO (12:06)
[2018-06-25] MEDS ORDERED: OLAN2.5T29 PO (12:06)
[2018-06-25] MEDS ORDERED: ESZO3 PO (12:06)
[2018-06-25] MEDS ORDERED: ACAMPROSATE CALCIUM 333 MG DR TABLET PO SCH (13:00)
== END 2018-06-25 13:48 | disposition home or self-care (01) | DRG 885 ==
LOC: B2X 11:17
PROVIDERS: ADMIT Psychiatry & Neurology Psychiatry; ATTEND Psychiatry & Neurology Psychiatry
DX: F25.9 Schizoaffective disorder, unspecified (principal); N18.3 Chronic kidney disease, stage 3 (moderate); E11.65 Type 2 diabetes mellitus with hyperglycemia; R45.851 Suicidal ideations; E03.9 Hypothyroidism, unspecified; E11.22 Type 2 diabetes mellitus with diabetic chronic kidney disease; E55.9 Vitamin D deficiency, unspecified; E66.9 Obesity, unspecified; Z68.32 Body mass index [BMI] 32.0-32.9, adult; F17.200 Nicotine dependence, unspecified, uncomplicated; F32.9 Major depressive disorder, single episode, unspecified; F41.9 Anxiety disorder, unspecified; J44.9 Chronic obstructive pulmonary disease, unspecified; M19.90 Unspecified osteoarthritis, unspecified site; F12.90 Cannabis use, unspecified, uncomplicated; F43.10 Post-traumatic stress disorder, unspecified; G89.29 Other chronic pain; I12.9 Hypertensive chronic kidney disease with stage 1 through stage 4 chronic kidney disease, or unspecified chronic kidney disease; I25.10 Atherosclerotic heart disease of native coronary artery without angina pectoris; I25.2 Old myocardial infarction; Z59.0 Homelessness; Z91.14 Patient's other noncompliance with medication regimen; Z79.82 Long term (current) use of aspirin; Z79.84 Long term (current) use of oral hypoglycemic drugs; Z88.8 Allergy status to other drugs, medicaments and biological substances; Z91.19 Patient's noncompliance with other medical treatment and regimen; Z95.1 Presence of aortocoronary bypass graft; Z56.0 Unemployment, unspecified
CPT/HCPCS: 80307; 83036; 83735; 84100; 84439; 84443; 85007; 93005; J3535

== ENCOUNTER 2018-09-22 14:31 | Inpatient (IN) | payer MEDICARE, MEDICAID ==
[~2018-09-22] VITALS: Ht 167.6 cm; Wt 96.6 kg
[~2018-09-22 14:31] MED LIST changes: +DIVA500T52 PO; +ESZO3 PO; -GABA-529 PO; -MIRT15 PO; +MIRT30 PO; -NALT50TA PO; +OLAN2.5T29 PO; -OLAN5TAB30 PO; +PRAZ1 PO
[2018-09-22 14:41] VITALS: BP 134/90
[2018-09-22] MEDS ORDERED: ZOLPIDEM TARTRATE 10 MG TABLET PO PRN (15:30)
[2018-09-22] MEDS ORDERED: LORazepam 2 MG TABLET PO PRN (15:30)
[2018-09-22] MEDS ORDERED: OLANZapine 5 MG RAPDIS TABLET PO PRN (15:30)
[2018-09-22] MEDS ORDERED: DIVA500T52 PO (15:51)
[2018-09-22] MEDS ORDERED: PREG50 PO (15:51)
[2018-09-22] MEDS ORDERED: PRAZ2 PO (15:51)
[2018-09-22] MEDS ORDERED: MIRT30 PO (15:51)
[2018-09-22] MEDS ORDERED: OLAN2.5T3 PO (15:51)
[2018-09-22] MEDS ORDERED: ESZO3 PO (15:51)
[2018-09-22 16:44] LABS: GLUCOMETER DEV NAME(LOC) BV2X.; GLUCOSE,POINT OF CARE 180 MG/DL (70-110)
[2018-09-22 17:00] VITALS: BP 140/85
[2018-09-22] MEDS ORDERED: GLUCAGON,HUMAN RECOMBINANT 1 MG VIAL IM PRN (17:15)
[2018-09-22] MEDS: INSULIN LISPRO 100 UNITS/ML SQ PRN (19:10)
[2018-09-22] MEDS: TAMSULOSIN HCL 0.4 MG CAPSULE PO SCH (20:34)
[2018-09-23] MEDS ORDERED: CloNIDine HCL 0.1 MG TABLET PO PRN (00:30)
[2018-09-23] MEDS ORDERED: MAGNESIUM HYDROXIDE SUSPENSION 30 ML UDCUP PO PRN (00:30)
[2018-09-23] MEDS ORDERED: PETROLATUM,WHITE 71 GM JELLY TP PRN (00:30)
[2018-09-23] MEDS ORDERED: ONDANSETRON HCL 4 MG TABLET PO PRN (00:30)
[2018-09-23] MEDS ORDERED: IBUPROFEN 600 MG TABLET PO PRN (00:30)
[2018-09-23] MEDS ORDERED: BENZOCAINE/MENTHOL LOZENGE MM PRN (00:30)
[2018-09-23] MEDS ORDERED: BACITRACIN 28.4 GM OINTMENT TP PRN (00:30)
[2018-09-23] MEDS ORDERED: ALBUTEROL SULFATE HFA 90 MCG/PUFF 8 GM INHALER IH PRN (00:30)
[2018-09-23] MEDS ORDERED: ACETAMINOPHEN 325 MG TABLET PO PRN (00:30)
[2018-09-23] MEDS ORDERED: MAG HYDROX/AL HYDROX/SIMETH ES 30 ML SUSPENSION UDCUP PO PRN (00:30)
[2018-09-23] MEDS ORDERED: LOPERAMIDE HCL 2 MG CAPSULE PO PRN (00:30)
[2018-09-23 05:55] LABS: GLUCOMETER DEV NAME(LOC) BV2X.; GLUCOSE,POINT OF CARE 167 MG/DL (70-110)
[2018-09-23] MEDS: MetFORMIN HCL 500 MG TABLET PO SCH ×2 (06:02→16:47)
[2018-09-23] MEDS: LEVOTHYROXINE SODIUM 75 MCG TABLET PO SCH (06:25)
[2018-09-23 07:12] VITALS: BP 131/82
[2018-09-23 08:23] LABS: BASOPHILS % (AUTO) 0.5 % (0.0-2.0); EOSINOPHILS % (AUTO) 2.8 % (1.0-6.0); HEMATOCRIT 47.1 % (41-53); HEMOGLOBIN 16.4 g/dL (13.5-17.5); LYMPHOCYTES % (AUTO) 23.7 % (22.0-44.0); MEAN CORPUSCULAR HEMOGLOBIN 29.8 pg (26.0-34.0); MEAN CORPUSCULAR HGB CONC 34.8 G/dL (31.0-37.0); MEAN CORPUSCULAR VOLUME 86 fL (80-100); MONOCYTES # (AUTO) 0.8 K/uL (0.1-1.0); MONOCYTES % (AUTO) 9.7 % (2.0-9.0); NEUTROPHILS # (AUTO) 5.5 K/uL (1.8-7.7); NEUTROPHILS % (AUTO) 63.3 % (40.0-70.0); PLATELET COUNT (AUTO) 239 K/uL (150-450); RED BLOOD CELL COUNT(AUTO) 5.49 MIL/uL (4.50-5.90); RED CELL DISTRIBUTION WIDTH 15.7 % (11.5-14.5)
[2018-09-23 08:31] LABS: AMPHET/METH SCREEN,URINE NEGATIVE (NEGATIVE); BARBITURATE SCREEN, URINE NEGATIVE (NEGATIVE); BENZODIAZEPINES SCREEN,URINE NEGATIVE (NEGATIVE); CANNABINOID SCREEN,URINE NEGATIVE (NEGATIVE); COCAINE SCREEN,URINE NEGATIVE (NEGATIVE); METHADONE SCREEN, URINE NEGATIVE (NEGATIVE); OPIATE SCREEN,URINE NEGATIVE (NEGATIVE)
[2018-09-23 08:33] LABS: PHENCYCLIDINE SCREEN,URINE NEGATIVE (NEGATIVE)
[2018-09-23 08:36] LABS: APPEARANCE,URINE CLOUDY (CLEAR); BILIRUBIN,URINE NEGATIVE (NEGATIVE); GLUCOSE, URINE (UA) NEGATIVE (NEGATIVE); KETONES,URINE NEGATIVE (NEGATIVE); LEUKOCYTE ESTERASE ,URINE NEGATIVE (NEGATIVE); NITRATE,URINE NEGATIVE (NEGATIVE); OCCULT BLOOD,URINE LARGE (NEGATIVE); PROTEIN,URINE NEGATIVE (NEGATIVE)
[2018-09-23 08:44] VITALS: BP 104/63
[2018-09-23 08:45] LABS: HEMOGLOBIN A1C 7.1 % (4.5-6.2)
[2018-09-23] MEDS: PREGABALIN 50 MG CAPSULE PO SCH ×3 (08:54→16:47)
[2018-09-23] MEDS: ATORVASTATIN CALCIUM 20 MG TABLET PO SCH (08:54)
[2018-09-23] MEDS: LISINOPRIL 10 MG TABLET PO SCH (08:55)
[2018-09-23] MEDS: OMEPRAZOLE 20 MG CAPSULE PO SCH (08:55)
[2018-09-23] MEDS: DOCUSATE SODIUM 100 MG CAPSULE PO SCH (08:56)
[2018-09-23] MEDS: ASPIRIN 81 MG CHEWABLE TABLET PO SCH (08:57)
[2018-09-23 09:07] LABS: WBC,URINE 0-2 /HPF (0-5)
[2018-09-23 09:08] LABS: BACTERIA,URINE Rare /HPF (None Seen); CALCIUM OXALATE CRYSTALS,UR Moderate /LPF (None Seen); SQUAMOUS EPITHELIAL CELL,UR Rare /LPF (None Seen)
[2018-09-23 09:11] LABS: ALANINE AMINOTRANSFERASE 21 U/L (12-78); ALBUMIN 3.3 g/dL (3.4-5.0); ALKALINE PHOSPHATASE 54 U/L (46-116); ANION GAP 6 mmol/L (8-16); ASPARTATE AMINOTRANSFERASE 17 U/L (15-37); BILIRUBIN,TOTAL 0.4 mg/dL (0.1-1.0); CALCIUM, TOTAL 8.6 mg/dL (8.8-10.5); CARBON DIOXIDE 28 mmol/L (22-29); CHLORIDE 103 mmol/L (98-107); CHOLESTEROL 241 mg/dL (131-200); CREATININE 1.18 mg/dL (0.60-1.30); FREE T4 (FREE THYROXINE) 0.74 ng/dL (0.76-1.46); GLOMERULAR FILTR. RATE CALC > 60 mL/min (>60); GLUCOSE,RANDOM 139 mg/dL (70-110); HDL CHOLESTEROL 30 mg/dL (40-60); LDL CHOL (CALC.) 175 mg/dL (0-130); POTASSIUM 4.3 mmol/L (3.5-5.1); SODIUM SERUM 137 mmol/L (136-145); TOTAL PROTEIN, SERUM 6.1 g/dL (6.4-8.2); TRIGLYCERIDES 179 mg/dL (15-150); UREA NITROGEN, BLOOD 20 mg/dL (7-18)
[2018-09-23 09:12] LABS: VALPROIC ACID < 3 mcg/mL (50-100)
[2018-09-23 16:10] VITALS: BP 109/65
[2018-09-23] MEDS: OLANZapine 2.5 MG TABLET PO SCH (16:46)
[2018-09-23] MEDS: GABAPENTIN 300 MG CAPSULE PO SCH (16:47)
[2018-09-23] MEDS ORDERED: NITROGLYCERIN 0.4 MG SUBLINGUAL TABLET #25 SL PRN (19:00)
[2018-09-23] MEDS: PRAZOSIN HCL 2 MG CAPSULE PO SCH (21:00)
[2018-09-23] MEDS: MIRTAZAPINE 30 MG TABLET PO SCH (21:00)
[2018-09-23] MEDS: TAMSULOSIN HCL 0.4 MG CAPSULE PO SCH (21:00)
[2018-09-24 05:41] VITALS: BP 110/72
[2018-09-24] MEDS: MetFORMIN HCL 500 MG TABLET PO SCH ×2 (06:38→17:00)
[2018-09-24] MEDS: LEVOTHYROXINE SODIUM 75 MCG TABLET PO SCH (06:38)
[2018-09-24] MEDS: ASPIRIN 81 MG CHEWABLE TABLET PO SCH ×2 (08:45→09:00)
[2018-09-24] MEDS: DOCUSATE SODIUM 100 MG CAPSULE PO SCH ×2 (08:45→09:00)
[2018-09-24] MEDS: OMEPRAZOLE 20 MG CAPSULE PO SCH ×2 (08:45→09:00)
[2018-09-24] MEDS: LISINOPRIL 10 MG TABLET PO SCH ×2 (08:45→09:00)
[2018-09-24] MEDS: PREGABALIN 50 MG CAPSULE PO SCH ×3 (08:46→17:00)
[2018-09-24] MEDS: ATORVASTATIN CALCIUM 20 MG TABLET PO SCH ×2 (08:46→09:00)
[2018-09-24] MEDS: GABAPENTIN 300 MG CAPSULE PO SCH ×3 (08:46→17:00)
[2018-09-24] MEDS: OLANZapine 2.5 MG TABLET PO SCH ×3 (08:53→17:00)
[2018-09-24] MEDS ORDERED: HYDROCODONE/ACETAMINOPHEN 5-325 MG TABLET PO PRN (13:15)
[2018-09-24] MEDS: MIRTAZAPINE 30 MG TABLET PO SCH (21:00)
[2018-09-24] MEDS: PRAZOSIN HCL 2 MG CAPSULE PO SCH (21:00)
[2018-09-24] MEDS: TAMSULOSIN HCL 0.4 MG CAPSULE PO SCH (21:00)
[2018-09-25] MEDS: LEVOTHYROXINE SODIUM 75 MCG TABLET PO SCH ×2 (06:30→06:41)
[2018-09-25] MEDS: MetFORMIN HCL 500 MG TABLET PO SCH ×3 (06:40→17:00)
[2018-09-25] MEDS: DOCUSATE SODIUM 100 MG CAPSULE PO SCH (09:00)
[2018-09-25] MEDS: ASPIRIN 81 MG CHEWABLE TABLET PO SCH (09:00)
[2018-09-25] MEDS: OLANZapine 2.5 MG TABLET PO SCH ×3 (09:00→17:00)
[2018-09-25] MEDS: ATORVASTATIN CALCIUM 20 MG TABLET PO SCH (09:00)
[2018-09-25] MEDS: OMEPRAZOLE 20 MG CAPSULE PO SCH (09:00)
[2018-09-25] MEDS: PREGABALIN 50 MG CAPSULE PO SCH ×3 (09:00→17:00)
[2018-09-25] MEDS: GABAPENTIN 300 MG CAPSULE PO SCH ×3 (09:00→17:00)
[2018-09-25] MEDS: LISINOPRIL 10 MG TABLET PO SCH (09:00)
[2018-09-25] MEDS: MIRTAZAPINE 30 MG TABLET PO SCH (20:42)
[2018-09-25] MEDS: TAMSULOSIN HCL 0.4 MG CAPSULE PO SCH (20:42)
[2018-09-25] MEDS: PRAZOSIN HCL 2 MG CAPSULE PO SCH (21:00)
[2018-09-26 06:29] LABS: GLUCOMETER DEV NAME(LOC) BV2X.; GLUCOSE,POINT OF CARE 138 MG/DL (70-110)
[2018-09-26] MEDS: LEVOTHYROXINE SODIUM 75 MCG TABLET PO SCH (06:57)
[2018-09-26] MEDS: MetFORMIN HCL 500 MG TABLET PO SCH ×2 (06:58→17:24)
[2018-09-26] MEDS: DOCUSATE SODIUM 100 MG CAPSULE PO SCH (09:30)
[2018-09-26] MEDS: ASPIRIN 81 MG CHEWABLE TABLET PO SCH (09:30)
[2018-09-26] MEDS: LISINOPRIL 10 MG TABLET PO SCH (09:30)
[2018-09-26] MEDS: GABAPENTIN 300 MG CAPSULE PO SCH ×3 (09:31→17:25)
[2018-09-26] MEDS: ATORVASTATIN CALCIUM 20 MG TABLET PO SCH (09:31)
[2018-09-26] MEDS: OLANZapine 2.5 MG TABLET PO SCH ×3 (09:31→17:25)
[2018-09-26] MEDS: OMEPRAZOLE 20 MG CAPSULE PO SCH (09:31)
[2018-09-26] MEDS: PREGABALIN 50 MG CAPSULE PO SCH ×3 (09:31→17:26)
[2018-09-26 16:31] VITALS: BP_SYST 100; BP_SYST 90; BP_DIAS 60
[2018-09-26 17:44] LABS: GLUCOMETER DEV NAME(LOC) BV2X.; GLUCOSE,POINT OF CARE 250 MG/DL (70-110)
[2018-09-26] MEDS: INSULIN LISPRO 100 UNITS/ML SQ PRN (18:03)
[2018-09-26] MEDS: PRAZOSIN HCL 2 MG CAPSULE PO SCH (20:51)
[2018-09-26] MEDS: TAMSULOSIN HCL 0.4 MG CAPSULE PO SCH (20:51)
[2018-09-26] MEDS: MIRTAZAPINE 30 MG TABLET PO SCH (20:51)
[2018-09-26 21:19] LABS: GLUCOMETER DEV NAME(LOC) BV2X.; GLUCOSE,POINT OF CARE 137 MG/DL (70-110)
[2018-09-27 06:29] LABS: GLUCOMETER DEV NAME(LOC) BV2X.; GLUCOSE,POINT OF CARE 139 MG/DL (70-110)
[2018-09-27] MEDS: LEVOTHYROXINE SODIUM 75 MCG TABLET PO SCH (06:58)
[2018-09-27] MEDS: MetFORMIN HCL 500 MG TABLET PO SCH ×2 (06:58→16:40)
[2018-09-27 08:55] VITALS: BP 109/67
[2018-09-27] MEDS: ASPIRIN 81 MG CHEWABLE TABLET PO SCH (09:27)
[2018-09-27] MEDS: OLANZapine 2.5 MG TABLET PO SCH ×3 (09:27→16:40)
[2018-09-27] MEDS: PREGABALIN 50 MG CAPSULE PO SCH ×3 (09:27→16:40)
[2018-09-27] MEDS: LISINOPRIL 10 MG TABLET PO SCH (09:27)
[2018-09-27] MEDS: OMEPRAZOLE 20 MG CAPSULE PO SCH (09:27)
[2018-09-27] MEDS: GABAPENTIN 300 MG CAPSULE PO SCH ×3 (09:27→16:40)
[2018-09-27] MEDS: ATORVASTATIN CALCIUM 20 MG TABLET PO SCH (09:27)
[2018-09-27] MEDS: DOCUSATE SODIUM 100 MG CAPSULE PO SCH (09:27)
[2018-09-27] MEDS ORDERED: HYDROCODONE/ACETAMINOPHEN 5-325 MG TABLET PO PRN (12:00)
[2018-09-27 14:30] VITALS: BP 103/69
[2018-09-27 16:59] LABS: GLUCOMETER DEV NAME(LOC) BV2X.; GLUCOSE,POINT OF CARE 213 MG/DL (70-110)
[2018-09-27 17:41] VITALS: BP 106/57
[2018-09-27] MEDS: TAMSULOSIN HCL 0.4 MG CAPSULE PO SCH (20:37)
[2018-09-27] MEDS: PRAZOSIN HCL 2 MG CAPSULE PO SCH (20:37)
[2018-09-27] MEDS: MIRTAZAPINE 30 MG TABLET PO SCH (20:37)
[2018-09-28] MEDS: MetFORMIN HCL 500 MG TABLET PO SCH ×2 (07:11→17:02)
[2018-09-28] MEDS: LEVOTHYROXINE SODIUM 75 MCG TABLET PO SCH (07:12)
[2018-09-28 07:34] LABS: GLUCOMETER DEV NAME(LOC) BV2X.; GLUCOSE,POINT OF CARE 159 MG/DL (70-110)
[2018-09-28 08:12] VITALS: BP 101/57
[2018-09-28] MEDS: LISINOPRIL 10 MG TABLET PO SCH (09:00)
[2018-09-28] MEDS: PREGABALIN 50 MG CAPSULE PO SCH ×3 (09:48→17:01)
[2018-09-28] MEDS: GABAPENTIN 300 MG CAPSULE PO SCH ×3 (09:48→17:01)
[2018-09-28] MEDS: ASPIRIN 81 MG CHEWABLE TABLET PO SCH (09:49)
[2018-09-28] MEDS: OLANZapine 2.5 MG TABLET PO SCH ×3 (09:49→17:02)
[2018-09-28] MEDS: OMEPRAZOLE 20 MG CAPSULE PO SCH (09:49)
[2018-09-28] MEDS: DOCUSATE SODIUM 100 MG CAPSULE PO SCH (09:49)
[2018-09-28 09:50] VITALS: BP 102/60
[2018-09-28] MEDS: ATORVASTATIN CALCIUM 20 MG TABLET PO SCH (09:50)
[2018-09-28 16:31] VITALS: BP 116/72
[2018-09-28 17:19] LABS: GLUCOMETER DEV NAME(LOC) BV2X.; GLUCOSE,POINT OF CARE 148 MG/DL (70-110)
[2018-09-28 20:38] VITALS: BP 108/70
[2018-09-28] MEDS: MIRTAZAPINE 30 MG TABLET PO SCH (20:38)
[2018-09-28] MEDS: TAMSULOSIN HCL 0.4 MG CAPSULE PO SCH (20:39)
[2018-09-28] MEDS: PRAZOSIN HCL 2 MG CAPSULE PO SCH (20:42)
[2018-09-29 05:25] VITALS: BP 110/69
[2018-09-29 07:03] LABS: GLUCOMETER DEV NAME(LOC) BV2X.; GLUCOSE,POINT OF CARE 161 MG/DL (70-110)
[2018-09-29] MEDS: LEVOTHYROXINE SODIUM 75 MCG TABLET PO SCH (07:05)
[2018-09-29] MEDS: MetFORMIN HCL 500 MG TABLET PO SCH (07:05)
[2018-09-29 09:30] VITALS: BP 118/84
[2018-09-29] MEDS: PREGABALIN 50 MG CAPSULE PO SCH ×2 (09:34→13:20)
[2018-09-29] MEDS: LISINOPRIL 10 MG TABLET PO SCH (09:34)
[2018-09-29] MEDS: ATORVASTATIN CALCIUM 20 MG TABLET PO SCH (09:34)
[2018-09-29] MEDS: GABAPENTIN 300 MG CAPSULE PO SCH ×2 (09:34→13:20)
[2018-09-29] MEDS: DOCUSATE SODIUM 100 MG CAPSULE PO SCH (09:35)
[2018-09-29] MEDS: ASPIRIN 81 MG CHEWABLE TABLET PO SCH (09:35)
[2018-09-29] MEDS: OMEPRAZOLE 20 MG CAPSULE PO SCH (09:35)
[2018-09-29] MEDS: OLANZapine 2.5 MG TABLET PO SCH ×2 (09:35→13:20)
[2018-09-29] MEDS ORDERED: PRAZ2 PO (14:56)
[2018-09-29] MEDS ORDERED: GABA-531 PO (14:56)
[2018-09-29] MEDS ORDERED: MIRT30 PO (14:56)
[2018-09-29] MEDS ORDERED: OLAN2.5T29 PO (14:56)
[2018-09-29] MEDS ORDERED: OMEP20 PO (15:09)
[2018-09-29] MEDS ORDERED: DOCU100C33 PO (15:09)
[2018-09-29] MEDS ORDERED: ALBU8HFA IH (15:14)
== END 2018-09-29 15:45 | disposition home or self-care (01) | DRG 885 ==
LOC: B2S 15:25
DX: F25.0 Schizoaffective disorder, bipolar type (principal); R45.851 Suicidal ideations; Z91.5 Personal history of self-harm; J44.9 Chronic obstructive pulmonary disease, unspecified; K21.9 Gastro-esophageal reflux disease without esophagitis; E78.5 Hyperlipidemia, unspecified; E03.9 Hypothyroidism, unspecified; M19.90 Unspecified osteoarthritis, unspecified site; I25.10 Atherosclerotic heart disease of native coronary artery without angina pectoris; Z85.9 Personal history of malignant neoplasm, unspecified; E11.22 Type 2 diabetes mellitus with diabetic chronic kidney disease; E11.65 Type 2 diabetes mellitus with hyperglycemia; E55.9 Vitamin D deficiency, unspecified; E66.9 Obesity, unspecified; F17.200 Nicotine dependence, unspecified, uncomplicated; I12.9 Hypertensive chronic kidney disease with stage 1 through stage 4 chronic kidney disease, or unspecified chronic kidney disease; N18.3 Chronic kidney disease, stage 3 (moderate); Z59.0 Homelessness; Z79.82 Long term (current) use of aspirin; Z79.899 Other long term (current) drug therapy; Z91.14 Patient's other noncompliance with medication regimen; Z95.1 Presence of aortocoronary bypass graft; R07.9 Chest pain, unspecified
CPT/HCPCS: 83036; 84439; 84443; J3535

== ENCOUNTER 2018-10-16 10:41 | Inpatient (IN) | payer MEDICARE, MEDICAID ==
[~2018-10-16] VITALS: Ht 165.1 cm; Wt 97.0 kg
[~2018-10-16 10:41] MED LIST changes: +ALBU8HFA IH; -ATOR20TA86 PO; -DIVA500T52 PO; +DOCU100C33 PO; -ESZO3 PO; +GABA-531 PO; -OMEG-135 PO; +OMEP20 PO; -PRAZ1 PO; +PRAZ2 PO
[2018-10-16 10:59] LABS: GLUCOSE,POINT OF CARE 159 MG/DL (70-110)
[2018-10-16 12:27] LABS: BASOPHILS % (AUTO) 0.4 % (0.0-2.0); HEMATOCRIT 41.4 % (41-53); HEMOGLOBIN 13.8 g/dL (13.5-17.5); LYMPHOCYTES # (AUTO) 1.9 K/uL (1.0-4.8); MEAN CORPUSCULAR HEMOGLOBIN 28.7 pg (26.0-34.0); MEAN CORPUSCULAR HGB CONC 33.2 G/dL (31.0-37.0); MEAN CORPUSCULAR VOLUME 86 fL (80-100); MONOCYTES # (AUTO) 0.9 K/uL (0.1-1.0); MONOCYTES % (AUTO) 10.2 % (2.0-9.0); NEUTROPHILS # (AUTO) 6.3 K/uL (1.8-7.7); NEUTROPHILS % (AUTO) 67.4 % (40.0-70.0); PLATELET COUNT (AUTO) 272 K/uL (150-450); RED CELL DISTRIBUTION WIDTH 16.2 % (11.5-14.5)
[2018-10-16 12:28] LABS: ANION GAP 10 mmol/L (8-16); CALCIUM, TOTAL 9.2 mg/dL (8.8-10.5); CARBON DIOXIDE 26 mmol/L (22-29); CHLORIDE 104 mmol/L (98-107); CREATININE 1.22 mg/dL (0.60-1.30); GLOMERULAR FILTR. RATE CALC 59 mL/min (>60); GLUCOSE,RANDOM 131 mg/dL (70-110); SODIUM SERUM 140 mmol/L (136-145); UREA NITROGEN, BLOOD 25 mg/dL (7-18)
[2018-10-16 12:40] LABS: ALANINE AMINOTRANSFERASE 20 U/L (12-78); ALBUMIN 3.1 g/dL (3.4-5.0); ALKALINE PHOSPHATASE 60 U/L (46-116); ASPARTATE AMINOTRANSFERASE 13 U/L (15-37); BILIRUBIN,TOTAL 0.4 mg/dL (0.1-1.0); THYROID STIMULATING HORMONE 3.65 uIU/mL (0.36-3.74); TOTAL PROTEIN, SERUM 6.8 g/dL (6.4-8.2)
[2018-10-16] MEDS ORDERED: HALOPERIDOL 5 MG TABLET PO PRN (13:15)
[2018-10-16] MEDS ORDERED: LORazepam 2 MG TABLET PO PRN (13:15)
[2018-10-16] MEDS ORDERED: ZOLPIDEM TARTRATE 10 MG TABLET PO PRN (13:15)
[2018-10-16 14:00] VITALS: BP 143/90
[2018-10-16] MEDS ORDERED: PNEUMOCOCCAL VACCINE POLYVALENT 0.5 ML VIAL [PPSV23] IM ONE (15:00)
[2018-10-16 19:58] VITALS: BP 128/62
[2018-10-17] MEDS ORDERED: MAG HYDROX/AL HYDROX/SIMETH ES 30 ML SUSPENSION UDCUP PO PRN (08:30)
[2018-10-17] MEDS ORDERED: LOPERAMIDE HCL 2 MG CAPSULE PO PRN (08:30)
[2018-10-17] MEDS ORDERED: ACETAMINOPHEN 325 MG TABLET PO PRN (08:30)
[2018-10-17] MEDS ORDERED: BACITRACIN 28.4 GM OINTMENT TP PRN (08:30)
[2018-10-17] MEDS ORDERED: ALBUTEROL SULFATE HFA 90 MCG/PUFF 8 GM INHALER IH PRN (08:30)
[2018-10-17] MEDS ORDERED: PETROLATUM,WHITE 71 GM JELLY TP PRN (08:30)
[2018-10-17] MEDS ORDERED: DEXTROSE 50%-WATER 25 GM/50 ML SYRINGE IVP PRN (08:30)
[2018-10-17] MEDS ORDERED: BENZOCAINE/MENTHOL LOZENGE MM PRN (08:30)
[2018-10-17] MEDS ORDERED: HYDROCODONE/ACETAMINOPHEN 5-325 MG TABLET PO PRN (08:30)
[2018-10-17] MEDS ORDERED: INSULIN LISPRO 100 UNITS/ML SQ PRN (08:30)
[2018-10-17] MEDS ORDERED: NITROGLYCERIN 0.4 MG SUBLINGUAL TABLET #25 SL PRN (08:30)
[2018-10-17] MEDS ORDERED: IBUPROFEN 600 MG TABLET PO PRN (08:30)
[2018-10-17] MEDS ORDERED: CloNIDine HCL 0.1 MG TABLET PO PRN (08:30)
[2018-10-17] MEDS ORDERED: ONDANSETRON HCL 4 MG TABLET PO PRN (08:30)
[2018-10-17] MEDS ORDERED: MAGNESIUM HYDROXIDE SUSPENSION 30 ML UDCUP PO PRN (08:30)
[2018-10-17] MEDS: CHOLECALCIFEROL (VIT D3) 1,000 UNITS TABLET PO SCH (09:00)
[2018-10-17] MEDS: OLANZapine 2.5 MG TABLET PO SCH ×3 (09:00→16:46)
[2018-10-17] MEDS: PREGABALIN 50 MG CAPSULE PO SCH ×2 (09:00→16:46)
[2018-10-17] MEDS: DOCUSATE SODIUM 100 MG CAPSULE PO SCH (09:00)
[2018-10-17] MEDS: LISINOPRIL 10 MG TABLET PO SCH (09:00)
[2018-10-17] MEDS: TAMSULOSIN HCL 0.4 MG CAPSULE PO SCH (09:00)
[2018-10-17] MEDS ORDERED: OLANZapine 2.5 MG TABLET PO SCH (09:00)
[2018-10-17] MEDS: ASPIRIN 81 MG EC TABLET PO SCH (09:00)
[2018-10-17] MEDS: GABAPENTIN 300 MG CAPSULE PO SCH ×3 (09:00→16:46)
[2018-10-17] MEDS: OMEPRAZOLE 20 MG CAPSULE PO SCH (09:00)
[2018-10-17] MEDS ORDERED: GABAPENTIN 300 MG CAPSULE PO SCH (09:00)
[2018-10-17] MEDS: MetFORMIN HCL 500 MG TABLET PO SCH (16:46)
[2018-10-17] MEDS ORDERED: MIRTAZAPINE 30 MG TABLET PO SCH ×2 (21:00)
[2018-10-17] MEDS ORDERED: ATORVASTATIN CALCIUM 20 MG TABLET PO SCH (21:00)
[2018-10-18] MEDS: MetFORMIN HCL 500 MG TABLET PO SCH (06:55)
[2018-10-18] MEDS ORDERED: LEVOTHYROXINE SODIUM 75 MCG TABLET PO SCH (07:00)
[2018-10-18] MEDS: TAMSULOSIN HCL 0.4 MG CAPSULE PO SCH (09:00)
[2018-10-18] MEDS: ASPIRIN 81 MG EC TABLET PO SCH (09:00)
[2018-10-18] MEDS: CHOLECALCIFEROL (VIT D3) 1,000 UNITS TABLET PO SCH (09:00)
[2018-10-18] MEDS: PREGABALIN 50 MG CAPSULE PO SCH (09:00)
[2018-10-18] MEDS: OMEPRAZOLE 20 MG CAPSULE PO SCH (09:00)
[2018-10-18] MEDS: LISINOPRIL 10 MG TABLET PO SCH (09:00)
[2018-10-18] MEDS: OLANZapine 2.5 MG TABLET PO SCH ×2 (09:00→13:00)
[2018-10-18] MEDS: DOCUSATE SODIUM 100 MG CAPSULE PO SCH (09:00)
[2018-10-18] MEDS: GABAPENTIN 300 MG CAPSULE PO SCH ×2 (09:00→13:00)
[2018-10-18] MEDS ORDERED: VITAD1000 PO (13:34)
== END 2018-10-18 15:30 | disposition home or self-care (01) | DRG 885 ==
LOC: EMS 10:42 → 3EI 13:46 → EMS 13:47
DX: F25.1 Schizoaffective disorder, depressive type (principal); F33.2 Major depressive disorder, recurrent severe without psychotic features; R45.851 Suicidal ideations; E03.9 Hypothyroidism, unspecified; E11.22 Type 2 diabetes mellitus with diabetic chronic kidney disease; E11.65 Type 2 diabetes mellitus with hyperglycemia; E55.9 Vitamin D deficiency, unspecified; E78.00 Pure hypercholesterolemia, unspecified; F17.210 Nicotine dependence, cigarettes, uncomplicated; F43.10 Post-traumatic stress disorder, unspecified; G89.29 Other chronic pain; I12.9 Hypertensive chronic kidney disease with stage 1 through stage 4 chronic kidney disease, or unspecified chronic kidney disease; I25.10 Atherosclerotic heart disease of native coronary artery without angina pectoris; J44.9 Chronic obstructive pulmonary disease, unspecified; K21.9 Gastro-esophageal reflux disease without esophagitis; M19.90 Unspecified osteoarthritis, unspecified site; N18.3 Chronic kidney disease, stage 3 (moderate); E66.9 Obesity, unspecified; F41.9 Anxiety disorder, unspecified; Z79.82 Long term (current) use of aspirin; Z88.8 Allergy status to other drugs, medicaments and biological substances; Z91.14 Patient's other noncompliance with medication regimen; Z95.1 Presence of aortocoronary bypass graft; Z68.35 Body mass index [BMI] 35.0-35.9, adult; Z56.0 Unemployment, unspecified
CPT/HCPCS: 84443; 93005; G0480

== ENCOUNTER 2018-11-12 09:35 | Emergency (ER) | payer MEDICARE, MEDICAID ==
[~2018-11-12] VITALS: Ht 167.6 cm; Wt 86.4 kg
[~2018-11-12 09:35] MED LIST changes: -ALBU8HFA IH; -PRAZ2 PO; +VITAD1000 PO
[2018-11-12] MEDS ORDERED: ATOR40TA28 PO (09:48)
[2018-11-12] MEDS ORDERED: METO-558 PO (09:48)
[2018-11-12 09:54] LABS: GLUCOSE,POINT OF CARE 139 MG/DL (70-110)
[2018-11-12 10:39] LABS: BASOPHILS % (AUTO) 0.5 % (0.0-2.0); EOSINOPHILS % (AUTO) 1.3 % (1.0-6.0); HEMATOCRIT 44.4 % (41-53); HEMOGLOBIN 14.8 g/dL (13.5-17.5); LYMPHOCYTES # (AUTO) 2.1 K/uL (1.0-4.8); LYMPHOCYTES % (AUTO) 20.4 % (22.0-44.0); MEAN CORPUSCULAR HGB CONC 33.4 G/dL (31.0-37.0); MEAN CORPUSCULAR VOLUME 87 fL (80-100); MONOCYTES # (AUTO) 0.9 K/uL (0.1-1.0); MONOCYTES % (AUTO) 8.7 % (2.0-9.0); NEUTROPHILS # (AUTO) 7.1 K/uL (1.8-7.7); NEUTROPHILS % (AUTO) 69.1 % (40.0-70.0); PLATELET COUNT (AUTO) 281 K/uL (150-450); RED BLOOD CELL COUNT(AUTO) 5.11 MIL/uL (4.50-5.90); RED CELL DISTRIBUTION WIDTH 16.5 % (11.5-14.5)
[2018-11-12 10:50] LABS: ANION GAP 14 mmol/L (8-16); CALCIUM, TOTAL 9.2 mg/dL (8.8-10.5); CARBON DIOXIDE 26 mmol/L (22-29); CHLORIDE 103 mmol/L (98-107); CREATININE 1.17 mg/dL (0.60-1.30); GLOMERULAR FILTR. RATE CALC > 60 mL/min (>60); GLUCOSE,RANDOM 131 mg/dL (70-110); POTASSIUM 3.9 mmol/L (3.5-5.1); SODIUM SERUM 143 mmol/L (136-145); UREA NITROGEN, BLOOD 14 mg/dL (7-18)
[2018-11-12 10:55] LABS: ALANINE AMINOTRANSFERASE 21 U/L (12-78); ALKALINE PHOSPHATASE 67 U/L (46-116); ASPARTATE AMINOTRANSFERASE 18 U/L (15-37); BILIRUBIN,TOTAL 0.5 mg/dL (0.1-1.0); TOTAL PROTEIN, SERUM 7.5 g/dL (6.4-8.2)
[2018-11-12 11:44] LABS: AMPHET/METH SCREEN,URINE NEGATIVE (NEGATIVE); BARBITURATE SCREEN, URINE NEGATIVE (NEGATIVE); BENZODIAZEPINES SCREEN,URINE NEGATIVE (NEGATIVE); CANNABINOID SCREEN,URINE NEGATIVE (NEGATIVE); COCAINE SCREEN,URINE NEGATIVE (NEGATIVE); METHADONE SCREEN, URINE NEGATIVE (NEGATIVE); OPIATE SCREEN,URINE NEGATIVE (NEGATIVE)
[2018-11-12 11:45] LABS: PHENCYCLIDINE SCREEN,URINE NEGATIVE (NEGATIVE)
[2018-11-12 11:54] LABS: APPEARANCE,URINE CLEAR (CLEAR); BILIRUBIN,URINE NEGATIVE (NEGATIVE); GLUCOSE, URINE (UA) NEGATIVE (NEGATIVE); KETONES,URINE NEGATIVE (NEGATIVE); LEUKOCYTE ESTERASE ,URINE NEGATIVE (NEGATIVE); NITRATE,URINE NEGATIVE (NEGATIVE); OCCULT BLOOD,URINE NEGATIVE (NEGATIVE); PH,URINE 7.5 (5.0-8.0); PROTEIN,URINE NEGATIVE (NEGATIVE); UROBILINOGEN,URINE 0.2 mg/dL (<=1.0)
[2018-11-12] MEDS ORDERED: LORazepam 2 MG TABLET PO PRN (12:45)
[2018-11-12] MEDS ORDERED: ZOLPIDEM TARTRATE 10 MG TABLET PO PRN (12:45)
[2018-11-12] MEDS ORDERED: HALOPERIDOL 5 MG TABLET PO PRN (12:45)
[2018-11-12 15:06] VITALS: BP 126/61
== END 2018-11-12 16:20 | disposition home or self-care (01) ==
LOC: EMS 09:37
DX: F25.1 Schizoaffective disorder, depressive type (principal); E66.9 Obesity, unspecified; E03.9 Hypothyroidism, unspecified; E78.00 Pure hypercholesterolemia, unspecified; I25.10 Atherosclerotic heart disease of native coronary artery without angina pectoris; I10 Essential (primary) hypertension; J44.9 Chronic obstructive pulmonary disease, unspecified; K21.9 Gastro-esophageal reflux disease without esophagitis; M19.90 Unspecified osteoarthritis, unspecified site; F17.210 Nicotine dependence, cigarettes, uncomplicated; Z79.899 Other long term (current) drug therapy; Z98.890 Other specified postprocedural states; Z86.018 Personal history of other benign neoplasm; Z91.09 Other allergy status, other than to drugs and biological substances; Z68.30 Body mass index [BMI] 30.0-30.9, adult
CPT/HCPCS: 36415; 80053; 80307; 81003; 82962; 85025; 99285; G0480

== ENCOUNTER 2018-11-21 13:01 | Inpatient (IN) | payer MEDICARE, MEDICAID ==
[~2018-11-21] VITALS: Ht 167.6 cm; Wt 99.8 kg
[~2018-11-21 13:01] MED LIST changes: -ASPI81TA43 PO; +ATOR40TA28 PO; -DOCU100C33 PO; -LISI-661 PO; +METO-558 PO; -MIRT30 PO; -OLAN2.5T29 PO; -OMEP20 PO; -PREG50 PO; -TAMS0.4C32 PO; -VITAD1000 PO
[2018-11-21] MEDS ORDERED: ZOLPIDEM TARTRATE 10 MG TABLET PO PRN (15:30)
[2018-11-21] MEDS ORDERED: HALOPERIDOL 5 MG TABLET PO PRN (15:30)
[2018-11-21 15:32] VITALS: BP 154/89
[2018-11-21 16:10] VITALS: BP 154/85
[2018-11-21] MEDS ORDERED: PNEUMOCOCCAL VACCINE POLYVALENT 0.5 ML VIAL [PPSV23] IM ONE (17:00)
[2018-11-21 17:09] LABS: GLUCOMETER DEV NAME(LOC) BV2S.; GLUCOSE,POINT OF CARE 126 MG/DL (70-110)
[2018-11-21] MEDS ORDERED: NITROGLYCERIN 0.4 MG SUBLINGUAL TABLET #25 SL PRN (18:30)
[2018-11-21] MEDS ORDERED: ALBUTEROL SULFATE HFA 90 MCG/PUFF 8 GM INHALER IH PRN (18:30)
[2018-11-21] MEDS: LISINOPRIL 10 MG TABLET PO SCH (19:15)
[2018-11-22 00:47] VITALS: BP 131/78
[2018-11-22] MEDS ORDERED: INSULIN LISPRO 100 UNITS/ML SQ PRN ×2 (05:00→06:45)
[2018-11-22] MEDS ORDERED: GLUCAGON,HUMAN RECOMBINANT 1 MG VIAL IM PRN ×2 (05:00→06:45)
[2018-11-22 06:19] LABS: GLUCOMETER DEV NAME(LOC) BV2X.; GLUCOSE,POINT OF CARE 137 MG/DL (70-110)
[2018-11-22] MEDS ORDERED: ONDANSETRON HCL 4 MG TABLET PO PRN (06:45)
[2018-11-22] MEDS ORDERED: BENZOCAINE/MENTHOL LOZENGE MM PRN (06:45)
[2018-11-22] MEDS ORDERED: CloNIDine HCL 0.1 MG TABLET PO PRN (06:45)
[2018-11-22] MEDS ORDERED: ACETAMINOPHEN 325 MG TABLET PO PRN (06:45)
[2018-11-22] MEDS ORDERED: PETROLATUM,WHITE 28 GM JELLY TP PRN (06:45)
[2018-11-22] MEDS ORDERED: DOCUSATE SODIUM 100 MG CAPSULE PO PRN (06:45)
[2018-11-22] MEDS ORDERED: MAG HYDROX/AL HYDROX/SIMETH ES 30 ML SUSPENSION UDCUP PO PRN (06:45)
[2018-11-22] MEDS ORDERED: MAGNESIUM HYDROXIDE SUSPENSION 30 ML UDCUP PO PRN (06:45)
[2018-11-22] MEDS ORDERED: OMEPRAZOLE 20 MG CAPSULE PO PRN (06:45)
[2018-11-22] MEDS ORDERED: BACITRACIN 28.4 GM OINTMENT TP PRN (06:45)
[2018-11-22] MEDS ORDERED: LOPERAMIDE HCL 2 MG CAPSULE PO PRN (06:45)
[2018-11-22] MEDS: LEVOTHYROXINE SODIUM 75 MCG TABLET PO SCH (07:02)
[2018-11-22] MEDS: MetFORMIN HCL 500 MG TABLET PO SCH ×2 (07:03→17:46)
[2018-11-22] MEDS: LISINOPRIL 10 MG TABLET PO SCH (08:39)
[2018-11-22] MEDS: PREGABALIN 50 MG CAPSULE PO SCH ×2 (08:39→17:46)
[2018-11-22] MEDS: ATORVASTATIN CALCIUM 20 MG TABLET PO SCH (08:39)
[2018-11-22] MEDS: TAMSULOSIN HCL 0.4 MG CAPSULE PO SCH (08:40)
[2018-11-22] MEDS: GABAPENTIN 300 MG CAPSULE PO SCH ×3 (13:00→17:46)
[2018-11-22] MEDS: OLANZapine 2.5 MG TABLET PO SCH ×2 (13:00→17:47)
[2018-11-22] MEDS: IBUPROFEN 600 MG TABLET PO PRN (13:21)
[2018-11-22] MEDS: LORazepam 2 MG TABLET PO PRN (13:22)
[2018-11-22 16:55] LABS: GLUCOMETER DEV NAME(LOC) BV2X.; GLUCOSE,POINT OF CARE 163 MG/DL (70-110)
[2018-11-22 17:24] LABS: GLUCOMETER DEV NAME(LOC) BV2X.; GLUCOSE,POINT OF CARE 113 MG/DL (70-110)
[2018-11-22] MEDS: MIRTAZAPINE 30 MG TABLET PO SCH (21:00)
[2018-11-23 06:40] LABS: GLUCOMETER DEV NAME(LOC) BV2X.; GLUCOSE,POINT OF CARE 92 MG/DL (70-110)
[2018-11-23] MEDS: LEVOTHYROXINE SODIUM 75 MCG TABLET PO SCH (06:45)
[2018-11-23] MEDS: MetFORMIN HCL 500 MG TABLET PO SCH ×2 (06:46→16:46)
[2018-11-23 08:10] VITALS: BP 110/66
[2018-11-23] MEDS: LISINOPRIL 10 MG TABLET PO SCH (09:16)
[2018-11-23] MEDS: ATORVASTATIN CALCIUM 20 MG TABLET PO SCH (09:17)
[2018-11-23] MEDS: GABAPENTIN 300 MG CAPSULE PO SCH ×3 (09:17→16:46)
[2018-11-23] MEDS: TAMSULOSIN HCL 0.4 MG CAPSULE PO SCH (09:17)
[2018-11-23] MEDS: OLANZapine 2.5 MG TABLET PO SCH ×3 (09:17→16:47)
[2018-11-23] MEDS: PREGABALIN 50 MG CAPSULE PO SCH ×2 (09:17→16:46)
[2018-11-23] MEDS: LORazepam 2 MG TABLET PO PRN (11:37)
[2018-11-23 11:40] LABS: GLUCOMETER DEV NAME(LOC) BV2X.; GLUCOSE,POINT OF CARE 136 MG/DL (70-110)
[2018-11-23 13:42] VITALS: BP 115/62
[2018-11-23] MEDS: IBUPROFEN 600 MG TABLET PO PRN (13:42)
[2018-11-23 16:49] LABS: GLUCOMETER DEV NAME(LOC) BV2X.; GLUCOSE,POINT OF CARE 118 MG/DL (70-110)
[2018-11-23] MEDS: MIRTAZAPINE 30 MG TABLET PO SCH (21:21)
[2018-11-24 06:09] LABS: GLUCOMETER DEV NAME(LOC) BV2X.; GLUCOSE,POINT OF CARE 112 MG/DL (70-110)
[2018-11-24] MEDS: MetFORMIN HCL 500 MG TABLET PO SCH ×2 (06:33→17:00)
[2018-11-24] MEDS: LEVOTHYROXINE SODIUM 75 MCG TABLET PO SCH (06:33)
[2018-11-24] MEDS: GABAPENTIN 300 MG CAPSULE PO SCH ×3 (08:30→16:26)
[2018-11-24] MEDS: LISINOPRIL 10 MG TABLET PO SCH (08:30)
[2018-11-24] MEDS: ATORVASTATIN CALCIUM 20 MG TABLET PO SCH (08:30)
[2018-11-24] MEDS: LORazepam 2 MG TABLET PO PRN ×2 (08:31→13:23)
[2018-11-24] MEDS: TAMSULOSIN HCL 0.4 MG CAPSULE PO SCH (08:31)
[2018-11-24] MEDS: PREGABALIN 50 MG CAPSULE PO SCH ×2 (08:31→17:56)
[2018-11-24 08:34] VITALS: BP 111/64
[2018-11-24 08:34] LABS: BASOPHILS % (AUTO) 0.4 % (0.0-2.0); EOSINOPHILS % (AUTO) 1.5 % (1.0-6.0); HEMATOCRIT 47.6 % (41-53); HEMOGLOBIN 16.1 g/dL (13.5-17.5); LYMPHOCYTES % (AUTO) 24.5 % (22.0-44.0); MEAN CORPUSCULAR HEMOGLOBIN 29.4 pg (26.0-34.0); MEAN CORPUSCULAR HGB CONC 33.9 G/dL (31.0-37.0); MEAN CORPUSCULAR VOLUME 87 fL (80-100); MONOCYTES # (AUTO) 0.7 K/uL (0.1-1.0); MONOCYTES % (AUTO) 8.9 % (2.0-9.0); NEUTROPHILS # (AUTO) 5.3 K/uL (1.8-7.7); NEUTROPHILS % (AUTO) 64.7 % (40.0-70.0); PLATELET COUNT (AUTO) 279 K/uL (150-450); RED BLOOD CELL COUNT(AUTO) 5.49 MIL/uL (4.50-5.90); RED CELL DISTRIBUTION WIDTH 16.3 % (11.5-14.5)
[2018-11-24 08:41] LABS: HEMOGLOBIN A1C 7.1 % (4.5-6.2)
[2018-11-24] MEDS: OLANZapine 2.5 MG TABLET PO SCH ×3 (09:00→16:26)
[2018-11-24 09:08] LABS: ALBUMIN 3.7 g/dL (3.4-5.0); BILIRUBIN,TOTAL 0.6 mg/dL (0.1-1.0); CALCIUM, TOTAL 9.3 mg/dL (8.8-10.5); CHOL/HDL RATIO 7.4 (4.2-7.3); CREATININE 1.33 mg/dL (0.60-1.30); FREE T4 (FREE THYROXINE) 0.85 ng/dL (0.76-1.46); POTASSIUM 4.3 mmol/L (3.5-5.1); THYROID STIMULATING HORMONE 22.82 uIU/mL (0.36-3.74); TOTAL PROTEIN, SERUM 6.6 g/dL (6.4-8.2)
[2018-11-24 11:05] LABS: GLUCOMETER DEV NAME(LOC) BV2X.; GLUCOSE,POINT OF CARE 100 MG/DL (70-110)
[2018-11-24 16:24] LABS: GLUCOMETER DEV NAME(LOC) BV2X.; GLUCOSE,POINT OF CARE 175 MG/DL (70-110)
[2018-11-24 16:49] VITALS: BP 111/71
[2018-11-24] MEDS: MIRTAZAPINE 30 MG TABLET PO SCH (21:04)
[2018-11-25 06:19] LABS: GLUCOMETER DEV NAME(LOC) BV2X.; GLUCOSE,POINT OF CARE 108 MG/DL (70-110)
[2018-11-25] MEDS: LEVOTHYROXINE SODIUM 75 MCG TABLET PO SCH (06:30)
[2018-11-25] MEDS: MetFORMIN HCL 500 MG TABLET PO SCH (07:00)
[2018-11-25] MEDS: LORazepam 2 MG TABLET PO PRN (08:02)
[2018-11-25] MEDS: LISINOPRIL 10 MG TABLET PO SCH ×2 (08:02→09:00)
[2018-11-25] MEDS: ATORVASTATIN CALCIUM 20 MG TABLET PO SCH ×2 (08:02→09:00)
[2018-11-25] MEDS: GABAPENTIN 300 MG CAPSULE PO SCH ×2 (08:02→09:00)
[2018-11-25] MEDS: PREGABALIN 50 MG CAPSULE PO SCH (09:00)
[2018-11-25] MEDS: TAMSULOSIN HCL 0.4 MG CAPSULE PO SCH (09:00)
[2018-11-25] MEDS: OLANZapine 2.5 MG TABLET PO SCH (09:00)
[2018-11-25] MEDS ORDERED: LISI-661 PO (09:54)
[2018-11-25] MEDS ORDERED: OLAN2.5T3 PO (09:54)
[2018-11-25] MEDS ORDERED: MIRT30 PO (09:54)
[2018-11-25] MEDS ORDERED: PREG50 PO (09:54)
[2018-11-25] MEDS ORDERED: TAMS-1 PO (09:54)
[2018-11-25] MEDS ORDERED: ATOR20TA86 PO (09:54)
== END 2018-11-25 10:50 | disposition home or self-care (01) | DRG 885 ==
LOC: B2X 15:30 → B2S 17:14
DX: F25.0 Schizoaffective disorder, bipolar type (principal); R45.851 Suicidal ideations; J44.9 Chronic obstructive pulmonary disease, unspecified; N40.0 Benign prostatic hyperplasia without lower urinary tract symptoms; I12.9 Hypertensive chronic kidney disease with stage 1 through stage 4 chronic kidney disease, or unspecified chronic kidney disease; I25.10 Atherosclerotic heart disease of native coronary artery without angina pectoris; E11.22 Type 2 diabetes mellitus with diabetic chronic kidney disease; E11.65 Type 2 diabetes mellitus with hyperglycemia; N18.3 Chronic kidney disease, stage 3 (moderate); E03.9 Hypothyroidism, unspecified; E55.9 Vitamin D deficiency, unspecified; M19.90 Unspecified osteoarthritis, unspecified site; E66.9 Obesity, unspecified; F17.200 Nicotine dependence, unspecified, uncomplicated; Z59.0 Homelessness; Z79.82 Long term (current) use of aspirin; Z79.899 Other long term (current) drug therapy; Z91.5 Personal history of self-harm; Z95.1 Presence of aortocoronary bypass graft
CPT/HCPCS: 83036; 84439; 84443

== ENCOUNTER 2019-01-19 17:24 | Inpatient (IN) | payer MEDICARE, MEDICAID ==
[~2019-01-19] VITALS: Ht 167.6 cm; Wt 102.4 kg
[~2019-01-19 17:24] MED LIST changes: +ATOR20TA86 PO; -ATOR40TA28 PO; +LISI-661 PO; -METO-558 PO; +MIRT30 PO; +OLAN2.5T3 PO; +PREG50 PO; +TAMS-1 PO
[2019-01-19] MEDS ORDERED: HALOPERIDOL 5 MG TABLET PO PRN (18:45)
[2019-01-19] MEDS ORDERED: LORazepam 2 MG TABLET PO PRN (18:45)
[2019-01-19 19:04] VITALS: BP 144/89
[2019-01-19 19:06] VITALS: BP 144/89
[2019-01-19 19:16] VITALS: BP 151/80
[2019-01-19 19:20] VITALS: BP 144/89
[2019-01-19] MEDS ORDERED: NITROGLYCERIN 0.4 MG SUBLINGUAL TABLET #25 SL PRN (19:30)
[2019-01-19] MEDS ORDERED: INSULIN LISPRO 100 UNITS/ML SQ PRN (19:45)
[2019-01-19] MEDS ORDERED: GLUCAGON,HUMAN RECOMBINANT 1 MG VIAL IM PRN (19:45)
[2019-01-19 20:58] LABS: GLUCOMETER DEV NAME(LOC) BV2X.; GLUCOSE,POINT OF CARE 129 MG/DL (70-110)
[2019-01-20 00:45] VITALS: BP 140/88
[2019-01-20] MEDS: ZOLPIDEM TARTRATE 10 MG TABLET PO PRN (00:45)
[2019-01-20] MEDS ORDERED: GLUCAGON,HUMAN RECOMBINANT 1 MG VIAL IM PRN (05:30)
[2019-01-20] MEDS ORDERED: INSULIN LISPRO 100 UNITS/ML SQ PRN (05:30)
[2019-01-20] MEDS: LEVOTHYROXINE SODIUM 75 MCG TABLET PO SCH (07:14)
[2019-01-20] MEDS: MetFORMIN HCL 500 MG TABLET PO SCH ×2 (07:15→16:31)
[2019-01-20 07:39] LABS: BASOPHILS % (AUTO) 0.8 % (0.0-2.0); EOSINOPHILS % (AUTO) 2.3 % (1.0-6.0); HEMATOCRIT 46.6 % (41-53); HEMOGLOBIN 15.4 g/dL (13.5-17.5); LYMPHOCYTES # (AUTO) 2.2 K/uL (1.0-4.8); LYMPHOCYTES % (AUTO) 29.2 % (22.0-44.0); MEAN CORPUSCULAR HEMOGLOBIN 29.1 pg (26.0-34.0); MEAN CORPUSCULAR HGB CONC 33.1 G/dL (31.0-37.0); MEAN CORPUSCULAR VOLUME 88 fL (80-100); MONOCYTES # (AUTO) 0.7 K/uL (0.1-1.0); MONOCYTES % (AUTO) 9.2 % (2.0-9.0); NEUTROPHILS # (AUTO) 4.5 K/uL (1.8-7.7); NEUTROPHILS % (AUTO) 58.5 % (40.0-70.0); PLATELET COUNT (AUTO) 262 K/uL (150-450); RED BLOOD CELL COUNT(AUTO) 5.31 MIL/uL (4.50-5.90); RED CELL DISTRIBUTION WIDTH 15.6 % (11.5-14.5)
[2019-01-20 08:01] LABS: HEMOGLOBIN A1C 7.4 % (4.5-6.2)
[2019-01-20 08:02] LABS: ALBUMIN 3.3 g/dL (3.4-5.0); BILIRUBIN,TOTAL 0.3 mg/dL (0.1-1.0); CALCIUM, TOTAL 7.8 mg/dL (8.8-10.5); CHOL/HDL RATIO 10.1 (4.2-7.3); CREATININE 1.29 mg/dL (0.60-1.30); FREE T4 (FREE THYROXINE) 0.66 ng/dL (0.76-1.46); THYROID STIMULATING HORMONE 69.47 uIU/mL (0.36-3.74); TOTAL PROTEIN, SERUM 6.6 g/dL (6.4-8.2)
[2019-01-20] MEDS: PREGABALIN 50 MG CAPSULE PO SCH ×2 (09:11→16:32)
[2019-01-20] MEDS: ATORVASTATIN CALCIUM 20 MG TABLET PO SCH (09:11)
[2019-01-20] MEDS: LISINOPRIL 10 MG TABLET PO SCH (09:11)
[2019-01-20] MEDS: TAMSULOSIN HCL 0.4 MG CAPSULE PO SCH (09:11)
[2019-01-20 09:15] VITALS: BP 135/82
[2019-01-20 11:09] LABS: GLUCOMETER DEV NAME(LOC) BV2X.; GLUCOSE,POINT OF CARE 146 MG/DL (70-110)
[2019-01-20] MEDS: GABAPENTIN 300 MG CAPSULE PO SCH ×2 (12:20→16:31)
[2019-01-20] MEDS: OLANZapine 2.5 MG TABLET PO SCH ×2 (12:21→16:31)
[2019-01-20 16:04] VITALS: BP 112/63
[2019-01-20 16:24] LABS: GLUCOMETER DEV NAME(LOC) BV2X.; GLUCOSE,POINT OF CARE 166 MG/DL (70-110)
[2019-01-20 20:29] LABS: GLUCOMETER DEV NAME(LOC) BV2X.; GLUCOSE,POINT OF CARE 128 MG/DL (70-110)
[2019-01-20] MEDS: MIRTAZAPINE 30 MG TABLET PO SCH (20:38)
[2019-01-21 00:08] VITALS: BP 112/66
[2019-01-21] MEDS: HYDROCODONE/ACETAMINOPHEN 5-325 MG TABLET PO PRN (06:41)
[2019-01-21] MEDS: LEVOTHYROXINE SODIUM 75 MCG TABLET PO SCH (06:57)
[2019-01-21] MEDS: MetFORMIN HCL 500 MG TABLET PO SCH ×2 (06:57→17:23)
[2019-01-21 07:10] LABS: GLUCOMETER DEV NAME(LOC) BV2X.; GLUCOSE,POINT OF CARE 140 MG/DL (70-110)
[2019-01-21] MEDS: ATORVASTATIN CALCIUM 20 MG TABLET PO SCH (08:56)
[2019-01-21] MEDS: TAMSULOSIN HCL 0.4 MG CAPSULE PO SCH (08:56)
[2019-01-21] MEDS: GABAPENTIN 300 MG CAPSULE PO SCH ×3 (08:56→17:23)
[2019-01-21] MEDS: OLANZapine 2.5 MG TABLET PO SCH ×3 (08:57→17:30)
[2019-01-21] MEDS: PREGABALIN 50 MG CAPSULE PO SCH ×2 (08:57→17:23)
[2019-01-21] MEDS: LISINOPRIL 10 MG TABLET PO SCH (08:57)
[2019-01-21 11:14] VITALS: BP 123/68
[2019-01-21 16:11] VITALS: BP 128/71
[2019-01-21 16:50] LABS: GLUCOMETER DEV NAME(LOC) BV2X.; GLUCOSE,POINT OF CARE 150 MG/DL (70-110)
[2019-01-21 17:19] LABS: GLUCOMETER DEV NAME(LOC) BV2X.; GLUCOSE,POINT OF CARE 124 MG/DL (70-110)
[2019-01-21] MEDS: MIRTAZAPINE 30 MG TABLET PO SCH (20:13)
[2019-01-21 20:29] LABS: GLUCOMETER DEV NAME(LOC) BV2X.; GLUCOSE,POINT OF CARE 122 MG/DL (70-110)
[2019-01-22 00:44] VITALS: BP 120/81
[2019-01-22] MEDS: LEVOTHYROXINE SODIUM 75 MCG TABLET PO SCH (07:05)
[2019-01-22] MEDS: MetFORMIN HCL 500 MG TABLET PO SCH ×2 (07:05→16:27)
[2019-01-22 08:32] VITALS: BP 121/74
[2019-01-22] MEDS: PREGABALIN 50 MG CAPSULE PO SCH ×2 (09:06→16:28)
[2019-01-22] MEDS: ATORVASTATIN CALCIUM 20 MG TABLET PO SCH (09:06)
[2019-01-22] MEDS: GABAPENTIN 300 MG CAPSULE PO SCH ×3 (09:06→16:28)
[2019-01-22] MEDS: TAMSULOSIN HCL 0.4 MG CAPSULE PO SCH (09:06)
[2019-01-22] MEDS: LISINOPRIL 10 MG TABLET PO SCH (09:06)
[2019-01-22] MEDS: OLANZapine 2.5 MG TABLET PO SCH ×3 (09:07→16:28)
[2019-01-22 11:04] LABS: GLUCOMETER DEV NAME(LOC) BV2X.; GLUCOSE,POINT OF CARE 113 MG/DL (70-110)
[2019-01-22 16:10] VITALS: BP 145/65
[2019-01-22 17:05] LABS: GLUCOMETER DEV NAME(LOC) BV2X.; GLUCOSE,POINT OF CARE 93 MG/DL (70-110)
[2019-01-22] MEDS: MIRTAZAPINE 30 MG TABLET PO SCH (20:21)
[2019-01-22 21:04] LABS: GLUCOMETER DEV NAME(LOC) BV2X.; GLUCOSE,POINT OF CARE 129 MG/DL (70-110)
[2019-01-23 02:35] VITALS: BP 116/68
[2019-01-23] MEDS: HYDROCODONE/ACETAMINOPHEN 5-325 MG TABLET PO PRN ×2 (02:37→22:31)
[2019-01-23] MEDS: MetFORMIN HCL 500 MG TABLET PO SCH ×2 (07:08→16:10)
[2019-01-23] MEDS: LEVOTHYROXINE SODIUM 75 MCG TABLET PO SCH (07:08)
[2019-01-23 07:29] LABS: GLUCOMETER DEV NAME(LOC) BV2X.; GLUCOSE,POINT OF CARE 125 MG/DL (70-110)
[2019-01-23 08:30] VITALS: BP 108/65
[2019-01-23] MEDS: GABAPENTIN 300 MG CAPSULE PO SCH ×3 (09:07→16:10)
[2019-01-23] MEDS: ATORVASTATIN CALCIUM 20 MG TABLET PO SCH (09:07)
[2019-01-23] MEDS: OLANZapine 2.5 MG TABLET PO SCH ×3 (09:07→16:10)
[2019-01-23] MEDS: TAMSULOSIN HCL 0.4 MG CAPSULE PO SCH (09:07)
[2019-01-23] MEDS: PREGABALIN 50 MG CAPSULE PO SCH ×2 (09:08→16:11)
[2019-01-23 09:48] VITALS: BP 115/78
[2019-01-23] MEDS: LISINOPRIL 10 MG TABLET PO SCH (09:50)
[2019-01-23 10:34] LABS: GLUCOMETER DEV NAME(LOC) BV2X.; GLUCOSE,POINT OF CARE 150 MG/DL (70-110)
[2019-01-23 11:28] LABS: GLUCOMETER DEV NAME(LOC) BV2X.; GLUCOSE,POINT OF CARE 114 MG/DL (70-110)
[2019-01-23 16:19] LABS: GLUCOMETER DEV NAME(LOC) BV2X.; GLUCOSE,POINT OF CARE 115 MG/DL (70-110)
[2019-01-23 17:30] VITALS: BP 123/71
[2019-01-23] MEDS: MIRTAZAPINE 30 MG TABLET PO SCH (20:49)
[2019-01-23 20:54] LABS: GLUCOMETER DEV NAME(LOC) BV2X.; GLUCOSE,POINT OF CARE 149 MG/DL (70-110)
[2019-01-23 22:31] VITALS: BP 104/61
[2019-01-23] MEDS: ZOLPIDEM TARTRATE 10 MG TABLET PO PRN (22:31)
[2019-01-24 06:21] LABS: GLUCOMETER DEV NAME(LOC) BV2X.; GLUCOSE,POINT OF CARE 124 MG/DL (70-110)
[2019-01-24] MEDS: LEVOTHYROXINE SODIUM 75 MCG TABLET PO SCH (06:26)
[2019-01-24] MEDS: MetFORMIN HCL 500 MG TABLET PO SCH ×2 (06:42→16:15)
[2019-01-24 06:44] VITALS: BP 110/68
[2019-01-24 08:31] VITALS: BP 115/76
[2019-01-24] MEDS: LISINOPRIL 10 MG TABLET PO SCH (08:45)
[2019-01-24] MEDS: ATORVASTATIN CALCIUM 20 MG TABLET PO SCH (08:45)
[2019-01-24] MEDS: GABAPENTIN 300 MG CAPSULE PO SCH ×3 (08:45→16:15)
[2019-01-24] MEDS: PREGABALIN 50 MG CAPSULE PO SCH ×2 (08:46→16:15)
[2019-01-24] MEDS: TAMSULOSIN HCL 0.4 MG CAPSULE PO SCH (08:46)
[2019-01-24] MEDS: OLANZapine 2.5 MG TABLET PO SCH ×3 (08:46→16:15)
[2019-01-24 11:09] LABS: GLUCOMETER DEV NAME(LOC) BV2S.; GLUCOSE,POINT OF CARE 165 MG/DL (70-110)
[2019-01-24 11:24] LABS: GLUCOMETER DEV NAME(LOC) BV2S.; GLUCOSE,POINT OF CARE 84 MG/DL (70-110)
[2019-01-24 16:24] LABS: GLUCOMETER DEV NAME(LOC) BV2S.; GLUCOSE,POINT OF CARE 123 MG/DL (70-110)
[2019-01-24 19:53] VITALS: BP 118/70
[2019-01-24] MEDS: MIRTAZAPINE 30 MG TABLET PO SCH (20:00)
[2019-01-24 20:01] VITALS: BP 101/55
[2019-01-24] MEDS: HYDROCODONE/ACETAMINOPHEN 5-325 MG TABLET PO PRN (20:01)
[2019-01-24 20:19] LABS: GLUCOMETER DEV NAME(LOC) BV2S.; GLUCOSE,POINT OF CARE 111 MG/DL (70-110)
[2019-01-24] MEDS: ZOLPIDEM TARTRATE 10 MG TABLET PO PRN (23:05)
[2019-01-25 00:40] VITALS: BP 110/72
[2019-01-25] MEDS: LEVOTHYROXINE SODIUM 75 MCG TABLET PO SCH (06:27)
[2019-01-25 06:30] LABS: GLUCOMETER DEV NAME(LOC) BV2S.; GLUCOSE,POINT OF CARE 107 MG/DL (70-110)
[2019-01-25] MEDS: MetFORMIN HCL 500 MG TABLET PO SCH ×2 (06:34→17:05)
[2019-01-25 08:02] VITALS: BP 113/70
[2019-01-25] MEDS: LISINOPRIL 10 MG TABLET PO SCH (08:14)
[2019-01-25] MEDS: TAMSULOSIN HCL 0.4 MG CAPSULE PO SCH (08:14)
[2019-01-25] MEDS: ATORVASTATIN CALCIUM 20 MG TABLET PO SCH (08:14)
[2019-01-25] MEDS: GABAPENTIN 300 MG CAPSULE PO SCH ×3 (08:14→17:06)
[2019-01-25] MEDS: OLANZapine 2.5 MG TABLET PO SCH ×3 (08:14→17:06)
[2019-01-25] MEDS: PREGABALIN 50 MG CAPSULE PO SCH ×2 (08:15→17:05)
[2019-01-25 11:00] VITALS: BP 121/61
[2019-01-25] MEDS: HYDROCODONE/ACETAMINOPHEN 5-325 MG TABLET PO PRN (11:00)
[2019-01-25 11:05] LABS: GLUCOMETER DEV NAME(LOC) BV2S.; GLUCOSE,POINT OF CARE 130 MG/DL (70-110)
[2019-01-25 16:08] VITALS: BP 102/59
[2019-01-25 17:10] LABS: GLUCOMETER DEV NAME(LOC) BV2S.; GLUCOSE,POINT OF CARE 117 MG/DL (70-110)
[2019-01-25 21:19] LABS: GLUCOMETER DEV NAME(LOC) BV2S.; GLUCOSE,POINT OF CARE 121 MG/DL (70-110)
[2019-01-25] MEDS: MIRTAZAPINE 30 MG TABLET PO SCH (21:32)
[2019-01-26 06:42] VITALS: BP 131/80
[2019-01-26 06:49] LABS: GLUCOMETER DEV NAME(LOC) BV2S.; GLUCOSE,POINT OF CARE 113 MG/DL (70-110)
[2019-01-26] MEDS: LEVOTHYROXINE SODIUM 75 MCG TABLET PO SCH (06:49)
[2019-01-26] MEDS: MetFORMIN HCL 500 MG TABLET PO SCH ×2 (07:29→16:33)
[2019-01-26] MEDS: GABAPENTIN 300 MG CAPSULE PO SCH ×3 (08:19→16:33)
[2019-01-26] MEDS: PREGABALIN 50 MG CAPSULE PO SCH ×2 (08:19→16:33)
[2019-01-26] MEDS: ATORVASTATIN CALCIUM 20 MG TABLET PO SCH (08:19)
[2019-01-26] MEDS: OLANZapine 2.5 MG TABLET PO SCH ×3 (08:19→16:33)
[2019-01-26] MEDS: LISINOPRIL 10 MG TABLET PO SCH (08:19)
[2019-01-26] MEDS: TAMSULOSIN HCL 0.4 MG CAPSULE PO SCH (08:19)
[2019-01-26 08:26] VITALS: BP 118/60
[2019-01-26 11:04] LABS: GLUCOMETER DEV NAME(LOC) BV2S.; GLUCOSE,POINT OF CARE 112 MG/DL (70-110)
[2019-01-26] MEDS ORDERED: ONDANSETRON HCL 4 MG TABLET PO PRN (13:30)
[2019-01-26] MEDS ORDERED: IBUPROFEN 600 MG TABLET PO PRN (13:30)
[2019-01-26] MEDS ORDERED: PETROLATUM,WHITE 28 GM JELLY TP PRN (13:30)
[2019-01-26] MEDS ORDERED: CloNIDine HCL 0.1 MG TABLET PO PRN (13:30)
[2019-01-26] MEDS ORDERED: MAG HYDROX/AL HYDROX/SIMETH ES 30 ML SUSPENSION UDCUP PO PRN (13:30)
[2019-01-26] MEDS ORDERED: MAGNESIUM HYDROXIDE SUSPENSION 30 ML UDCUP PO PRN (13:30)
[2019-01-26] MEDS ORDERED: ALBUTEROL SULFATE HFA 90 MCG/PUFF 8 GM INHALER IH PRN (13:30)
[2019-01-26] MEDS ORDERED: ACETAMINOPHEN 325 MG TABLET PO PRN (13:30)
[2019-01-26] MEDS ORDERED: BENZOCAINE/MENTHOL LOZENGE MM PRN (13:30)
[2019-01-26] MEDS ORDERED: LOPERAMIDE HCL 2 MG CAPSULE PO PRN (13:30)
[2019-01-26] MEDS ORDERED: BACITRACIN 28.4 GM OINTMENT TP PRN (13:30)
[2019-01-26] MEDS: OMEPRAZOLE 20 MG CAPSULE PO SCH (13:57)
[2019-01-26] MEDS: DOCUSATE SODIUM 100 MG CAPSULE PO SCH (13:57)
[2019-01-26 13:58] VITALS: BP 112/62
[2019-01-26 16:35] VITALS: BP 100/61
[2019-01-26 16:39] LABS: GLUCOMETER DEV NAME(LOC) BV2S.; GLUCOSE,POINT OF CARE 114 MG/DL (70-110)
[2019-01-26] MEDS: MIRTAZAPINE 30 MG TABLET PO SCH (21:10)
[2019-01-26 21:14] LABS: GLUCOMETER DEV NAME(LOC) BV2S.; GLUCOSE,POINT OF CARE 154 MG/DL (70-110)
[2019-01-26 21:15] VITALS: BP 108/63
[2019-01-26] MEDS: HYDROCODONE/ACETAMINOPHEN 5-325 MG TABLET PO PRN (21:15)
[2019-01-26] MEDS: ZOLPIDEM TARTRATE 10 MG TABLET PO PRN (21:48)
[2019-01-27 06:17] VITALS: BP 129/80
[2019-01-27 06:49] LABS: GLUCOMETER DEV NAME(LOC) BV2S.; GLUCOSE,POINT OF CARE 121 MG/DL (70-110)
[2019-01-27] MEDS: LEVOTHYROXINE SODIUM 75 MCG TABLET PO SCH (07:11)
[2019-01-27] MEDS: MetFORMIN HCL 500 MG TABLET PO SCH ×2 (07:12→16:32)
[2019-01-27 08:40] VITALS: BP 120/74
[2019-01-27] MEDS: GABAPENTIN 300 MG CAPSULE PO SCH ×3 (08:45→16:32)
[2019-01-27] MEDS: TAMSULOSIN HCL 0.4 MG CAPSULE PO SCH (08:45)
[2019-01-27] MEDS: DOCUSATE SODIUM 100 MG CAPSULE PO SCH (08:45)
[2019-01-27] MEDS: ATORVASTATIN CALCIUM 20 MG TABLET PO SCH (08:45)
[2019-01-27] MEDS: LISINOPRIL 10 MG TABLET PO SCH (08:45)
[2019-01-27] MEDS: PREGABALIN 50 MG CAPSULE PO SCH ×2 (08:46→16:33)
[2019-01-27] MEDS: OMEPRAZOLE 20 MG CAPSULE PO SCH (08:46)
[2019-01-27] MEDS: OLANZapine 2.5 MG TABLET PO SCH ×3 (08:46→16:33)
[2019-01-27 11:19] LABS: GLUCOMETER DEV NAME(LOC) BV2S.; GLUCOSE,POINT OF CARE 109 MG/DL (70-110)
[2019-01-27 16:03] VITALS: BP 113/60
[2019-01-27 16:19] LABS: GLUCOMETER DEV NAME(LOC) BV2S.; GLUCOSE,POINT OF CARE 132 MG/DL (70-110)
[2019-01-27] MEDS: MIRTAZAPINE 30 MG TABLET PO SCH (20:31)
[2019-01-28 01:05] VITALS: BP 106/66
[2019-01-28] MEDS: HYDROCODONE/ACETAMINOPHEN 5-325 MG TABLET PO PRN (01:09)
[2019-01-28] MEDS: ZOLPIDEM TARTRATE 10 MG TABLET PO PRN (01:09)
[2019-01-28] MEDS: LEVOTHYROXINE SODIUM 75 MCG TABLET PO SCH (07:29)
[2019-01-28] MEDS: MetFORMIN HCL 500 MG TABLET PO SCH (07:29)
[2019-01-28 07:37] LABS: GLUCOMETER DEV NAME(LOC) BV2S.; GLUCOSE,POINT OF CARE 135 MG/DL (70-110)
[2019-01-28 07:46] LABS: GLUCOMETER DEV NAME(LOC) BV2S.; GLUCOSE,POINT OF CARE 124 MG/DL (70-110)
[2019-01-28] MEDS: PREGABALIN 50 MG CAPSULE PO SCH (08:25)
[2019-01-28] MEDS: OMEPRAZOLE 20 MG CAPSULE PO SCH (08:26)
[2019-01-28] MEDS: LISINOPRIL 10 MG TABLET PO SCH (08:26)
[2019-01-28] MEDS: DOCUSATE SODIUM 100 MG CAPSULE PO SCH (08:26)
[2019-01-28] MEDS: GABAPENTIN 300 MG CAPSULE PO SCH ×2 (08:26→12:23)
[2019-01-28] MEDS: TAMSULOSIN HCL 0.4 MG CAPSULE PO SCH (08:26)
[2019-01-28] MEDS: ATORVASTATIN CALCIUM 20 MG TABLET PO SCH (08:26)
[2019-01-28] MEDS: OLANZapine 2.5 MG TABLET PO SCH ×2 (08:26→12:23)
[2019-01-28 08:27] VITALS: BP 109/64
[2019-01-28] MEDS ORDERED: METF-960 PO (10:38)
[2019-01-28] MEDS ORDERED: MIRT15 PO (10:38)
[2019-01-28] MEDS ORDERED: OMEP20 PO (10:38)
[2019-01-28] MEDS ORDERED: DSS100 PO (10:38)
[2019-01-28 11:14] LABS: GLUCOMETER DEV NAME(LOC) BV2S.; GLUCOSE,POINT OF CARE 116 MG/DL (70-110)
== END 2019-01-28 13:20 | DRG 885 ==
LOC: B2X 17:24 → B2S 01-24 08:50
DX: F25.0 Schizoaffective disorder, bipolar type (principal); R45.851 Suicidal ideations; M19.90 Unspecified osteoarthritis, unspecified site; J44.9 Chronic obstructive pulmonary disease, unspecified; I25.10 Atherosclerotic heart disease of native coronary artery without angina pectoris; I12.9 Hypertensive chronic kidney disease with stage 1 through stage 4 chronic kidney disease, or unspecified chronic kidney disease; N18.3 Chronic kidney disease, stage 3 (moderate); E11.22 Type 2 diabetes mellitus with diabetic chronic kidney disease; E03.9 Hypothyroidism, unspecified; E55.9 Vitamin D deficiency, unspecified; E11.65 Type 2 diabetes mellitus with hyperglycemia; E66.9 Obesity, unspecified; F17.200 Nicotine dependence, unspecified, uncomplicated; F12.90 Cannabis use, unspecified, uncomplicated; Z88.8 Allergy status to other drugs, medicaments and biological substances; Z79.899 Other long term (current) drug therapy; Z79.82 Long term (current) use of aspirin; Z59.0 Homelessness; Z95.1 Presence of aortocoronary bypass graft; Z91.5 Personal history of self-harm
CPT/HCPCS: 83036; 84439; 84443; J3535

== ENCOUNTER 2019-02-22 09:30 | Inpatient (IN) | payer MEDICARE, MEDICAID ==
[~2019-02-22] VITALS: Ht 167.6 cm; Wt 94.5 kg
[~2019-02-22 09:30] MED LIST changes: +DSS100 PO; +METF-960 PO; -METF500T PO; +MIRT15 PO; -MIRT30 PO; +OMEP20 PO
[2019-02-22 11:03] LABS: ANION GAP 11 mmol/L (8-16); CALCIUM, TOTAL 9.7 mg/dL (8.8-10.5); CARBON DIOXIDE 27 mmol/L (22-29); CHLORIDE 102 mmol/L (98-107); CREATININE 1.59 mg/dL (0.60-1.30); GLOMERULAR FILTR. RATE CALC 43 mL/min (>60); GLUCOSE,RANDOM 124 mg/dL (70-110); POTASSIUM 3.9 mmol/L (3.5-5.1); SODIUM SERUM 140 mmol/L (136-145); UREA NITROGEN, BLOOD 19 mg/dL (7-18)
[2019-02-22 11:04] LABS: BASOPHILS % (AUTO) 0.3 % (0.0-2.0); EOSINOPHILS % (AUTO) 1.8 % (1.0-6.0); HEMATOCRIT 45.9 % (41-53); LYMPHOCYTES # (AUTO) 1.7 K/uL (1.0-4.8); LYMPHOCYTES % (AUTO) 15.7 % (22.0-44.0); MEAN CORPUSCULAR HEMOGLOBIN 29.1 pg (26.0-34.0); MEAN CORPUSCULAR HGB CONC 32.8 G/dL (31.0-37.0); MEAN CORPUSCULAR VOLUME 89 fL (80-100); MONOCYTES % (AUTO) 9.5 % (2.0-9.0); NEUTROPHILS # (AUTO) 7.8 K/uL (1.8-7.7); NEUTROPHILS % (AUTO) 72.7 % (40.0-70.0); PLATELET COUNT (AUTO) 329 K/uL (150-450); RED BLOOD CELL COUNT(AUTO) 5.17 MIL/uL (4.50-5.90); RED CELL DISTRIBUTION WIDTH 15.6 % (11.5-14.5)
[2019-02-22 11:10] LABS: ALANINE AMINOTRANSFERASE 95 U/L (12-78); ALKALINE PHOSPHATASE 75 U/L (46-116); ASPARTATE AMINOTRANSFERASE 31 U/L (15-37); BILIRUBIN,TOTAL 0.7 mg/dL (0.1-1.0); TOTAL PROTEIN, SERUM 7.9 g/dL (6.4-8.2)
[2019-02-22] MEDS ORDERED: LORazepam 2 MG TABLET PO PRN (11:30)
[2019-02-22] MEDS ORDERED: HALOPERIDOL 5 MG TABLET PO PRN (11:30)
[2019-02-22 14:15] VITALS: BP 126/79
[2019-02-22] MEDS ORDERED: MAGNESIUM HYDROXIDE SUSPENSION 30 ML UDCUP PO PRN (14:45)
[2019-02-22] MEDS ORDERED: PETROLATUM,WHITE 28 GM JELLY TP PRN (14:45)
[2019-02-22] MEDS ORDERED: MAG HYDROX/AL HYDROX/SIMETH ES 30 ML SUSPENSION UDCUP PO PRN (14:45)
[2019-02-22] MEDS ORDERED: LOPERAMIDE HCL 2 MG CAPSULE PO PRN (14:45)
[2019-02-22] MEDS ORDERED: ONDANSETRON HCL 4 MG TABLET PO PRN (14:45)
[2019-02-22] MEDS ORDERED: BACITRACIN 28.4 GM OINTMENT TP PRN (14:45)
[2019-02-22] MEDS ORDERED: IBUPROFEN 600 MG TABLET PO PRN (14:45)
[2019-02-22] MEDS ORDERED: CloNIDine HCL 0.1 MG TABLET PO PRN (14:45)
[2019-02-22] MEDS ORDERED: ACETAMINOPHEN 325 MG TABLET PO PRN (14:45)
[2019-02-22] MEDS ORDERED: ALBUTEROL SULFATE HFA 90 MCG/PUFF 8 GM INHALER IH PRN (14:45)
[2019-02-22] MEDS ORDERED: BENZOCAINE/MENTHOL LOZENGE MM PRN (14:45)
[2019-02-22] MEDS ORDERED: INSULIN LISPRO 100 UNITS/ML SQ PRN (20:15)
[2019-02-22] MEDS ORDERED: GLUCAGON,HUMAN RECOMBINANT 1 MG VIAL IM PRN (20:15)
[2019-02-22] MEDS ORDERED: HYDROCODONE/ACETAMINOPHEN 5-325 MG TABLET PO PRN (20:15)
[2019-02-23 06:19] LABS: GLUCOMETER DEV NAME(LOC) BV3S.; GLUCOSE,POINT OF CARE 147 MG/DL (70-110)
[2019-02-23] MEDS: MetFORMIN HCL 500 MG TABLET PO SCH ×2 (06:39→16:45)
[2019-02-23] MEDS: LEVOTHYROXINE SODIUM 75 MCG TABLET PO SCH (06:39)
[2019-02-23] MEDS ORDERED: OMEPRAZOLE 20 MG CAPSULE PO PRN (09:00)
[2019-02-23] MEDS ORDERED: OMEPRAZOLE 20 MG CAPSULE PO SCH (09:00)
[2019-02-23] MEDS ORDERED: DOCUSATE SODIUM 100 MG CAPSULE PO PRN (09:00)
[2019-02-23] MEDS ORDERED: DOCUSATE SODIUM 100 MG CAPSULE PO SCH (09:00)
[2019-02-23] MEDS: GABAPENTIN 300 MG CAPSULE PO SCH ×3 (09:02→16:45)
[2019-02-23] MEDS: LISINOPRIL 10 MG TABLET PO SCH (09:03)
[2019-02-23] MEDS: TAMSULOSIN HCL 0.4 MG CAPSULE PO SCH (09:03)
[2019-02-23] MEDS: ATORVASTATIN CALCIUM 20 MG TABLET PO SCH (09:03)
[2019-02-23 09:34] LABS: GLUCOMETER DEV NAME(LOC) BV3S.; GLUCOSE,POINT OF CARE 158 MG/DL (70-110)
[2019-02-23] MEDS ORDERED: HYDROCODONE/ACETAMINOPHEN 10-325 MG TABLET PO PRN (14:00)
[2019-02-23] MEDS ORDERED: NICOTINE 21 MG/24 HOUR PATCH TD PRN (14:00)
[2019-02-23] MEDS: OLANZapine 2.5 MG TABLET PO SCH (16:45)
[2019-02-23 17:22] VITALS: BP 113/63
[2019-02-23 17:39] LABS: GLUCOMETER DEV NAME(LOC) BV3S.; GLUCOSE,POINT OF CARE 135 MG/DL (70-110)
[2019-02-23] MEDS: MIRTAZAPINE 15 MG TABLET PO SCH (20:44)
[2019-02-24] MEDS: LEVOTHYROXINE SODIUM 75 MCG TABLET PO SCH (06:49)
[2019-02-24] MEDS: MetFORMIN HCL 500 MG TABLET PO SCH ×2 (06:49→16:16)
[2019-02-24 08:30] VITALS: BP 116/74
[2019-02-24] MEDS: TAMSULOSIN HCL 0.4 MG CAPSULE PO SCH (08:45)
[2019-02-24] MEDS: LISINOPRIL 10 MG TABLET PO SCH (08:45)
[2019-02-24] MEDS: ATORVASTATIN CALCIUM 20 MG TABLET PO SCH (08:45)
[2019-02-24] MEDS: OLANZapine 2.5 MG TABLET PO SCH ×3 (08:46→16:16)
[2019-02-24] MEDS: GABAPENTIN 300 MG CAPSULE PO SCH ×3 (08:46→16:16)
[2019-02-24 16:04] VITALS: BP 101/67
[2019-02-24 17:35] LABS: GLUCOMETER DEV NAME(LOC) BV3S.; GLUCOSE,POINT OF CARE 122 MG/DL (70-110)
[2019-02-24] MEDS: MIRTAZAPINE 15 MG TABLET PO SCH ×2 (20:35→20:58)
[2019-02-24 21:02] VITALS: BP 111/60
[2019-02-25] MEDS: LEVOTHYROXINE SODIUM 75 MCG TABLET PO SCH (06:29)
[2019-02-25] MEDS: MetFORMIN HCL 500 MG TABLET PO SCH ×2 (06:30→17:08)
[2019-02-25 08:19] LABS: HEMOGLOBIN A1C 7.3 % (4.5-6.2)
[2019-02-25] MEDS: ATORVASTATIN CALCIUM 20 MG TABLET PO SCH (08:26)
[2019-02-25] MEDS: GABAPENTIN 300 MG CAPSULE PO SCH ×3 (08:26→17:08)
[2019-02-25] MEDS: TAMSULOSIN HCL 0.4 MG CAPSULE PO SCH (08:26)
[2019-02-25] MEDS: LISINOPRIL 10 MG TABLET PO SCH (08:26)
[2019-02-25] MEDS: OLANZapine 2.5 MG TABLET PO SCH ×3 (08:27→17:08)
[2019-02-25 08:33] VITALS: BP 110/68
[2019-02-25 08:35] LABS: CHOL/HDL RATIO 6.6 (4.2-7.3)
[2019-02-25 16:25] VITALS: BP 126/71
[2019-02-25 16:54] LABS: GLUCOMETER DEV NAME(LOC) BV2S.; GLUCOSE,POINT OF CARE 121 MG/DL (70-110)
[2019-02-25] MEDS: MIRTAZAPINE 15 MG TABLET PO SCH (21:00)
[2019-02-26 03:36] VITALS: BP 124/72
[2019-02-26] MEDS: LEVOTHYROXINE SODIUM 75 MCG TABLET PO SCH (06:38)
[2019-02-26] MEDS: MetFORMIN HCL 500 MG TABLET PO SCH ×2 (06:39→17:05)
[2019-02-26 06:54] LABS: GLUCOMETER DEV NAME(LOC) BV2X.; GLUCOSE,POINT OF CARE 111 MG/DL (70-110)
[2019-02-26 08:17] VITALS: BP 140/69
[2019-02-26] MEDS: OLANZapine 2.5 MG TABLET PO SCH ×3 (08:55→17:05)
[2019-02-26] MEDS: GABAPENTIN 300 MG CAPSULE PO SCH ×3 (08:55→17:05)
[2019-02-26] MEDS: TAMSULOSIN HCL 0.4 MG CAPSULE PO SCH (08:55)
[2019-02-26] MEDS: OMEGA-3/DHA/EPA/FISH OIL 1,000 MG CAPSULE PO SCH (08:55)
[2019-02-26] MEDS: ATORVASTATIN CALCIUM 20 MG TABLET PO SCH (08:56)
[2019-02-26] MEDS: LISINOPRIL 10 MG TABLET PO SCH (08:56)
[2019-02-26 16:08] VITALS: BP 119/60
[2019-02-26 16:44] LABS: GLUCOMETER DEV NAME(LOC) BV2X.; GLUCOSE,POINT OF CARE 137 MG/DL (70-110)
[2019-02-26] MEDS: MIRTAZAPINE 15 MG TABLET PO SCH (20:04)
[2019-02-27 01:10] VITALS: BP 117/70
[2019-02-27] MEDS ORDERED: PNEUMOCOCCAL VACCINE POLYVALENT 0.5 ML VIAL [PPSV23] IM ONE (04:45)
[2019-02-27 06:19] LABS: GLUCOMETER DEV NAME(LOC) BV2X.; GLUCOSE,POINT OF CARE 105 MG/DL (70-110)
[2019-02-27] MEDS: LEVOTHYROXINE SODIUM 75 MCG TABLET PO SCH (06:51)
[2019-02-27] MEDS: MetFORMIN HCL 500 MG TABLET PO SCH ×2 (06:51→16:54)
[2019-02-27 08:15] VITALS: BP 110/68
[2019-02-27] MEDS: TAMSULOSIN HCL 0.4 MG CAPSULE PO SCH (08:17)
[2019-02-27] MEDS: GABAPENTIN 300 MG CAPSULE PO SCH ×3 (08:17→16:54)
[2019-02-27] MEDS: OLANZapine 2.5 MG TABLET PO SCH ×3 (08:18→16:54)
[2019-02-27] MEDS: ATORVASTATIN CALCIUM 20 MG TABLET PO SCH (08:18)
[2019-02-27] MEDS: OMEGA-3/DHA/EPA/FISH OIL 1,000 MG CAPSULE PO SCH (08:18)
[2019-02-27] MEDS: LISINOPRIL 10 MG TABLET PO SCH (08:18)
[2019-02-27 16:02] VITALS: BP 109/60
[2019-02-27 16:49] LABS: GLUCOMETER DEV NAME(LOC) BV2X.; GLUCOSE,POINT OF CARE 126 MG/DL (70-110)
[2019-02-27] MEDS: MIRTAZAPINE 15 MG TABLET PO SCH (20:09)
[2019-02-28 05:12] VITALS: BP 114/71
[2019-02-28] MEDS: MetFORMIN HCL 500 MG TABLET PO SCH ×2 (06:58→16:21)
[2019-02-28] MEDS: LEVOTHYROXINE SODIUM 75 MCG TABLET PO SCH (06:58)
[2019-02-28 06:59] LABS: GLUCOMETER DEV NAME(LOC) BV2X.; GLUCOSE,POINT OF CARE 125 MG/DL (70-110)
[2019-02-28] MEDS: LISINOPRIL 10 MG TABLET PO SCH (08:26)
[2019-02-28] MEDS: OLANZapine 2.5 MG TABLET PO SCH ×3 (08:26→16:21)
[2019-02-28] MEDS: ATORVASTATIN CALCIUM 20 MG TABLET PO SCH (08:27)
[2019-02-28] MEDS: OMEGA-3/DHA/EPA/FISH OIL 1,000 MG CAPSULE PO SCH (08:27)
[2019-02-28] MEDS: TAMSULOSIN HCL 0.4 MG CAPSULE PO SCH (08:27)
[2019-02-28] MEDS: GABAPENTIN 300 MG CAPSULE PO SCH ×3 (08:27→16:21)
[2019-02-28 08:48] VITALS: BP 113/65
[2019-02-28] MEDS: KETOROLAC TROMETHAMINE 30 MG/ML VIAL IM SCH (12:45)
[2019-02-28 15:00] VITALS: BP 111/54
[2019-02-28 16:24] VITALS: BP 105/71
[2019-02-28 16:30] LABS: GLUCOMETER DEV NAME(LOC) BV2X.; GLUCOSE,POINT OF CARE 143 MG/DL (70-110)
[2019-02-28] MEDS: MIRTAZAPINE 15 MG TABLET PO SCH (20:47)
[2019-03-01 06:14] VITALS: BP 120/81
[2019-03-01 06:35] LABS: GLUCOMETER DEV NAME(LOC) BV2X.; GLUCOSE,POINT OF CARE 117 MG/DL (70-110)
[2019-03-01] MEDS: MetFORMIN HCL 500 MG TABLET PO SCH ×3 (06:44→17:00)
[2019-03-01] MEDS: LEVOTHYROXINE SODIUM 75 MCG TABLET PO SCH (06:44)
[2019-03-01] MEDS: KETOROLAC TROMETHAMINE 30 MG/ML VIAL IM SCH ×2 (09:00→09:36)
[2019-03-01] MEDS: DICLOFENAC SODIUM 1% 100 GM GEL [2GM] TP SCH ×3 (09:00→17:00)
[2019-03-01 09:25] VITALS: BP 116/70
[2019-03-01] MEDS: GABAPENTIN 300 MG CAPSULE PO SCH ×4 (09:36→17:00)
[2019-03-01] MEDS: LISINOPRIL 10 MG TABLET PO SCH (09:36)
[2019-03-01] MEDS: OLANZapine 2.5 MG TABLET PO SCH ×4 (09:36→17:00)
[2019-03-01] MEDS: ATORVASTATIN CALCIUM 20 MG TABLET PO SCH (09:36)
[2019-03-01] MEDS: TAMSULOSIN HCL 0.4 MG CAPSULE PO SCH (09:37)
[2019-03-01] MEDS: OMEGA-3/DHA/EPA/FISH OIL 1,000 MG CAPSULE PO SCH (09:37)
[2019-03-01] MEDS: MIRTAZAPINE 15 MG TABLET PO SCH (21:00)
[2019-03-02] MEDS: LEVOTHYROXINE SODIUM 75 MCG TABLET PO SCH (06:30)
[2019-03-02] MEDS: MetFORMIN HCL 500 MG TABLET PO SCH ×2 (07:00→17:00)
[2019-03-02] MEDS: GABAPENTIN 300 MG CAPSULE PO SCH ×3 (09:00→16:38)
[2019-03-02] MEDS: ATORVASTATIN CALCIUM 20 MG TABLET PO SCH (09:00)
[2019-03-02] MEDS: OMEGA-3/DHA/EPA/FISH OIL 1,000 MG CAPSULE PO SCH (09:00)
[2019-03-02] MEDS: OLANZapine 2.5 MG TABLET PO SCH ×3 (09:00→16:38)
[2019-03-02] MEDS: TAMSULOSIN HCL 0.4 MG CAPSULE PO SCH (09:00)
[2019-03-02] MEDS: LISINOPRIL 10 MG TABLET PO SCH (09:00)
[2019-03-02 16:43] LABS: GLUCOMETER DEV NAME(LOC) BV2X.; GLUCOSE,POINT OF CARE 121 MG/DL (70-110)
[2019-03-02] MEDS: MIRTAZAPINE 15 MG TABLET PO SCH (20:34)
[2019-03-02] MEDS: ZOLPIDEM TARTRATE 10 MG TABLET PO PRN (22:19)
[2019-03-03 05:59] LABS: GLUCOMETER DEV NAME(LOC) BV2X.; GLUCOSE,POINT OF CARE 135 MG/DL (70-110)
[2019-03-03] MEDS: MetFORMIN HCL 500 MG TABLET PO SCH ×2 (06:49→16:42)
[2019-03-03] MEDS: LEVOTHYROXINE SODIUM 75 MCG TABLET PO SCH (06:49)
[2019-03-03 09:00] VITALS: BP 106/66
[2019-03-03] MEDS: GABAPENTIN 300 MG CAPSULE PO SCH ×3 (10:49→17:13)
[2019-03-03] MEDS: LISINOPRIL 10 MG TABLET PO SCH (10:49)
[2019-03-03] MEDS: ATORVASTATIN CALCIUM 20 MG TABLET PO SCH (10:49)
[2019-03-03] MEDS: TAMSULOSIN HCL 0.4 MG CAPSULE PO SCH (10:49)
[2019-03-03] MEDS: OMEGA-3/DHA/EPA/FISH OIL 1,000 MG CAPSULE PO SCH (10:49)
[2019-03-03] MEDS: OLANZapine 2.5 MG TABLET PO SCH ×3 (10:52→16:41)
[2019-03-03 16:08] VITALS: BP 109/64
[2019-03-03 16:45] LABS: GLUCOMETER DEV NAME(LOC) BV2X.; GLUCOSE,POINT OF CARE 120 MG/DL (70-110)
[2019-03-03] MEDS: MIRTAZAPINE 15 MG TABLET PO SCH ×2 (19:26→20:08)
[2019-03-03] MEDS: ZOLPIDEM TARTRATE 10 MG TABLET PO PRN (22:42)
[2019-03-04 06:25] LABS: GLUCOMETER DEV NAME(LOC) BV2X.; GLUCOSE,POINT OF CARE 142 MG/DL (70-110)
[2019-03-04] MEDS: LEVOTHYROXINE SODIUM 75 MCG TABLET PO SCH (06:49)
[2019-03-04] MEDS: MetFORMIN HCL 500 MG TABLET PO SCH (06:49)
[2019-03-04 06:54] VITALS: BP 100/64
[2019-03-04 08:04] VITALS: BP 100/64
[2019-03-04] MEDS: OLANZapine 2.5 MG TABLET PO SCH ×2 (08:18→12:19)
[2019-03-04] MEDS: GABAPENTIN 300 MG CAPSULE PO SCH ×2 (08:18→12:19)
[2019-03-04] MEDS: LISINOPRIL 10 MG TABLET PO SCH (08:18)
[2019-03-04] MEDS: ATORVASTATIN CALCIUM 20 MG TABLET PO SCH (08:19)
[2019-03-04] MEDS: OMEGA-3/DHA/EPA/FISH OIL 1,000 MG CAPSULE PO SCH (08:19)
[2019-03-04] MEDS: TAMSULOSIN HCL 0.4 MG CAPSULE PO SCH (08:19)
[2019-03-04] MEDS ORDERED: OLAN2.5T29 PO (11:27)
[2019-03-04] MEDS ORDERED: GABA-531 PO ×2 (11:27→11:44)
[2019-03-04] MEDS ORDERED: MIRT15 PO ×2 (11:27→11:49)
[2019-03-04] MEDS ORDERED: LEVO125T95 PO (11:44)
[2019-03-04] MEDS ORDERED: OLAN2.5T3 PO (11:49)
[2019-03-04] MEDS ORDERED: LISI-662 PO (11:51)
[2019-03-04] MEDS ORDERED: LISI-661 PO (11:52)
== END 2019-03-04 13:45 | disposition home or self-care (01) | DRG 885 ==
LOC: EMS 09:33 → B3A 12:45 → B2S 02-25 12:09 → B2X 02-25 19:11
PROVIDERS: ADMIT Psychiatry & Neurology Child & Adolescent Psychiatry
DX: F25.0 Schizoaffective disorder, bipolar type (principal); R45.851 Suicidal ideations; M19.90 Unspecified osteoarthritis, unspecified site; K21.9 Gastro-esophageal reflux disease without esophagitis; J44.9 Chronic obstructive pulmonary disease, unspecified; I25.10 Atherosclerotic heart disease of native coronary artery without angina pectoris; N18.3 Chronic kidney disease, stage 3 (moderate); I12.9 Hypertensive chronic kidney disease with stage 1 through stage 4 chronic kidney disease, or unspecified chronic kidney disease; E78.00 Pure hypercholesterolemia, unspecified; E03.9 Hypothyroidism, unspecified; E55.9 Vitamin D deficiency, unspecified; E66.9 Obesity, unspecified; E11.22 Type 2 diabetes mellitus with diabetic chronic kidney disease; F12.90 Cannabis use, unspecified, uncomplicated; F17.200 Nicotine dependence, unspecified, uncomplicated; E11.65 Type 2 diabetes mellitus with hyperglycemia; F43.10 Post-traumatic stress disorder, unspecified; Z79.899 Other long term (current) drug therapy; Z88.8 Allergy status to other drugs, medicaments and biological substances; Z79.82 Long term (current) use of aspirin; Z91.5 Personal history of self-harm; Z95.1 Presence of aortocoronary bypass graft; Z59.0 Homelessness; Z68.33 Body mass index [BMI] 33.0-33.9, adult
CPT/HCPCS: 83036; 87081; G0480; J1885

== ENCOUNTER 2019-04-10 12:06 | Inpatient (IN) | payer MEDICARE, MEDICAID ==
[~2019-04-10] VITALS: Ht 167.6 cm; Wt 103.0 kg
[~2019-04-10 12:06] MED LIST changes: -DSS100 PO; +LEVO125T95 PO; -LEVO75 PO; +OLAN2.5T29 PO; -OMEP20 PO; -PREG50 PO
[2019-04-10] MEDS ORDERED: LORazepam 2 MG TABLET PO PRN (17:00)
[2019-04-10] MEDS ORDERED: HALOPERIDOL 5 MG TABLET PO PRN (17:00)
[2019-04-10] MEDS ORDERED: ZOLPIDEM TARTRATE 10 MG TABLET PO PRN (17:00)
[2019-04-10 20:53] VITALS: BP 151/77
[2019-04-10] MEDS ORDERED: MAGNESIUM HYDROXIDE SUSPENSION 30 ML UDCUP PO PRN (21:00)
[2019-04-10] MEDS ORDERED: ONDANSETRON HCL 4 MG TABLET PO PRN (21:00)
[2019-04-10] MEDS ORDERED: OMEPRAZOLE 20 MG CAPSULE PO PRN (21:00)
[2019-04-10] MEDS ORDERED: LOPERAMIDE HCL 2 MG CAPSULE PO PRN (21:00)
[2019-04-10] MEDS ORDERED: BACITRACIN 28.4 GM OINTMENT TP PRN (21:00)
[2019-04-10] MEDS ORDERED: DOCUSATE SODIUM 100 MG CAPSULE PO PRN (21:00)
[2019-04-10] MEDS ORDERED: BENZOCAINE/MENTHOL LOZENGE MM PRN (21:00)
[2019-04-10] MEDS ORDERED: CloNIDine HCL 0.1 MG TABLET PO PRN (21:00)
[2019-04-10] MEDS ORDERED: ALBUTEROL SULFATE HFA 90 MCG/PUFF 8 GM INHALER IH PRN (21:00)
[2019-04-10] MEDS ORDERED: PETROLATUM,WHITE 28 GM JELLY TP PRN (21:00)
[2019-04-10] MEDS ORDERED: MAG HYDROX/AL HYDROX/SIMETH ES 30 ML SUSPENSION UDCUP PO PRN (21:00)
[2019-04-10] MEDS ORDERED: ACETAMINOPHEN 325 MG TABLET PO PRN (21:00)
[2019-04-10] MEDS ORDERED: IBUPROFEN 600 MG TABLET PO PRN (21:00)
[2019-04-11 06:59] LABS: BASOPHILS % (AUTO) 0.7 % (0.0-2.0); EOSINOPHILS % (AUTO) 1.6 % (1.0-6.0); HEMATOCRIT 44.8 % (41-53); HEMOGLOBIN 14.6 g/dL (13.5-17.5); LYMPHOCYTES # (AUTO) 1.7 K/uL (1.0-4.8); LYMPHOCYTES % (AUTO) 13.7 % (22.0-44.0); MEAN CORPUSCULAR HEMOGLOBIN 28.4 pg (26.0-34.0); MEAN CORPUSCULAR HGB CONC 32.7 G/dL (31.0-37.0); MEAN CORPUSCULAR VOLUME 87 fL (80-100); MONOCYTES # (AUTO) 0.9 K/uL (0.1-1.0); NEUTROPHILS # (AUTO) 9.6 K/uL (1.8-7.7); PLATELET COUNT (AUTO) 480 K/uL (150-450); RED BLOOD CELL COUNT(AUTO) 5.16 MIL/uL (4.50-5.90); RED CELL DISTRIBUTION WIDTH 15.5 % (11.5-14.5)
[2019-04-11] MEDS: MetFORMIN HCL 500 MG TABLET PO SCH ×2 (07:19→17:14)
[2019-04-11] MEDS ORDERED: INSULIN LISPRO 100 UNITS/ML SQ PRN (08:00)
[2019-04-11] MEDS ORDERED: GLUCAGON,HUMAN RECOMBINANT 1 MG VIAL IM PRN (08:00)
[2019-04-11] MEDS: GABAPENTIN 300 MG CAPSULE PO SCH ×3 (08:45→17:14)
[2019-04-11] MEDS: LISINOPRIL 10 MG TABLET PO SCH (08:45)
[2019-04-11] MEDS: ATORVASTATIN CALCIUM 20 MG TABLET PO SCH (08:45)
[2019-04-11] MEDS: TAMSULOSIN HCL 0.4 MG CAPSULE PO SCH (08:46)
[2019-04-11] MEDS: NICOTINE 21 MG/24 HOUR PATCH TD SCH (08:49)
[2019-04-11 09:34] VITALS: BP 153/87
[2019-04-11] MEDS: LEVOTHYROXINE SODIUM 125 MCG TABLET PO SCH (09:52)
[2019-04-11 12:21] LABS: GLUCOMETER DEV NAME(LOC) 3E.I; GLUCOSE,POINT OF CARE 158 MG/DL (70-110)
[2019-04-11] MEDS: OLANZapine 2.5 MG TABLET PO SCH ×2 (12:55→17:14)
[2019-04-11 13:00] LABS: GLUCOMETER DEV NAME(LOC) 3E.I; GLUCOSE,POINT OF CARE 128 MG/DL (70-110)
[2019-04-11 16:58] VITALS: BP 136/87
[2019-04-11 17:01] LABS: GLUCOMETER DEV NAME(LOC) 3E.I; GLUCOSE,POINT OF CARE 147 MG/DL (70-110)
[2019-04-11] MEDS: MIRTAZAPINE 15 MG TABLET PO SCH (20:26)
[2019-04-11] MEDS ORDERED: DEXTROSE 50%-WATER 25 GM/50 ML SYRINGE IVP PRN (20:45)
[2019-04-11 21:30] LABS: GLUCOMETER DEV NAME(LOC) 3E.I; GLUCOSE,POINT OF CARE 141 MG/DL (70-110)
[2019-04-12] MEDS: INSULIN LISPRO 100 UNITS/ML SQ PRN ×2 (06:32→21:25)
[2019-04-12 06:36] LABS: GLUCOMETER DEV NAME(LOC) 3E.I; GLUCOSE,POINT OF CARE 144 MG/DL (70-110)
[2019-04-12 06:57] VITALS: BP 125/72
[2019-04-12] MEDS: HYDROCODONE/ACETAMINOPHEN 5-325 MG TABLET PO PRN (07:03)
[2019-04-12] MEDS: MetFORMIN HCL 500 MG TABLET PO SCH ×2 (07:06→17:27)
[2019-04-12] MEDS: LEVOTHYROXINE SODIUM 125 MCG TABLET PO SCH (07:06)
[2019-04-12] MEDS: GABAPENTIN 300 MG CAPSULE PO SCH ×3 (08:36→17:27)
[2019-04-12] MEDS: OLANZapine 2.5 MG TABLET PO SCH ×3 (08:36→17:26)
[2019-04-12] MEDS: TAMSULOSIN HCL 0.4 MG CAPSULE PO SCH (08:36)
[2019-04-12] MEDS: ATORVASTATIN CALCIUM 20 MG TABLET PO SCH (08:36)
[2019-04-12] MEDS: LISINOPRIL 10 MG TABLET PO SCH (08:37)
[2019-04-12] MEDS: NICOTINE 21 MG/24 HOUR PATCH TD SCH (08:42)
[2019-04-12 11:57] LABS: GLUCOMETER DEV NAME(LOC) 3E.I; GLUCOSE,POINT OF CARE 131 MG/DL (70-110)
[2019-04-12 16:46] LABS: GLUCOMETER DEV NAME(LOC) 3E.I; GLUCOSE,POINT OF CARE 133 MG/DL (70-110)
[2019-04-12 16:49] VITALS: BP 117/53
[2019-04-12] MEDS: MIRTAZAPINE 15 MG TABLET PO SCH (20:36)
[2019-04-12 21:17] LABS: GLUCOMETER DEV NAME(LOC) 3E.I; GLUCOSE,POINT OF CARE 141 MG/DL (70-110)
[2019-04-13 06:16] LABS: GLUCOMETER DEV NAME(LOC) 3E.I; GLUCOSE,POINT OF CARE 125 MG/DL (70-110)
[2019-04-13] MEDS: INSULIN LISPRO 100 UNITS/ML SQ PRN (06:37)
[2019-04-13] MEDS: MetFORMIN HCL 500 MG TABLET PO SCH ×2 (07:21→17:30)
[2019-04-13] MEDS: LEVOTHYROXINE SODIUM 125 MCG TABLET PO SCH (07:21)
[2019-04-13] MEDS: OLANZapine 2.5 MG TABLET PO SCH ×3 (08:29→16:11)
[2019-04-13] MEDS: LISINOPRIL 10 MG TABLET PO SCH (08:29)
[2019-04-13] MEDS: TAMSULOSIN HCL 0.4 MG CAPSULE PO SCH (08:30)
[2019-04-13] MEDS: GABAPENTIN 300 MG CAPSULE PO SCH ×3 (08:30→16:12)
[2019-04-13] MEDS: ATORVASTATIN CALCIUM 20 MG TABLET PO SCH (08:30)
[2019-04-13 08:32] VITALS: BP 126/73
[2019-04-13] MEDS: NICOTINE 21 MG/24 HOUR PATCH TD SCH (09:00)
[2019-04-13] MEDS: HYDROCODONE/ACETAMINOPHEN 5-325 MG TABLET PO PRN (09:04)
[2019-04-13 09:10] VITALS: BP 129/69
[2019-04-13 16:20] VITALS: BP 116/60
[2019-04-13 16:25] LABS: GLUCOMETER DEV NAME(LOC) 3EX.; GLUCOSE,POINT OF CARE 101 MG/DL (70-110)
[2019-04-13 19:39] VITALS: BP 116/60
[2019-04-13] MEDS: MIRTAZAPINE 15 MG TABLET PO SCH (20:16)
[2019-04-14 06:32] LABS: BAND NEUTROPHILS % (MANUAL) 0 % (0-5)
[2019-04-14 06:40] LABS: HEMATOCRIT 46.8 % (41-53); HEMOGLOBIN 15.2 g/dL (13.5-17.5); MEAN CORPUSCULAR HEMOGLOBIN 28.5 pg (26.0-34.0); MEAN CORPUSCULAR HGB CONC 32.5 G/dL (31.0-37.0); MEAN CORPUSCULAR VOLUME 88 fL (80-100); PLATELET COUNT (AUTO) 461 K/uL (150-450); RED BLOOD CELL COUNT(AUTO) 5.34 MIL/uL (4.50-5.90)
[2019-04-14] MEDS: LEVOTHYROXINE SODIUM 125 MCG TABLET PO SCH (06:45)
[2019-04-14] MEDS: MetFORMIN HCL 500 MG TABLET PO SCH ×2 (06:46→17:30)
[2019-04-14 07:02] LABS: GLUCOMETER DEV NAME(LOC) 3E.I; GLUCOSE,POINT OF CARE 111 MG/DL (70-110)
[2019-04-14 07:06] LABS: CALCIUM, TOTAL 9.4 mg/dL (8.8-10.5); CREATININE 1.42 mg/dL (0.60-1.30); PHOSPHORUS 4.4 mg/dL (2.5-4.9); POTASSIUM 4.3 mmol/L (3.5-5.1)
[2019-04-14 07:34] LABS: BASOPHILS % (MANUAL) 2 % (0-2); EOSINOPHILS % (MANUAL) 1 % (1-6); LYMPHOCYTES % (MANUAL) 25 % (22-44); MONOCYTES % (MANUAL) 9 % (2-9); SEGMENTED NEUTROPHILS % 63 % (40-70)
[2019-04-14 08:07] VITALS: BP 108/67
[2019-04-14] MEDS: TAMSULOSIN HCL 0.4 MG CAPSULE PO SCH (08:45)
[2019-04-14] MEDS: ATORVASTATIN CALCIUM 20 MG TABLET PO SCH (08:45)
[2019-04-14] MEDS: GABAPENTIN 300 MG CAPSULE PO SCH ×3 (08:46→17:00)
[2019-04-14] MEDS: LISINOPRIL 10 MG TABLET PO SCH (08:46)
[2019-04-14] MEDS: OLANZapine 2.5 MG TABLET PO SCH ×3 (08:47→17:00)
[2019-04-14] MEDS: NICOTINE 21 MG/24 HOUR PATCH TD SCH (09:00)
[2019-04-14 11:20] LABS: GLUCOMETER DEV NAME(LOC) 3E.I; GLUCOSE,POINT OF CARE 105 MG/DL (70-110)
[2019-04-14] MEDS: INSULIN LISPRO 100 UNITS/ML SQ PRN (12:39)
[2019-04-14 20:21] VITALS: BP 96/62
[2019-04-14] MEDS: MIRTAZAPINE 15 MG TABLET PO SCH (20:46)
[2019-04-14 21:00] LABS: GLUCOMETER DEV NAME(LOC) 3EX.; GLUCOSE,POINT OF CARE 123 MG/DL (70-110)
[2019-04-15] MEDS: HYDROCODONE/ACETAMINOPHEN 5-325 MG TABLET PO SCH ×3 (00:23→13:16)
[2019-04-15 00:47] VITALS: BP 156/93
[2019-04-15 06:28] VITALS: BP 103/58
[2019-04-15 06:32] LABS: GLUCOMETER DEV NAME(LOC) 3E.I; GLUCOSE,POINT OF CARE 116 MG/DL (70-110)
[2019-04-15] MEDS: MetFORMIN HCL 500 MG TABLET PO SCH ×2 (06:55→16:16)
[2019-04-15] MEDS ORDERED: LEVOTHYROXINE SODIUM 75 MCG TABLET PO SCH (07:00)
[2019-04-15] MEDS: NICOTINE 21 MG/24 HOUR PATCH TD SCH (09:00)
[2019-04-15] MEDS: LISINOPRIL 10 MG TABLET PO SCH (09:10)
[2019-04-15] MEDS: TAMSULOSIN HCL 0.4 MG CAPSULE PO SCH (09:10)
[2019-04-15] MEDS: OLANZapine 2.5 MG TABLET PO SCH ×3 (09:10→16:16)
[2019-04-15] MEDS: GABAPENTIN 300 MG CAPSULE PO SCH ×3 (09:11→16:16)
[2019-04-15] MEDS: ATORVASTATIN CALCIUM 20 MG TABLET PO SCH (09:11)
[2019-04-15] MEDS ORDERED: NICO-704 TD (14:16)
[2019-04-15 16:19] VITALS: BP 101/53
[2019-04-18] MEDS ORDERED: HYDROCODONE/ACETAMINOPHEN 5-325 MG TABLET PO PRN (08:00)
== END 2019-04-15 18:55 | DRG 885 ==
LOC: 3EX 17:10
PROVIDERS: ADMIT Psychiatry & Neurology Psychiatry; ATTEND Psychiatry & Neurology Psychiatry
DX: F25.0 Schizoaffective disorder, bipolar type (principal); R45.851 Suicidal ideations; I12.9 Hypertensive chronic kidney disease with stage 1 through stage 4 chronic kidney disease, or unspecified chronic kidney disease; I25.10 Atherosclerotic heart disease of native coronary artery without angina pectoris; F17.200 Nicotine dependence, unspecified, uncomplicated; E66.9 Obesity, unspecified; E55.9 Vitamin D deficiency, unspecified; E11.65 Type 2 diabetes mellitus with hyperglycemia; E11.22 Type 2 diabetes mellitus with diabetic chronic kidney disease; E03.9 Hypothyroidism, unspecified; J44.9 Chronic obstructive pulmonary disease, unspecified; M19.90 Unspecified osteoarthritis, unspecified site; N18.3 Chronic kidney disease, stage 3 (moderate); R45.850 Homicidal ideations; Z59.0 Homelessness; Z79.82 Long term (current) use of aspirin; Z79.899 Other long term (current) drug therapy; Z95.1 Presence of aortocoronary bypass graft; Z71.6 Tobacco abuse counseling; Z71.41 Alcohol abuse counseling and surveillance of alcoholic; Z68.36 Body mass index [BMI] 36.0-36.9, adult
CPT/HCPCS: 83036; 83735; 84100; 85007; 97161; G0378

== ENCOUNTER 2019-05-15 12:59 | Inpatient (IN) | payer MEDICARE, MEDICAID ==
[~2019-05-15 12:59] MED LIST changes: +NICO-704 TD; -OLAN2.5T29 PO
[2019-05-15 14:42] VITALS: BP 142/76
[2019-05-15] MEDS ORDERED: LORazepam 2 MG TABLET PO PRN (14:45)
[2019-05-15 16:18] VITALS: BP 131/60
[2019-05-15] MEDS ORDERED: INSULIN LISPRO 100 UNITS/ML SQ PRN (17:00)
[2019-05-15] MEDS ORDERED: GLUCAGON,HUMAN RECOMBINANT 1 MG VIAL IM PRN (17:00)
[2019-05-15] MEDS ORDERED: ALBUTEROL SULFATE HFA 90 MCG/PUFF 8 GM INHALER IH PRN (17:00)
[2019-05-15 17:15] LABS: GLUCOMETER DEV NAME(LOC) BV2X.; GLUCOSE,POINT OF CARE 94 MG/DL (70-110)
[2019-05-15] MEDS: GABAPENTIN 300 MG CAPSULE PO SCH (17:16)
[2019-05-16 06:23] VITALS: BP 121/73
[2019-05-16] MEDS: MetFORMIN HCL 500 MG TABLET PO SCH ×2 (06:24→16:45)
[2019-05-16] MEDS: LEVOTHYROXINE SODIUM 75 MCG TABLET PO SCH (06:24)
[2019-05-16 06:36] LABS: GLUCOMETER DEV NAME(LOC) BV2X.; GLUCOSE,POINT OF CARE 150 MG/DL (70-110)
[2019-05-16 07:51] LABS: BASOPHILS % (AUTO) 0.4 % (0.0-2.0); EOSINOPHILS % (AUTO) 1.3 % (1.0-6.0); HEMATOCRIT 40.7 % (41-53); HEMOGLOBIN 13.8 g/dL (13.5-17.5); LYMPHOCYTES # (AUTO) 1.2 K/uL (1.0-4.8); LYMPHOCYTES % (AUTO) 12.5 % (22.0-44.0); MEAN CORPUSCULAR HEMOGLOBIN 28.3 pg (26.0-34.0); MEAN CORPUSCULAR HGB CONC 33.9 G/dL (31.0-37.0); MEAN CORPUSCULAR VOLUME 84 fL (80-100); MONOCYTES # (AUTO) 0.7 K/uL (0.1-1.0); MONOCYTES % (AUTO) 7.9 % (2.0-9.0); NEUTROPHILS # (AUTO) 7.3 K/uL (1.8-7.7); NEUTROPHILS % (AUTO) 77.9 % (40.0-70.0); PLATELET COUNT (AUTO) 375 K/uL (150-450); RED BLOOD CELL COUNT(AUTO) 4.87 MIL/uL (4.50-5.90); RED CELL DISTRIBUTION WIDTH 16.2 % (11.5-14.5)
[2019-05-16 07:58] LABS: HEMOGLOBIN A1C 6.9 % (4.5-6.2)
[2019-05-16] MEDS ORDERED: IBUPROFEN 600 MG TABLET PO PRN (08:15)
[2019-05-16] MEDS ORDERED: ALBUTEROL SULFATE HFA 90 MCG/PUFF 8 GM INHALER IH PRN (08:15)
[2019-05-16] MEDS ORDERED: ACETAMINOPHEN 325 MG TABLET PO PRN (08:15)
[2019-05-16] MEDS ORDERED: BACITRACIN 28.4 GM OINTMENT TP PRN (08:15)
[2019-05-16] MEDS ORDERED: LOPERAMIDE HCL 2 MG CAPSULE PO PRN (08:15)
[2019-05-16] MEDS ORDERED: CloNIDine HCL 0.1 MG TABLET PO PRN (08:15)
[2019-05-16] MEDS ORDERED: MAGNESIUM HYDROXIDE SUSPENSION 30 ML UDCUP PO PRN (08:15)
[2019-05-16] MEDS ORDERED: BENZOCAINE/MENTHOL LOZENGE MM PRN (08:15)
[2019-05-16] MEDS ORDERED: ONDANSETRON HCL 4 MG TABLET PO PRN (08:15)
[2019-05-16] MEDS ORDERED: MAG HYDROX/AL HYDROX/SIMETH ES 30 ML SUSPENSION UDCUP PO PRN (08:15)
[2019-05-16] MEDS ORDERED: PETROLATUM,WHITE 28 GM JELLY TP PRN (08:15)
[2019-05-16 08:24] LABS: ALBUMIN 3.3 g/dL (3.4-5.0); BILIRUBIN,TOTAL 0.5 mg/dL (0.1-1.0); CALCIUM, TOTAL 9.1 mg/dL (8.8-10.5); CHOL/HDL RATIO 7.8 (4.2-7.3); CREATININE 1.24 mg/dL (0.60-1.30); FREE T4 (FREE THYROXINE) 0.48 ng/dL (0.76-1.46); THYROID STIMULATING HORMONE 40.35 uIU/mL (0.36-3.74)
[2019-05-16] MEDS: GABAPENTIN 300 MG CAPSULE PO SCH ×3 (09:00→16:45)
[2019-05-16] MEDS: TAMSULOSIN HCL 0.4 MG CAPSULE PO SCH (09:00)
[2019-05-16] MEDS: DOCUSATE SODIUM 100 MG CAPSULE PO SCH (09:00)
[2019-05-16] MEDS: LISINOPRIL 10 MG TABLET PO SCH (09:00)
[2019-05-16] MEDS: OMEPRAZOLE 20 MG CAPSULE PO SCH (09:00)
[2019-05-16] MEDS: BuPROPion HCL XL 150 MG ER TABLET PO SCH (10:00)
[2019-05-16] MEDS: OLANZapine 5 MG TABLET PO SCH ×2 (10:00→16:45)
[2019-05-16 16:26] VITALS: BP 126/72
[2019-05-16] MEDS: HYDROCODONE/ACETAMINOPHEN 5-325 MG TABLET PO PRN (16:29)
[2019-05-16 16:35] LABS: GLUCOMETER DEV NAME(LOC) BV2X.; GLUCOSE,POINT OF CARE 112 MG/DL (70-110)
[2019-05-17 05:10] VITALS: BP 122/70
[2019-05-17 06:11] LABS: GLUCOMETER DEV NAME(LOC) BV2X.; GLUCOSE,POINT OF CARE 124 MG/DL (70-110)
[2019-05-17] MEDS: LEVOTHYROXINE SODIUM 75 MCG TABLET PO SCH (06:36)
[2019-05-17] MEDS: MetFORMIN HCL 500 MG TABLET PO SCH ×2 (06:36→16:10)
[2019-05-17 07:06] VITALS: BP 128/84
[2019-05-17 08:00] VITALS: BP 113/66
[2019-05-17] MEDS: DOCUSATE SODIUM 100 MG CAPSULE PO SCH (09:00)
[2019-05-17] MEDS: GABAPENTIN 300 MG CAPSULE PO SCH ×3 (09:00→16:11)
[2019-05-17] MEDS: BuPROPion HCL XL 150 MG ER TABLET PO SCH (09:00)
[2019-05-17] MEDS: TAMSULOSIN HCL 0.4 MG CAPSULE PO SCH (09:00)
[2019-05-17] MEDS: LISINOPRIL 10 MG TABLET PO SCH (09:00)
[2019-05-17] MEDS: OMEPRAZOLE 20 MG CAPSULE PO SCH (09:00)
[2019-05-17] MEDS: OLANZapine 5 MG TABLET PO SCH ×2 (09:00→16:11)
[2019-05-17 16:02] VITALS: BP 116/60
[2019-05-17 16:51] LABS: GLUCOMETER DEV NAME(LOC) BV2X.; GLUCOSE,POINT OF CARE 92 MG/DL (70-110)
[2019-05-17] MEDS: ZOLPIDEM TARTRATE 10 MG TABLET PO PRN (20:33)
[2019-05-18 00:13] VITALS: BP 119/78
[2019-05-18] MEDS: LEVOTHYROXINE SODIUM 75 MCG TABLET PO SCH (06:19)
[2019-05-18] MEDS: MetFORMIN HCL 500 MG TABLET PO SCH ×2 (06:34→16:04)
[2019-05-18 06:42] LABS: GLUCOMETER DEV NAME(LOC) BV2X.; GLUCOSE,POINT OF CARE 87 MG/DL (70-110)
[2019-05-18 08:20] VITALS: BP 115/67
[2019-05-18] MEDS: OMEPRAZOLE 20 MG CAPSULE PO SCH (08:51)
[2019-05-18] MEDS: GABAPENTIN 300 MG CAPSULE PO SCH ×3 (08:51→16:04)
[2019-05-18] MEDS: DOCUSATE SODIUM 100 MG CAPSULE PO SCH (08:51)
[2019-05-18] MEDS: LISINOPRIL 10 MG TABLET PO SCH (08:51)
[2019-05-18] MEDS: TAMSULOSIN HCL 0.4 MG CAPSULE PO SCH (08:51)
[2019-05-18] MEDS: OLANZapine 5 MG TABLET PO SCH (08:52)
[2019-05-18] MEDS: BuPROPion HCL XL 150 MG ER TABLET PO SCH (08:52)
[2019-05-18 09:20] VITALS: BP 115/67
[2019-05-18] MEDS: HYDROCODONE/ACETAMINOPHEN 5-325 MG TABLET PO PRN ×2 (09:29→21:06)
[2019-05-18 16:03] VITALS: BP 105/64
[2019-05-18 17:11] LABS: GLUCOMETER DEV NAME(LOC) BV2X.; GLUCOSE,POINT OF CARE 143 MG/DL (70-110)
[2019-05-18] MEDS: ZOLPIDEM TARTRATE 10 MG TABLET PO PRN (20:43)
[2019-05-18 20:45] VITALS: BP 111/61
[2019-05-18] MEDS ORDERED: OLANZapine 10 MG TABLET PO SCH (21:00)
[2019-05-19 06:26] LABS: GLUCOMETER DEV NAME(LOC) BV2X.; GLUCOSE,POINT OF CARE 103 MG/DL (70-110)
[2019-05-19] MEDS: MetFORMIN HCL 500 MG TABLET PO SCH (06:44)
[2019-05-19] MEDS: LEVOTHYROXINE SODIUM 75 MCG TABLET PO SCH (06:44)
[2019-05-19 08:22] VITALS: BP 108/66
[2019-05-19] MEDS: GABAPENTIN 300 MG CAPSULE PO SCH (09:07)
[2019-05-19] MEDS: TAMSULOSIN HCL 0.4 MG CAPSULE PO SCH (09:07)
[2019-05-19] MEDS: DOCUSATE SODIUM 100 MG CAPSULE PO SCH (09:07)
[2019-05-19] MEDS: LISINOPRIL 10 MG TABLET PO SCH (09:08)
[2019-05-19] MEDS: OMEPRAZOLE 20 MG CAPSULE PO SCH (09:08)
[2019-05-19] MEDS: BuPROPion HCL XL 150 MG ER TABLET PO SCH (09:08)
[2019-05-19] MEDS ORDERED: OLAN10TA3 PO (11:07)
[2019-05-19] MEDS ORDERED: BUPR-93 PO (11:07)
== END 2019-05-19 12:57 | disposition home or self-care (01) | DRG 885 ==
LOC: B2X 14:53
PROVIDERS: ADMIT Psychiatry & Neurology Psychiatry; ATTEND Psychiatry & Neurology Psychiatry
DX: F25.9 Schizoaffective disorder, unspecified (principal); R45.851 Suicidal ideations; E03.9 Hypothyroidism, unspecified; E11.22 Type 2 diabetes mellitus with diabetic chronic kidney disease; E11.65 Type 2 diabetes mellitus with hyperglycemia; E55.9 Vitamin D deficiency, unspecified; E66.9 Obesity, unspecified; F17.200 Nicotine dependence, unspecified, uncomplicated; F32.9 Major depressive disorder, single episode, unspecified; I12.9 Hypertensive chronic kidney disease with stage 1 through stage 4 chronic kidney disease, or unspecified chronic kidney disease; I25.10 Atherosclerotic heart disease of native coronary artery without angina pectoris; J44.9 Chronic obstructive pulmonary disease, unspecified; M19.90 Unspecified osteoarthritis, unspecified site; N18.3 Chronic kidney disease, stage 3 (moderate); Z88.8 Allergy status to other drugs, medicaments and biological substances; Z59.0 Homelessness; Z79.82 Long term (current) use of aspirin; Z91.14 Patient's other noncompliance with medication regimen; Z95.1 Presence of aortocoronary bypass graft
CPT/HCPCS: 83036; 84439; 84443; 87081

== ENCOUNTER 2021-07-19 13:33 | Inpatient (IN) | payer MEDICARE, MEDICAID ==
[~2021-07-19] VITALS: Ht 167.6 cm; Wt 96.2 kg
[~2021-07-19 13:33] MED LIST changes: -ATOR20TA86 PO; +BUPR-93 PO; +GABA-1181 PO; -GABA-531 PO; -LISI-661 PO; +LISI-893 PO; +METF-1211 PO; -METF-960 PO; -MIRT15 PO; -NICO-704 TD; +OLAN10TA74 PO; -OLAN2.5T3 PO
[2021-07-19] MEDS ORDERED: ALBU8HFA IH (13:38)
[2021-07-19] MEDS ORDERED: NITR6.5C19 PO (13:38)
[2021-07-19 14:23] LABS: BASOPHILS % (AUTO) 0.4 % (0.0-2.0); EOSINOPHILS % (AUTO) 1.3 % (1.0-6.0); HEMATOCRIT 41.5 % (41-53); HEMOGLOBIN 13.9 g/dL (13.5-17.5); LYMPHOCYTES # (AUTO) 1.6 K/uL (1.0-4.8); LYMPHOCYTES % (AUTO) 15.2 % (22.0-44.0); MEAN CORPUSCULAR HEMOGLOBIN 28.5 pg (26.0-34.0); MEAN CORPUSCULAR HGB CONC 33.5 G/dL (31.0-37.0); MEAN CORPUSCULAR VOLUME 85 fL (80-100); MONOCYTES % (AUTO) 9.5 % (2.0-9.0); NEUTROPHILS % (AUTO) 73.6 % (40.0-70.0); PLATELET COUNT (AUTO) 273 K/uL (150-450); RED BLOOD CELL COUNT(AUTO) 4.87 MIL/uL (4.50-5.90); RED CELL DISTRIBUTION WIDTH 15.1 % (11.5-14.5)
[2021-07-19 14:33] LABS: ANION GAP 8 mmol/L (8-16); CALCIUM, TOTAL 9.4 mg/dL (8.8-10.5); CARBON DIOXIDE 27 mmol/L (22-29); CHLORIDE 106 mmol/L (98-107); CREATININE 1.48 mg/dL (0.60-1.30); GLOMERULAR FILTR. RATE CALC 47 mL/min (>60); GLUCOSE,RANDOM 225 mg/dL (70-110); SODIUM SERUM 141 mmol/L (136-145); UREA NITROGEN, BLOOD 22 mg/dL (7-18)
[2021-07-19 14:40] LABS: ALANINE AMINOTRANSFERASE 35 U/L (12-78); ALBUMIN 3.6 g/dL (3.4-5.0); ALKALINE PHOSPHATASE 69 U/L (46-116); ASPARTATE AMINOTRANSFERASE 32 U/L (15-37); BILIRUBIN,TOTAL 0.4 mg/dL (0.1-1.0); TOTAL PROTEIN, SERUM 6.9 g/dL (6.4-8.2)
[2021-07-19 15:11] LABS: GLUCOMETER DEV NAME(LOC) ERT.5; GLUCOSE,POINT OF CARE 238 MG/DL (70-110)
[2021-07-19] MEDS ORDERED: LORazepam 2 MG TABLET PO PRN (16:15)
[2021-07-19] MEDS ORDERED: ZOLPIDEM TARTRATE 10 MG TABLET PO PRN (16:15)
[2021-07-19] MEDS ORDERED: HALOPERIDOL 5 MG TABLET PO PRN (16:15)
[2021-07-19 16:36] LABS: COVID AG,FIA SOURCE NASOPHARYNGEAL
[2021-07-19 16:47] LABS: AMPHET/METH SCREEN,URINE NEGATIVE (NEGATIVE); BARBITURATE SCREEN, URINE NEGATIVE (NEGATIVE); BENZODIAZEPINES SCREEN,URINE NEGATIVE (NEGATIVE); CANNABINOID SCREEN,URINE NEGATIVE (NEGATIVE); COCAINE SCREEN,URINE NEGATIVE (NEGATIVE); METHADONE SCREEN, URINE NEGATIVE (NEGATIVE); OPIATE SCREEN,URINE NEGATIVE (NEGATIVE)
[2021-07-19 16:48] LABS: PHENCYCLIDINE SCREEN,URINE NEGATIVE (NEGATIVE)
[2021-07-19 16:51] LABS: APPEARANCE,URINE CLEAR (CLEAR); BILIRUBIN,URINE NEGATIVE (NEGATIVE); GLUCOSE, URINE (UA) 100 mg/dL (NEGATIVE); KETONES,URINE NEGATIVE (NEGATIVE); LEUKOCYTE ESTERASE ,URINE NEGATIVE (NEGATIVE); NITRATE,URINE NEGATIVE (NEGATIVE); OCCULT BLOOD,URINE NEGATIVE (NEGATIVE); PROTEIN,URINE TRACE (NEGATIVE)
[2021-07-19 17:10] LABS: BACTERIA,URINE None Seen /HPF (None Seen); RBC,URINE None Seen /HPF (0-2); SQUAMOUS EPITHELIAL CELL,UR Few /LPF (None Seen); WBC,URINE None Seen /HPF (0-5)
[2021-07-19 17:34] VITALS: BP 158/85
[2021-07-19 17:49] VITALS: BP 158/85
[2021-07-19] MEDS ORDERED: INFLUENZA VIRUS VACCINE QVS 2021-22 (6MO+)/PF 60 MCG/0.5 ML SYRINGE IM. ONE (19:15)
[2021-07-19] MEDS ORDERED: ALBUTEROL SULFATE HFA 90 MCG/PUFF 8 GM INHALER IH PRN (20:15)
[2021-07-20] MEDS: MetFORMIN HCL 500 MG TABLET PO SCH ×2 (07:08→17:23)
[2021-07-20] MEDS ORDERED: GuaiFENesin/D-METHORPHAN [SUGAR-FREE] 200-20MG/10 ML SYRUP UDCUP PO PRN (07:45)
[2021-07-20] MEDS ORDERED: ACETAMINOPHEN 325 MG TABLET PO PRN (07:45)
[2021-07-20] MEDS ORDERED: LOPERAMIDE HCL 2 MG CAPSULE PO PRN (07:45)
[2021-07-20] MEDS ORDERED: MAG HYDROX/AL HYDROX/SIMETH ES 30 ML SUSPENSION UDCUP PO PRN (07:45)
[2021-07-20] MEDS ORDERED: ALBUTEROL SULFATE HFA 90 MCG/PUFF 8 GM INHALER IH PRN ×2 (07:45)
[2021-07-20] MEDS ORDERED: MAGNESIUM HYDROXIDE SUSPENSION 30 ML UDCUP PO PRN (07:45)
[2021-07-20] MEDS ORDERED: NICOTINE 14 MG/24 HOUR PATCH TD PRN (07:45)
[2021-07-20] MEDS ORDERED: DOCUSATE SODIUM 100 MG CAPSULE PO PRN (07:45)
[2021-07-20] MEDS ORDERED: IBUPROFEN 400 MG TABLET PO PRN (07:45)
[2021-07-20] MEDS ORDERED: ONDANSETRON HCL 4 MG TABLET PO PRN (07:45)
[2021-07-20] MEDS ORDERED: CloNIDine HCL 0.1 MG TABLET PO PRN (07:45)
[2021-07-20] MEDS ORDERED: PETROLATUM,WHITE 28 GM JELLY TP PRN (07:45)
[2021-07-20] MEDS: TAMSULOSIN HCL 0.4 MG CAPSULE PO SCH (08:13)
[2021-07-20] MEDS: LISINOPRIL 10 MG TABLET PO SCH (08:13)
[2021-07-20 08:54] VITALS: BP 117/67
[2021-07-20] MEDS ORDERED: LISINOPRIL 10 MG TABLET PO SCH (09:00)
[2021-07-20] MEDS ORDERED: LEVO75 PO (13:57)
[2021-07-20] MEDS ORDERED: NITR0.4T52 SL (13:57)
[2021-07-20] MEDS ORDERED: ATOR40TA71 PO (13:58)
[2021-07-20] MEDS ORDERED: METO-391 PO (13:58)
[2021-07-20] MEDS ORDERED: TIOT185 IH (13:58)
[2021-07-20 16:24] LABS: GLUCOMETER DEV NAME(LOC) 3EX.; GLUCOSE,POINT OF CARE 174 MG/DL (70-110)
[2021-07-20] MEDS: GABAPENTIN 300 MG CAPSULE PO SCH (16:50)
[2021-07-20 17:16] VITALS: BP 119/79
[2021-07-20] MEDS ORDERED: MetFORMIN HCL 500 MG TABLET PO SCH (17:30)
[2021-07-20] MEDS: OLANZapine 10 MG TABLET PO SCH (21:13)
[2021-07-21 06:15] LABS: GLUCOMETER DEV NAME(LOC) 3EX.; GLUCOSE,POINT OF CARE 163 MG/DL (70-110)
[2021-07-21] MEDS: LEVOTHYROXINE SODIUM 75 MCG TABLET PO SCH (06:27)
[2021-07-21] MEDS: MetFORMIN HCL 500 MG TABLET PO SCH ×2 (06:28→16:43)
[2021-07-21] MEDS: GABAPENTIN 300 MG CAPSULE PO SCH ×3 (08:44→16:44)
[2021-07-21] MEDS: BuPROPion HCL XL 150 MG ER TABLET PO SCH (08:44)
[2021-07-21] MEDS: TAMSULOSIN HCL 0.4 MG CAPSULE PO SCH (08:45)
[2021-07-21] MEDS: LISINOPRIL 10 MG TABLET PO SCH (08:45)
[2021-07-21 09:11] VITALS: BP 148/86
[2021-07-21 17:11] LABS: GLUCOMETER DEV NAME(LOC) 3EX.; GLUCOSE,POINT OF CARE 166 MG/DL (70-110)
[2021-07-21] MEDS: OLANZapine 10 MG TABLET PO SCH (20:24)
[2021-07-22 05:39] LABS: GLUCOMETER DEV NAME(LOC) 3EX.; GLUCOSE,POINT OF CARE 149 MG/DL (70-110)
[2021-07-22] MEDS: LEVOTHYROXINE SODIUM 75 MCG TABLET PO SCH (06:40)
[2021-07-22] MEDS: MetFORMIN HCL 500 MG TABLET PO SCH (06:41)
[2021-07-22 08:00] VITALS: BP 140/70
[2021-07-22] MEDS: GABAPENTIN 300 MG CAPSULE PO SCH ×2 (09:03→12:13)
[2021-07-22] MEDS: BuPROPion HCL XL 150 MG ER TABLET PO SCH (09:04)
[2021-07-22] MEDS: TAMSULOSIN HCL 0.4 MG CAPSULE PO SCH (09:04)
[2021-07-22] MEDS: LISINOPRIL 10 MG TABLET PO SCH (09:04)
== END 2021-07-22 12:43 | disposition home or self-care (01) | DRG 885 ==
LOC: EMS 13:33 → 3EX 16:01
PROVIDERS: ADMIT Psychiatry & Neurology Psychiatry; ATTEND Psychiatry & Neurology Psychiatry
DX: F25.0 Schizoaffective disorder, bipolar type (principal); N18.9 Chronic kidney disease, unspecified; R45.851 Suicidal ideations; F31.4 Bipolar disorder, current episode depressed, severe, without psychotic features; E03.9 Hypothyroidism, unspecified; E11.22 Type 2 diabetes mellitus with diabetic chronic kidney disease; E78.00 Pure hypercholesterolemia, unspecified; E78.5 Hyperlipidemia, unspecified; F43.10 Post-traumatic stress disorder, unspecified; G89.29 Other chronic pain; M19.90 Unspecified osteoarthritis, unspecified site; Z20.822 Contact with and (suspected) exposure to COVID-19; E66.9 Obesity, unspecified; K21.9 Gastro-esophageal reflux disease without esophagitis; I12.9 Hypertensive chronic kidney disease with stage 1 through stage 4 chronic kidney disease, or unspecified chronic kidney disease; F17.210 Nicotine dependence, cigarettes, uncomplicated; I25.10 Atherosclerotic heart disease of native coronary artery without angina pectoris; J44.9 Chronic obstructive pulmonary disease, unspecified; Z79.899 Other long term (current) drug therapy; Z91.51 Personal history of suicidal behavior; Z68.34 Body mass index [BMI] 34.0-34.9, adult; Z88.8 Allergy status to other drugs, medicaments and biological substances
CPT/HCPCS: 80053; 81001; 82962; 85025; 99285; G0378; G0480

== ENCOUNTER 2021-10-07 11:52 | Inpatient (IN) | payer MEDICARE, MEDICAID ==
[~2021-10-07] VITALS: Ht 167.6 cm; Wt 106.6 kg
[~2021-10-07 11:52] MED LIST changes: +ALBU8HFA IH; +ATOR40TA71 PO; -LEVO125T95 PO; +LEVO75 PO; +METO-391 PO; +NITR0.4T52 SL; +TIOT185 IH
[2021-10-07] MEDS ORDERED: HALOPERIDOL 5 MG TABLET PO PRN (13:00)
[2021-10-07] MEDS ORDERED: ZOLPIDEM TARTRATE 10 MG TABLET PO PRN (13:00)
[2021-10-07] MEDS ORDERED: LORazepam 2 MG TABLET PO PRN (13:00)
[2021-10-07 14:52] VITALS: BP 152/84
[2021-10-07] MEDS ORDERED: INFLUENZA VIRUS VACCINE QVS 2021-22 (6MO+)/PF 60 MCG/0.5 ML SYRINGE IM. ONE (15:15)
[2021-10-07] MEDS ORDERED: PNEUMOCOCCAL VACCINE POLYVALENT 0.5 ML VIAL [PPSV23] IM. ONE (15:15)
[2021-10-07 15:16] LABS: GLUCOMETER DEV NAME(LOC) POC.BV
[2021-10-07 16:22] VITALS: BP 148/89
[2021-10-07] MEDS ORDERED: OLANZapine 10 MG TABLET PO SCH (21:00)
[2021-10-07] MEDS ORDERED: NITROGLYCERIN 0.4 MG SUBLINGUAL TABLET #25 SL PRN (21:30)
[2021-10-07] MEDS ORDERED: NICOTINE 21 MG/24 HOUR PATCH TD PRN (21:30)
[2021-10-08] MEDS ORDERED: LOPERAMIDE HCL 2 MG CAPSULE PO PRN (06:15)
[2021-10-08] MEDS ORDERED: PETROLATUM,WHITE 28 GM JELLY TP PRN (06:15)
[2021-10-08] MEDS ORDERED: MAGNESIUM HYDROXIDE SUSPENSION 30 ML UDCUP PO PRN (06:15)
[2021-10-08] MEDS ORDERED: BENZOCAINE/MENTHOL LOZENGE PO PRN (06:15)
[2021-10-08] MEDS ORDERED: MAG HYDROX/AL HYDROX/SIMETH ES 30 ML SUSPENSION UDCUP PO PRN (06:15)
[2021-10-08] MEDS ORDERED: OMEPRAZOLE 20 MG CAPSULE PO PRN (06:15)
[2021-10-08] MEDS ORDERED: CloNIDine HCL 0.1 MG TABLET PO PRN (06:15)
[2021-10-08] MEDS ORDERED: ONDANSETRON HCL 4 MG TABLET PO PRN (06:15)
[2021-10-08] MEDS ORDERED: DOCUSATE SODIUM 100 MG CAPSULE PO PRN (06:15)
[2021-10-08] MEDS ORDERED: ACETAMINOPHEN 325 MG TABLET PO PRN (06:15)
[2021-10-08] MEDS ORDERED: ALBUTEROL SULFATE HFA 90 MCG/PUFF 8 GM INHALER IH PRN (06:15)
[2021-10-08] MEDS ORDERED: IBUPROFEN 600 MG TABLET PO PRN (06:15)
[2021-10-08] MEDS ORDERED: BACITRACIN 28 GM OINTMENT TP PRN (06:15)
[2021-10-08] MEDS ORDERED: LEVOTHYROXINE SODIUM 75 MCG TABLET PO SCH (06:30)
[2021-10-08] MEDS ORDERED: MetFORMIN HCL 500 MG TABLET PO SCH (07:00)
[2021-10-08 07:20] LABS: BASOPHILS % (AUTO) 0.5 % (0.0-2.0); EOSINOPHILS % (AUTO) 1.7 % (1.0-6.0); HEMATOCRIT 45.2 % (41-53); HEMOGLOBIN 15.4 g/dL (13.5-17.5); LYMPHOCYTES # (AUTO) 1.9 K/uL (1.0-4.8); LYMPHOCYTES % (AUTO) 23.2 % (22.0-44.0); MEAN CORPUSCULAR HEMOGLOBIN 29.7 pg (26.0-34.0); MEAN CORPUSCULAR HGB CONC 34.1 G/dL (31.0-37.0); MEAN CORPUSCULAR VOLUME 87 fL (80-100); MONOCYTES # (AUTO) 0.8 K/uL (0.1-1.0); NEUTROPHILS # (AUTO) 5.2 K/uL (1.8-7.7); NEUTROPHILS % (AUTO) 64.6 % (40.0-70.0); PLATELET COUNT (AUTO) 256 K/uL (150-450); RED CELL DISTRIBUTION WIDTH 16.2 % (11.5-14.5)
[2021-10-08 07:30] LABS: HEMOGLOBIN A1C 7.7 % (3.8-5.6)
[2021-10-08 07:54] LABS: ALANINE AMINOTRANSFERASE 26 U/L (12-78); ALBUMIN 3.5 g/dL (3.4-5.0); ALKALINE PHOSPHATASE 66 U/L (46-116); ANION GAP 12 mmol/L (8-16); ASPARTATE AMINOTRANSFERASE 20 U/L (15-37); BILIRUBIN,TOTAL 0.6 mg/dL (0.1-1.0); CALCIUM, TOTAL 8.9 mg/dL (8.8-10.5); CARBON DIOXIDE 25 mmol/L (22-29); CHLORIDE 101 mmol/L (98-107); CHOLESTEROL 241 mg/dL (131-200); CREATININE 1.26 mg/dL (0.60-1.30); FREE T4 (FREE THYROXINE) 0.65 ng/dL (0.76-1.46); GLOMERULAR FILTR. RATE CALC 56 mL/min (>60); GLUCOSE,RANDOM 164 mg/dL (70-110); HDL CHOLESTEROL 30 mg/dL (40-60); LDL CHOL (CALC.) 178 mg/dL (0-130); POTASSIUM 3.6 mmol/L (3.5-5.1); SODIUM SERUM 138 mmol/L (136-145); THYROID STIMULATING HORMONE 35.12 uIU/mL (0.36-3.74); TOTAL PROTEIN, SERUM 7.1 g/dL (6.4-8.2); TRIGLYCERIDES 163 mg/dL (15-150); UREA NITROGEN, BLOOD 13 mg/dL (7-18)
[2021-10-08 08:26] VITALS: BP 136/69
[2021-10-08] MEDS ORDERED: LISINOPRIL 10 MG TABLET PO SCH (09:00)
[2021-10-08] MEDS ORDERED: TIOTROPIUM BROMIDE 18 MCG/INH HANDIHALER [5] IH SCH (09:00)
[2021-10-08] MEDS ORDERED: TAMSULOSIN HCL 0.4 MG CAPSULE PO SCH (09:00)
[2021-10-08] MEDS ORDERED: BuPROPion HCL 150 MG SR TABLET PO SCH (09:00)
[2021-10-08] MEDS ORDERED: ATORVASTATIN CALCIUM 40 MG TABLET PO SCH (09:00)
[2021-10-08] MEDS ORDERED: GABAPENTIN 300 MG CAPSULE PO SCH (09:00)
[2021-10-08] MEDS: GABAPENTIN 300 MG CAPSULE PO SCH ×2 (09:27→13:00)
[2021-10-08] MEDS ORDERED: TRAZ-252 PO (17:15)
[2021-10-08] MEDS ORDERED: OMEP20CA12 PO (17:15)
== END 2021-10-08 18:39 | disposition short-term general hospital (02) | DRG 885 ==
LOC: B2S 13:33
PROVIDERS: ADMIT Psychiatry & Neurology Psychiatry; ATTEND Psychiatry & Neurology Psychiatry
DX: F25.9 Schizoaffective disorder, unspecified (principal); N18.30 Chronic kidney disease, stage 3 unspecified; E11.65 Type 2 diabetes mellitus with hyperglycemia; I12.9 Hypertensive chronic kidney disease with stage 1 through stage 4 chronic kidney disease, or unspecified chronic kidney disease; Z59.00 Homelessness unspecified; E03.9 Hypothyroidism, unspecified; E11.22 Type 2 diabetes mellitus with diabetic chronic kidney disease; E55.9 Vitamin D deficiency, unspecified; E66.9 Obesity, unspecified; F17.200 Nicotine dependence, unspecified, uncomplicated; F32.9 Major depressive disorder, single episode, unspecified; I25.10 Atherosclerotic heart disease of native coronary artery without angina pectoris; J44.9 Chronic obstructive pulmonary disease, unspecified; F32.A Depression, unspecified; Z20.822 Contact with and (suspected) exposure to COVID-19; M19.90 Unspecified osteoarthritis, unspecified site; Z79.82 Long term (current) use of aspirin; Z95.1 Presence of aortocoronary bypass graft
CPT/HCPCS: 80053; 80061; 83036; 84436; 84439; 84443; 85025; 86592; G0480

== ENCOUNTER 2021-10-08 15:22 | Inpatient (IN) | payer MEDICARE, MEDICAID ==
[~2021-10-08] VITALS: Ht 167.6 cm; Wt 100.2 kg
[2021-10-08 15:50] LABS: BASOPHILS % (AUTO) 0.3 % (0.0-2.0); EOSINOPHILS % (AUTO) 1.1 % (1.0-6.0); HEMATOCRIT 43.2 % (41-53); HEMOGLOBIN 14.4 g/dL (13.5-17.5); LYMPHOCYTES % (AUTO) 17.6 % (22.0-44.0); MEAN CORPUSCULAR HEMOGLOBIN 29.2 pg (26.0-34.0); MEAN CORPUSCULAR HGB CONC 33.3 G/dL (31.0-37.0); MEAN CORPUSCULAR VOLUME 88 fL (80-100); MONOCYTES # (AUTO) 1.1 K/uL (0.1-1.0); MONOCYTES % (AUTO) 9.6 % (2.0-9.0); NEUTROPHILS # (AUTO) 8.3 K/uL (1.8-7.7); NEUTROPHILS % (AUTO) 71.4 % (40.0-70.0); PLATELET COUNT (AUTO) 253 K/uL (150-450); RED BLOOD CELL COUNT(AUTO) 4.93 MIL/uL (4.50-5.90); RED CELL DISTRIBUTION WIDTH 15.8 % (11.5-14.5)
[2021-10-08 16:00] LABS: CALCIUM, TOTAL 8.6 mg/dL (8.8-10.5); CREATININE 1.73 mg/dL (0.60-1.30); POTASSIUM 3.8 mmol/L (3.5-5.1); PROTHROMBIN TIME 10.5 SEC (9.4-11.6)
[2021-10-08 16:03] LABS: COVID AG,FIA SOURCE NASAL SWAB
[2021-10-08 16:15] LABS: LACTIC ACID 1.1 mmol/L (0.4-2.0)
[2021-10-08 16:22] LABS: AMMONIA 23 umol/L (11-32)
[2021-10-08] MEDS ORDERED: SODIUM CHLORIDE 0.9% 250 ML IRRIG SOLUTION BOTTLE IRRIG ONE (16:30)
[2021-10-08 16:32] LABS: ALBUMIN 3.3 g/dL (3.4-5.0); BILIRUBIN,TOTAL 0.5 mg/dL (0.1-1.0); FREE T4 (FREE THYROXINE) 0.87 ng/dL (0.76-1.46); THYROID STIMULATING HORMONE 41.37 uIU/mL (0.36-3.74); TOTAL PROTEIN, SERUM 6.4 g/dL (6.4-8.2)
[2021-10-08] MEDS ORDERED: MAGNESIUM HYDROXIDE SUSPENSION 30 ML UDCUP PO PRN (17:15)
[2021-10-08] MEDS ORDERED: MORPHINE SULFATE 2 MG/ML SYRINGE IVP PRN (17:15)
[2021-10-08] MEDS ORDERED: ONDANSETRON HCL 4 MG/2 ML VIAL IVP PRN (17:15)
[2021-10-08] MEDS ORDERED: OMEP20CA12 PO (17:15)
[2021-10-08] MEDS ORDERED: ACETAMINOPHEN 325 MG TABLET PO PRN (17:15)
[2021-10-08] MEDS ORDERED: ZOLPIDEM TARTRATE 5 MG TABLET PO PRN (17:15)
[2021-10-08] MEDS ORDERED: HYDROCODONE/ACETAMINOPHEN 5-325 MG TABLET PO PRN (17:15)
[2021-10-08] MEDS ORDERED: SODIUM CHLORIDE 0.45% 1,000 ML IV ONE (17:15)
[2021-10-08] MEDS ORDERED: TRAZ-252 PO (17:15)
[2021-10-08] MEDS ORDERED: BISACODYL 10 MG RECTAL RECTAL SUPPOSITORY PR PRN (17:15)
[2021-10-08] MEDS ORDERED: SODIUM CHLORIDE 0.9% 1,000 ML IV ONE (17:30)
[2021-10-08 18:47] VITALS: BP 98/64
[2021-10-08 20:02] VITALS: BP 101/60
[2021-10-08 20:53] LABS: ABG BASE EXCESS -0.9 mmol/L (-2.0-3.0); ABG CARBOXYHEMOGLOBIN 1.4 % (0.0-1.5); ABG HCO3 23.9 mmol/L (22.0-26.0); ABG METHEMOGLOBIN 0.3 % (0.0-1.5); ABG OXYGEN CONTENT 20.2 mL/dL (15.0-23.0); ABG OXYGEN SATURATION 95.8 % (95.0-98.0); ABG OXYHEMOGLOBIN 94.2 % (94.0-100.0); ABG PCO2 39 mmHg (35-45); ABG PH 7.405 (7.35-7.450); ABG TOTAL HEMOGLOBIN 15.2 G/dL (12.0-18.0); PO2, ARTERIAL BG 79.6 mmHg (75.0-83.0); SOURCE, BLOOD GAS ARTERIAL; TEMPERATURE, FAHRENHEIT, BG 98.1 FAHREN (96.0-98.6)
[2021-10-08 20:54] LABS: O2 DEVICE,BLOOD GAS NC (ROOM AIR); SITE, BLOOD GAS LFT RADIAL
[2021-10-08] MEDS: DOCUSATE SODIUM 100 MG CAPSULE PO SCH ×2 (20:58→21:00)
[2021-10-08 21:01] LABS: GLUCOMETER DEV NAME(LOC) 5S.2B; GLUCOSE,POINT OF CARE 133 MG/DL (70-110)
[2021-10-08 23:56] VITALS: BP 126/63
[2021-10-09 03:55] VITALS: BP 132/68
[2021-10-09] MEDS ORDERED: *CLINICAL-LEVOFLOXACIN IVPB DOSING CLINICAL ONE (06:30)
[2021-10-09] MEDS: LEVOTHYROXINE SODIUM 75 MCG TABLET PO SCH (06:57)
[2021-10-09 07:01] LABS: GLUCOMETER DEV NAME(LOC) 5S.2B; GLUCOSE,POINT OF CARE 183 MG/DL (70-110)
[2021-10-09] MEDS ORDERED: LEVOFLOXACIN 750 MG/D5% WATER 150 ML IV SCH (08:00)
[2021-10-09 08:17] VITALS: BP 120/75
[2021-10-09 08:42] LABS: BASOPHILS % (AUTO) 0.3 % (0.0-2.0); EOSINOPHILS % (AUTO) 1.1 % (1.0-6.0); HEMATOCRIT 41.3 % (41-53); HEMOGLOBIN 13.9 g/dL (13.5-17.5); LYMPHOCYTES # (AUTO) 1.6 K/uL (1.0-4.8); LYMPHOCYTES % (AUTO) 15.9 % (22.0-44.0); MEAN CORPUSCULAR HEMOGLOBIN 29.4 pg (26.0-34.0); MEAN CORPUSCULAR HGB CONC 33.7 G/dL (31.0-37.0); MEAN CORPUSCULAR VOLUME 87 fL (80-100); MONOCYTES # (AUTO) 0.7 K/uL (0.1-1.0); MONOCYTES % (AUTO) 6.6 % (2.0-9.0); NEUTROPHILS # (AUTO) 7.5 K/uL (1.8-7.7); NEUTROPHILS % (AUTO) 76.1 % (40.0-70.0); PLATELET COUNT (AUTO) 232 K/uL (150-450); RED BLOOD CELL COUNT(AUTO) 4.73 MIL/uL (4.50-5.90); RED CELL DISTRIBUTION WIDTH 16.4 % (11.5-14.5)
[2021-10-09 08:48] LABS: CALCIUM, TOTAL 8.7 mg/dL (8.8-10.5); CREATININE 1.39 mg/dL (0.60-1.30); POTASSIUM 3.7 mmol/L (3.5-5.1)
[2021-10-09] MEDS ORDERED: TIOTROPIUM BROMIDE 18 MCG/INH HANDIHALER [5] IH SCH (09:00)
[2021-10-09] MEDS: MethylPREDNISolone SOD SUCC 40 MG/ML VIAL IVP SCH ×2 (09:02→16:39)
[2021-10-09] MEDS: PANTOPRAZOLE SODIUM 40 MG DR TABLET PO SCH (09:03)
[2021-10-09] MEDS: DOCUSATE SODIUM 100 MG CAPSULE PO SCH ×2 (09:03→20:15)
[2021-10-09] MEDS: ATORVASTATIN CALCIUM 40 MG TABLET PO SCH (09:03)
[2021-10-09 11:57] VITALS: BP 117/71
[2021-10-09 16:10] VITALS: BP 121/60
[2021-10-09 20:13] LABS: APPEARANCE,URINE CLEAR (CLEAR); BILIRUBIN,URINE NEGATIVE (NEGATIVE); GLUCOSE, URINE (UA) NEGATIVE (NEGATIVE); KETONES,URINE NEGATIVE (NEGATIVE); LEUKOCYTE ESTERASE ,URINE NEGATIVE (NEGATIVE); NITRATE,URINE NEGATIVE (NEGATIVE); OCCULT BLOOD,URINE NEGATIVE (NEGATIVE); PROTEIN,URINE NEGATIVE (NEGATIVE); UROBILINOGEN,URINE 0.2 mg/dL (<=1.0)
[2021-10-09 20:20] LABS: AMPHET/METH SCREEN,URINE NEGATIVE (NEGATIVE); BARBITURATE SCREEN, URINE NEGATIVE (NEGATIVE); BENZODIAZEPINES SCREEN,URINE NEGATIVE (NEGATIVE); CANNABINOID SCREEN,URINE NEGATIVE (NEGATIVE); COCAINE SCREEN,URINE NEGATIVE (NEGATIVE); METHADONE SCREEN, URINE NEGATIVE (NEGATIVE); OPIATE SCREEN,URINE NEGATIVE (NEGATIVE)
[2021-10-09 20:24] VITALS: BP 137/84
[2021-10-09 20:24] LABS: PHENCYCLIDINE SCREEN,URINE NEGATIVE (NEGATIVE)
[2021-10-10 01:05] VITALS: BP 152/92
[2021-10-10 05:00] VITALS: BP 149/88
[2021-10-10] MEDS: LEVOTHYROXINE SODIUM 75 MCG TABLET PO SCH (06:30)
[2021-10-10 08:03] VITALS: BP 147/87
[2021-10-10] MEDS: ATORVASTATIN CALCIUM 40 MG TABLET PO SCH (08:23)
[2021-10-10] MEDS: PANTOPRAZOLE SODIUM 40 MG DR TABLET PO SCH (08:23)
[2021-10-10] MEDS: MethylPREDNISolone SOD SUCC 40 MG/ML VIAL IVP SCH ×3 (08:23→16:00)
[2021-10-10] MEDS: DOCUSATE SODIUM 100 MG CAPSULE PO SCH ×2 (08:24→21:34)
[2021-10-10 08:40] LABS: BASOPHILS % (AUTO) 0.4 % (0.0-2.0); EOSINOPHILS % (AUTO) 0.3 % (1.0-6.0); HEMATOCRIT 42.9 % (41-53); HEMOGLOBIN 14.5 g/dL (13.5-17.5); LYMPHOCYTES # (AUTO) 2.1 K/uL (1.0-4.8); LYMPHOCYTES % (AUTO) 17.6 % (22.0-44.0); MEAN CORPUSCULAR HEMOGLOBIN 29.6 pg (26.0-34.0); MEAN CORPUSCULAR HGB CONC 33.9 G/dL (31.0-37.0); MEAN CORPUSCULAR VOLUME 87 fL (80-100); MONOCYTES % (AUTO) 8.3 % (2.0-9.0); NEUTROPHILS # (AUTO) 8.6 K/uL (1.8-7.7); NEUTROPHILS % (AUTO) 73.4 % (40.0-70.0); PLATELET COUNT (AUTO) 261 K/uL (150-450); RED BLOOD CELL COUNT(AUTO) 4.91 MIL/uL (4.50-5.90); RED CELL DISTRIBUTION WIDTH 16.1 % (11.5-14.5)
[2021-10-10 08:50] LABS: CALCIUM, TOTAL 9.2 mg/dL (8.8-10.5); CREATININE 1.29 mg/dL (0.60-1.30); POTASSIUM 3.8 mmol/L (3.5-5.1)
[2021-10-10 12:00] VITALS: BP 134/89
[2021-10-10] MEDS: LEVOFLOXACIN 750 MG/D5% WATER 150 ML IV SCH (13:00)
[2021-10-10] MEDS ORDERED: GADOTERATE MEGLUMINE 10 MMOL/20 ML VIAL IVP ONE (15:35)
[2021-10-10 16:02] VITALS: BP 141/77
[2021-10-10 19:45] VITALS: BP 148/84
[2021-10-11] MEDS: MethylPREDNISolone SOD SUCC 40 MG/ML VIAL IVP SCH ×2 (01:03→08:11)
[2021-10-11 06:00] VITALS: BP 145/99
[2021-10-11] MEDS: LEVOTHYROXINE SODIUM 75 MCG TABLET PO SCH (06:30)
[2021-10-11 07:18] LABS: BASOPHILS % (AUTO) 0.5 % (0.0-2.0); EOSINOPHILS % (AUTO) 0.9 % (1.0-6.0); HEMATOCRIT 42.4 % (41-53); HEMOGLOBIN 14.7 g/dL (13.5-17.5); LYMPHOCYTES # (AUTO) 2.5 K/uL (1.0-4.8); LYMPHOCYTES % (AUTO) 27.2 % (22.0-44.0); MEAN CORPUSCULAR HEMOGLOBIN 30.1 pg (26.0-34.0); MEAN CORPUSCULAR HGB CONC 34.7 G/dL (31.0-37.0); MEAN CORPUSCULAR VOLUME 87 fL (80-100); MONOCYTES # (AUTO) 0.7 K/uL (0.1-1.0); MONOCYTES % (AUTO) 7.9 % (2.0-9.0); NEUTROPHILS # (AUTO) 5.8 K/uL (1.8-7.7); NEUTROPHILS % (AUTO) 63.5 % (40.0-70.0); PLATELET COUNT (AUTO) 254 K/uL (150-450); RED BLOOD CELL COUNT(AUTO) 4.89 MIL/uL (4.50-5.90); RED CELL DISTRIBUTION WIDTH 16.1 % (11.5-14.5)
[2021-10-11 07:21] LABS: CALCIUM, TOTAL 8.8 mg/dL (8.8-10.5); CREATININE 1.43 mg/dL (0.60-1.30)
[2021-10-11] MEDS: ATORVASTATIN CALCIUM 40 MG TABLET PO SCH (08:11)
[2021-10-11] MEDS: PANTOPRAZOLE SODIUM 40 MG DR TABLET PO SCH (08:11)
[2021-10-11] MEDS: DOCUSATE SODIUM 100 MG CAPSULE PO SCH (08:11)
[2021-10-11 08:56] LABS: GLUCOMETER DEV NAME(LOC) 6N.1; GLUCOSE,POINT OF CARE 173 MG/DL (70-110)
[2021-10-11] MEDS ORDERED: LEVO-72 PO (10:59)
[2021-10-11] MEDS: LEVOFLOXACIN 750 MG/D5% WATER 150 ML IV SCH (14:30)
[2021-10-11] MEDS ORDERED: SODIUM CHLORIDE 0.9% 250 ML IV ONE (14:32)
== END 2021-10-11 18:00 | disposition home or self-care (01) | DRG 70 ==
LOC: EMS 15:26 → 5S 16:35 → 6S 10-10 19:00
PROVIDERS: ADMIT Internal Medicine; ATTEND Internal Medicine
DX: G93.41 Metabolic encephalopathy (principal); J96.91 Respiratory failure, unspecified with hypoxia; J18.9 Pneumonia, unspecified organism; G45.9 Transient cerebral ischemic attack, unspecified; N17.9 Acute kidney failure, unspecified; J44.1 Chronic obstructive pulmonary disease with (acute) exacerbation; J44.0 Chronic obstructive pulmonary disease with (acute) lower respiratory infection; K21.9 Gastro-esophageal reflux disease without esophagitis; N40.0 Benign prostatic hyperplasia without lower urinary tract symptoms; I25.10 Atherosclerotic heart disease of native coronary artery without angina pectoris; I10 Essential (primary) hypertension; E11.9 Type 2 diabetes mellitus without complications; E03.9 Hypothyroidism, unspecified; E66.01 Morbid (severe) obesity due to excess calories; E78.00 Pure hypercholesterolemia, unspecified; E86.0 Dehydration; F25.0 Schizoaffective disorder, bipolar type; F43.10 Post-traumatic stress disorder, unspecified; M19.90 Unspecified osteoarthritis, unspecified site; Z53.20 Procedure and treatment not carried out because of patient's decision for unspecified reasons; R45.850 Homicidal ideations; Z87.891 Personal history of nicotine dependence; Z59.00 Homelessness unspecified; Z68.37 Body mass index [BMI] 37.0-37.9, adult; Z20.822 Contact with and (suspected) exposure to COVID-19; G92.8 Other toxic encephalopathy; T50.995A Adverse effect of other drugs, medicaments and biological substances, initial encounter
CPT/HCPCS: 36600; 70450; 70553; 71045; 80048; 80053; 81003; 82140; 82550; 82805; 82962; 83605; 83880; 84439; 84443; 84484; 85025; 85610; 85730; 92610; 93005; 93970; 99291; G0378; J1956; J2920; J7050; 36415-L1; 36415-TC